=== PATIENT | female | born 1940 | race Caucasian/White ===

== ENCOUNTER 2018-12-16 17:13 | Emergency (ER) | payer MEDICARE, OTHER ==
[~2018-12-16] VITALS: Ht 167.6 cm; Wt 124.7 kg
--- NOTE | 2018-12-16 17:59 | ED Upper Extremity ---
General Chief Complaint: Upper Extremity Stated Complaint: LT ARM PAIN Source: patient Exam Limitations: no limitations (BAMBI PADRON DO) History of Present Illness Date Seen by Provider: Dec 16, 2018 Time Seen by Provider: 17:54 Initial Comments Patient is 78-year-old right-handed female with history of bilateral rotator cuff surgery, severe peripheral neuropathy presents with his left forearm pain and tenderness. Patient denies injury to this region. Reports pain, tenderness with palpation range of motion and movement. Forearm is diffusely tender, pain has some localization radial aspect of the midforearm. Patient is taking ibuprofen 800 mg 3 times daily without relief of symptoms. Symptom onset was 2 days ago. Onset: last week Pain/Injury Location: left shoulder, left forearm Method of Injury: unknown Modifying Factors: Improves With Movement, Improves With Pain Medication (BAMBI PDARON DO) Allergies and Home Medications Allergies Coded Allergies: metronidazole (Unverified Adverse Reaction, Mild, N/V, 12/16/18) latex (Unverified Adverse Reaction, Unknown, hives, 12/16/18) Uncoded Allergies: LEVOFLOXACIN (Adverse Reaction, Mild, hives, itching, 12/16/18) Home Medications Gabapentin 300 Mg Capsule, 300 MG PO UD Take 1 pill by mouth in the morning and 1 pill at mid day, then 2 pills at bedtime. Prescribed by: ALESSANDRO JEAN on 12/16/182031 Ibuprofen 800 Mg Tablet, 800 MG PO TID PRN for PAIN-MILD TO MODERATE Prescribed by: ALESSANDRO JEAN on 12/16/182031 Patient Home Medication List Home Medication List Reviewed: Yes (BAMBI PADRON DO) Review of Systems Constitutional: see HPI EENTM: see HPI Respiratory: see HPI Cardiovascular: see HPI Genitourinary: see HPI Musculoskeletal: see HPI Skin: see HPI Psychiatric/Neurological: Anxiety (BAMBI PADRON DO) Past Nkdabne-Ovttfi-Oputxb Hx Past Med/Social Hx: Reviewed Nursing Past Med/Soc Hx (BAMBI PADRON DO) Patient Social History Alcohol Use: Rarely Uses Recreational Drug Use: No Smoking Status: Never a Smoker 2nd Hand Smoke Exposure: No Recent Foreign Travel: No Contact w/Someone Who Travel: No Recent Hopitalizations: No Physical Abuse: No Sexual Abuse: No Mistreated: No Fear: No (BAMBI PADRON DO) Seasonal Allergies Seasonal Allergies: No (BAMBI PADRON DO) Past Medical History Surgeries: Yes (CERVICAL DISC SURGERY, BILAT ROTATOR CUFF, FOOT SURGERY) Appendectomy, Gallbladder, Hysterectomy, Orthopedic Cardiac: No Neurological: Yes (SEVERE DIABETIC NEUROPATHY HANDS/FEET) Neuropathy Genitourinary: No Gastrointestinal: No Musculoskeletal: No Endocrine: No HEENT: No Cancer: No Psychosocial: No Integumentary: Yes (SORES AND SCABS GENERALIZED) Recent Skin Changes Blood Disorders: No (BAMBI PADRON DO) Physical Exam Vital Signs Vital Signs - First Documented 12/16/18 17:30 Temp 98.4 Pulse 82 Resp 20 B/P (MAP) 140/68 (92) Pulse Ox 95 O2 Delivery Room Air (ALESSANDRO JEAN MD) Vital Signs Capillary Refill : (BAMBI PADRON DO) Height, Weight, BMI Height: '" Weight: lbs. oz. kg; BMI Method: General Appearance: mild distress (secondary pain) HEENT: PERRL/EOMI, normal ENT inspection Neck: full range of motion Respiratory: lungs clear Gastrointestinal: soft Shoulder: limited ROM, pain Elbow/Forearm: Left (left forearm, no bruising abrasions or dork deformities. 4 Superficial abrasions over the extensor surface of that forearm. Extensive soft tissue pain, tenderness of the entire forearm with incrased pain over readial aspect of mid forearm,), abrasions, pain, soft tissue tenderness, swelling Wrist: Yes normal inspection ( dorsal surface. Neurovascularly intact) Hand: non-tender Neurologic/Psychiatric: alert (BAMBI PADRON DO) Progress/Results/Core Measures Results/Orders Lab Results Laboratory Tests Test 12/16/18 18:12 Range/Units White Blood Count 8.6 4.3-11.0 10^3/uL Red Blood Count 4.22 L 4.35-5.85 10^6/uL Hemoglobin 12.9 11.5-16.0 G/DL Hematocrit 39 35-52 % Mean Corpuscular Volume 93 80-99 FL Mean Corpuscular Hemoglobin 31 25-34 PG Mean Corpuscular Hemoglobin Concent 33 32-36 G/DL Red Cell Distribution Width 12.9 10.0-14.5 % Platelet Count 238 130-400 10^3/uL Mean Platelet Volume 9.8 7.4-10.4 FL Neutrophils (%) (Auto) 53 42-75 % Lymphocytes (%) (Auto) 34 12-44 % Monocytes (%) (Auto) 7 0-12 % Eosinophils (%) (Auto) 6 0-10 % Basophils (%) (Auto) 0 0-10 % Neutrophils # (Auto) 4.6 1.8-7.8 X 10^3 Lymphocytes # (Auto) 2.9 1.0-4.0 X 10^3 Monocytes # (Auto) 0.6 0.0-1.0 X 10^3 Eosinophils # (Auto) 0.5 H 0.0-0.3 10^3/uL Basophils # (Auto) 0.0 0.0-0.1 10^3/uL Sodium Level 144 135-145 MMOL/L Potassium Level 4.7 3.6-5.0 MMOL/L Chloride Level 103 98-107 MMOL/L Carbon Dioxide Level 29 21-32 MMOL/L Anion Gap 12 5-14 MMOL/L Blood Urea Nitrogen 23 H 7-18 MG/DL Creatinine 0.94 0.60-1.30 MG/DL Estimat Glomerular Filtration Rate 58 BUN/Creatinine Ratio 24 Glucose Level 295 H 70-105 MG/DL Calcium Level 9.4 8.5-10.1 MG/DL (ALESSANDRO JEAN MD) My Orders Orders - ALESSANDRO JEAN MD Ketorolac Injection (Toradol Injection) (12/16/18 20:30) Orthopedic Equiment (12/16/18 20:32) (ALESSANDRO JEAN MD) Medications Given in ED Current Medications Medications Dose Ordered Sig/Annie Route Start Time Stop Time Status Last Admin Dose Admin Ketorolac Tromethamine 60 mg ONCE ONCE IM 12/16/18 20:30 12/16/18 20:31 DC 12/16/18 20:38 60 MG Oxycodone HCl 10 mg ONCE ONCE PO 12/16/18 18:15 12/16/18 18:16 DC 12/16/18 18:00 10 MG (ALESSANDRO JEAN MD) Vital Signs/I&O 12/16/18 12/16/18 12/16/18 17:30 18:00 20:45 Temp 98.4 98.4 97.2 Pulse 82 72 Resp 20 18 B/P (MAP) 140/68 (92) 170/54 (92) Pulse Ox 95 93 O2 Delivery Room Air Room Air (ALESSANDRO JEAN MD) Progress Progress Note #1: Time: 18:00 Progress Note I assumed care from Dr. Padron at shift change. Patient has labs and xray pending. Progress Note #2: Time: 19:48 Progress Note When I went in to review results with the patient she states that the oxycodone was not helping with her pain at all. She was advised that the x-rays were not showing any acute bony injury. She also had no elevation of her white count show infection. Her electrolytes were all stable. She did have an elevated glucose over 300 but patient states that that's normal for her. I advised her that this is consistent with nerve pain. Whether she has flared up her pinched nerve in her neck or the rotator cuff injury but her neuropathy is seeming to cause the pain. I don't have any great medicines to control nerve pain. She is already on neurontin and I could try increasing that. I had a lengthy discussion of almost 30 minutes of reviewing possible treatments with her. She was tearful at times and said that she had little to no help at home. I advised her she may need to go to an assisted living facility. She seemed resistant to that. She also said that she could not get into the clinic easily. I advised her that what I can do to help from the ED was very limited and what I can do to try and help for this chronic issue in the ER was limited. I did give her some medicine to try and help short-term for tonight as well as a sling that might help as well as increasing her gabapentin or Neurontin. Beyond that when discussing possibly changing her medications she mentioned that she had allergies or reacted to other medicines that I brought up to her. At that point I told her that I really couldn't change her medicines and she would have to to work with the clinic if she has had allergies and reactions in the past. I also mentioned she might be able to see Pain management for nerve blocks or injections too. But again this would have to happen from the clinic. (ALESSANDRO JEAN MD) Diagnostic Imaging Diagonstic Imaging: Xray Plain Films/CT/US/NM/MRI: forearm Comments NAME: TOMAS TELLO [facility] REC#: [id number] PT STATUS: REG ER : 1940 PHYSICIAN: BAMBI PADRON DO ADMIT DATE: 12/16/18/ER FS Signed Date of Exam:12/16/18 FOREARM 2 VIEW LEFT INDICATION: Severe left arm pain. Time of exam: 5:54 PM Two views of the left forearm were obtained. The alignment at the elbow and wrist appears normal. No fracture or dislocation is seen. Soft tissues are unremarkable. IMPRESSION: No acute bony abnormality is detected. Dictated by: Dictated on workstation # [id number] Dict: 12/16/181807 Trans: 12/16/181814 [facility] [id number] Interpreted by: DELIO COATES MD Electronically signed by: DELIO COATES MD 12/16/181814 Reviewed: Reviewed by Me (ALESSANDRO JEAN MD) Departure Communication (Admissions) Patient's pain addressed. X-ray will be obtained to rule occult injury. Basic labs pending. Care endorsed oncoming ER. Routine 100. (BAMBI PADRON DO) Impression Primary Impression: Pain in left forearm Additional Impressions: Neuropathic pain of left forearm Diabetic neuropathy Qualified Codes: E10.42 - Type 1 diabetes mellitus with diabetic polyneuropathy Disposition: HOME, SELF-CARE Condition: Stable Departure-Patient Inst. Decision time for Depature: 20:25 (ALESSANDRO JEAN MD) Referrals: NO,LOCAL PHYSICIAN (PCP) Primary Care Physician Patient Instructions: Diabetic Neuropathy (DC), Nerve Damage Caused by Diabetes Add. Discharge Instructions: Increase your Gabapentin (Neurontin) from 300 mg three times a day to taking 600 mg or 2 pills at bedtime and the usual 300 mg in the morning and mid day. Continue with the Ibuprofen to help with pain and inflammation. See the clinic about follow up as they may need you to see Pain Management to get injections in your neck or shoulder to help with your pain as well. You could try the sling for your arm as well to see if resting your shoulder helps with your pain All discharge instructions reviewed with patient and/or family. Voiced understanding. Scripts Gabapentin (Gabapentin) 300 Mg Capsule 300 MG PO UD for Neuropathy Pain for 30 Days, #120 CAP 0 Refills Take 1 pill by mouth in the morning and 1 pill at mid day, then 2 pills at bedtime. Prov: ALESSANDRO JEAN MD 12/16/18 Ibuprofen (Ibuprofen) 800 Mg Tablet 800 MG PO TID PRN for PAIN-MILD TO MODERATE for 30 Days, #90 TAB 0 Refills Prov: ALESSANDRO JEAN MD 12/16/18 BAMBI PADRON DO Dec 16, 2018 17:59 ALESSANDRO JEAN MD Dec 16, 2018 18:21
[2018-12-16] MEDS ORDERED: oxyCODONE/APAP 10/325MG (PERCOCET 10) TABLET PO ONE (18:00)
--- NOTE | 2018-12-16 18:11 | Diagnostic Imaging Report ---
INDICATION: Severe left arm pain. Time of exam: 5:54 PM Two views of the left forearm were obtained. The alignment at the elbow and wrist appears normal. No fracture or dislocation is seen. Soft tissues are unremarkable. IMPRESSION: No acute bony abnormality is detected. Dictated by: Dictated on workstation # [id number]
[2018-12-16 18:19] LABS: BASOPHILS % (AUTO) 0 % (0-10); EOSINOPHILS % (AUTO) 6 % (0-10); HEMATOCRIT 39 % (35-52); HEMOGLOBIN 12.9 G/DL (11.5-16.0); LYMPHOCYTES # (AUTO) 2.9 X 10^3 (1.0-4.0); LYMPHOCYTES % (AUTO) 34 % (12-44); MEAN CORPUSCULAR HEMOGLOBIN 31 PG (25-34); MEAN CORPUSCULAR HGB CONC 33 G/DL (32-36); MEAN CORPUSCULAR VOLUME 93 FL (80-99); MEAN PLATELET VOLUME 9.8 FL (7.4-10.4); MONOCYTES # (AUTO) 0.6 X 10^3 (0.0-1.0); MONOCYTES % (AUTO) 7 % (0-12); NEUTROPHILS # (AUTO) 4.6 X 10^3 (1.8-7.8); NEUTROPHILS % (AUTO) 53 % (42-75); PLATELET COUNT 238 10^3/uL (130-400); RED CELL DISTRIBUTION WIDTH 12.9 % (10.0-14.5); WHITE BLOOD COUNT 8.6 10^3/uL (4.3-11.0)
[2018-12-16] MEDS ORDERED: POTA10TA36 (18:19)
[2018-12-16] MEDS ORDERED: IBUP-1780 (18:19)
[2018-12-16] MEDS ORDERED: INSU100I21 (18:19)
[2018-12-16] MEDS ORDERED: FLUT16SP22 (18:19)
[2018-12-16] MEDS ORDERED: LISI10TA2 (18:19)
[2018-12-16] MEDS ORDERED: LISI2.5T (18:19)
[2018-12-16] MEDS ORDERED: GABA-488 (18:19)
[2018-12-16 18:20] LABS: EOSINOPHILS # (AUTO) 0.5 10^3/uL (0.0-0.3)
[2018-12-16 18:50] LABS: CALCIUM 9.4 MG/DL (8.5-10.1); CREATININE SERUM 0.94 MG/DL (0.60-1.30); POTASSIUM 4.7 MMOL/L (3.6-5.0)
--- NOTE | 2018-12-16 19:00 | NUR ---
REPORT TO SERGIO DEJESUS.
[2018-12-16] MEDS ORDERED: KETOROLAC 60 MG/2 ML VIAL IM ONE (20:30)
[2018-12-16] MEDS ORDERED: GABA-488 PO (20:32)
[2018-12-16] MEDS ORDERED: IBUP-1780 PO (20:32)
[2018-12-16 20:45] VITALS: BP 170/54
== END 2018-12-16 21:08 | disposition home or self-care (01) ==
LOC: EDUNIT# 17:13 → ER FS 17:15
DX: M79.632 Pain in left forearm (principal); E11.40 Type 2 diabetes mellitus with diabetic neuropathy, unspecified; Z88.8 Allergy status to other drugs, medicaments and biological substances; Z91.040 Latex allergy status; Z88.1 Allergy status to other antibiotic agents; Z98.890 Other specified postprocedural states; Z90.710 Acquired absence of both cervix and uterus; Z90.49 Acquired absence of other specified parts of digestive tract
CPT/HCPCS: 36415; 73090; 80048; 85025

== ENCOUNTER → 2018-12-30 | Outpatient (CLI) | payer MEDICARE ==
[~2018-12-30] MED LIST: FLUT16SP22; GABA-488; GABA-488 PO; IBUP-1780; IBUP-1780 PO; INSU100I21; LISI10TA2; LISI2.5T; POTA10TA36
--- NOTE | 2018-12-30 15:31 | Diagnostic Imaging Report ---
INDICATION: Left elbow pain. AP, oblique, lateral views of left elbow are obtained. No fracture or acute bony abnormality seen. There is degenerative change to the elbow joint with joint space narrowing and osteophyte formation. There is no overt joint effusion. IMPRESSION: Degenerative findings left elbow with no acute bony abnormality. Dictated by: Dictated on workstation # [id number]
--- NOTE | 2018-12-30 15:36 | Diagnostic Imaging Report ---
INDICATION: Pain. FINDINGS: There are moderate osteoarthritic changes of the left glenohumeral joint. There is no fracture or dislocation. Left lung is clear. Soft tissues are unremarkable. IMPRESSION: Moderate osteoarthritic change of the glenohumeral joint. No acute fracture or dislocation. Dictated by: Dictated on workstation # [id number]
== END ==
LOC: RAD FS 14:46
PROVIDERS: ATTEND Nurse Practitioner Family
DX: M19.022 Primary osteoarthritis, left elbow (principal); M19.012 Primary osteoarthritis, left shoulder
CPT/HCPCS: 73060; 73080

== ENCOUNTER 2019-04-10 16:55 | Inpatient (IN) | payer MEDICARE ==
[~2019-04-10] VITALS: Ht 167.6 cm; Wt 124.1 kg
[~2019-04-10 16:55] MED LIST changes: -INSU100I21; +INSU100I21 SC; -LISI10TA2; +LISI10TA2 PO; -LISI2.5T; +LISI2.5T PO; -POTA10TA36; +POTA10TA36 PO
--- OUTSIDE RECORDS SUMMARY | 2019-04-10 17:00 | XMS REPORT | Continuity of Care Document ---
Author Organization Unknown Address Unknown Phone Unavailable Allergies Active Description Code Type Severity Reaction Onset Reported/Identified Relationship to Patient Clinical Status Yes LEVOFLOXACIN LEVOFLOXACIN Mild hives, itching 12/16/2018 Yes metronidazole [id number] Drug Allergy Mild N/V 12/16/2018 Yes latex [id number] Drug Allergy Unknown hives 12/16/2018 Yes latex [id number] Drug Allergy Unknown N/A 12/16/2018 Medications There is no data. Problems Date Dx Coded Attending Type Code Diagnosis Diagnosed By 12/16/2018 ALESSANDRO JEAN MD, Ot E11.40 TYPE 2 DIABETES MELLITUS WITH DIABETIC N 12/16/2018 ALESSANDRO JEAN MD, Ot M79.632 PAIN IN LEFT FOREARM 12/16/2018 ALESSANDRO JEAN MD, Ot Z88.1 ALLERGY STATUS TO OTHER ANTIBIOTIC AGENT 12/16/2018 ALESSANDRO JEAN MD, Ot Z88.8 ALLERGY STATUS TO OTH DRUG/MEDS/BIOL SUB 12/16/2018 ALESSANDRO JEAN MD Ot Z90.49 ACQUIRED ABSENCE OF OTHER SPECIFIED PART 12/16/2018 ALESSANDRO JEAN MD Ot Z90.710 ACQUIRED ABSENCE OF BOTH CERVIX AND UTER 12/16/2018 ALESSANDRO JEAN MD Ot Z91.040 LATEX ALLERGY STATUS 12/16/2018 ALESSANDRO JEAN MD Ot Z98.890 OTHER SPECIFIED POSTPROCEDURAL STATES 12/18/2018 ALESSANDRO JEAN MD, Ot E11.40 TYPE 2 DIABETES MELLITUS WITH DIABETIC N 12/18/2018 ALESSANDRO JEAN MD, Ot M79.632 PAIN IN LEFT FOREARM 12/18/2018 ALESSANDRO JEAN MD, Ot Z88.1 ALLERGY STATUS TO OTHER ANTIBIOTIC AGENT 12/18/2018 ALESSANDRO JEAN MD, Ot Z88.8 ALLERGY STATUS TO OTH DRUG/MEDS/BIOL SUB 12/18/2018 ALESSANDRO JEAN MD, Ot Z90.49 ACQUIRED ABSENCE OF OTHER SPECIFIED PART 12/18/2018 ALESSANDRO JEAN MD Ot Z90.710 ACQUIRED ABSENCE OF BOTH CERVIX AND UTER 12/18/2018 ALESSANDRO JEAN MD, Ot Z91.040 LATEX ALLERGY STATUS 12/18/2018 ALESSANDRO JEAN MD, Ot Z98.890 OTHER SPECIFIED POSTPROCEDURAL STATES 12/25/2018 ALESSANDRO JEAN MD, Ot E11.40 TYPE 2 DIABETES MELLITUS WITH DIABETIC N 12/25/2018 ALESSANDRO JEAN MD, Ot M79.632 PAIN IN LEFT FOREARM 12/25/2018 ALESSANDRO JEAN MD, Ot Z88.1 ALLERGY STATUS TO OTHER ANTIBIOTIC AGENT 12/25/2018 ALESSANDRO JEAN MD, Ot Z88.8 ALLERGY STATUS TO OTH DRUG/MEDS/BIOL SUB 12/25/2018 ALESSANDRO JEAN MD, Ot Z90.49 ACQUIRED ABSENCE OF OTHER SPECIFIED PART 12/25/2018 ALESSANDRO JEAN MD, Ot Z90.710 ACQUIRED ABSENCE OF BOTH CERVIX AND UTER 12/25/2018 ALESSANDRO JEAN MD, Ot Z91.040 LATEX ALLERGY STATUS 12/25/2018 ALESSANDRO JEAN MD, Ot Z98.890 OTHER SPECIFIED POSTPROCEDURAL STATES 12/31/2018 ALVINO KOHLER CYTOTECHNOLOGIST Ot M19.012 PRIMARY OSTEOARTHRITIS, LEFT SHOULDER 12/31/2018 ALVINO KOHLER S CYTOTECHNOLOGIST Ot M19.022 PRIMARY OSTEOARTHRITIS, LEFT ELBOW 01/20/2019 ALVINO KOHLER S CYTOTECHNOLOGIST Ot M19.012 PRIMARY OSTEOARTHRITIS, LEFT SHOULDER 01/20/2019 ALVINO KOHLER S CYTOTECHNOLOGIST Ot M19.022 PRIMARY OSTEOARTHRITIS, LEFT ELBOW Procedures There is no data. Results Test Result Range Complete blood count (CBC) with automated white blood cell (WBC) differential - 12/16/18 18:12 Blood leukocytes automated count (number/volume) 8.6 10*3/uL 4.3-11.0 Blood erythrocytes automated count (number/volume) 4.22 10*6/uL 4.35-5.85 Venous blood hemoglobin measurement (mass/volume) 12.9 g/dL 11.5-16.0 Blood hematocrit (volume fraction) 39 % 35-52 Automated erythrocyte mean corpuscular volume 93 [foz_us] 80-99 Automated erythrocyte mean corpuscular hemoglobin (mass per erythrocyte) 31 pg 25-34 Automated erythrocyte mean corpuscular hemoglobin concentration measurement (mass/volume) 33 g/dL 32-36 Automated erythrocyte distribution width ratio 12.9 % 10.0- 14.5 Automated blood platelet count (count/volume) 238 10*3/uL 130-400 Automated blood platelet mean volume measurement 9.8 [foz_us] 7.4-10.4 Automated blood neutrophils/100 leukocytes 53 % 42-75 Automated blood lymphocytes/100 leukocytes 34 % 12-44 Blood monocytes/100 leukocytes 7 % 0-12 Automated blood eosinophils/100 leukocytes 6 % 0-10 Automated blood basophils/100 leukocytes 0 % 0-10 Blood neutrophils automated count (number/volume) 4.6 10*3 1.8-7.8 Blood lymphocytes automated count (number/volume) 2.9 10*3 1.0-4.0 Blood monocytes automated count (number/volume) 0.6 10*3 0.0- 1.0 Automated eosinophil count 0.5 10*3/uL 0.0-0.3 Automated blood basophil count (count/volume) 0.0 10*3/uL 0.0-0.1 Whole blood basic metabolic panel - 12/16/18 18:12 Serum or plasma sodium measurement (moles/volume) 144 mmol/L 135-145 Serum or plasma potassium measurement (moles/volume) 4.7 mmol/L 3.6-5.0 Serum or plasma chloride measurement (moles/volume) 103 mmol/L 98-107 Carbon dioxide 29 mmol/L 21-32 Serum or plasma anion gap determination (moles/volume) 12 mmol/L 5-14 Serum or plasma urea nitrogen measurement (mass/volume) 23 mg/dL 7-18 Serum or plasma creatinine measurement (mass/volume) 0.94 mg/dL 0.60-1.30 Serum or plasma urea nitrogen/creatinine mass ratio 24 NRG Serum or plasma creatinine measurement with calculation of estimated glomerular filtration rate 58 NRG Serum or plasma glucose measurement (mass/volume) 295 mg/dL 70-105 Serum or plasma calcium measurement (mass/volume) 9.4 mg/dL 8.5-10.1 Encounters ACCT No. Visit Date/Time Discharge Status Pt. Type Provider Facility Loc./Unit Complaint [id number] 12/30/2018 14:46:00 12/30/2018 23:59:59 CLS Outpatient ALVINO KOHLER APRN [facility] RAD FS M79.622 M25.522 [id number] 12/16/2018 17:15:00 12/16/2018 21:08:00 DIS Emergency MIRANDA ENGLAND, ALESSANDRO Steel [facility] ER FS LT ARM PAIN [id number] 04/10/2019 16:56:00 ACT Emergency SINAI ALSTON DO [facility] ER FS SOB,COUGH,FEVER
--- NOTE | 2019-04-10 17:10 | ED Dyspnea ---
General Chief Complaint: Respiratory Problems Stated Complaint: SOB,COUGH,FEVER Source of Information: Patient, EMS Exam Limitations: No Limitations (ALECIA RAWLS DO) History of Present Illness Date Seen by Provider: Apr 10, 2019 Time Seen by Provider: 16:58 Initial Comments The patient is a pleasant 79-year-old female who arrives via EMS for evaluation of shortness of breath, cough, and wheezing for a few weeks. She arrives from urgent care where she presented for shortness of breath. She was noted to be wheezing and had an x-ray performed and was given a breathing treatment and steroids. The provider was concerned that the patient needed additional treatment and/or workup and called for EMS transport. EMS reports the patient was on 2 L nasal cannula oxygen when I arrived and never dropped below 97% oxygen. The patient was receiving a breathing treatment upon arrival in the emergency department. She denies chest pain, abdominal or back pain, diapho resis, nausea or vomiting, palpitations, dizziness, or syncope. She does report cough and fever over the last few days. She is a history of COPD, diabetes, and hypertension. Per EMS and the urgent care documentation the patient had been complaining of shortness of breath cough and wheezing over the last 2 weeks. She had been given a course of azithromycin, 2 doses of prednisone, and an inhaler but her symptoms have not been improving. She was given a breathing treatment as well as Solu- Medrol at the urgent care and the plan was to discharge her home. Apparently while she was in the waiting room she seemed to have more difficulty breathing and was tachypneic. EMS was called at that point. Timing/Duration: 24 Hours Severity: Moderate Activities at Onset: None Prior Episodes/Possible Cause: Occasional Episodes Modifying Factors: Improves With Albuterol Nebulizer Associated Symptoms: Cough, Fever, Wheezing (ALECIA RAWLS DO) Allergies and Home Medications Allergies Coded Allergies: metronidazole (Unverified Adverse Reaction, Mild, N/V, 12/16/18) latex (Unverified Adverse Reaction, Unknown, hives, 12/16/18) Uncoded Allergies: LEVOFLOXACIN (Adverse Reaction, Mild, hives, itching, 12/16/18) Home Medications Gabapentin 300 Mg Capsule, 300 MG PO UD Take 1 pill by mouth in the morning and 1 pill at mid day, then 2 pills at bedtime. Prescribed by: ALESSANDRO JEAN on 12/16/182031 Ibuprofen 800 Mg Tablet, 800 MG PO TID PRN for PAIN-MILD TO MODERATE Prescribed by: ALESSANDRO JEAN on 12/16/182031 Patient Home Medication List Home Medication List Reviewed: Yes (ALECIA RAWLS DO) Review of Systems Review of Systems Constitutional: fever EENTM: no symptoms reported Respiratory: cough, dyspnea on exertion, short of breath, wheezing Cardiovascular: no symptoms reported Gastrointestinal: no symptoms reported Genitourinary: no symptoms reported Musculoskeletal: no symptoms reported Skin: no symptoms reported Psychiatric/Neurological: No Symptoms Reported Hematologic/Lymphatic: No Symptoms Reported (ALECIA RAWLS DO) All Other Systems Reviewed Negative Unless Noted: Yes (ALECIA RAWLS DO) Past Sgsdhfq-Zzdqmp-Mavyrw Hx Patient Social History 2nd Hand Smoke Exposure: No Recent Foreign Travel: No Contact w/Someone Who Travel: No Recent Hopitalizations: No (ALECIA RAWLS DO) Seasonal Allergies Seasonal Allergies: Yes (ALLERGIC RHINITIS) (ALECIA RAWLS DO) Past Medical History Surgeries: Yes (CERVICAL DISC SURGERY, BILAT ROTATOR CUFF, FOOT SURGERY) Appendectomy, Gallbladder, Hysterectomy, Orthopedic Respiratory: Yes COPD Cardiac: Yes Hypertension Neurological: Yes (SEVERE DIABETIC NEUROPATHY HANDS/FEET, POST HERPETIC NEURALGIA) Neuropathy Genitourinary: No Gastrointestinal: No Musculoskeletal: No (OSTEOARTHRITIS) Endocrine: Yes (DM TYPE II, MORBID OBESITY) Diabetes, Insulin dep HEENT: No Cancer: No Psychosocial: Yes Depression Integumentary: Yes (SORES AND SCABS GENERALIZED) Recent Skin Changes, Psoriasis Blood Disorders: No (ALECIA RAWLS DO) Physical Exam Vital Signs Vital Signs - First Documented 04/10/19 04/10/19 16:59 17:15 Temp 98.4 Pulse 91 Resp 30 B/P (MAP) 124/56 (78) Pulse Ox 94 O2 Delivery Room Air FiO2 93 (ALESSANDRO JEAN MD) Vital Signs Capillary Refill : (ALECIA RAWLS DO) Height, Weight, BMI Height: 5'6.00" Weight: 275lbs. oz. 124.821718mh; BMI Method:Stated General Appearance: No Apparent Distress, WD/WN HEENT: PERRL/EOMI, Normal ENT Inspection Neck: Full Range of Motion, Normal Inspection, Non Tender, Supple Respiratory: Chest Non Tender, No Accessory Muscle Use, Respiratory Distress (mild), Wheezing Cardiovascular: Regular Rate, Rhythm, No JVD, Normal Peripheral Pulses Gastrointestinal: No Pulsatile Mass, Non Tender Extremity: Normal Capillary Refill, Non Tender, Pedal Edema (2+ b/l) Neurologic/Psychiatric: Alert, Oriented x3, No Motor/Sensory Deficits, Normal Mood/Affect, bond clerk II-XII Norm as Tested Skin: Normal Color, Warm/Dry Lymphatic: No Adenopathy (ALECIA RAWLS DO) Focused Exam Lactate Level 04/10/19 17:05: Lactic Acid Level 2.64*H (ALESSANDRO JEAN MD) Lactic Acid Level Laboratory Tests Test 04/10/19 17:05 Lactic Acid Level 2.64 MMOL/L (0.50-2.00) *H (ALESSANDRO JEAN MD) Progress/Results/Core Measures Results/Orders Lab Results Laboratory Tests Test 04/10/19 17:05 04/10/19 18:14 04/10/19 18:29 Range/Units White Blood Count 11.8 H 4.3-11.0 10^3/uL Red Blood Count 4.04 L 4.35-5.85 10^6/uL Hemoglobin 12.2 11.5-16.0 G/DL Hematocrit 38 35-52 % Mean Corpuscular Volume 93 80-99 FL Mean Corpuscular Hemoglobin 30 25-34 PG Mean Corpuscular Hemoglobin Concent 32 32-36 G/DL Red Cell Distribution Width 12.9 10.0-14.5 % Platelet Count 235 130-400 10^3/uL Mean Platelet Volume 10.0 7.4-10.4 FL Neutrophils (%) (Auto) 47 42-75 % Lymphocytes (%) (Auto) 40 12-44 % Monocytes (%) (Auto) 6 0-12 % Eosinophils (%) (Auto) 7 0-10 % Basophils (%) (Auto) 0 0-10 % Neutrophils # (Auto) 5.6 1.8-7.8 X 10^3 Lymphocytes # (Auto) 4.7 H 1.0-4.0 X 10^3 Monocytes # (Auto) 0.7 0.0-1.0 X 10^3 Eosinophils # (Auto) 0.8 H 0.0-0.3 10^3/uL Basophils # (Auto) 0.0 0.0-0.1 10^3/uL Sodium Level 142 135-145 MMOL/L Potassium Level 4.1 3.6-5.0 MMOL/L Chloride Level 101 98-107 MMOL/L Carbon Dioxide Level 27 21-32 MMOL/L Anion Gap 14 5-14 MMOL/L Blood Urea Nitrogen 28 H 7-18 MG/DL Creatinine 0.93 0.60-1.30 MG/DL Estimat Glomerular Filtration Rate 58 BUN/Creatinine Ratio 30 Glucose Level 258 H 70-105 MG/DL Lactic Acid Level 2.64 *H 0.50-2.00 MMOL/L Calcium Level 9.0 8.5-10.1 MG/DL Corrected Calcium 9.4 8.5-10.1 MG/DL Magnesium Level 1.8 1.8-2.4 MG/DL Total Bilirubin 0.2 0.1-1.0 MG/DL Aspartate Amino Transf (AST/SGOT) 25 5-34 U/L Alanine Aminotransferase (ALT/SGPT) 22 0-55 U/L Alkaline Phosphatase 106 40-136 U/L Troponin I < 0.30 <0.30 NG/ML Pro-B-Type Natriuretic Peptide 214.6 H <75.0 PG/ML Total Protein 6.3 L 6.4-8.2 GM/DL Albumin 3.5 3.2-4.5 GM/DL Blood Gas Puncture Site RT RAD Blood Gas Patient Temperature 38.9 Arterial Blood pH 7.44 H 7.37-7.43 Arterial Blood Partial Pressure CO2 44 35-45 MMHG Arterial Blood Partial Pressure O2 64 L 79-93 MMHG Arterial Blood HCO3 30 H 23-27 MMOL/L Arterial Blood Total CO2 31.3 H 21.0-31.0 MMOL/L Arterial Blood Oxygen Saturation 93 L 94-100 % Arterial Blood Base Excess 5.1 H -2.5-2.5 MMOL/L Chance Test YES-POS Blood Gas Ventilator Setting NO Blood Gas Inspired Oxygen ROOM AIR Urine Color YELLOW Urine Clarity CLEAR Urine pH 5.5 5-9 Urine Specific Morton 1.015 L 1.016-1.022 Urine Protein NEGATIVE NEGATIVE Urine Glucose (UA) 2+ H NEGATIVE Urine Ketones NEGATIVE NEGATIVE Urine Nitrite POSITIVE H NEGATIVE Urine Bilirubin NEGATIVE NEGATIVE Urine Urobilinogen 0.2 NORMAL MG/DL Urine Leukocyte Esterase NEGATIVE NEGATIVE Urine RBC (Auto) NEGATIVE NEGATIVE Urine RBC NONE /HPF Urine WBC 5-10 H /HPF Urine Squamous Epithelial Cells 5-10 /HPF Urine Crystals NONE /LPF Urine Bacteria LARGE H /HPF Urine Casts NONE /LPF Urine Mucus NEGATIVE /LPF Urine Culture Indicated YES (ALESSANDRO JEAN MD) My Orders Orders - ALESSANDRO JEAN MD Ua Culture If Indicated (04/10/19 18:22) Albuterol Pre-Mix Nebs (Rt) (Proventil (04/10/19 18:47) Svn Small Volume Nebulizer (04/10/19 18:47) Urine Culture (04/10/19 18:29) (ALESSANDRO JEAN MD) Medications Given in ED Current Medications Medications Dose Ordered Sig/Annie Route Start Time Stop Time Status Last Admin Dose Admin Albuterol/ Ipratropium 3 ml ONCE ONCE INH 04/10/19 17:45 04/10/19 17:47 DC 04/10/19 17:53 3 ML Azithromycin 500 mg/Sodium Chloride 250 ml @ 250 mls/hr ONCE ONCE IV 04/10/19 17:45 04/10/19 18:44 DC 04/10/19 18:02 250 MLS/HR Ceftriaxone Sodium 1000 mg/ Sterile Water 10 ml @ 200 mls/hr ONCE ONCE IV 04/10/19 17:45 04/10/19 17:47 DC 04/10/19 18:02 200 MLS/HR (ALESSANDRO JEAN MD) Vital Signs/I&O 04/10/19 04/10/19 16:59 17:15 Temp 98.4 Pulse 91 Resp 30 B/P (MAP) 124/56 (78) Pulse Ox 94 93 O2 Delivery Room Air Room Air FiO2 93 (ALESSANDRO JEAN MD) Progress Progress Note : Progress Note @1800 - Pt care transferred to Dr. Jean at this time. Awaiting pt's response to nebulized breathing treatment, antibiotic administration, and CXR. Pt stable at this time. (ALECIA RAWLS DO) Progress Note #1: Time: 18:00 Progress Note I assumed care of the patient from Dr. Rawls at shift change. Still waiting on ABG results. Labs show mild elevation of WBC but she has been on steroids recently. She had No acute findings on 2 view CXR. Her O2 sat is 91-93% on RA with some respiratory distress and breathing 22-24 breaths per minute. Progress Note #2: Time: 18:47 Progress Note When reviewed with the patient she was very winded with just minimal exertion and movement in the bed. She was stating that she uses oxygen when she sleeps at home. She does not feel that the steroids and antibiotics that she has used in the last 2 weeks had helped her and that is why she had gone to the urgent care today. She was still feeling very winded even with minimal exertion here in the ED and complains of chest tightness. Her blood gas was showing a normal pH and her PO2 was low at 63. Her PCO2 was in the normal range and not elevated. Since she has failed outpatient attempts to manage her COPD exacerbation will check with Hospitalist about admit for management of the COPD exacerbation. Progress Note #3: Time: 19:08 Progress Note D/w Dr. Knox as the Hospitalist for [facility] about admit. He requested to have her get a PE protocol CT chest to ensure that we are not missing anything on her chest that might be causing her shortness of breath since she had not responded to the outpatient treatments for the COPD. Provided that looks ok then she can be admitted for COPD exacerbation and UTI. I asked if he would want to have her on the Sepsis protocol with her mildly elevated Lactic acid and mild findings of Cystitis but he declined that for now. Progress Note #4: Time: 20:[address] Angio Chest came back as no PE seen. She does have some pulmonary nodules and some thyroid nodules that Radiology recommends having further evaluated at some point but these would not be causing her shortness of breath tonight. Will proceed with her admit for COPD exacerbation and Cystitis as discussed with Dr. Knox at 1908. She had complained of some indigestion and had some burping so a repeat ECG was obtained. It appeared similar to her initial ECG. She also complained of headache from her repeated coughing. so an order of morphine, zofran and Protonix was given in addition to 1 L NS bolus for her elevated lactic acid. This treatment had helped her symptoms. (ALESSANDRO JEAN MD) Comment EKG@1700 - Normal sinus rhythm, rate of 90, normal axis, no acute ischemic findings noted, no STEMI, reviewed and interpreted by myself (ALECIA RAWLS DO) EKG : EKG Time: 19:27 Rate: 100 Rhythm: S.Tach ECG Comparisson: Unchanged Comment Sinus tachycardia with a heart rate of 100 bpm. Atrial premature complexes. MI interval of 202 ms. QT interval 361 ms and a QT corrected interval 466 ms. Repolarization changes in the lateral leads. This appears similar to her first tracing from earlier today. (ALESSANDRO JEAN MD) Diagnostic Imaging Diagonstic Imaging: Xray Plain Films/CT/US/NM/MRI: chest Comments NAME: TOAMS TELLO [facility] REC#: [id number] PT STATUS: REG ER : 1940 PHYSICIAN: ALECIA RAWLS DO ADMIT DATE: 04/10/19/ER FS Draft Date of Exam:04/10/19 CHEST PA/LAT (2 VIEW) EXAMINATION: PA and lateral chest at 05:23 p.m. INDICATION: Shortness of breath. FINDINGS: There are no prior studies available for comparison. The heart size is within normal limits. There are a few crowded bronchovascular markings in both infrahilar regions, but there is no clear evidence for pneumonia or for a pleural effusion. There is no sign of failure either. The mediastinum not widened. The osseous structures are intact. IMPRESSION: There is no evidence for an acute cardiopulmonary abnormality. Dictated on workstation # [id number] Dict: 04/10/191750 Trans: 04/10/191753 [id number] Interpreted by: JACQUE MOE MD Electronically signed by: Diagonstic Imaging: CT Plain Films/CT/US/NM/MRI: chest Comments NAME: TOMAS TELLO [facility] REC#: [id number] PT STATUS: REG ER : 1940 PHYSICIAN: ALESSANDRO JEAN MD ADMIT DATE: 04/10/19/ER FS Draft Date of Exam:04/10/19 CT ANGIO CHEST W PROCEDURE: CT angiography of the chest with contrast. TECHNIQUE: Multiple contiguous axial images were obtained through the chest after uneventful bolus administration of intravenous contrast. 3D reconstructed CTA MIP acquisitions were also performed. Auto Exposure Controls were utilized during the CT exam to meet ALARA standards for radiation dose reduction. INDICATION: Shortness of air. COMPARISON: None FINDINGS: There is no CT evidence of acute pulmonary embolus to the first subsegmental division of the pulmonary arteries. Note is made of moderate calcified aortic and coronary atherosclerosis. There is also mild cardiomegaly. There is no large pericardial effusion. No pathologically enlarged or morphologically abnormal adenopathy is seen within the mediastinum, mellissa, nor axilla. Note is made of hypodense left thyroid lesion that measures 2.4 x 1.8 cm. Evaluation of the lung harper demonstrates no focal consolidation, large effusion, nor pneumothorax. There is mild dependent atelectasis posteriorly, right greater than left. 12 x 6 mm nodular densities identified within the lateral margins of the right lower lobe (image 63, series 2). Additional 4 and 5 mm subpleural micronodules are also noted within the lateral margins of the superior segment of the right lower lobe slightly more superiorly. A 4 mm juxtapleural micronodule is also noted within the lateral margins of the right upper lobe (image 36, series 2). Osseous structures show no acute abnormalities. Advanced degenerative changes of thoracic spine are noted. Included portions of the upper abdomen are unremarkable. IMPRESSION: 1. No CTA evidence of acute pulmonary embolus to the first subsegmental division of the pulmonary arteries. 2. Mild cardiomegaly. 3. Multiple right-sided pulmonary nodules and micronodules, largest of which is seen within the right lower lobe. Further characterization with CT/PET could be attempted given its size. If CT/PET is deferred, short interval three-month followup is recommended. 4. Left-sided thyroid nodule. Further characterization with dedicated thyroid sonogram is recommended and could be performed on a nonemergent basis. Dictated on workstation # [id number] Dict: 04/10/192011 Trans: 04/10/192022 [facility] [id number] Interpreted by: ZEINA GARCIA MD Electronically signed by: (ALESSANDRO JEAN MD) Departure Communication (Admissions) Time/Spoke to Admitting Phy: 19:08 D/w Dr. Knox and provided that the CT angio chest PE protocol does not show a PE she could be admitted for COPD exacerbation and UTI. (ALESSANDRO JEAN MD) Impression Primary Impression: COPD with acute exacerbation Additional Impressions: Elevated lactic acid level Cystitis without hematuria Disposition: ADMITTED INPATIENT Condition: Stable Admissions Decision to Admit Reason: Admit from ER (General) Decision to Admit/Date: Apr 10, 2019 Time/Decision to Admit Time: 19:08 (ALESSANDRO JEAN MD) Departure-Patient Inst. Ref[place]: [facility] [place]) Primary Care Physician ALVINO KOHLER APRN (Family) Primary Care Physician ALCEIA RAWLS DO Apr 10, 2019 17:10 ALESSANDRO JEAN MD Apr 10, 2019 18:17
[2019-04-10 17:22] LABS: HEMATOCRIT 38 % (35-52); HEMOGLOBIN 12.2 G/DL (11.5-16.0); MEAN CORPUSCULAR HEMOGLOBIN 30 PG (25-34); MEAN CORPUSCULAR HGB CONC 32 G/DL (32-36); MEAN CORPUSCULAR VOLUME 93 FL (80-99); PLATELET COUNT 235 10^3/uL (130-400); RED CELL DISTRIBUTION WIDTH 12.9 % (10.0-14.5); WHITE BLOOD COUNT 11.8 10^3/uL (4.3-11.0)
[2019-04-10 17:23] LABS: BASOPHILS % (AUTO) 0 % (0-10); EOSINOPHILS # (AUTO) 0.8 10^3/uL (0.0-0.3); EOSINOPHILS % (AUTO) 7 % (0-10); LYMPHOCYTES # (AUTO) 4.7 X 10^3 (1.0-4.0); LYMPHOCYTES % (AUTO) 40 % (12-44); MONOCYTES # (AUTO) 0.7 X 10^3 (0.0-1.0); MONOCYTES % (AUTO) 6 % (0-12); NEUTROPHILS # (AUTO) 5.6 X 10^3 (1.8-7.8); NEUTROPHILS % (AUTO) 47 % (42-75)
[2019-04-10] MEDS ORDERED: AZITHROMYCIN INJECTION 500 MG in NS (IVPB) 250 ML IV ONE (17:45)
[2019-04-10] MEDS ORDERED: RT-ALBUTEROL/IPRATROPIUM 3 ML (DUONEB) VIAL INH ONE (17:45)
[2019-04-10] MEDS ORDERED: cefTRIAXone FOR IV USE 1,000 MG in WATER (STERILE) FOR INJECTION 10 ML IV ONE (17:45)
[2019-04-10] MEDS ORDERED: NS IV 1000 ML 1,000 ML IV SCH ×2 (17:45→20:00)
--- NOTE | 2019-04-10 17:45 | NUR ---
PT REQUESTED STAFF CALL HER SON TO INFORM HIM THAT SHE IN IN THE ED. ATTEMPTS X4 TO CALL THE NUMBER GIVEN BY PT AND THE SON HAS NOT ANSWERED THE PHONE. PT INFORMED THAT WE WILL CONTINUE TO TRY AND CONTACT HIM.
[2019-04-10 17:51] LABS: CHLORIDE 101 MMOL/L (98-107); POTASSIUM 4.1 MMOL/L (3.6-5.0); SODIUM 142 MMOL/L (135-145)
[2019-04-10 17:52] LABS: ALANINE AMINOTRANSFERASE 22 U/L (0-55); ALKALINE PHOSPHATASE 106 U/L (40-136); BILIRUBIN,TOTAL 0.2 MG/DL (0.1-1.0); BUN/CREATININE RATIO 30; CARBON DIOXIDE 27 MMOL/L (21-32); CREATININE SERUM 0.93 MG/DL (0.60-1.30); GFR ESTIMATED 58; GLUCOSE 258 MG/DL (70-105); MAGNESIUM 1.8 MG/DL (1.8-2.4)
[2019-04-10 17:53] LABS: ALBUMIN 3.5 GM/DL (3.2-4.5); TOTAL PROTEIN 6.3 GM/DL (6.4-8.2)
--- NOTE | 2019-04-10 17:55 | Diagnostic Imaging Report ---
EXAMINATION: PA and lateral chest at 05:23 p.m. INDICATION: Shortness of breath. FINDINGS: There are no prior studies available for comparison. The heart size is within normal limits. There are a few crowded bronchovascular markings in both infrahilar regions, but there is no clear evidence for pneumonia or for a pleural effusion. There is no sign of failure either. The mediastinum not widened. The osseous structures are intact. IMPRESSION: There is no evidence for an acute cardiopulmonary abnormality. Dictated by: Dictated on workstation # [id number]
[2019-04-10 18:31] LABS: ABG BASE EXCESS 5.1 MMOL/L (-2.5-2.5); ABG OXYGEN SATURATION 93 % (94-100); ABG PCO2 44 MMHG (35-45); ABG PH 7.44 (7.37-7.43); ABG PO2 64 MMHG (79-93); ABG TCO2 31.3 MMOL/L (21.0-31.0); ALLENS TEST YES-POS; INSPIRED O2 ROOM AIR; PATIENT TEMP 38.9; VENTILATOR NO
--- NOTE | 2019-04-10 18:35 | NUR ---
IN ROOM TO DISCUSS TRANSFER TO [facility]. PT CONTINUES TO STATE CONCERN THAT HER SON DOES NOT KNOW WHERE SHE IS AT. ANOTHER ATTEMPT TO CONTACT AT THIS TIME WITH NO SUCCESS.
[2019-04-10] MEDS ORDERED: RT-ALBUTEROL SULF 2.5 MG/3 ML PRE-MIX VIAL INH STA (18:47)
--- NOTE | 2019-04-10 18:47 | NUR ---
[employer] CONTACTED TO HELP LOCATE PT'S SON TO NOTIFIY HIM THAT SHE WILL BE ADMITTED TO [facility].
[2019-04-10 18:48] LABS: BACTERIA,URINE LARGE /HPF; BILIRUBIN,URINE NEGATIVE (NEGATIVE); CLARITY,URINE CLEAR; COLOR,URINE YELLOW; GLUCOSE, URINE (UA) 2+ (NEGATIVE); KETONES,URINE NEGATIVE (NEGATIVE); LEUKOCYTE ESTERASE ,URINE NEGATIVE (NEGATIVE); NITRITE,URINE POSITIVE (NEGATIVE); PH,URINE 5.5 (5-9); PROTEIN,URINE NEGATIVE (NEGATIVE); UROBILINOGEN,URINE 0.2 MG/DL (NORMAL)
[2019-04-10] MEDS ORDERED: IOHEXOL 350 MG/ML 150 ML (OMNIPAQUE 350) VIAL IV ONE (19:30)
[2019-04-10] MEDS ORDERED: NS 100 ML (IVPB) BAG IV ONE (19:30)
[2019-04-10] MEDS ORDERED: HOLD METFORMIN - RECEIVED CONTRAST 20 ML VIAL IV SCH (19:30)
[2019-04-10 19:35] VITALS: BP 109/45
[2019-04-10] MEDS ORDERED: PANTOPRAZOLE 40 MG (PROTONIX) VIAL IV STA (20:20)
[2019-04-10] MEDS ORDERED: morphine INJ 10 MG/ML 1ML (SYR OR VIAL) IVP STA (20:20)
[2019-04-10] MEDS ORDERED: ONDANSETRON 4 MG/2 ML (SDV) Z0FRAN IVP STA (20:20)
--- NOTE | 2019-04-10 20:23 | Diagnostic Imaging Report ---
PROCEDURE: CT angiography of the chest with contrast. TECHNIQUE: Multiple contiguous axial images were obtained through the chest after uneventful bolus administration of intravenous contrast. 3D reconstructed CTA MIP acquisitions were also performed. Auto Exposure Controls were utilized during the CT exam to meet ALARA standards for radiation dose reduction. INDICATION: Shortness of air. COMPARISON: None FINDINGS: There is no CT evidence of acute pulmonary embolus to the first subsegmental division of the pulmonary arteries. Note is made of moderate calcified aortic and coronary atherosclerosis. There is also mild cardiomegaly. There is no large pericardial effusion. No pathologically enlarged or morphologically abnormal adenopathy is seen within the mediastinum, mellissa, nor axilla. Note is made of hypodense left thyroid lesion that measures 2.4 x 1.8 cm. Evaluation of the lung harper demonstrates no focal consolidation, large effusion, nor pneumothorax. There is mild dependent atelectasis posteriorly, right greater than left. 12 x 6 mm nodular densities identified within the lateral margins of the right lower lobe (image 63, series 2). Additional 4 and 5 mm subpleural micronodules are also noted within the lateral margins of the superior segment of the right lower lobe slightly more superiorly. A 4 mm juxtapleural micronodule is also noted within the lateral margins of the right upper lobe (image 36, series 2). Osseous structures show no acute abnormalities. Advanced degenerative changes of thoracic spine are noted. Included portions of the upper abdomen are unremarkable. IMPRESSION: 1. No CTA evidence of acute pulmonary embolus to the first subsegmental division of the pulmonary arteries. 2. Mild cardiomegaly. 3. Multiple right-sided pulmonary nodules and micronodules, largest of which is seen within the right lower lobe. Further characterization with CT/PET could be attempted given its size. If CT/PET is deferred, short interval three-month followup is recommended. 4. Left-sided thyroid nodule. Further characterization with dedicated thyroid sonogram is recommended and could be performed on a nonemergent basis. Dictated by: Dictated on workstation # [id number]
[2019-04-10 22:00] VITALS: BP 132/60
--- OUTSIDE RECORDS SUMMARY | 2019-04-10 22:14 | XMS REPORT | Continuity of Care Document ---
Author Organization Unknown Address Unknown Phone Unavailable Allergies Active Description Code Type Severity Reaction Onset Reported/Identified Relationship to Patient Clinical Status Yes LEVOFLOXACIN LEVOFLOXACIN Mild hives, itching 12/16/2018 Yes metronidazole [id number] Drug Allergy Mild N/V 12/16/2018 Yes latex [id number] Drug Allergy Unknown hives 12/16/2018 Yes latex [id number] Drug Allergy Unknown N/A 12/16/2018 Medications There [...] OTHER SPECIFIED POSTPROCEDURAL STATES 12/31/2018 ALVINO KOHLER RESEARCH SOFTWARE ENGINEER Ot M19.012 PRIMARY OSTEOARTHRITIS, LEFT SHOULDER 12/31/2018 ALVINO KOHLER S RESEARCH SOFTWARE ENGINEER Ot M19.022 PRIMARY OSTEOARTHRITIS, LEFT ELBOW 01/20/2019 ALVINO KOHLER S RESEARCH SOFTWARE ENGINEER Ot M19.012 PRIMARY OSTEOARTHRITIS, LEFT SHOULDER 01/20/2019 ALVINO KOHLER S RESEARCH SOFTWARE ENGINEER Ot M19.022 PRIMARY OSTEOARTHRITIS, LEFT ELBOW Procedures [...] plasma calcium measurement (mass/volume) 9.4 mg/dL 8.5-10.1 Complete blood count (CBC) with automated white blood cell (WBC) differential - 04/10/19 17:05 Blood leukocytes automated count (number/volume) 11.8 10*3/uL 4.3-11.0 Blood erythrocytes automated count (number/volume) 4.04 10*6/uL 4.35-5.85 Venous blood hemoglobin measurement (mass/volume) 12.2 g/dL 11.5-16.0 Blood hematocrit (volume fraction) 38 % 35-52 Automated erythrocyte mean corpuscular volume 93 [foz_us] 80-99 Automated erythrocyte mean corpuscular hemoglobin (mass per erythrocyte) 30 pg 25-34 Automated erythrocyte mean corpuscular hemoglobin concentration measurement (mass/volume) 32 g/dL 32-36 Automated erythrocyte distribution width ratio 12.9 % 10.0- 14.5 Automated blood platelet count (count/volume) 235 10*3/uL 130-400 Automated blood platelet mean volume measurement 10.0 [foz_us] 7.4-10.4 Automated blood neutrophils/100 leukocytes 47 % 42-75 Automated blood lymphocytes/100 leukocytes 40 % 12-44 Blood monocytes/100 leukocytes 6 % 0-12 Automated blood eosinophils/100 leukocytes 7 % 0-10 Automated blood basophils/100 leukocytes 0 % 0-10 Blood neutrophils automated count (number/volume) 5.6 10*3 1.8-7.8 Blood lymphocytes automated count (number/volume) 4.7 10*3 1.0-4.0 Blood monocytes automated count (number/volume) 0.7 10*3 0.0- 1.0 Automated eosinophil count 0.8 10*3/uL 0.0-0.3 Automated blood basophil count (count/volume) 0.0 10*3/uL 0.0-0.1 Blood lactic acid measurement (moles/volume) - 04/10/19 17:05 Blood lactic acid measurement (moles/volume) 2.64 mmol/L 0.50- 2.00 Comprehensive metabolic panel - 04/10/19 17:05 Serum or plasma sodium measurement (moles/volume) 142 mmol/L 135-145 Serum or plasma potassium measurement (moles/volume) 4.1 mmol/L 3.6-5.0 Serum or plasma chloride measurement (moles/volume) 101 mmol/L 98-107 Carbon dioxide 27 mmol/L 21-32 Serum or plasma anion gap determination (moles/volume) 14 mmol/L 5-14 Serum or plasma urea nitrogen measurement (mass/volume) 28 mg/dL 7-18 Serum or plasma creatinine measurement (mass/volume) 0.93 mg/dL 0.60-1.30 Serum or plasma urea nitrogen/creatinine mass ratio 30 NRG Serum or plasma creatinine measurement with calculation of estimated glomerular filtration rate 58 NRG Serum or plasma glucose measurement (mass/volume) 258 mg/dL 70-105 Serum or plasma calcium measurement (mass/volume) 9.0 mg/dL 8.5-10.1 Serum or plasma total bilirubin measurement (mass/volume) 0.2 mg/dL 0.1-1.0 Serum or plasma alkaline phosphatase measurement (enzymatic activity/volume) 106 U/L 40-136 Serum or plasma aspartate aminotransferase measurement (enzymatic activity/volume) 25 U/L 5-34 Serum or plasma alanine aminotransferase measurement (enzymatic activity/volume) 22 U/L 0-55 Serum or plasma protein measurement (mass/volume) 6.3 g/dL 6.4-8.2 Serum or plasma albumin measurement (mass/volume) 3.5 g/dL 3.2-4.5 CALCIUM CORRECTED 9.4 mg/dL 8.5-10.1 Magnesium - 04/10/19 17:05 Magnesium 1.8 mg/dL 1.8-2.4 Serum or plasma troponin i.cardiac measurement (mass/volume) - 04/10/19 17:05 Serum or plasma troponin i.cardiac measurement (mass/volume) < ng/mL <0.30 PROBNP FS - 04/10/19 17:05 PROBNP FS 214.6 pg/mL <75.0 Arterial blood gas measurement - 04/10/19 18:14 Blood pCO2 44 mm[Hg] 35-45 Blood pO2 64 mm[Hg] 79-93 Arterial blood bicarbonate measurement (moles/volume) 30 mmol/L 23-27 Arterial blood base excess by calculation 5.1 mmol/L -2.5-2.5 Arterial blood oxygen saturation measurement 93 % 94-100 * Inhaled oxygen flow rate ROOM AIR NRG Arterial blood pH measurement with patient temperature correction 7.44 7.37-7.43 Arterial blood carbon dioxide, total measurement (moles/volume) 31.3 mmol/L 21.0-31.0 Body site RT RAD NRG Assessment of wrist artery patency prior to arterial puncture YES-POS NRG Setting of ventilation mode NO NRG Measurement of body temperature 38.9 NRG Complete urinalysis with reflex to culture - 04/10/19 18:29 Urine color determination YELLOW NRG Urine clarity determination CLEAR NRG Urine pH measurement by test strip 5.5 5-9 Specific gravity of urine by test strip 1.015 1.016-1.022 Urine protein assay by test strip, semi-quantitative NEGATIVE NEGATIVE Urine glucose detection by automated test strip 2+ NEGATIVE Erythrocytes detection in urine sediment by light microscopy NEGATIVE NEGATIVE Urine ketones detection by automated test strip NEGATIVE NEGATIVE Urine nitrite detection by test strip POSITIVE NEGATIVE Urine total bilirubin detection by test strip NEGATIVE NEGATIVE Urine urobilinogen measurement by automated test strip (mass/volume) 0.2 mg/dL NORMAL Urine leukocyte esterase detection by dipstick NEGATIVE NEGATIVE Automated urine sediment erythrocyte count by microscopy (number/high power field) NONE NRG Automated urine sediment leukocyte count by microscopy (number/high power field) [HPF] NRG Bacteria detection in urine sediment by light microscopy LARGE NRG Squamous epithelial cells detection in urine sediment by light microscopy 5-10 NRG Crystals detection in urine sediment by light microscopy NONE NRG Casts detection in urine sediment by light microscopy NONE NRG Mucus detection in urine sediment by light microscopy NEGATIVE NRG Complete urinalysis with reflex to culture YES NRG Encounters ACCT No. Visit Date/Time Discharge Status Pt. Type Provider Facility Loc./Unit Complaint [id number] 12/30/2018 14:46:00 12/30/2018 23:59:59 CLS Outpatient ALVINO KOHLER APRN [facility] RAD FS M79.622 M25.522 [id number] 12/16/2018 17:15:00 12/16/2018 21:08:00 DIS Emergency ALESSANDRO JEAN MD [facility] ER FS LT ARM PAIN [id number] 04/10/2019 16:56:00 ACT Emergency ALESSANDRO JEAN MD [facility] ER FS SOB,COUGH,FEVER
[2019-04-10] MEDS ORDERED: ONDANSETRON 4 MG/2 ML (SDV) Z0FRAN IV PRN (22:45)
[2019-04-11] VITALS (25 sets, daily range): BP systolic 17–151; BP diastolic 45–96
--- NOTE | 2019-04-11 01:30 | NUR ---
Pt states that she feeling funny. states shaky like sugar is out of control. fsbs 507.
--- NOTE | 2019-04-11 02:00 | NUR ---
Dr Knox notified of High blood sugar. orders to transfer to ICU and start insulin gtt.
--- NOTE | 2019-04-11 02:32 | NUR ---
attempted to call son to notify him of transfer to ICU. message left to call hospital and ask for this nurse
--- NOTE | 2019-04-11 02:45 | NUR ---
pt transferred to ICU per wc. belonging sent with pt and airplane flight attendant supervisor.
[2019-04-11] MEDS ORDERED: NORMAL SALINE 250 ML ONE (02:59)
[2019-04-11] MEDS ORDERED: inSUlin REGULAR TPN/DRIP ONLY 250 UNITS in NORMAL SALINE 250 ML IV SCH (03:00)
[2019-04-11] MEDS ORDERED: inSUlin (REGULAR) HUMAN 1 UNIT/0.01 ML (CHARGE PER UNIT) IV ONE (03:00)
[2019-04-11] MEDS ORDERED: RT-ALBUTEROL/IPRATROPIUM 3 ML (DUONEB) VIAL INH PRN (03:00)
[2019-04-11] MEDS: NS IV 1000 ML 1,000 ML IV SCH ×4 (03:15→23:32)
[2019-04-11 03:56] LABS: BASOPHILS % (AUTO) 0 % (0-10); EOSINOPHILS % (AUTO) 0 % (0-10); HEMATOCRIT 35 % (35-52); HEMOGLOBIN 11.3 G/DL (11.5-16.0); LYMPHOCYTES # (AUTO) 0.9 X 10^3 (1.0-4.0); LYMPHOCYTES % (AUTO) 10 % (12-44); MEAN CORPUSCULAR HEMOGLOBIN 30 PG (25-34); MEAN CORPUSCULAR HGB CONC 32 G/DL (32-36); MEAN CORPUSCULAR VOLUME 93 FL (80-99); MEAN PLATELET VOLUME 10.1 FL (7.4-10.4); MONOCYTES % (AUTO) 0 % (0-12); NEUTROPHILS # (AUTO) 7.5 X 10^3 (1.8-7.8); NEUTROPHILS % (AUTO) 89 % (42-75); PLATELET COUNT 195 10^3/uL (130-400); RED CELL DISTRIBUTION WIDTH 13.2 % (10.0-14.5); WHITE BLOOD COUNT 8.4 10^3/uL (4.3-11.0)
[2019-04-11 04:16] LABS: CALCIUM 8.5 MG/DL (8.5-10.1); CREATININE SERUM 1.32 MG/DL (0.60-1.30); MAGNESIUM 1.7 MG/DL (1.8-2.4); PHOSPHORUS 3.1 MG/DL (2.3-4.7); POTASSIUM 4.5 MMOL/L (3.6-5.0)
[2019-04-11] MEDS: KCL 20 MEQ TAB (K-DUR) PO SCH (05:45)
[2019-04-11] MEDS: MAGNESIUM 1 GM/100 ML IVPB 100 ML IV SCH ×3 (05:45→07:17)
[2019-04-11] MEDS: POTASSIUM CL 10MEQ/50ML IVPB 50 ML IV SCH (05:45)
--- NOTE | 2019-04-11 06:28 | Pulmonary Consultation ---
History of Present Illness History of Present Illness Date of Consultation 04/11/19 06:22 Time Seen by Provider: 06:40 Date of Admission History of Present Illness 79yo presented via EMS to ED secondary to worsening SOB, wheezing. Allergies and Home Medications Allergies Coded Allergies: metronidazole (Unverified Adverse Reaction, Mild, N/V, 12/16/18) latex (Unverified Adverse Reaction, Unknown, hives, 12/16/18) Uncoded Allergies: LEVOFLOXACIN (Adverse Reaction, Mild, hives, itching, 12/16/18) Home Medications Gabapentin 300 Mg Capsule, 300 MG PO UD Take 1 pill by mouth in the morning and 1 pill at mid day, then 2 pills at bedtime. Prescribed by: ALESSANDRO JEAN on 12/16/182031 Ibuprofen 800 Mg Tablet, 800 MG PO TID PRN for PAIN-MILD TO MODERATE Prescribed by: ALESSANDRO HAIRSTONRT on 12/16/182031 Past Vwswbtj-Qribnb-Vxsivt Hx Patient Social History Alcohol Use: Denies Use Recreational Drug Use: No 2nd Hand Smoke Exposure: No Recent Foreign Travel: No Contact w/Someone Who Travel: No Recent Infectious Disease Expo: No Recent Hopitalizations: No Physical Abuse: No Sexual Abuse: No Mistreated: No Fear: No Seasonal Allergies Seasonal Allergies: Yes (ALLERGIC RHINITIS) Past Medical History Surgeries: Yes (CERVICAL DISC SURGERY, BILAT ROTATOR CUFF, FOOT SURGERY) Appendectomy, Gallbladder, Hysterectomy, Orthopedic Respiratory: Yes COPD Cardiac: Yes Hypertension Neurological: Yes (SEVERE DIABETIC NEUROPATHY HANDS/FEET, POST HERPETIC NEURALGIA) Neuropathy Genitourinary: No Gastrointestinal: No Musculoskeletal: Yes (OSTEOARTHRITIS) Endocrine: Yes (DM TYPE II, MORBID OBESITY) Diabetes, Insulin dep HEENT: No Loss of Vision: Denies Hearing Impairment: Denies Cancer: No Psychosocial: Yes Depression Integumentary: Yes (SORES AND SCABS GENERALIZED) Recent Skin Changes, Psoriasis Blood Disorders: No Sepsis Event Evaluation Height, Weight, BMI Height: 5'6.00" Weight: 264lbs. 0.0oz. 119.053483rd; 42.6 BMI Method:Stated Exam Exam Vital Signs Date Time Temp Pulse Resp B/P (MAP) Pulse Ox O2 Delivery O2 Flow Rate FiO2 04/11/19 06:00 74 18 102/45 (64) 95 Nasal Cannula 1.00 04/11/19 05:00 87 17 112/60 (77) 95 Nasal Cannula 1.00 04/11/19 04:45 88 19 126/55 (78) 95 Nasal Cannula 1.00 04/11/19 04:30 88 18 124/65 (84) 94 Nasal Cannula 1.00 04/11/19 04:15 91 22 134/64 (87) 97 Nasal Cannula 1.00 04/11/19 03:51 97.0 94 18 137/73 (94) 97 Nasal Cannula 1.00 04/11/19 02:26 104 100 28 04/11/19 01:00 93 04/11/19 00:25 97.4 93 19 107/54 (71) 97 Nasal Cannula 2.00 04/10/19 23:59 Nasal Cannula 2.00 04/10/19 23:34 98 04/10/19 22:15 Nasal Cannula 2.00 04/10/19 22:00 97.4 104 20 132/60 (84) 100 Nasal Cannula 2.00 04/10/19 22:00 97.4 104 20 132/60 100 Nasal Cannula 2.00 04/10/19 21:03 98 20 119/53 (75) 98 Nasal Cannula 2.00 04/10/19 19:35 104 22 109/45 (66) 94 Room Air 04/10/19 17:15 93 Room Air 93 04/10/19 16:59 98.4 91 30 124/56 (78) 94 Room Air I & O 04/11/19 07:00 Intake Total 2260 ml Balance 2260 ml Height & Weight Height: 5'6.00" Weight: 264lbs. 0.0oz. 119.350911oj; 42.6 BMI Method:Stated General Appearance: No Apparent Distress, WD/WN HEENT: PERRL/EOMI, Normal ENT Inspection Neck: Full Range of Motion, Normal Inspection, Non Tender, Supple Respiratory: Chest Non Tender, No Accessory Muscle Use, Respiratory Distress (mild), Wheezing Cardiovascular: Regular Rate, Rhythm, No JVD, Normal Peripheral Pulses Capillary Refill: Less Than 3 Seconds Extremity: Normal Capillary Refill, Non Tender, Pedal Edema (2+ b/l) Neurologic/Psychiatric: Alert, Oriented x3, No Motor/Sensory Deficits, Normal Mood/Affect, dock loader II-XII Norm as Tested Skin: Normal Color, Warm/Dry Lymphatic: No Adenopathy Results Lab Laboratory Tests 04/10/19 17:05 04/11/19 03:44 Assessment/Plan Assessment/Plan COPDAE -Solumedrol 40 IV Q 6 -oxygen -SVNs Q4 UTI with sepsis -Continue Rocephin, and azithromycin -Jones cultures -MRSA nasal swab pending -IVF Hyperglycemia -Insulin gtt -Start Levemir -- give 10 units now x 1 then 10 units QHS Hypomag -replace Acute renal failure -IVF -Monitor Lung nodule - per CT report -Will need out pt F/u -I will have her see me 1-2wks after discharge to arrange out workup. Metabolic lactic acidosis -Give a liter bolus -Increase IVF to 150 Primary Impression: COPD with acute exacerbation Additional Impressions: Elevated lactic acid level Cystitis without hematuria Disposition: ADMITTED INPATIENT Condition: Stable DANUTA MOYER DO Apr 11, 2019 06:27
[2019-04-11] MEDS ORDERED: LACTATED RINGERS 1,000 ML IV SCH (06:30)
[2019-04-11] MEDS: RT-ALBUTEROL/IPRATROPIUM 3 ML (DUONEB) VIAL INH SCH ×5 (06:50→23:10)
[2019-04-11] MEDS ORDERED: NS IV 1000 ML 1,000 ML IV ONE (07:30)
[2019-04-11] MEDS: methylPREDNISolone 40 MG/ML (Solu-MEDROL) VIAL IV SCH ×3 (07:32→18:41)
--- NOTE | 2019-04-11 08:13 | Diagnostic Imaging Report ---
INDICATION: Shortness of air. TECHNIQUE: Single view chest 3:44 AM. CORRELATION STUDY: 04/10/2019 FINDINGS: Limited depth of inspiration. Given this, heart size is borderline enlarged. Vasculature likely stable and within normal limits. There does appear to be increased density at the lung bases, may reflect atelectasis from hypoventilation versus infiltrate, left greater than right. Surgical clips over the left axilla. IMPRESSION: 1. Suboptimal depth of inspiration with crowding of the lung bases. Superimposed infiltrate particularly at the left lung base, however, is not excluded. Dictated by: Dictated on workstation # [id number]
[2019-04-11] MEDS: AZITHROMYCIN 250 MG TAB (ZITHROMAX) PO SCH (10:38)
[2019-04-11] MEDS ORDERED: GABA-488 PO (10:46)
[2019-04-11] MEDS ORDERED: GBPN600T PO (10:46)
[2019-04-11] MEDS ORDERED: GABAPENTIN 300 MG (NEURONTIN) CAP PO ONE (12:30)
--- NOTE | 2019-04-11 12:31 | History & Physical-Hospitalist ---
History of Present Illness HPI/Chief Complaint Mariela Loiue is a 79yoF with PMH COPD, T2DM, HTN, who presented with dyspnea and weakness. She reports that she has been having trouble breathing for about a month. She also reports cough and sputum production. She has been treated with two rounds of steroids and antibiotics but has failed to improve. She denies any fevers and chills. She denies chest pain. She denies orthopnea and PND. She has been taking her insulin at home and reports using a sliding scale based on the readings. She says it has been running high on the steroids and very infrequently she sees numbers in the 500s. She denies dysuria, urgency, and frequency. Source: patient Exam Limitations: no limitations Date Seen 04/11/19 Time Seen by a Provider: 08:30 Attending Physician Nicole Barriga MD [place] [place] [facility] Referring Physician Date of Admission Apr 10, 2019 at 19:08 Home Medications & Allergies Home Medications Reviewed patient Home Medication Reconciliation performed by pharmacy medication reconciliations compressor technician and/or nursing. Patients Allergies have been reviewed. Allergies Allergies Coded Allergies metronidazole (Unverified Adverse Reaction, Mild, N/V, 12/16/18) latex (Unverified Adverse Reaction, Unknown, hives, 12/16/18) Uncoded Allergies LEVOFLOXACIN ( Adverse Reaction, Mild, hives, itching, 12/16/18) Past Atxrgjh-Axaver-Rfwqyo Hx Past Med/Social Hx: Reviewed Nursing Past Med/Soc Hx Patient Social History Alcohol Use: Denies Use Recreational Drug Use: No 2nd Hand Smoke Exposure: No Recent Foreign Travel: No Contact w/other who traveled: No Recent Hopitalizations: No Recent Infectious Disease Expo: No Seasonal Allergies Seasonal Allergies: Yes (ALLERGIC RHINITIS) Past Medical History Surgeries: Appendectomy, Gallbladder, Hysterectomy, Orthopedic Cardiac: Hypertension Neurological: Neuropathy Endocrine: Diabetes, Insulin dep Loss of Vision: Denies Hearing Impairment: Denies Psychosocial: Depression Skin/Integumentary: Recent Skin Changes, Psoriasis History of Blood Disorders: No Review of Systems Constitutional: No chills, No fever; weakness EENTM: vision loss (macular degeneration) Respiratory: cough, dyspnea on exertion; No orthopnea; short of breath Cardiovascular: No chest pain, No palpitations Gastrointestinal: No abdominal pain, No constipation, No diarrhea, No nausea, No vomiting Genitourinary: No dysuria, No frequency Musculoskeletal: no symptoms reported Skin: no symptoms reported Psychiatric/Neurological: No Symptoms Reported Physical Exam Physical Exam Vital Signs Vital Signs - First Documented 04/10/19 04/10/19 04/10/19 16:59 17:15 21:03 Temp 98.4 Pulse 91 Resp 30 B/P (MAP) 124/56 (78) Pulse Ox 94 O2 Delivery Room Air O2 Flow Rate 2.00 FiO2 93 Capillary Refill : Less Than 3 Seconds Height, Weight, BMI Height: 5'6.00" Weight: 264lbs. 0.0oz. 119.488355yx; 42.6 BMI Method:Stated General Appearance: No Apparent Distress, WD/WN, Obese HEENT: PERRL/EOMI; No Moist Mucous Membranes Neck: Normal Inspection, Non Tender, Supple Respiratory: No Chest Non Tender; Lungs Clear, Normal Breath Sounds, No Respiratory Distress; No Crackles, No Decreased Breath Sounds, No Respiratory Distress, No Rhonci, No Wheezing Cardiovascular: Regular Rate, Rhythm; No No Edema; No Murmur Gastrointestinal: Normal Bowel Sounds, Non Tender, Soft Extremity: Normal Inspection, No Calf Tenderness, Pedal Edema (1+) Neurologic/Psychiatric: Alert, Oriented x3, No Motor/Sensory Deficits Skin: Normal Color, Warm/Dry Lymphatic: No Adenopathy Results Results/Procedures Labs Laboratory Tests 04/10/19 17:05 04/11/19 03:44 Patient resulted labs reviewed. Imaging: Reviewed Imaging Report Assessment/Plan Admission Diagnosis Acute COPD exacerbation Admission Status: Inpatient Order (span 2 midnights) Reason for Inpatient Admission: Acute kidney injury T2DM with hyperglycemia Lactic acidosis Sepsis due to UTI Assessment and Plan Acute COPD exacerbation -Continue steroids -MAT protocol -Duonebs four times daily -Needs a new nebulizer on discharge -Continue CTX and Azithromycin Sepsis due to UTI -SIRS+ with tachycardia and tachypnea on arrival -Septic source identified as UTI -Continue CTX for UTI, await culture Lactic acidosis -IV fluids ordered Acute kidney injury -Mild, likely due to dehydration -IV fluids ordered T2DM with hyperglycemia Steroid-induced hyperglycemia -Blood sugar >500 upon arrival -Started on insulin gtt -Begin Levemir -Resume gabapentin at reduced dosing with CAITLIN Lung nodules -Follow up with Dr. Barrios as an outpatient Thyroid nodule -Outpatient ultrasound recommended -Obtain TSH and free T4 Diagnosis/Problems Diagnosis/Problems (1) COPD with acute exacerbation Status: Acute (2) Type 2 diabetes mellitus Status: Chronic Qualifiers: Diabetes mellitus fpc insulin use: with fpc use Diabetes mellitus complication status: with hyperglycemia Qualified Codes: E11.65 - Type 2 diabetes mellitus with hyperglycemia; Z79.4 - long term care social worker (current) use of insulin (3) Sepsis due to urinary tract infection Status: Acute (4) Acute kidney injury Status: Acute (5) Elevated lactic acid level Status: Acute (6) Lung nodules Status: Chronic (7) Thyroid nodule Status: Chronic Clinical Quality Measures DVT/VTE Risk/Contraindication: Risk Factor Score Per Nursin RFS Level Per Nursing on Admit: 4+=Very High NICOLE BARRIGA MD Apr 11, 2019 12:31
[2019-04-11] MEDS: guaiFENesin/DM (ROBITUSSIN DM) 10 ML UDC PO PRN ×2 (12:34→19:36)
[2019-04-11] MEDS ORDERED: ACETAMINOPHEN 325 MG TABLET ONE (15:46)
[2019-04-11] MEDS: ACETAMINOPHEN 325 MG TABLET PO PRN ×2 (15:58→22:56)
[2019-04-11] MEDS ORDERED: cefTRIAXone 1,000 MG/SWFI 10 ML IV PUSH IV SCH ×2 (18:00)
[2019-04-11] MEDS ORDERED: cefTRIAXone 1,000 MG IV (ROCEPHIN) VIAL ONE (18:26)
[2019-04-11] MEDS ORDERED: WATER (STERILE) FOR INJECTION 10 ML ONE (18:26)
[2019-04-11] MEDS ORDERED: inSUlin ASPART (NovoLOG) 1 UNIT/0.01 ML (CHARGE PER UNIT) SC ONE (20:15)
[2019-04-11] MEDS: GABAPENTIN 300 MG (NEURONTIN) CAP PO SCH (20:48)
[2019-04-11 20:52] LABS: CALCIUM 8.5 MG/DL (8.5-10.1); CREATININE SERUM 0.98 MG/DL (0.60-1.30); MAGNESIUM 2.1 MG/DL (1.8-2.4); POTASSIUM 4.6 MMOL/L (3.6-5.0)
[2019-04-11] MEDS: inSUlin ASPART (NovoLOG) 1 UNIT/0.01 ML (CHARGE PER UNIT) SC SCH (22:14)
[2019-04-12] VITALS (14 sets, daily range): BP systolic 111–175; BP diastolic 50–99
[2019-04-12] MEDS: RT-ALBUTEROL/IPRATROPIUM 3 ML (DUONEB) VIAL INH SCH ×5 (02:20→22:32)
[2019-04-12] MEDS ORDERED: inSUlin ASPART (NovoLOG) 1 UNIT/0.01 ML (CHARGE PER UNIT) ONE (02:40)
[2019-04-12] MEDS: inSUlin ASPART (NovoLOG) 1 UNIT/0.01 ML (CHARGE PER UNIT) SC SCH ×7 (02:48→21:06)
[2019-04-12] MEDS: NS IV 1000 ML 1,000 ML IV SCH ×3 (02:49→17:50)
[2019-04-12 04:10] LABS: BASOPHILS % (AUTO) 0 % (0-10); EOSINOPHILS % (AUTO) 0 % (0-10); HEMATOCRIT 33 % (35-52); HEMOGLOBIN 10.5 G/DL (11.5-16.0); LYMPHOCYTES # (AUTO) 1.2 X 10^3 (1.0-4.0); LYMPHOCYTES % (AUTO) 9 % (12-44); MEAN CORPUSCULAR HEMOGLOBIN 29 PG (25-34); MEAN CORPUSCULAR HGB CONC 31 G/DL (32-36); MEAN CORPUSCULAR VOLUME 93 FL (80-99); MEAN PLATELET VOLUME 10.4 FL (7.4-10.4); MONOCYTES # (AUTO) 0.5 X 10^3 (0.0-1.0); MONOCYTES % (AUTO) 4 % (0-12); NEUTROPHILS # (AUTO) 12.6 X 10^3 (1.8-7.8); NEUTROPHILS % (AUTO) 88 % (42-75); PLATELET COUNT 214 10^3/uL (130-400); RED CELL DISTRIBUTION WIDTH 13.8 % (10.0-14.5); WHITE BLOOD COUNT 14.4 10^3/uL (4.3-11.0)
[2019-04-12 04:29] LABS: ALBUMIN 3.1 GM/DL (3.2-4.5); CALCIUM 8.3 MG/DL (8.5-10.1); CREATININE SERUM 1.07 MG/DL (0.60-1.30); MAGNESIUM 2.1 MG/DL (1.8-2.4); PHOSPHORUS 3.5 MG/DL (2.3-4.7); POTASSIUM 4.6 MMOL/L (3.6-5.0)
[2019-04-12] MEDS: KCL 20 MEQ TAB (K-DUR) PO SCH (04:34)
[2019-04-12] MEDS: MAGNESIUM 1 GM/100 ML IVPB 100 ML IV SCH (04:34)
[2019-04-12] MEDS: POTASSIUM CL 10MEQ/50ML IVPB 50 ML IV SCH (04:34)
[2019-04-12] MEDS: methylPREDNISolone 40 MG/ML (Solu-MEDROL) VIAL IV SCH ×2 (06:09)
--- NOTE | 2019-04-12 06:58 | Pulmonary Progress Note ---
Subjective Time Seen by a Provider: 08:53 Subjective/Events-last exam No complications noted. Sepsis Event Evaluation Height, Weight, BMI Height: 5'6.00" Weight: 265lbs. 0.0oz. 120.679716fp; 42.6 BMI Method:Stated Focused Exam Lactate Level 04/11/19 05:47: Lactic Acid Level 3.30*H 04/11/19 20:24: Lactic Acid Level 4.42*H 04/11/19 22:27: Lactic Acid Level 2.65*H Exam Exam Vital Signs Date Time Temp Pulse Resp B/P (MAP) Pulse Ox O2 Delivery O2 Flow Rate FiO2 04/12/19 06:00 86 20 127/63 (84) 92 Nasal Cannula 1.00 04/12/19 05:00 81 24 120/63 (82) 94 Nasal Cannula 1.00 04/12/19 04:00 92 21 111/71 (84) 92 Nasal Cannula 1.00 04/12/19 04:00 Nasal Cannula 1.00 04/12/19 03:00 91 21 121/50 (73) 94 Nasal Cannula 1.00 04/12/19 02:20 94 Nasal Cannula 1.00 04/12/19 02:00 83 24 120/60 (80) 93 Nasal Cannula 1.00 04/12/19 01:00 86 19 117/55 (75) 93 Nasal Cannula 1.00 04/12/19 01:00 86 04/12/19 00:00 Nasal Cannula 1.00 04/12/19 00:00 80 19 122/59 (80) 94 Nasal Cannula 1.00 04/11/19 23:10 95 Nasal Cannula 1.00 04/11/19 23:00 93 22 128/58 (81) 92 Nasal Cannula 1.00 04/11/19 22:00 82 18 131/58 (82) 92 Nasal Cannula 1.00 04/11/19 21:00 92 14 126/81 (96) 95 Nasal Cannula 1.00 04/11/19 20:00 97.4 04/11/19 20:00 91 19 111/57 (75) 95 Nasal Cannula 1.00 04/11/19 20:00 Nasal Cannula 1.00 04/11/19 19:08 95 Nasal Cannula 1.00 04/11/19 19:00 90 04/11/19 19:00 83 22 127/47 (73) 96 Nasal Cannula 1.00 04/11/19 18:00 85 13 121/96 (104) 97 Nasal Cannula 1.00 04/11/19 17:00 105 29 129/64 (85) 95 Nasal Cannula 1.00 04/11/19 16:00 96 22 109/51 (70) 93 Nasal Cannula 1.00 04/11/19 16:00 97.1 04/11/19 15:00 92 25 115/57 (76) 95 Nasal Cannula 1.00 04/11/19 14:09 96 Nasal Cannula 1.00 04/11/19 14:00 92 30 132/87 (102) 98 Nasal Cannula 1.00 04/11/19 13:00 101 33 145/70 (95) 98 Nasal Cannula 1.00 04/11/19 12:40 94 04/11/19 12:36 96.8 04/11/19 12:00 94 19 115/82 (93) 96 Nasal Cannula 1.00 04/11/19 11:00 95 10 105/77 (86) 97 Nasal Cannula 1.00 04/11/19 10:22 98 Nasal Cannula 1.00 04/11/19 10:00 95 17 119/84 (96) 96 Nasal Cannula 1.00 04/11/19 09:00 91 18 151/70 (97) 94 Nasal Cannula 1.00 04/11/19 08:30 97.1 04/11/19 08:00 88 14 117/52 (73) 93 Nasal Cannula 1.00 04/11/19 08:00 Nasal Cannula 1.00 04/11/19 07:00 91 15 102/79 (87) 93 Nasal Cannula 1.00 04/11/19 07:00 92 I & O 04/12/19 07:00 Intake Total 4395 ml Output Total 2500 ml Balance 1895 ml Height & Weight Height: 5'6.00" Weight: 265lbs. 0.0oz. 120.771201ut; 42.6 BMI Method:Stated General Appearance: No Apparent Distress, WD/WN, Obese HEENT: PERRL/EOMI; No Moist Mucous Membranes Neck: Normal Inspection, Non Tender, Supple Respiratory: No Chest Non Tender; Lungs Clear, Normal Breath Sounds, No Respiratory Distress; No Crackles, No Decreased Breath Sounds, No Respiratory Distress, No Rhonci, No Wheezing Cardiovascular: Regular Rate, Rhythm; No No Edema; No Murmur Capillary Refill: Less Than 3 Seconds Extremity: Normal Inspection, No Calf Tenderness, Pedal Edema (1+) Neurologic/Psychiatric: Alert, Oriented x3, No Motor/Sensory Deficits Skin: Normal Color, Warm/Dry Lymphatic: No Adenopathy Results Lab Laboratory Tests 04/10/19 17:05 04/11/19 03:44 04/11/19 20:24 04/12/19 03:45 Assessment/Plan Assessment/Plan COPDAE -Solumedrol 40 IV Q 6 -- decrease to daily -oxygen -SVNs Q4 UTI with sepsis -Continue Rocephin, and azithromycin -Jones cultures -MRSA nasal swab pending -IVF Hyperglycemia -Insulin gtt - is now off -Levemir Hypomag -replace Acute renal failure -IVF -Monitor Lung nodule - per CT report -Will need out pt F/u -I will have her see me 1-2wks after discharge to arrange out workup. Metabolic lactic acidosis -Give a liter bolus -Increase IVF to 150 DANUTA MOYER DO Apr 12, 2019 06:58
--- NOTE | 2019-04-12 09:36 | Diagnostic Imaging Report ---
EXAMINATION: Portable erect AP chest obtained at 350h. INDICATION: Dyspnea This exam is less than optimal as the patient is rotated and there is shallow inspiration. Allowing for these technical factors the borderline cardiomegaly noted on the prior exam of 04/11/19 is again evident and does not appear to have changed significantly. The lungs remain generally clear. There is no evidence for failure, pneumonia or for a significant pleural effusion. There is a vague area of increased density overlying the right lung base but this is probably secondary to superimposition of the breast/chest tissue. The mediastinum is not widened. The osseous structures are intact. IMPRESSION: When compared to the previous study there has been no significant change. No new abnormality has developed. Dictated by: Dictated on workstation # [id number]
[2019-04-12] MEDS: GABAPENTIN 300 MG (NEURONTIN) CAP PO SCH ×2 (10:06→22:27)
[2019-04-12] MEDS: AZITHROMYCIN 250 MG TAB (ZITHROMAX) PO SCH (10:06)
--- NOTE | 2019-04-12 10:35 | NUR ---
Report called to ANJELICA Kuhn who will assume pt care at this time. Pt transported to room 408 at this time via wheelchair. Personal belongings, bag and cane transferred with pt at this time. VSS.
--- NOTE | 2019-04-12 11:00 | NUR ---
SCANNER FOR MEDICATIONS IS NOT WORKING.-UNABLE TO SCAN MEDICATIONS IN THE ROOM
[2019-04-12] MEDS ORDERED: WATER (STERILE) FOR INJECTION 10 ML ONE (14:12)
[2019-04-12] MEDS ORDERED: cefTRIAXone 1,000 MG IV (ROCEPHIN) VIAL ONE (14:12)
[2019-04-12] MEDS ORDERED: inSUlin ASPART (NovoLOG) 1 UNIT/0.01 ML (CHARGE PER UNIT) SC SCH (14:30)
[2019-04-12] MEDS ORDERED: FLUTICASONE NASAL SPRAY (FLONASE) 16 GM BTL NS PRN (15:45)
--- NOTE | 2019-04-12 15:54 | Progress Note - Hospitalist ---
Subjective HPI/CC On Admission Date Seen by Provider: Apr 12, 2019 Time Seen by Provider: 09:30 weakness Subjective/Events-last exam She denies any dyspnea or cough. She denies fevers and chills. She reports chest pain which is worsened by coughing. She denies abdominal pain, nausea, vomiting. She has no other complaints or concerns. Focused Exam Lactate Level 04/11/19 05:47: Lactic Acid Level 3.30*H 04/11/19 20:24: Lactic Acid Level 4.42*H 04/11/19 22:27: Lactic Acid Level 2.65*H Objective Exam Vital Signs Vital Signs Date Time Temp Pulse Resp B/P (MAP) Pulse Ox O2 Delivery O2 Flow Rate FiO2 04/12/19 12:00 98.4 90 20 172/79 (110) 95 Nasal Cannula 1.00 04/11/19 02:26 28 Capillary Refill : Less Than 3 Seconds General Appearance: No Apparent Distress, WD/WN, Obese HEENT: PERRL/EOMI, Pharynx Normal Neck: Normal Inspection, Supple Respiratory: Lungs Clear, Normal Breath Sounds, No Respiratory Distress Cardiovascular: Regular Rate, Rhythm, No Murmur Gastrointestinal: Normal Bowel Sounds, Non Tender, Soft Back: Normal Inspection, No CVA Tenderness Extremity: Normal Inspection, No Calf Tenderness, No Pedal Edema Neurologic/Psychiatric: Alert, No Motor/Sensory Deficits; No Disoriented Skin: Normal Color, Warm/Dry Results/Procedures Lab Laboratory Tests 04/11/19 20:24 04/12/19 03:45 Patient resulted labs reviewed. Assessment/Plan Assessment and Plan Assess & Plan/Chief Complaint Acute COPD exacerbation -Continue steroids, decreasing dose -Duonebs four times daily -Needs a new nebulizer on discharge -Transition to Cefdinir and Azithromycin with five day total course Sepsis due to UTI -SIRS+ with tachycardia and tachypnea on arrival -Septic source identified as UTI -Culture contaminated -Transition to Cefdinir today for five day total course Lactic acidosis -Continue IV fluids Acute kidney injury -Mild, likely due to dehydration -Continue IV fluids T2DM with hyperglycemia Steroid-induced hyperglycemia -Blood sugar >500 upon arrival -Transitioned off insulin gtt overnight -Begin Levemir 50 mg twice daily -Novolog 15 units with meals Lung nodules -Follow up with Dr. Barrios as an outpatient Thyroid nodule -Outpatient ultrasound recommended -Obtain TSH and free T4 Diagnosis/Problems Diagnosis/Problems (1) COPD with acute exacerbation Status: Acute (2) Type 2 diabetes mellitus Status: Chronic Qualifiers: Diabetes mellitus [facility] insulin use: with termite control technician use Diabetes mellitus complication status: with hyperglycemia Qualified Codes: E11.65 - Type 2 diabetes mellitus with hyperglycemia; Z79.4 - skilled nursing (current) use of insulin (3) Sepsis due to urinary tract infection Status: Acute (4) Acute kidney injury Status: Acute (5) Elevated lactic acid level Status: Acute (6) Lung nodules Status: Chronic (7) Thyroid nodule Status: Chronic Clinical Quality Measures DVT/VTE Risk/Contraindication: Risk Factor Score Per Nursin RFS Level Per Nursing on Admit: 4+=Very High ABHISHEK BARRIGA MD Apr 12, 2019 15:53
--- NOTE | 2019-04-12 16:44 | NUR ---
DR LAWSON IS ON THE FLOOR. NOTIFIED OF LACTIC ACID 2.51 NO NEW ORDERS AT THIS TIME
[2019-04-12 16:55] LABS: FREE T4 (FREE THYROXINE) 0.76 NG/DL (0.70-1.48)
[2019-04-12] MEDS: guaiFENesin/DM (ROBITUSSIN DM) 10 ML UDC PO PRN ×2 (18:05→22:28)
--- NOTE | 2019-04-12 18:45 | NUR ---
LACTIC ACID 2.26. DR BARRIGA NOTIFIED
[2019-04-12] MEDS: lisINopril 10 MG (PRINIVIL) TABLET PO SCH (22:27)
[2019-04-12] MEDS: CEFDINIR 300 MG (OMNICEF) CAP PO SCH (22:27)
[2019-04-12] MEDS: ACETAMINOPHEN 325 MG TABLET PO PRN (23:38)
[2019-04-13] VITALS (8 sets, daily range): BP systolic 93–155; BP diastolic 54–79
[2019-04-13] MEDS: RT-ALBUTEROL/IPRATROPIUM 3 ML (DUONEB) VIAL INH SCH ×6 (02:57→22:48)
[2019-04-13] MEDS: NS IV 1000 ML 1,000 ML IV SCH ×2 (03:30→09:30)
[2019-04-13] MEDS: ACETAMINOPHEN 325 MG TABLET PO PRN ×3 (03:47→23:35)
[2019-04-13 05:49] LABS: BASOPHILS % (AUTO) 0 % (0-10); EOSINOPHILS % (AUTO) 0 % (0-10); HEMATOCRIT 30 % (35-52); HEMOGLOBIN 9.6 G/DL (11.5-16.0); LYMPHOCYTES # (AUTO) 2.7 X 10^3 (1.0-4.0); LYMPHOCYTES % (AUTO) 23 % (12-44); MEAN CORPUSCULAR HEMOGLOBIN 30 PG (25-34); MEAN CORPUSCULAR HGB CONC 32 G/DL (32-36); MEAN CORPUSCULAR VOLUME 95 FL (80-99); MEAN PLATELET VOLUME 10.1 FL (7.4-10.4); MONOCYTES # (AUTO) 1.3 X 10^3 (0.0-1.0); MONOCYTES % (AUTO) 11 % (0-12); NEUTROPHILS # (AUTO) 7.8 X 10^3 (1.8-7.8); NEUTROPHILS % (AUTO) 66 % (42-75); PLATELET COUNT 177 10^3/uL (130-400); RED CELL DISTRIBUTION WIDTH 13.9 % (10.0-14.5); WHITE BLOOD COUNT 11.8 10^3/uL (4.3-11.0)
[2019-04-13 06:05] LABS: BUN/CREATININE RATIO 29; CALCIUM 7.8 MG/DL (8.5-10.1); CARBON DIOXIDE 24 MMOL/L (21-32); CHLORIDE 112 MMOL/L (98-107); CREATININE SERUM 0.83 MG/DL (0.60-1.30); GFR ESTIMATED > 60; GLUCOSE 118 MG/DL (70-105); MAGNESIUM 1.9 MG/DL (1.8-2.4); POTASSIUM 4.2 MMOL/L (3.6-5.0); SODIUM 143 MMOL/L (135-145)
[2019-04-13] MEDS: inSUlin ASPART (NovoLOG) 1 UNIT/0.01 ML (CHARGE PER UNIT) SC SCH ×7 (06:18→21:47)
[2019-04-13] MEDS: lisINopril 5 MG (PRINIVIL) TABLET PO SCH (08:49)
[2019-04-13] MEDS: CEFDINIR 300 MG (OMNICEF) CAP PO SCH ×2 (08:49→21:46)
[2019-04-13] MEDS: GABAPENTIN 300 MG (NEURONTIN) CAP PO SCH ×2 (08:49→21:46)
[2019-04-13] MEDS: AZITHROMYCIN 250 MG TAB (ZITHROMAX) PO SCH (08:53)
[2019-04-13] MEDS ORDERED: GABA-488 PO (08:57)
[2019-04-13] MEDS ORDERED: MULT-974 PO (08:57)
[2019-04-13] MEDS ORDERED: IBUP-1780 PO (08:57)
[2019-04-13] MEDS ORDERED: METH35.42 TP (08:57)
[2019-04-13] MEDS ORDERED: CBD OIL SL (08:57)
--- NOTE | 2019-04-13 08:58 | NUR ---
SPOKE WITH PT WELL GOING OVER THE EXT MED HISTORY TO COMPLETE THE MED REC. GLIPIZIDE AND CRESTOR- PT SAYS SHE IS NO LONGER TAKING IBUPROFEN 800MG: PT SAYS SHE ONLY TAKES THIS AT BEDTIME. POTASSIUM: PT INDICATES SHE ONLY USES THIS EVERY OTHER DAY AND IS NOT SURE IF THIS HOW IT WAS PRESCRIBED OR NOT. OTC MEDS: ICY HOT: APPLY TO NECK HS MULTIVITAMIN: 1 DAILY CBD OIL: DIRECTED
[2019-04-13] MEDS ORDERED: methylPREDNISolone 40 MG/ML (Solu-MEDROL) VIAL IV SCH (09:00)
--- NOTE | 2019-04-13 09:01 | Diagnostic Imaging Report ---
INDICATION: Dyspnea. Comparison made with prior examination from 04/12/2019. FINDINGS: There's cardiomegaly. There is venous congestion. Some right parahilar discoid atelectasis and/or pneumonitis. There is no pleural effusion or pneumothorax. IMPRESSION: Right perihilar discoid atelectasis and/or pneumonitis. Cardiomegaly and some central pulmonary venous congestion. Dictated by: Dictated on workstation # [id number]
--- NOTE | 2019-04-13 09:54 | Physical Therapy Evaluation ---
PT Evaluation-General Medical Diagnosis Admission Date Apr 10, 2019 at 19:08 Medical Diagnosis: COPD exacerbation Onset Date: Apr 10, 2019 Therapy Diagnosis Therapy Diagnosis: debility Height/Weight Height (Feet): 5 Height (Inches): 6.00 Weight (Pounds): 281 Weight (Ounces): 9.6 Precautions Precautions/Isolations: Standard Precautions Weight Bear Status Right Lower Extremity: Right Weight Bearing/Tolerated Left Lower Extremity: Left Weight Bearing/Tolerated Referral Physician: Abilio Reason for Referral: Evaluation/Treatment Medical History Pertinent Medical History: COPD, DM, HTN, Neuropathy Current History EMS from Urgent Care secondary to SOA x 2 weeks Reviewed History: Yes Social History Home: Single Level Current Living Status: Children Entry Into Home: Level Entry Prior/Core FIM Prior Level of Function Therapy Code Descriptions/Definitions Functional [place] Measure: 0=Not Assessed/NA 4=Minimal Assistance 1=Total Assistance 5=Supervision or Setup 2=Maximal Assistance 6=Modified [place] 3=Moderate Assistance 7=Complete [place] Therapy Quality Codes: 6 Independent with activity with or without an assistive device 5 Patient requires set up or clean up by helper. Patient completes activity by themselves 4 Supervision or touching assist (CGA). [place] provide cues , steadying assist 3 The helper provides less than half the effort to complete the activity 2 The helper provides more than half the effort to complete the activity 1 Dependent. The helper does all the effort to complete an activity 7 Patient refused to complete or attempt activity 9 The patient did not perform the activity before the current illness or injury 88 Not attempted due to Medical conditions or safety concerns Functional Abilities and Goals: Independent: Patient completed the activities by him/herself, with or without an assistive device, with no assistance from a helper. Needed Some Help: Patient needed partial assistance from another person to complete activities. Dependent: A helper completed the activities for the patient. Unknown: Not Applicable: Bed Mobility: 6 Transfers (B,C,W/C) (FIM): 6 Gait: 6 Indoor Mobility (Ambulation): Independent Stairs: Not [place] Prior Devices Use: None, Walker patient reports her son assists with all mobility and ADL's as needed. PT Evaluation-Current Subjective Patient agrees to PT. Pain Numeric Pain Scale: 0-No Pain Location: No Pain Reported Objective Patient Orientation: Normal For Age Problem Solving: Fair Attachments: Oxygen, IV ROM/Strength ROM Lower Extremities bilateral LE WFL Strength Lower Extremities 4/5 grossly bilaterally Integumentary/Posture Integumentary refer to nursing notes Bowel Incontinence: No Bladder Incontinence: No Posture trunk flexed posture due to inactivity PLOF Neuromuscular (Tone, Coordination, Reflexes) grossly intact Sensory Vision: Sensation Right Lower Extremit: Impaired Sensation Left Lower Extremity: Impaired Transfers Therapy Code Descriptions/Definitions Functional [place] Measure: 0=Not Assessed/NA 4=Minimal Assistance 1=Total Assistance 5=Supervision or Setup 2=Maximal Assistance 6=Modified [place] 3=Moderate Assistance 7=Complete [place] Transfers (B, C, W/C) (FIM): 6 Scootin Rollin Supine to/from Sit: 6 Sit to/from Stand: 6 Gait Mode of Locomotion: Walk Anticipated Mode of Locomotion: Walk Gait (FIM): 6 Distance (FIM): 3=150 ft Distance: 175' Gait Level of Assist: 6 Gait Assistive Device: FWW Comments/Gait Description safe and functional/increase SOA with O2 2L NC Balance Sitting Static: Normal Sitting Dynamic: Normal Standing Static: Normal Standing Dynamic: Normal Assessment/Needs 79 y.o. female, will be seen short term by skilled PT to address functional mobility and pulmonary function with activity. Patient is inactive, per her report, PLOF and reports she does not leave the house. Rehab Potential: Fair PT Board Of Directors Goals Board Of Directors Goals PT Board Of Directors Goals Time Frame: Apr 18, 2019 Transfers (B,C,W/C) (FIM): 6 Gait (FIM): 6 Gait distance (FIM): 3=150 ft Gait Level of Assist: 6 Gait Assistive Device: FWW PT Plan Problem List Problem List: Activity Tolerance Treatment/Plan Treatment Plan: Continue Plan of Care Treatment Plan: Education, Functional Activity Robert, Functional Strength, Gait, Safety, Therapeutic Exercise, Transfers Treatment Duration: Apr 18, 2019 Frequency: 6 times per week Estimated Hrs Per Day: .25 hour per day Patient and/or Family Agrees t: Yes Discharge Recommendations Therapy D/C Recommendations: Home w/ Family Support, Usp Placement, [facility] (TCU/[facility]) Time/GCodes Time In: 850 Time Out: 906 Total Billed Treatment Time: 16 Total Billed Treatment 1 visit EVModC 16 min NOHEMI HERNANDEZ PT Apr 13, 2019 09:54
--- NOTE | 2019-04-13 10:32 | Progress Note - Hospitalist ---
[facility] 04/13/19 1032: Subjective HPI/CC On Admission Date Seen by Provider: Apr 13, 2019 Time Seen by Provider: 07:15 weakness Subjective/Events-last exam Ms. Louie was alert and in good spirits when I seen her. She was short of breath between her sentences and appeared labored in her breathing. She arrived in the ER for Dyspnea and shortness of breath. She has a PMH of COPD, T2DM, HTN and Frequently high blood sugars Patient stated history of glaucoma and is starting to lose her vision Patient is still coughing ROS: she states she feels SOB and denies chest pain, N/V and fever and chills. Patient states it is hard ambulating due to losing her breath. Requires alot of assistance Patient has a headache and denies anyother pain Urinating and having bowel movements (last one yesterday 04/12/19) Eating and Drinking Fine, patient denies issues swallowing Labs: WBC slightly elevated at 11.8, HgB:9.6, calcium 7.8, BUN is slightly elevated and GFR > 60 Vitals stable Previous test for MRSA were negative and urine sample tested negative with multiple isolates present. Focused Exam Lactate Level 04/11/19 22:27: Lactic Acid Level 2.65*H 04/12/19 16:10: Lactic Acid Level 2.51*H 04/12/19 18:15: Lactic Acid Level 2.26*H Objective Exam Vital Signs Vital Signs Date Time Temp Pulse Resp B/P (MAP) Pulse Ox O2 Delivery O2 Flow Rate FiO2 04/13/19 12:00 97.8 52 20 155/75 (101) 99 Nasal Cannula 1.00 04/13/19 08:21 32 Capillary Refill : Less Than 3 Seconds General Appearance: No Apparent Distress Respiratory: Chest Non Tender, Wheezing Cardiovascular: Regular Rate, Rhythm, Other (Lower extremity edema ) Neurologic/Psychiatric: Alert Results/Procedures Lab Laboratory Tests 04/13/19 05:15 Patient resulted labs reviewed. Assessment/Plan Assessment and Plan Assess & Plan/Chief Complaint Assess & Plan/Chief Complaint Acute COPD exacerbation -Continue steroids, decreasing dose -Duonebs four times daily -Needs a new nebulizer on discharge -Transition to Cefdinir and Azithromycin with five day total course Sepsis due to UTI -SIRS+ with tachycardia and tachypnea on arrival -Septic source identified as UTI -Culture contaminated -Transition to Cefdinir today for five day total course Lactic acidosis -Continue IV fluids Acute kidney injury -Mild, likely due to dehydration -Continue IV fluids T2DM with hyperglycemia Steroid-induced hyperglycemia -Blood sugar >500 upon arrival -Transitioned off insulin gtt overnight -Begin Levemir 50 mg twice daily -Novolog 15 units with meals - continue to monitor Lung nodules -Follow up with Dr. Barrios as an outpatient Thyroid nodule -Outpatient ultrasound recommended -Obtain TSH and free T4 PT/OT - consult and have patient work with them Clinical Quality Measures DVT/VTE Risk/Contraindication: Risk Factor Score Per Nursin RFS Level Per Nursing on Admit: 4+=Very High LYNDSAY SELBY DO 04/13/19 2019: Subjective Subjective/Events-last exam MRSA was negative, urine culture has three or more isolates Continues to wheeze Does not normally use oxygen at home BP borderline 95/54 Had a BM yesterday White count is 11.8, glucose is now 113 Cefdinir tolerated twice daily Has glaucoma and has very low vision Lives with her son PT and OT are already ordered Swing bed or inpatient rehab ordered Review of Systems General: Fatigue HEENT: Visual Changes Pulmonary: Dyspnea Objective Exam General Appearance: No Apparent Distress, WD/WN, Anxious, Chronically ill, Obese Respiratory: Chest Non Tender, No Accessory Muscle Use, No Respiratory Distress, Crackles, Wheezing Cardiovascular: Regular Rate, Rhythm, No Edema, No Gallop, No JVD, No Murmur, Normal Peripheral Pulses Neurologic/Psychiatric: Alert, Oriented x3, No Motor/Sensory Deficits, Normal Mood/Affect Skin: Normal Color, Warm/Dry Assessment/Plan Assessment and Plan Assess & Plan/Chief Complaint Reviewed above assessment and plan PT/OT IRF? SB? Diagnosis/Problems Diagnosis/Problems (1) COPD exacerbation Status: Acute (2) Elevated lactic acid level Status: Acute (3) Cystitis without hematuria Status: Acute (4) Thyroid nodule Status: Chronic (5) Type 2 diabetes mellitus Status: Chronic Qualifiers: Qualified Codes: E11.65 - Type 2 diabetes mellitus with hyperglycemia; Z79.4 - long term care pharmacist (current) use of insulin (6) Lung nodules Status: Chronic (7) Acute kidney injury Status: Acute (8) Sepsis due to urinary tract infection Status: Acute Supervisory-Addendum Brief Verification & Attestation Time: Verification & Attestat.: 09:00 Participated in pt care: history, MDM, physical Personally performed: exam, history, MDM, supervision of care Care discussed with: Medical Student Procedures: n/a Results interpretation: Verified all documentation Verification and Attestation of Medical Student E/M Service A medical student performed and documented this service in my presence. I reviewed and verified all information documented by the medical student and made modifications to such information, when appropriate. I personally performed the physical exam and medical decision making. Lyndsay Selby, Apr 13, 2019,20:19 [facility] Apr 13, 2019 10:32 LYNDSAY SELBY DO Apr 13, 2019 20:19
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
--- NOTE | 2019-04-13 11:49 | Occupational Therapy Eval ---
OT Evaluation-General/PLF Medical Diagnosis Admission Date Apr 10, 2019 at 19:08 Medical Diagnosis: COPD exacerbation Onset Date: Apr 10, 2019 Therapy Diagnosis Therapy Diagnosis: imapired ADLs and mobility Height/Weight Height (Feet): 5 Height (Inches): 6.00 Weight (Pounds): 281 Weight (Ounces): 9.6 Precautions Precautions/Isolations: Fall Prevention, Standard Precautions Safety Interventions: None Weight Bear Status Weight Bearing Restriction: Weight Bearing/Tolerated Referral Physician: Abilio Referral Reason: Activity Tolerance, Self Care, Evaluation/Treatment, Strengthening/ROM Medical History Pertinent Medical History: COPD, DM, HTN, Neuropathy Current History per h&P: "Mariela Louie is a 79yoF with PMH COPD, T2DM, HTN, who presented with dyspnea and weakness. She reports that she has been having trouble breathing for about a month. She also reports cough and sputum production. She has been treated with two rounds of steroids and antibiotics but has failed to improve. She denies any fevers and chills. She denies chest pain. She denies orthopnea and PND. She has been taking her insulin at home and reports using a sliding scale based on the readings. She says it has been running high on the steroids and very infrequently she sees numbers in the 500s. She denies dysuria, urgency, and frequency." Social History Home: Single Level Current Living Status: Children Entry Into Home: Level Entry ADL-Prior Level of Function Therapy Code Descriptions/Definitions Functional [place] Measure: 0=Not Assessed/NA 4=Minimal Assistance 1=Total Assistance 5=Supervision or Setup 2=Maximal Assistance 6=Modified [place] 3=Moderate Assistance 7=Complete [place] Therapy Quality Codes: 6 Independent with activity with or without an assistive device 5 Patient requires set up or clean up by helper. Patient completes activity by themselves 4 Supervision or touching assist (CGA). [place] provide cues , steadying assist 3 The helper provides less than half the effort to complete the activity 2 The helper provides more than half the effort to complete the activity 1 Dependent. The helper does all the effort to complete an activity 7 Patient refused to complete or attempt activity 9 The patient did not perform the activity before the current illness or inju ry 88 Not attempted due to Medical conditions or safety concerns Functional Abilities and Goals: Independent: Patient completed the activities by him/herself, with or without an assistive device, with no assistance from a helper. Needed Some Help: Patient needed partial assistance from another person to complete activities. Dependent: A helper completed the activities for the patient. Unknown: Not Applicable: ADL PLOF Comments pt stated she is indep with all ADLS and mobility using RW. pt stated her son assist her PRN. pt uses AE (perfect binder operator, sock aid) at home with ADLS Self Care: Independent Functional Cognition: Independent DME/Equipment: Bath Bench, Shower Drive Self: No OT Current Status Subjective pt sitting EOB upon OT arrival. pt reports no pain. pt agreed to OT eval/ TX session. Mental Status/Objective Attachments: IV, Oxygen (2L NC) Current Glasses/Contacts: Yes Hearing Aids: No Dentures/Partials: No Hand Dominance: Right Upper Extremity ROM limited L Shoulder secondary to pervious rotator cuff tear per pt. pt only able to flex left shoulder approx 10 degrees. left elbow and wrist WNL right UE WNL Upper Extremity Coordination decrease anna marie coordination opposition and finger to nose. pt sated this is related her her neuropathy. Upper Extremity Sensation decrease - neuropathy Upper Extremity Strength decrease ADL-Treatment Therapy Code Descriptions/Definitions Functional [place] Measure: 0=Not Assessed/NA 4=Minimal Assistance 1=Total Assistance 5=Supervision or Setup 2=Maximal Assistance 6=Modified [place] 3=Moderate Assistance 7=Complete [place] Therapy Quality Codes: 6 Independent with activity with or without an assistive device 5 Patient requires set up or clean up by helper. Patient completes activity by themselves 4 Supervision or touching assist (CGA). [place] provide cues , steadying assist 3 The helper provides less than half the effort to complete the activity 2 The helper provides more than half the effort to complete the activity 1 Dependent. The helper does all the effort to complete an activity 7 Patient refused to complete or attempt activity 9 The patient did not perform the activity before the current illness or injury 88 Not attempted due to Medical conditions or safety concerns pt perform LB dressing dep, toileting with CGA secondary to safety/ balance, UB dressing with min A secondary to limited ROM, and functional transfer with CGA Other Treatments pt education on energy conservation techniques while perform sit to resident services coordinator prep for toilet transfers. pt perform 5X2 sit to stands. noted SOB with activity requiring frequent rest breaks. pt education on pursed lip breathing. pt demo understanding correctly. post OT Session pt sitting EOB, call light, tray and phone within reach, all needs met. OT Short Term Goals Short Term Goals Grooming(FIM): 6 Bathing(FIM): 5 Lower Body Dressing(FIM): 5 Toileting(FIM): 5 Transfers (B,C,W/C) (FIM): 5 Toilet/Commode Transfer(FIM): 5 1=Demonstrate adherence to instructed precautions during ADL tasks. 2=Patient will verbalize/demonstrate understanding of assistive devices/modifications for ADL. 3=Patient will improve strength/tolerance for activity to enable patient to perform ADL's. OT Shelter Goals Hemodialysis Rn Goals Grooming(FIM): 6 Bathing(FIM): 6 Upper Body Dressing(FIM): 6 Lower Body Dressing(FIM): 6 Transfers (B,C,W/C) (FIM): 6 Toilet/Commode Transfer(FIM): 6 Additional Goals: 1-Demonstrate ADL Tasks, 2-Verbalize Understanding, 3- ImproveStrength/Robert 1=Demonstrate adherence to instructed precautions during ADL tasks. 2=Patient will verbalize/demonstrate understanding of assistive devices/modifications for ADL. 3=Patient will improve strength/tolerance for activity to enable patient to perform ADL's. OT Education/Plan Problem List/Assessment Assessment: Decreased Activ Tolerance, Decreased Safety Aware, Decreased UE Strength, Impaired Coordination, Impaired I ADL's, Impaired Self-Care Skills, Restricted Funct UE ROM Discharge Recommendations Plan/Recommendations: Continue POC Therapy D/C Recommendations: Home w/ Family Support Treatment Plan/Plan of Care Treatment,Training & Education: Yes Patient would benefit from OT for education, treatment and training to promote independence in ADL's, mobility, safety and/or upper extremity function for ADL's. Plan of Care: ADL Retraining, Caregiver Training, Functional Mobility, Group Exercise/Act as Ind, UE Funct Exercise/Act Treatment Duration: Apr 27, 2019 Frequency: 5 times per week Estimated Hrs Per Day: .5 hour per day Agreement: Yes Rehab Potential: Fair Time/GCodes Start Time: 11:30 Stop Time: 11:55 Billed Treatment Time EVM 15 minutes, FA 10 minutes RITU MAYFIELD OT Apr 13, 2019 11:49
--- NOTE | 2019-04-13 13:19 | Pulmonary Progress Note ---
Subjective Time Seen by a Provider: 16:17 Subjective/Events-last exam Pt is more wheezy today. Sepsis Event Evaluation Height, Weight, BMI Height: 5'6.00" Weight: 281lbs. 9.6oz. 127.796606oo; 42.6 BMI Method:Stated Focused Exam Lactate Level 04/11/19 22:27: Lactic Acid Level 2.65*H 04/12/19 16:10: Lactic Acid Level 2.51*H 04/12/19 18:15: Lactic Acid Level 2.26*H Exam Exam Vital Signs Date Time Temp Pulse Resp B/P (MAP) Pulse Ox O2 Delivery O2 Flow Rate FiO2 04/13/19 12:00 97.8 52 20 155/75 (101) 99 Nasal Cannula 1.00 04/13/19 11:02 94 Nasal Cannula 2.00 04/13/19 08:21 81 96 32 04/13/19 08:00 Nasal Cannula 1.00 04/13/19 08:00 99.3 86 20 93/55 (68) 96 Nasal Cannula 1.00 04/13/19 06:32 96 Nasal Cannula 3.00 04/13/19 04:00 100.6 93 26 95/54 (68) 96 Nasal Cannula 2.00 04/13/19 03:47 100.6 04/13/19 02:57 94 Nasal Cannula 3.00 04/13/19 00:10 99.2 04/13/19 00:00 100.7 100 32 127/62 (83) 97 Nasal Cannula 2.00 04/12/19 23:38 100.2 04/12/19 22:32 92 Nasal Cannula 3.00 04/12/19 20:00 Nasal Cannula 1.00 04/12/19 19:45 98.0 92 23 175/99 (124) 98 Nasal Cannula 2.00 04/12/19 15:35 97.4 89 20 132/63 (86) 98 Nasal Cannula 1.00 I & O 04/13/19 07:00 Intake Total 5270 ml Output Total 2 ml Balance 5268 ml Height & Weight Height: 5'6.00" Weight: 281lbs. 9.6oz. 127.637105hj; 42.6 BMI Method:Stated General Appearance: No Apparent Distress HEENT: PERRL/EOMI, Pharynx Normal Neck: Normal Inspection, Supple Respiratory: Chest Non Tender, Decreased Breath Sounds, Wheezing Cardiovascular: Regular Rate, Rhythm, Other (Lower extremity edema ) Capillary Refill: Less Than 3 Seconds Extremity: Normal Inspection, No Calf Tenderness, No Pedal Edema Neurologic/Psychiatric: Alert Skin: Normal Color, Warm/Dry Lymphatic: No Adenopathy Results Lab Laboratory Tests 04/11/19 20:24 04/12/19 03:45 04/13/19 05:15 Assessment/Plan Assessment/Plan COPDAE -Solumedrol - change to prednisone taper -Lasix IV 40mg IV x 1 -oxygen -SVNs Q4 UTI with sepsis -Omnicef and azithromycin -Jones cultures -MRSA nasal swab negative -IVF Hyperglycemia -Levemir Acute renal failure -IVF -Monitor Lung nodule - per CT report -Will need out pt F/u -I will have her see me 1-2wks after discharge to arrange out workup. DANUTA MOYER DO Apr 13, 2019 13:19
--- NOTE | 2019-04-13 13:43 | NUR ---
A/C Tech visited pt after referral from . Pt is Quaker but has not been active in a local christian. She spoke of her family and presented a rather optimistic view of life. She indicated that she enjoys talking. A/C Tech listened and offered prayer and blessing.
[2019-04-13] MEDS: guaiFENesin/DM (ROBITUSSIN DM) 10 ML UDC PO PRN (14:11)
[2019-04-13] MEDS ORDERED: FUROSEMIDE 40 MG/4 ML INJ (LASIX) IVP NR (16:15)
[2019-04-13] MEDS ORDERED: KCL 20 MEQ TAB (K-DUR) PO NR (16:15)
[2019-04-13] MEDS ORDERED: MELATONIN 3 MG TABLET PO PRN (20:30)
[2019-04-13] MEDS ORDERED: ONDANSETRON 4 MG (ZOFRAN) ORAL DISSOLVE TAB PO PRN (20:30)
[2019-04-13] MEDS ORDERED: DOCUSATE SODIUM 100 MG (COLACE) CAP PO PRN (20:30)
[2019-04-13] MEDS ORDERED: diphenhydrAMINE 25 MG TAB (BENADRYL) PO PRN (20:30)
[2019-04-13] MEDS ORDERED: CALCIUM CARBONATE 500 MG (TUMS) TAB.CHEW PO PRN (20:30)
[2019-04-13] MEDS: KCL 20 MEQ TAB (K-DUR) PO SCH (21:00)
[2019-04-13] MEDS: MAGNESIUM 1 GM/100 ML IVPB 100 ML IV SCH (21:00)
[2019-04-13] MEDS: POTASSIUM CL 10MEQ/50ML IVPB 50 ML IV SCH (21:00)
[2019-04-13] MEDS: lisINopril 10 MG (PRINIVIL) TABLET PO SCH (21:46)
[2019-04-13] MEDS: SENNA W/DOCUSATE (SENOKOT S) TABLET PO SCH (21:49)
[2019-04-14] MEDS: RT-ALBUTEROL/IPRATROPIUM 3 ML (DUONEB) VIAL INH SCH ×3 (02:37→10:27)
[2019-04-14 03:20] VITALS: BP 122/63
[2019-04-14] MEDS: inSUlin ASPART (NovoLOG) 1 UNIT/0.01 ML (CHARGE PER UNIT) SC SCH ×2 (06:15)
[2019-04-14 07:10] LABS: BASOPHILS % (AUTO) 0 % (0-10); EOSINOPHILS # (AUTO) 0.1 10^3/uL (0.0-0.3); EOSINOPHILS % (AUTO) 1 % (0-10); HEMATOCRIT 32 % (35-52); LYMPHOCYTES # (AUTO) 2.9 X 10^3 (1.0-4.0); LYMPHOCYTES % (AUTO) 29 % (12-44); MEAN CORPUSCULAR HEMOGLOBIN 30 PG (25-34); MEAN CORPUSCULAR HGB CONC 32 G/DL (32-36); MEAN CORPUSCULAR VOLUME 94 FL (80-99); MEAN PLATELET VOLUME 10.5 FL (7.4-10.4); MONOCYTES # (AUTO) 0.9 X 10^3 (0.0-1.0); MONOCYTES % (AUTO) 9 % (0-12); NEUTROPHILS # (AUTO) 6.2 X 10^3 (1.8-7.8); NEUTROPHILS % (AUTO) 62 % (42-75); PLATELET COUNT 192 10^3/uL (130-400); RED CELL DISTRIBUTION WIDTH 13.9 % (10.0-14.5)
[2019-04-14 07:36] LABS: BUN/CREATININE RATIO 25; CALCIUM 8.6 MG/DL (8.5-10.1); CARBON DIOXIDE 28 MMOL/L (21-32); CHLORIDE 109 MMOL/L (98-107); CREATININE SERUM 0.83 MG/DL (0.60-1.30); GFR ESTIMATED > 60; MAGNESIUM 2.2 MG/DL (1.8-2.4); POTASSIUM 4.1 MMOL/L (3.6-5.0); SODIUM 148 MMOL/L (135-145)
[2019-04-14 07:43] LABS: GLUCOSE 39 MG/DL (70-105)
[2019-04-14 08:00] VITALS: BP 161/96
[2019-04-14] MEDS: KCL 20 MEQ TAB (K-DUR) PO SCH (08:29)
[2019-04-14] MEDS: POTASSIUM CL 10MEQ/50ML IVPB 50 ML IV SCH (08:29)
[2019-04-14] MEDS: MAGNESIUM 1 GM/100 ML IVPB 100 ML IV SCH (08:29)
[2019-04-14] MEDS ORDERED: predniSONE 10 MG TAB PO SCH (09:00)
--- NOTE | 2019-04-14 09:05 | NUR ---
Swing Bed Note: Does not qualify for swing bed at this time. Spoke with the patient yesterday about any concerns/needs that she is having. She voiced that she has been having coughing spells that cause her concern. She reports that she wears oxygen at night only et that sometimes she is feeling short of breath. We talked about how she is doing with therapy. She reported that she feels like she did well et that is what therapy documentation reflects as well. F/U with the patient while she worked with Physical therapy this a.m. She was able to transfer independently according to therapy. I walked with her et therapy while in the hallway. She was modified independent do to using a front wheeled walker with ambulation. Her gait was noted to be steady with the FWW. She talked while she ambulated et had mild shortness of breath with speaking however no shortness of breath noted while ambulating only. The patient reports that she feels tired with ambulation.
[2019-04-14] MEDS: lisINopril 5 MG (PRINIVIL) TABLET PO SCH (09:06)
[2019-04-14] MEDS: GABAPENTIN 300 MG (NEURONTIN) CAP PO SCH (09:07)
[2019-04-14] MEDS: SENNA W/DOCUSATE (SENOKOT S) TABLET PO SCH (09:07)
[2019-04-14] MEDS: CEFDINIR 300 MG (OMNICEF) CAP PO SCH (09:08)
--- NOTE | 2019-04-14 09:19 | Physical Therapy Daily Note ---
PT Daily Note-Current Subjective Patient agrees to PT. Patient reports she has a w/c, FWW and cane at home and does not leave the home often. Patient eye sight is poor which she states, limits her. She also reports she is in her bed or at her computer, which is by her bed, in the home. Patient also reports her son is a smoker, but on the other end of the house. Patient states she is currently up in the room independently. Pain Numeric Pain Scale: 0-No Pain Location: No Pain Reported Mental Status Patient Orientation: Normal For Age Attachments: Oxygen Transfers Therapy Code Descriptions/Definitions Functional [place] Measure: 0=Not Assessed/NA 4=Minimal Assistance 1=Total Assistance 5=Supervision or Setup 2=Maximal Assistance 6=Modified [place] 3=Moderate Assistance 7=Complete [place] Therapy Quality Codes: 6 Independent with activity with or without an assistive device 5 Patient requires set up or clean up by helper. Patient completes activity by themselves 4 Supervision or touching assist (CGA). [place] provide cues , steadying assist 3 The helper provides less than half the effort to complete the activity 2 The helper provides more than half the effort to complete the activity 1 Dependent. The helper does all the effort to complete an activity 7 Patient refused to complete or attempt activity 9 The patient did not perform the activity before the current illness or injury 88 Not attempted due to Medical conditions or safety concerns Transfers (B, C, W/C) (FIM): 7 Scootin Rollin Supine to/from Sit: 7 Sit to/from Stand: 7 patient toilets self independently without difficulty Weight Bearing Right Lower Extremity: Right Weight Bearing/Tolerated Left Lower Extremity: Left Weight Bearing/Tolerated Gait Training Gait (FIM): 6 Distance (FIM): 3=150 ft Distance: 200' Gait Level of Assist: 6 Gait Assistive Device: FWW safe and functional with no deviation Exercises Supine Ex: Ankle pumps, Quad Set Supine Reps: 15 Assessment Patient appears to tolerate increase in activity on this date. She is currently at OF with all gross motor skills. PT to continue x 1 more session before dismissing patient from services. PT Short Term Goals Short Term Goals Transfers (B,C,W/C) (FIM): 5 PT Border Machine Operator Goals Border Machine Operator Goals PT Border Machine Operator Goals Time Frame: Apr 18, 2019 Transfers (B,C,W/C) (FIM): 6 Gait (FIM): 6 Gait distance (FIM): 3=150 ft Gait Level of Assist: 6 Gait Assistive Device: FWW PT Plan Treatment/Plan Treatment Plan: Continue Plan of Care Treatment Plan: Education, Functional Activity Robert, Functional Strength, Gait, Safety, Therapeutic Exercise, Transfers Treatment Duration: Apr 18, 2019 Frequency: 6 times per week Estimated Hrs Per Day: .25 hour per day Patient and/or Family Agrees t: Yes Discharge Recommendations Therapy D/C Recommendations: Home w/ Family Support Time/GCodes Time In: 825 Time Out: 840 Total Billed Treatment Time: 15 Total Billed Treatment 1 visit FA 15 min NOHEMI HERNANDEZ PT Apr 14, 2019 09:19
--- NOTE | 2019-04-14 09:58 | Discharge Summary ---
Diagnosis/Chief Complaint Date of Admission Apr 10, 2019 at 19:08 Date of Discharge Discharge Date: Apr 14, 2019 Admission Diagnosis Acute COPD exacerbation Discharge Diagnosis (1) COPD exacerbation Status: Acute (2) Elevated lactic acid level Status: Acute (3) Cystitis without hematuria Status: Acute (4) Thyroid nodule Status: Chronic (5) Type 2 diabetes mellitus Status: Chronic (6) Lung nodules Status: Chronic (7) Acute kidney injury Status: Acute (8) Sepsis due to urinary tract infection Status: Acute Discharge Summary Discharge Physical Exam Allergies: Coded Allergies: levofloxacin (Unverified Allergy, Intermediate, HIVES, ITCHING, 04/14/19) metronidazole (Unverified Adverse Reaction, Mild, N/V, 12/16/18) latex (Unverified Adverse Reaction, Unknown, hives, 12/16/18) Vitals & I&Os Vital Signs Date Time Temp Pulse Resp B/P (MAP) Pulse Ox O2 Delivery O2 Flow Rate FiO2 04/14/19 11:00 04/14/19 10:28 98 Nasal Cannula 2.00 04/14/19 08:00 97.8 94 20 04/13/19 08:21 32 General Appearance: No Apparent Distress, WD/WN Respiratory: Wheezing Neurologic/Psychiatric: Alert, Oriented x3, No Motor/Sensory Deficits, Normal Mood/Affect Hospital Course Was the Problem List Reviewed?: Yes Hospital course: Pt had an uneventful hospital course for a total 5 days after she was admitted to the ICU, placed on an insulin drip and placed on IV steroids for exacerbation of COPD and respiratory insufficiency. UTI was treated with Rocephin but that eventually are out three or more isolates so that treatment was discontinued. Blood sugars were very labile after steroids discontinued and hypoglycemia episode occurred at 51 level on day of discharge from acute care and considering she was in need of insulin adjustment and close monitoring of hemoglobin that was decreasing along with leukocytosis and weaning oxygen she wa s deemed meeting criteria for inpatient rehab for presumed 5 day stay and then return home to live with her son. Labs (last 24 hrs) Laboratory Tests 04/14/19 05:24: Glucometer 54*L 04/14/19 05:26: White Blood Count 10.0, Red Blood Count 3.36L, Hemoglobin 10.0L, Hematocrit 32L, Mean Corpuscular Volume 94, Mean Corpuscular Hemoglobin 30, Mean Corpuscular Hemoglobin Concent 32, Red Cell Distribution Width 13.9, Platelet Count 192, Mean Platelet Volume 10.5H, Neutrophils (%) (Auto) 62, Lymphocytes (%) (Auto) 29, Monocytes (%) (Auto) 9, Eosinophils (%) (Auto) 1, Basophils (%) (Auto) 0, Neutrophils # (Auto) 6.2, Lymphocytes # (Auto) 2.9, Monocytes # (Auto) 0.9, Eosinophils # (Auto) 0.1, Basophils # (Auto) 0.0, Sodium Level 148H, Potassium Level 4.1, Chloride Level 109H, Carbon Dioxide Level 28, Anion Gap 11, Blood Urea Nitrogen 21H, Creatinine 0.83, Estimat Glomerular Filtration Rate > 60, BUN/Creatinine Ratio 25, Glucose Level 39*L, Calcium Level 8.6, Magnesium Level 2.2 04/14/19 05:44: Glucometer 81 04/14/19 09:18: Glucometer 126H 04/14/19 11:21: Glucometer 146H Microbiology 04/10/19 Blood Culture - Preliminary, Resulted No growth 04/11/19 MRSA Screen - Final, Complete MRSA not isolated 04/10/19 Urine Culture - Final, Complete 3 or more isolates Patient resulted labs reviewed. Pending Labs Discussion & Recommendations Discharge Planning: <30 minutes discharge planning Discharge Home Medications: Active Scripts Active Reported Icy Hot Cream (Methyl Salicylate/Menthol) 35.4 Gm Cream..g. 1 Unit TP HS APPLY TO NECK [Cbd Oil] 1 Drop SL UD PRN Multi-Vitamin Daily (Multivitamin) 1 Each Tablet 1 Each PO DAILY Ibuprofen 800 Mg Tablet 800 Mg PO HS PRN Gabapentin 300 Mg Capsule 300 Mg PO HS Gabapentin 300 Mg Capsule 300 Mg PO 0800,1200 Humalog Mix 75-25 Kwikpen (Insulin NPL/Insulin Lispro) 100 Unit/1 Ml Insuln.pen Units SC UD pt on sliding scale, if blood sugar 200 or greater pt takes 60units bid. Fluticasone Propionate 16 Gm [place].susp 1 [place] NA DAILY PRN PRN Lisinopril 2.5 Mg Tablet 2.5 Mg PO DAILY Lisinopril 10 Mg Tablet 10 Mg PO HS Potassium Chloride 10 Meq Tab.er.prt 10 Meq PO Q48H Instructions to patient/family Please see electronic discharge instructions given to patient. Clinical Quality Measures DVT/VTE Risk/Contraindication: Risk Factor Score Per Nursin RFS Level Per Nursing on Admit: 4+=Very High Problem Qualifiers (1) Type 2 diabetes mellitus: Diabetes mellitus intermediate insulin use: with intermediate use Diabetes mellitus complication status: with hyperglycemia Qualified Codes: E11.65 - Type 2 diabetes mellitus with hyperglycemia; Z79.4 - senior living (current) use of insulin KEVIN SELBY DO Apr 14, 2019 09:58
--- NOTE | 2019-04-14 10:44 | Diagnostic Imaging Report ---
EXAMINATION: Portable erect AP chest at 0401 hours. INDICATION: Dyspnea. FINDINGS: The cardiomegaly noted on the prior exam of 04/13/2019 is again evident and no different; however, the band of atelectasis/infiltrate in the right midlung seen previously has diminished. The mild pulmonary congestion seen on the prior study has also essentially resolved. The mediastinum is not widened. The osseous structures are intact. IMPRESSION: The appearance of the chest has improved as the right midlung is better aerated and there does seem to be less pulmonary congestion. A followup study would be recommended for continued evaluation. Dictated on workstation # [id number]
--- NOTE | 2019-04-14 12:19 | Progress Note - Hospitalist ---
[facility] 04/14/19 1219: Progress Note Patient seen 04/14/19 @ 7:15am Hospital Course: Mariela Louie is a 79 year old white female who presented to the ER with Dyspnea on April 10 2019. She has PMH of T2DM, Sepsis due to UTI, COPD, lung nodule and a thyroid nodule. Mariela has been receiving but not limited to fluids, antibiotics, T2DM treatment, COPD treatment and PT while at [facility]. She continue to make progress but still becomes short of breath when walking certain distances. She is still heavily dependent on oxygen use and needs assistance. She continue to need assessment and management on proper insulin treatment for her diabetes. She came in to the ER on the April 10 2019 with a glucose of 25 8. Her glucose has been under control since her arrival but did dip down to 51 during the production administrative assistant of 04/14/19. She still needs more time to properly manage her level of insulin that is adequate and necessary for her to be successful at home. Mariela also states she is having vision problems that limits her ability to get around and is something she needs to have accessed. She has also been under the care of Dr. Barrios for her COPD, which continues to get better each day. The wheezing in her lungs continues to get better and she states she feels that she is starting to breath better since receiving treatment. Currently, at home she relies on her son in order to move around and for daily ADLs. She personally feels that she is making good progress and just needs more time to strengthen up before she goes home. Continuing the patients PT, managing her diabetes and COPD and developing skills for the patient to bring home will greatly benefit her in the future. Subjective: Patient was alert and oriented and in a good mood No pain per patient Has been eating and drinking Ambulating but does have SOB when doing so Vitals: Stable Had a blood sugar of 51 this morning ROS: Pat[place] denied chest pain, N/V, Chills and fever. Labs: HgB 9.6, which is down from 10.5, WBC are 11.8, which is down from 14.4 Objective: Lungs: still a little wheezing but a lot better Heart: HRRR Acute COPD exacerbation -Continue steroids, decreasing dose -Duonebs four times daily -Needs a new nebulizer on discharge -Transition to Cefdinir and Azithromycin with five day total course Sepsis due to UTI -SIRS+ with tachycardia and tachypnea on arrival -Septic source identified as UTI -Culture contaminated -Transition to Cefdinir today for five day total course Lactic acidosis -Continue IV fluids Acute kidney injury -Mild, likely due to dehydration -Continue IV fluids T2DM with hyperglycemia Steroid-induced hyperglycemia -Blood sugar >500 upon arrival -Transitioned off insulin gtt overnight -Begin Levemir 50 mg twice daily -Novolog 15 units with meals - continue to monitor Lung nodules -Follow up with Dr. Barrios as an outpatient Thyroid nodule -Outpatient ultrasound recommended -Obtain TSH and free T4 PT/OT - consult and have patient work with them Move patient to the Rehab center for more rehabilitation LYNDSAY SELBY DO 04/14/198: Supervisory-Addendum Brief Verification & Attestation Time: Verification & Attestat.: 09:00 Participated in pt care: history, MDM, physical Personally performed: exam, history, MDM, supervision of care Care discussed with: Medical Student Procedures: n/a Results interpretation: Verified all documentation Verification and Attestation of Medical Student E/M Service A medical student performed and documented this service in my presence. I reviewed and verified all information documented by the medical student and made modifications to such information, when appropriate. I personally performed the physical exam and medical decision making. Lyndsay Selby, Apr 14, 2019,21:28 [facility] Apr 14, 2019 12:19 LYNDSAY SELBY DO Apr 14, 2019 21:28
== END 2019-04-14 11:30 | DRG 872 ==
LOC: EDUNIT# 16:55 → ER FS 16:56 → 4TH 19:08 → ICU 04-11 03:13 → 4TH 04-12 10:35
PROVIDERS: ADMIT Internal Medicine; ATTEND Internal Medicine
DX: A41.9 Sepsis, unspecified organism (principal); N30.00 Acute cystitis without hematuria; J44.1 Chronic obstructive pulmonary disease with (acute) exacerbation; E87.2 Acidosis; N17.9 Acute kidney failure, unspecified; Z68.42 Body mass index [BMI] 45.0-49.9, adult; B02.29 Other postherpetic nervous system involvement; E66.01 Morbid (severe) obesity due to excess calories; E11.65 Type 2 diabetes mellitus with hyperglycemia; E11.42 Type 2 diabetes mellitus with diabetic polyneuropathy; E86.0 Dehydration; I10 Essential (primary) hypertension; J30.9 Allergic rhinitis, unspecified; E83.42 Hypomagnesemia; F32.9 Major depressive disorder, single episode, unspecified; R91.8 Other nonspecific abnormal finding of lung field; E04.1 Nontoxic single thyroid nodule; M19.91 Primary osteoarthritis, unspecified site; T38.0X5A Adverse effect of glucocorticoids and synthetic analogues, initial encounter; Z79.4 Long term (current) use of insulin
CPT/HCPCS: 36415; 71045; 71046; 71275; 80048; 80053; 81000; 82010; 82040; 82805; 82962; 83605; 83735; 83880; 84100; 84439; 84443; 84484; 85025; 87040; 87081; 87088; 93005; 93041; 94640; 94760

== ENCOUNTER 2019-04-14 10:24 | Inpatient (IN) | payer MEDICARE ==
[~2019-04-14] VITALS: Ht 167.6 cm; Wt 123.5 kg
[~2019-04-14 10:24] MED LIST changes: +CBD OIL SL; +GBPN600T PO; +METH35.42 TP; +MULT-974 PO
--- NOTE | 2019-04-14 11:39 | NUR ---
ELISHATOMAS Mahan admitted to room 233, with an admitting diagnosis of ACUTE EXACERBATION OF COPD, on 04/14/19 from [facility] via WHEELCHAIR, accompanied by THERAPY. TOMAS TELLO introduced to surroundings, call light, bed controls, phone, TV, temperature control, lights, meal times, smoking policy, visitor policy, side rail policy, bathrooms and showers. Patient Rights given to patient in the handbook. TOMAS TELLO verbalizes understanding that [facility] is not responsible for the loss or damage to any personal effects or valuables that are kept in the patient's possession during their hospitalization. The following Patient Care Plans were discussed with the PATIENT: Discharge Planning, IMPAIRED GAS EXCHANGE, INEFFECTIVE BREATHING PATTERN, RISK FOR INFECTION (COPD), ACTIVITY INTOLERANCE, and KNOWLEDGE DEFICIT: COPD. TOMAS TELLO verbalizes understanding of Interdisciplinary Patient Education. Patient received Patient Rights Booklet, which includes Privacy Act Statement and Data Collection Information Summary.
--- NOTE | 2019-04-14 12:03 | Physical Therapy Evaluation ---
PT Evaluation-General Medical Diagnosis Admission Date Apr 14, 2019 at 11:42 Medical Diagnosis: COPD exac Onset Date: Apr 14, 2019 Therapy Diagnosis Therapy Diagnosis: abnormal gait Height/Weight Height (Feet): 5 Height (Inches): 6.00 Weight (Pounds): 270 Weight (Ounces): 4.0 Precautions Precautions/Isolations: Standard Precautions Referral Physician: Deidre Reason for Referral: Evaluation/Treatment Medical History Pertinent Medical History: COPD, DM, HTN, Neuropathy Current History Recent admisssion to Acute care due to COPD exac. She has transferred to ARU for continued care. Reviewed History: Yes Social History Home: Single Level Current Living Status: Other Family (son) Entry Into Home: Level Entry Prior/Core FIM Prior Level of Function Therapy Code Descriptions/Definitions Functional [place] Measure: 0=Not Assessed/NA 4=Minimal Assistance 1=Total Assistance 5=Supervision or Setup 2=Maximal Assistance 6=Modified [place] 3=Moderate Assistance 7=Complete [place] Therapy Quality Codes: 6 Independent with activity with or without an assistive device 5 Patient requires set up or clean up by helper. Patient completes activity by themselves 4 Supervision or touching assist (CGA). [place] provide cues , steadying assist 3 The helper provides less than half the effort to complete the activity 2 The helper provides more than half the effort to complete the activity 1 Dependent. The helper does all the effort to complete an activity 7 Patient refused to complete or attempt activity 9 The patient did not perform the activity before the current illness or injury 88 Not attempted due to Medical conditions or safety concerns Functional Abilities and Goals: Independent: Patient completed the activities by him/herself, with or without an assistive device, with no assistance from a helper. Needed Some Help: Patient needed partial assistance from another person to complete activities. Dependent: A helper completed the activities for the patient. Unknown: Not Applicable: Bed Mobility: 7 Transfers (B,C,W/C) (FIM): 7 Gait: 6 (FWW or cane) Stairs: 0 (pt does not use stairs) Indoor Mobility (Ambulation): Independent Stairs: Not [place] Prior Devices Use: Walker Pt reports she is mod indep in her home. Reports she does not perform stairs. PT Evaluation-Current Subjective Agrees to PT. Reports her primary barrier is being SOB. Reports she uses oxygen at night at home and intermittently if she sleeps during the day. Pain Numeric Pain Scale: 0-No Pain Location: No Pain Reported Objective Patient Orientation: Person, Place, Time, Situation Problem Solving: Good Attachments: Oxygen (2l/min; in situ during and post treatment) ROM/Strength ROM Lower Extremities WFL Strenght Lower Extremities WFL Integumentary/Posture Integumentary Refer to nursing notes. Bowel Incontinence: No Bladder Incontinence: Yes Posture rounded shoulders and forward head but symmetrical; slightly forward flexed at hips Neuromuscular (Tone, Coordination, Reflexes) intact and functional Sensory Vision: impaired but functional Hearing: Functional Hand Dominance: Right Sensation Right Lower Extremit: Intact Sensation Left Lower Extremity: Intact Transfers Therapy Code Descriptions/Definitions Functional [place] Measure: 0=Not Assessed/NA 4=Minimal Assistance 1=Total Assistance 5=Supervision or Setup 2=Maximal Assistance 6=Modified [place] 3=Moderate Assistance 7=Complete [place] Therapy Quality Codes: 6 Independent with activity with or without an assistive device 5 Patient requires set up or clean up by helper. Patient completes activity by themselves 4 Supervision or touching assist (CGA). [place] provide cues , steadying assist 3 The helper provides less than half the effort to complete the activity 2 The helper provides more than half the effort to complete the activity 1 Dependent. The helper does all the effort to complete an activity 7 Patient refused to complete or attempt activity 9 The patient did not perform the activity before the current illness or injury 88 Not attempted due to Medical conditions or safety concerns Transfers (B, C, W/C) (FIM): 5 Roll Left to Right (QC): 6 Supine to/from Sit: 5 Sit to/from Stand: 5 Sit to Lying (QC): 5 Lying to Sitting/Side of Bed(Q: 5 Sit to Stand (QC): 5 Chair/Fbm-yd-Rjjvt Xfer(QC): 5 Car Transfer (QC): 4 Pt is SBA with functional transfers for safety purposes and management of oxygen tubing. Gait Does the Patient Walk?: Yes Mode of Locomotion: Walk Anticipated Mode of Locomotion: Walk Gait (FIM): 5 Distance (FIM): 3=150 ft Walk 10 feet (QC): 5 Walk 50 ft with 2 Turns(QC): 5 Walk 150 ft (QC): 5 Walking 10ft/uneven surface-QC: 4 Gait Assistive Device: FWW Comments/Gait Description SBA for safety and assist with oxygen tank Wheelchair Training Does the Pt Use a Wheelchair?: No Stairs Stairs (FIM): 1 #of Steps: 1 Level of Assist: 4 (CGA for safety) 1 Step (curb) (QC): 4 4 Steps (QC): 88 Assistive Device: Walker 12 Steps (QC): 88 Balance Sitting Static: Good Sitting Dynamic: Good Standing Static: Good Standing Dynamic: Good Picking up an Object (QC): 9 Treatment Function al gait and transfer training; toileted with SBA. Stood at sink to wash hands with SBA. Gait in sotomayor and in room as well as into the bathroom with FWW with SBA. Discussed functional safety with mobiltiy., Assessment/Needs Pt presents post acute stay due to COPD exac. She presents with decreased fucntional activity to[place] and increased need for oxygen. Her sats were in normal ranges with monitor during treatement being greater than 95%. Her BP when taken was found to be 182/96, then 178/94 and last reading after a few mi nutes of rest was 194/108. Nursing has been notified and is monitoring. Pt did not express symptoms or present in distress. Pt will benefit from skilled therapy services to address functional mobility and balance to ensure gait and transfers at an indep to mod indep level with not safety concerns. Rehab Potential: Good PT Short Term Goals Short Term Goals Time Frame: Apr 21, 2019 Transfers (B,C,W/C) (FIM): 6 PT Half-Way Goals Half-Way Goals PT Practice Assistant Goals Time Frame: Apr 28, 2019 Transfers (B,C,W/C) (FIM): 7 Sit to Lying (QC): 6 Lying-Sitting on Side/Bed(QC): 6 Sit to Stand (QC): 6 Roll Left to Right (QC): 6 Chair/Zhk-ri-Akhvg Xfer(QC): 6 Car Transfer (QC): 6 Does the Patient Walk: Yes Gait (FIM): 6 Gait distance (FIM): 3=150 ft Walk 10 feet (QC): 6 Walk 10ft-Uneven Surface(QC): 6 Walk 50ft with 2 Turns (QC): 6 Walk 150 ft (QC): 6 Gait Assistive Device: FWW Does the Pt use WC or Scooter?: No Stairs (FIM): 2 1 Step (curb) (QC): 6 4 Steps (QC): 9 12 Steps (QC): 9 Picking up an Object (QC): 9 PT Plan Problem List Problem List: Activity Tolerance, Functional Strength, Safety, Balance, Gait, Transfer, Bed Mobility Treatment/Plan Treatment Plan: Continue Plan of Care Treatment Plan: Bed Mobility, Education, Functional Activity Robert, Functional Strength, Group Therapy, Gait, Safety, Therapeutic Exercise, Transfers Treatment Duration: Apr 28, 2019 Frequency: At least 5 of 7 days/Wk (IRF) Estimated Hrs Per Day: 1.5 hours per day Patient and/or Family Agrees t: Yes Safety Risks/Education Patient Education: Gait Training, Safety Issues Teaching Recipient: Patient Teaching Methods: Demonstration, Discussion Response to Teaching: Reinforcement Needed Time/GCodes Time In: 1120 Time Out: 1210 Total Billed Treatment Time: 50 Total Billed Treatment visit EVM 20 FA 30 JOSE L BYNUM PT Apr 14, 2019 12:03
[2019-04-14 12:06] VITALS: BP 180/73
[2019-04-14] MEDS ORDERED: RT-ALBUTEROL/IPRATROPIUM 3 ML (DUONEB) VIAL INH PRN (12:15)
[2019-04-14] MEDS ORDERED: cloNIDine 0.1 MG (CATAPRES) TAB PO PRN (12:15)
[2019-04-14] MEDS ORDERED: DOCUSATE SODIUM 100 MG (COLACE) CAP PO PRN ×2 (12:15)
[2019-04-14] MEDS ORDERED: ONDANSETRON 4 MG/2 ML (SDV) Z0FRAN IVP PRN (12:15)
[2019-04-14] MEDS ORDERED: ONDANSETRON 4 MG (ZOFRAN) ORAL DISSOLVE TAB PO PRN ×2 (12:15)
[2019-04-14] MEDS ORDERED: LOPERAMIDE 2 MG (IMODIUM) TABLET PO PRN (12:15)
[2019-04-14] MEDS ORDERED: diphenhydrAMINE 25 MG TAB (BENADRYL) PO PRN ×2 (12:15)
[2019-04-14] MEDS ORDERED: ACETAMINOPHEN 500 MG TAB (TYLENOL) PO PRN (12:15)
[2019-04-14] MEDS ORDERED: MELATONIN 3 MG TABLET PO PRN ×2 (12:15)
[2019-04-14] MEDS ORDERED: ONDANSETRON 4 MG/2 ML (SDV) Z0FRAN IV PRN (12:15)
[2019-04-14] MEDS ORDERED: FLUTICASONE NASAL SPRAY (FLONASE) 16 GM BTL NS PRN (12:15)
[2019-04-14] MEDS ORDERED: CALCIUM CARBONATE 500 MG (TUMS) TAB.CHEW PO PRN ×2 (12:15)
[2019-04-14] MEDS ORDERED: amLODIPine 5 MG (NORVASC) TAB PO NR (12:45)
--- NOTE | 2019-04-14 13:47 | NUR ---
REVIEWED MED REC IT WAS REPORTED UPON ADMISSION TO 4TH FLOOR. NO CHANGES WERE MADE WHEN THE PATIENT DISCHARGED TO REHAB.
--- NOTE | 2019-04-14 14:31 | Physical Therapy Daily Note ---
PT Daily Note-Current Subjective Patient in recliner pre tx, agrees to PT, has no complaints of pain. Patient has very high blood pressure, nurse notified and she got some blood pressure meds. Patient states she has to use the restroom and she does so with mod I, changes gown with min assist. Appearance Patient sitting on side of bed post tx with nurse call, phone, tray, all needs met. Mental Status Patient Orientation: Person, Place, Situation Attachments: Oxygen Transfers Therapy Code Descriptions/Definitions Functional [place] Measure: 0=Not Assessed/NA 4=Minimal Assistance 1=Total Assistance 5=Supervision or Setup 2=Maximal Assistance 6=Modified [place] 3=Moderate Assistance 7=Complete [place] Therapy Quality Codes: 6 Independent with activity with or without an assistive device 5 Patient requires set up or clean up by helper. Patient completes activity by themselves 4 Supervision or touching assist (CGA). [place] provide cues , steadying assist 3 The helper provides less than half the effort to complete the activity 2 The helper provides more than half the effort to complete the activity 1 Dependent. The helper does all the effort to complete an activity 7 Patient refused to complete or attempt activity 9 The patient did not perform the activity before the current illness or injury 88 Not attempted due to Medical conditions or safety concerns Transfers (B, C, W/C) (FIM): 6 Sit to/from Stand: 6 Bed to/from Chair: 6 Gait Training Gait (FIM): 6 Distance: 150'x2 Gait Level of Assist: 6 Gait Assistive Device: FWW slow but steady ambulation, SOB, needs occasional rest break, cues for purse lip breathing, O2 stayed at 96% Exercises Seated Therapy Exercises: Ankle pumps, Long arc quads, Hip flexion, Hip abd/add (with RTB and pillow) Seated Reps: 20 Treatments toileting, ambulation, transfers, LE exercise Assessment Current Status: Fair Progress steady during ambulation PT Short Term Goals Short Term Goals Time Frame: Apr 21, 2019 Transfers (B,C,W/C) (FIM): 6 PT [facility] Goals [facility] Goals PT Apartment Maintenance Manager Goals Time Frame: Apr 28, 2019 Transfers (B,C,W/C) (FIM): 7 Sit to Lying (QC): 6 Lying-Sitting on Side/Bed(QC): 6 Sit to Stand (QC): 6 Roll Left to Right (QC): 6 Chair/Rob-ro-Lwics Xfer(QC): 6 Car Transfer (QC): 6 Does the Patient Walk: Yes Gait (FIM): 6 Gait distance (FIM): 3=150 ft Walk 10 feet (QC): 6 Walk 10ft-Uneven Surface(QC): 6 Walk 50ft with 2 Turns (QC): 6 Walk 150 ft (QC): 6 Gait Assistive Device: FWW Does the Pt use WC or Scooter?: No Stairs (FIM): 2 1 Step (curb) (QC): 6 4 Steps (QC): 9 12 Steps (QC): 9 Picking up an Object (QC): 9 PT Plan Problem List Problem List: Activity Tolerance, Functional Strength, Safety, Balance, Gait, Transfer, Bed Mobility, ROM Treatment/Plan Treatment Plan: Continue Plan of Care Treatment Plan: Bed Mobility, Education, Functional Activity Robert, Functional Strength, Group Therapy, Gait, Safety, Therapeutic Exercise, Transfers Treatment Duration: Apr 28, 2019 Frequency: At least 5 of 7 days/Wk (IRF) Estimated Hrs Per Day: 1.5 hours per day Patient and/or Family Agrees t: Yes Safety Risks/Education Patient Education: Gait Training, Transfer Techniques, Correct Positioning, Safety Issues Teaching Recipient: Patient Teaching Methods: Demonstration, Discussion Response to Teaching: Reinforcement Needed Time/GCodes Time In: 1345 Time Out: 1425 Total Billed Treatment Time: 40 Total Billed Treatment 1 visit EX 15' GT 15' FA 10' ODILON MERCADO PT Apr 14, 2019 14:31
[2019-04-14] MEDS: ACETAMINOPHEN 325 MG TABLET PO PRN (15:07)
--- NOTE | 2019-04-14 15:29 | ST Cognitive Linguistic Eval ---
Speech Evaluation-General Medical Diagnosis COPD exacacerbation Onset Date: Apr 14, 2019 Therapy Diagnosis Therapy Diagnosis: Cognitive-communication Precautions Precautions: Fall Precautions/Isolations: Fall Prevention, Standard Precautions, Pressure Ulcer Referral Referring Physician: Dr. Jiang Reason for Referral: Evaluation/Treatment Medical History Pertinent Medical History: COPD, DM, HTN, Neuropathy COPD, HTN, Neuropathy, DM Current History COPD exacerbation Reviewed History: Yes Social History Home: Single Level Current Living Status: Other Family (son) Speech PLF-Current Status Prior Level of Function The patient lives in the home with other family. She was independent for much of her daily needs. She does require assistance due to decreased vision. Subjective The patient was pleasant and cooperative with cognitive evaluation. Language Eval: Auditory Comprehends Simple Yes/No Ques: Functional Indent/Objects [place]: Functional Ident/Pics in [place]: Functional Follows 1-Step Commands: Functional Follows Complex Directions: Functional Follows General Conversations: Functional Language Eval: Verbal Language Completes Spontaneous Greeting: Functional Produces Auto, Serial Info: Functional Imitates Simple Words/Phrases: Functional Word Finding: Functional Requests Basic Needs: Functional States Basic Personal Info: Functional Expresses Complex Ideas: Functional Cognitive Patient Orientation Patient is oriented to all concepts Objective Cognitive Domain Attention: WNL Memory: WNL Problem Solving: Functional Executive Functions: WNL Visuospatial Skills: Moderate Composite Severity Rating: WNL Clock Drawing Severity Rating: WNL Score: 23/24 Range: Normal range Objective Formal/Standardized Tests [facility] Status ([facility]) Results Patient scored 23/24. She was not evaluated with the visual tasks which are a total of 6 points due to moderate to severe decreased visual ability. Oral Motor/Speech Production Within Functional Limits Impression The patient is a pleasant 79 year old who was admitted to ARU due to COPD exacerbation. The patient was given the SLUMS at bedside with patient scoring 2 3/24. The visual section was not given due to the mod to severed visual deficit. The patient does not require skilled ST services at this time. Communication/Social Cognition Comprehension: 7 Expression: 7 Social Interaction: 7 Problem Solvin Memory: 7 Speech Patient Assess Expression of Ideas/Wants: Expression (4) Understanding Verbal Content: Understands (4) Brief Interview-Mental Status: Yes Repetition of Three Words: Two (2) Temporal Orientation: Year: Correct (3) Temporal Orientation: Month: Accurate within 5 days(2) Temporal Orientation: Day: Correct (1) Recall : Wear to say "Sock": Yes, no cue required (2) Recall : Color: Yes, no cue required (2) Recall : Bed: Yes,after cueing (1) Add-Enter 99 if pt cannot comp: 99 Memory/Recall Ability: Current season, That he or she is in a hsp/hsp unit Speech-Plan Patient/Family Goals Patient/Family Goals: The patient plans on returning to her prior living situation with family post rehab. Treatment Plan Speech Therapy Treatment Plan: Discontinue ST The patient is not recommended for skilled therapy at this time. Treatment Duration: Apr 14, 2019 Frequency: 1 time per week Estimated Hrs Per Day: .25 hour per day Rehab Potential: Good Barriers to Learning: None identified Pt/Family Agrees to Plan: Yes Safety Risks/Education Teaching Recipient: Patient Teaching Methods: Discussion Response to Teaching: Verbalize Understanding Education Topics Provided: Safety within her room and communication of wants/needs Time Speech Therapy Time In: 15:00 Speech Therapy Time Out: 15:15 Total Billed Time: 15 Billed Treatment Time 1, DEANNA Manning Apr 14, 2019 15:29
--- NOTE | 2019-04-14 15:42 | Occupational Therapy Eval ---
OT Evaluation-General/PLF Medical Diagnosis Admission Date Apr 14, 2019 at 11:42 Medical Diagnosis: COPD exacacerbation Onset Date: Apr 14, 2019 Therapy Diagnosis Therapy Diagnosis: Weakness Height/Weight Height (Feet): 5 Height (Inches): 6.00 Weight (Pounds): 270 Weight (Ounces): 4.0 Precautions Precautions/Isolations: Fall Prevention, Standard Precautions, Pressure Ulcer Weight Bear Status Weight Bearing Restriction: Weight Bearing/Tolerated Referral Physician: Deidre Referral Reason: Activity Tolerance, Self Care, Evaluation/Treatment, Stren gthening/ROM Medical History Pertinent Medical History: COPD, DM, HTN, Neuropathy Additional Medical History Pt. is currently "losing vision." Current History Pt. became SOA at home. Reviewed History: Yes Social History Home: Single Level Current Living Status: Other Family (son) Entry Into Home: Level Entry ADL-Prior Level of Function Therapy Code Descriptions/Definitions Functional [place] Measure: 0=Not Assessed/NA 4=Minimal Assistance 1=Total Assistance 5=Supervision or Setup 2=Maximal Assistance 6=Modified [place] 3=Moderate Assistance 7=Complete [place] Therapy Quality Codes: 6 Independent with activity with or without an assistive device 5 Patient requires set up or clean up by helper. Patient completes activity by themselves 4 Supervision or touching assist (CGA). [place] provide cues , steadying assist 3 The helper provides less than half the effort to complete the activity 2 The helper provides more than half the effort to complete the activity 1 Dependent. The helper does all the effort to complete an activity 7 Patient refused to complete or attempt activity 9 The patient did not perform the activity before the current illness or injury 88 Not attempted due to Medical conditions or safety concerns Functional Abilities and Goals: Independent: Patient completed the activities by him/herself, with or without an assistive device, with no assistance from a helper. Needed Some Help: Patient needed partial assistance from another person to complete activities. Dependent: A helper completed the activities for the patient. Unknown: Not Applicable: ADL PLOF Comments Pt. states that she was fully independent with daily tasks. Self Care: Independent Functional Cognition: Independent DME/Equipment: Bath Chair, Shower, Sock Aid DME/Equipment Comments Pt. has a walker, cane, and wheelchair. Uses the walker in the house. OT Current Status Subjective Pt. does not report pain but states that she has had high blood pressure. Nursing states that pt. is okay to participate in therapy, and that pt. has had BP med. Nursing is monitoring BP. Appearance Pt. up in chair. Agrees to work with OT. Mental Status/Objective Patient Orientation: Person, Place Current Hand Dominance: Right Upper Extremity ROM Right- WFL Left-Impaired due to RCR x 3 ADL-Treatment Eating (FIM): 7 Eating (QC): 6 Grooming (FIM): 4 (Assist to brush hair.) Oral Hygiene (QC): 4 Bathing (FIM): 4 (Assist to bathe rear marley area.) Shower/Bathe Self (QC): 4 Lower Body Dressing (FIM): 2 Lower Body Dressing (QC): 2 On/Off Footwear (QC): 2 Transfers (B, C, W/C) (FIM): 5 (SBA) Education OT Patient Education: Correct positioning, Modified ADL techniques, Progress toward Goal/Update tx plan, Purpose of tx/functional activities, Reviewed precautions, Rehab process, Transfer techniques Teaching Recipient: Patient Teaching Methods: Demonstration, Discussion Response to Teaching: Verbalize Understanding, Return Demonstration OT Short Term Goals Short Term Goals Time Frame: Apr 21, 2019 Eating(FIM): 7 Grooming(FIM): 5 Bathing(FIM): 5 Upper Body Dressing(FIM): 5 Lower Body Dressing(FIM): 4 Toileting(FIM): 5 Transfers (B,C,W/C) (FIM): 6 Toilet/Commode Transfer(FIM): 6 Shower Transfer(FIM): 5 Additional Short Term Goals: 1-Demonstrate ADL Tasks, 2-Verbalize Understanding, 3-ImproveStrength/Robert 1=Demonstrate adherence to instructed precautions during ADL tasks. 2=Patient will verbalize/demonstrate understanding of assistive devices/modifications for ADL. 3=Patient will improve strength/tolerance for activity to enable patient to perform ADL's. OT Mcfp Goals Mcfp Goals Time Frame: Apr 28, 2019 Eating (FIM): 7 Eating (QC): 6 Groomin Oral Hygiene (QC): 6 Bathing(FIM): 5 Shower/Bathe Self (QC): 5 Upper Body Dressing(FIM): 6 Upper Body Dressing (QC): 6 Lower Body Dressing(FIM): 6 Lower Body Dressing (QC): 6 On/Off Footwear (QC): 6 Toileting(FIM): 6 Toileting Hygiene (QC): 6 Transfers (B,C,W/C) (FIM): 6 Toilet/Commode Transfer(FIM): 6 Toilet/Commode Transfer (QC): 6 Shower Transfer(FIM): 5 Additional Goals: 1-Demonstrate ADL Tasks, 2-Verbalize Understanding, 3- ImproveStrength/Robert 1=Demonstrate adherence to instructed precautions during ADL tasks. 2=Patient will verbalize/demonstrate understanding of assistive devices/modifications for ADL. 3=Patient will improve strength/tolerance for activity to enable patient to perform ADL's. OT Education/Plan Problem List/Assessment Assessment: Decreased Activ Tolerance, Decreased UE Strength, Impaired Self- Care Skills, Restricted Funct UE ROM Discharge Recommendations Plan/Recommendations: Continue POC Therapy D/C Recommendations: Home w/ Family Support Treatment Plan/Plan of Care Treatment,Training & Education: Yes Patient would benefit from OT for education, treatment and training to promote independence in ADL's, mobility, safety and/or upper extremity function for ADL's. Plan of Care: ADL Retraining, Functional Mobility, UE Funct Exercise/Act Treatment Duration: Apr 28, 2019 Frequency: At least 5 of 7 days/Wk (IRF) Estimated Hrs Per Day: 1.5 hours per day Agreement: Yes Rehab Potential: Good Time/GCodes Start Time: 12:30 Stop Time: 13:45 Total Time Billed (hr/min): 75 Billed Treatment Time 1, EVL x 15minutes, ADL x 60minutes AMRIT LAW OT Apr 14, 2019 15:42
[2019-04-14] MEDS: inSUlin ASPART (NovoLOG) 1 UNIT/0.01 ML (CHARGE PER UNIT) SC SCH ×2 (15:58→21:26)
[2019-04-14 16:05] VITALS: BP 119/66
[2019-04-14 17:44] VITALS: BP 131/75
[2019-04-14] MEDS ORDERED: SENNA W/DOCUSATE (SENOKOT S) TABLET PO SCH (21:00)
[2019-04-14] MEDS: SENNA W/DOCUSATE (SENOKOT S) TABLET PO SCH (21:25)
[2019-04-14] MEDS: lisINopril 10 MG (PRINIVIL) TABLET PO SCH (21:25)
[2019-04-14] MEDS: CEFDINIR 300 MG (OMNICEF) CAP PO SCH (21:25)
[2019-04-14] MEDS: GABAPENTIN 300 MG (NEURONTIN) CAP PO SCH (21:26)
[2019-04-14] MEDS: guaiFENesin/DM (ROBITUSSIN DM) 10 ML UDC PO PRN (21:26)
[2019-04-15] MEDS: ACETAMINOPHEN 325 MG TABLET PO PRN (02:01)
[2019-04-15] MEDS: guaiFENesin/DM (ROBITUSSIN DM) 10 ML UDC PO PRN (05:20)
[2019-04-15 05:39] LABS: BASOPHILS % (AUTO) 0 % (0-10); EOSINOPHILS # (AUTO) 0.1 10^3/uL (0.0-0.3); EOSINOPHILS % (AUTO) 1 % (0-10); HEMATOCRIT 34 % (35-52); HEMOGLOBIN 10.9 G/DL (11.5-16.0); LYMPHOCYTES # (AUTO) 2.5 X 10^3 (1.0-4.0); LYMPHOCYTES % (AUTO) 27 % (12-44); MEAN CORPUSCULAR HEMOGLOBIN 30 PG (25-34); MEAN CORPUSCULAR HGB CONC 32 G/DL (32-36); MEAN CORPUSCULAR VOLUME 93 FL (80-99); MEAN PLATELET VOLUME 10.2 FL (7.4-10.4); MONOCYTES # (AUTO) 0.7 X 10^3 (0.0-1.0); MONOCYTES % (AUTO) 8 % (0-12); NEUTROPHILS # (AUTO) 6.2 X 10^3 (1.8-7.8); NEUTROPHILS % (AUTO) 65 % (42-75); PLATELET COUNT 217 10^3/uL (130-400); RED CELL DISTRIBUTION WIDTH 13.4 % (10.0-14.5); WHITE BLOOD COUNT 9.5 10^3/uL (4.3-11.0)
[2019-04-15 05:50] VITALS: BP 153/70
[2019-04-15] MEDS: inSUlin ASPART (NovoLOG) 1 UNIT/0.01 ML (CHARGE PER UNIT) SC SCH ×3 (06:04→20:47)
[2019-04-15 06:05] LABS: ALANINE AMINOTRANSFERASE 84 U/L (0-55); ALBUMIN 3.4 GM/DL (3.2-4.5); ALKALINE PHOSPHATASE 91 U/L (40-136); BILIRUBIN,TOTAL 0.4 MG/DL (0.1-1.0); BUN/CREATININE RATIO 28; CALCIUM 8.9 MG/DL (8.5-10.1); CARBON DIOXIDE 31 MMOL/L (21-32); CHLORIDE 104 MMOL/L (98-107); CREATININE SERUM 0.87 MG/DL (0.60-1.30); GFR ESTIMATED > 60; SODIUM 144 MMOL/L (135-145); TOTAL PROTEIN 6.1 GM/DL (6.4-8.2)
[2019-04-15 06:17] LABS: GLUCOSE 59 MG/DL (70-105)
[2019-04-15 07:24] VITALS: BP 153/70
--- NOTE | 2019-04-15 07:29 | NUR ---
PATIENT SITTING ON THE SIDE OF THE BED AND WAS IN NO DISTRESS AT THIS TIME; SHE IS CURRENTLY ON 2 L DUE TO O2 ORDER IS TKS GREATER THAN 91% 2-4 L
[2019-04-15] MEDS: SENNA W/DOCUSATE (SENOKOT S) TABLET PO SCH ×2 (08:26→20:47)
--- NOTE | 2019-04-15 08:57 | PM&R H&P / Post Admit Assess ---
History of Present Illness HPI/Chief Complaint Med Surg Hospital course: Pt had an uneventful hospital course for a total 5 days after she was admitted to the ICU, placed on an insulin drip and placed on IV steroids for exacerbation of COPD and respiratory insufficiency. UTI was treated with Rocephin but that eventually are out three or more isolates so that treatment was discontinued. Blood sugars were very labile after steroids discontinued and hypoglycemia episode occurred at 51 level on day of discharge from acute care and considering she was in need of insulin adjustment and close monitoring of hemoglobin that was decreasing along with leukocytosis and weaning oxygen she was deemed meeting criteria for inpatient rehab for presumed 5 day stay and then return home to live with her son. CC: COPD exacerbation with debility HPI: This is a 79yoWF clinic patient of [facility] w/h/o DM OOC and vision loss from DM and COPD maintained on O2 at night and prn who presents after an ICU admit for 5 days at [facility] due to resp insufficiency and sepsis and ARF. Patient was managed aggressively with IV steroids and Nebs and O2 along with Dr Barrios's expertise and then she required insulin drip non-DKA due to sugars 500+ which improved with the DC of IV steroids and increased insulin who presents to the IRF in need of insulin modifications along with BP labile monitoring in order to return to [facility] to live with her son. Hypoglycemia still persists even though s/p decreased in insulin dosing yesterday. She does not see Cardiology but she appears to be high risk for CAD and DM cardiac complications so will consult Dr Brenner in order to improve her cardiac status to remain successful at home. We will wean O2 during the day as tolerated and will decrease steroids once AECOPD has improved. Source: patient Exam Limitations: no limitations Date Seen 04/15/19 Time Seen by a Provider: 09:00 Attending Physician Lyndsay Jiang DO [facility] Center/[facility] Referring Physician Date of Admission Apr 14, 2019 at 11:42 Home Medications & Allergies Home Medications Reviewed patient Home Medication Reconciliation performed by pharmacy medication reconciliations csr technician and/or nursing. Patients Allergies have been reviewed. Allergies Allergies Coded Allergies levofloxacin (Unverified Allergy, Intermediate, HIVES, ITCHING, 04/14/19) metronidazole (Unverified Adverse Reaction, Mild, N/V, 12/16/18) latex (Unverified Adverse Reaction, Unknown, hives, 12/16/18) Past Rtwbikt-Jdbaar-Qxkebz Hx Past Med/Social Hx: Reviewed Nursing Past Med/Soc Hx, Reviewed and Corrections made Patient Social History Marrital Status: single Employed/Student: retired Smoking Status: Former Smoker 2nd Hand Smoke Exposure: No Recent Foreign Travel: No Contact w/other who traveled: No Recent Hopitalizations: No Recent Infectious Disease Expo: No Immunizations Up To Date Date of Pneumonia Vaccine: Sep 02, 2016 Seasonal Allergies Seasonal Allergies: Yes (ALLERGIC RHINITIS) Past Medical History Surgeries: Appendectomy, Gallbladder, Hysterectomy, Orthopedic Respiratory: COPD, Emphysema Cardiac: Hypertension Neurological: Neuropathy Endocrine: Diabetes, Insulin dep Loss of Vision: Bilateral Hearing Impairment: Denies Psychosocial: Depression Skin/Integumentary: Recent Skin Changes, Psoriasis History of Blood Disorders: No Review of Systems Constitutional: see HPI, weakness EENTM: vision loss Respiratory: cough, dyspnea on exertion, short of breath Cardiovascular: no symptoms reported Gastrointestinal: no symptoms reported Genitourinary: no symptoms reported Musculoskeletal: no symptoms reported Skin: no symptoms reported Psychiatric/Neurological: No Symptoms Reported All Other Systems Reviewed Negative Unless Noted: Yes Physical Exam Exam Vital Signs Vital Signs Date Time Temp Pulse Resp B/P (MAP) Pulse Ox O2 Delivery O2 Flow Rate FiO2 04/15/19 08:20 Nasal Cannula 2.00 04/15/19 07:24 68 96 28 04/15/19 05:50 98.2 20 153/70 (97) Capillary Refill : General Appearance: No Apparent Distress, WD/WN, Chronically ill, Obese HEENT: Normal ENT Inspection, Pharynx Normal, Moist Mucous Membranes, Other (vision loss) Neck: Full Range of Motion, Normal Inspection, Non Tender, Supple Respiratory: Chest Non Tender, Lungs Clear, Normal Breath Sounds, No Accessory Muscle Use, No Respiratory Distress, Decreased Breath Sounds Cardiovascular: Regular Rate, Rhythm, No Edema, No Gallop, No JVD, No Murmur Gastrointestinal: Normal Bowel Sounds, No Organomegaly, No Pulsatile Mass, Non Tender, Soft Back: Normal Inspection, No CVA Tenderness, No Vertebral Tenderness Extremity: Normal Capillary Refill, Normal Inspection, Normal Range of Motion, Non Tender, No Calf Tenderness, No Pedal Edema Neurologic/Psychiatric: Alert, Oriented x3, No Motor/Sensory Deficits, Normal Mood/Affect Skin: Normal Color, Warm/Dry Lymphatic: No Adenopathy Results Results/Procedures Labs Laboratory Tests 04/15/19 05:25 Patient resulted labs reviewed. Assessment/Plan Assessment and Plan (1) COPD exacerbation Status: Acute (2) Hypertension Status: Chronic Qualifiers: Hypertension type: essential hypertension Qualified Codes: I10 - Essential (primary) hypertension (3) Hypoglycemia Status: Acute (4) Obesity, morbid, BMI 40.0-49.9 Status: Chronic (5) Vision loss Status: Chronic (6) Diabetic retinopathy Status: Chronic Qualifiers: Diabetes mellitus type: type 2 Diabetic retinopathy severity: with unspecified retinopathy severity Diabetes mellitus macular edema: macular edema presence unspecified Laterality: bilateral Qualified Codes: E11.319 - Type 2 diabetes mellitus with unspecified diabetic retinopathy without macular edema (7) Acute kidney injury Status: Acute (8) Lung nodules Status: Chronic (9) Type 2 diabetes mellitus Status: Chronic Qualifiers: Diabetes mellitus long-term insulin use: with long-term use Diabetes moisés litus complication status: with circulatory complication Diabetes mellitus co mplication detail: with other circulatory complications Qualified Codes: E11.59 - Type 2 diabetes mellitus with other circulatory complications; Z79.4 - custodial (current) use of insulin (10) Thyroid nodule Status: Chronic (11) Diabetic neuropathy Status: Chronic Qualifiers: Diabetes mellitus type: type 2 Diabetes mellitus complication detail: with other neurological complication Qualified Codes: E11.49 - Type 2 diabetes mellitus with other diabetic neurological complication (12) Elevated liver enzymes Status: Acute Post Admission Physician Asses Date seen by provider: Apr 15, 2019 Time seen by provider: 09:00 Admisison Dx: (1) COPD exacerbation Status: Acute The preadmission screen agrees with the post admission assessment that the patient is a good candidate for inpatient rehabilitation. The patient will have a comprehensive program of inpatient rehabilitation with a goal of maximizing level of functional independence prior to discharge home with son. The patient will have PT/OT ninety minutes per day, each discipline, five days a week for gait, strengthening, conditioning, balance, ADLs, any patient/family/caregiver training as necessary. Speech therapy to do cognitive assessment and treat as indicated. Rehabilitation nursing to assist with bowel, bladder, skin, wound care, medication administration, pain management. Turntable Worker to assist with discharge planning, community reentry. SCD's for DVT prophylaxis. She appears to be well motivated to participate in three hours of therapy a day. She should be able to tolerate three hours of therapy a day from a medical standpoint. She should benefit from the three hours of therapy a day. She has a reasonable discharge plan, reasonable discharge rehabilitation goals and a supportive family. She has various comorbidities that need to be closely monitored with medications and treatments adjusted on a daily basis as needed. These include: see list Barriers to discharge for this patient who had been independent prior to this are for her to be modified independent to supervision for ADLs and mobility skills prior to discharge home with son, so as to lessen the burden of the car egivers. Risks for this patient include: 1. Fall 2. Fracture 3. DVT 4. Pulmonary embolism 5. Wound infection 6. Skin breakdown 7. Contractures 8. Poorly controlled pain 9. Urinary retention 10. UTI 11. Respiratory infection 12. Aspiration Estimated Length of Stay: 5-7 days Prognosis: Rehab prognosis appears good for goal of discharge home with son modified independent to supervision for ADLs and mobility skills. LYNDSAY JIANG DO Apr 15, 2019 08:57
[2019-04-15] MEDS: predniSONE 10 MG TAB PO SCH (08:58)
[2019-04-15] MEDS: GABAPENTIN 300 MG (NEURONTIN) CAP PO SCH ×2 (08:58→20:47)
[2019-04-15] MEDS: CEFDINIR 300 MG (OMNICEF) CAP PO SCH ×2 (08:58→20:47)
[2019-04-15] MEDS: amLODIPine 5 MG (NORVASC) TAB PO SCH (08:59)
--- NOTE | 2019-04-15 09:21 | Physical Therapy Daily Note ---
PT Daily Note-Current Subjective Pt sitting up in recliner upon arrival. Pt agrees to PT but is worried about Blood Sugar & BP, Nurse is advised. Pain Location: No Pain Reported Mental Status Patient Orientation: Person, Place, Time, Situation Attachments: Oxygen (2L) Transfers Therapy Code Descriptions/Definitions Functional [place] Measure: 0=Not Assessed/NA 4=Minimal Assistance 1=Total Assistance 5=Supervision or Setup 2=Maximal Assistance 6=Modified [place] 3=Moderate Assistance 7=Complete [place] Therapy Quality Codes: 6 Independent with activity with or without an assistive device 5 Patient requires set up or clean up by helper. Patient completes activity by themselves 4 Supervision or touching assist (CGA). [place] provide cues , steadying assist 3 The helper provides less than half the effort to complete the activity 2 The helper provides more than half the effort to complete the activity 1 Dependent. The helper does all the effort to complete an activity 7 Patient refused to complete or attempt activity 9 The patient did not perform the activity before the current illness or injury 88 Not attempted due to Medical conditions or safety concerns Scootin Sit to/from Stand: 5 Sit to Stand (QC): 5 Gait Training Does the Patient Walk?: Yes Gait (FIM): 5 Distance (FIM): 3=150 ft Distance: 150' Walk 10 feet (QC): 5 Walk 50 ft with 2 Turns(QC): 5 Walk 150 ft (QC): 5 Gait Level of Assist: 5 Gait Persons Needed: 1 Gait Assistive Device: FWW Pt needs VC to assist during ambulation due to visual deficits. Wheelchair Training Does the Pt Use a Wheelchair?: No Exercises NuStep Minutes: 15 NuStep Workload: 4 Treatments Pt concerned about Blood Sugar & BP, reports feeling "a little dizzy". Nurse is aware & both levels were monitored during tx.Pt transfers from recliner to standing then asks to use restroom. Pt ambulates in hallway with VC given for direction. Pt uses NuStep for 15m WL 4. Pt returns to room after RB. Pt resting in recliner with all needs met, call light in hand. Assessment Current Status: Fair Progress Pt needs encouragement to participate in PT. Morning Blood Sugar was in 50's but had increased to 99 previous to tx per Nurse. BP was 148/79 & Pulse was 70. PT Short Term Goals Short Term Goals Time Frame: Apr 21, 2019 Transfers (B,C,W/C) (FIM): 6 PT Skilled Nursing Goals Skilled Nursing Goals PT Sys Dir Goals Time Frame: Apr 28, 2019 Transfers (B,C,W/C) (FIM): 7 Sit to Lying (QC): 6 Lying-Sitting on Side/Bed(QC): 6 Sit to Stand (QC): 6 Roll Left to Right (QC): 6 Chair/Khe-es-Bybqz Xfer(QC): 6 Car Transfer (QC): 6 Does the Patient Walk: Yes Gait (FIM): 6 Gait distance (FIM): 3=150 ft Walk 10 feet (QC): 6 Walk 10ft-Uneven Surface(QC): 6 Walk 50ft with 2 Turns (QC): 6 Walk 150 ft (QC): 6 Gait Assistive Device: FWW Does the Pt use WC or Scooter?: No Stairs (FIM): 2 1 Step (curb) (QC): 6 4 Steps (QC): 9 12 Steps (QC): 9 Picking up an Object (QC): 9 PT Plan Problem List Problem List: Activity Tolerance, Gait Treatment/Plan Treatment Plan: Continue Plan of Care Treatment Plan: Bed Mobility, Education, Functional Activity Robert, Functional Strength, Group Therapy, Gait, Safety, Therapeutic Exercise, Transfers Treatment Duration: Apr 28, 2019 Frequency: At least 5 of 7 days/Wk (IRF) Estimated Hrs Per Day: 1.5 hours per day Patient and/or Family Agrees t: Yes Safety Risks/Education Patient Education: Gait Training, Correct Positioning, Safety Issues Teaching Recipient: Patient Teaching Methods: Discussion Response to Teaching: Verbalize Understanding Time/GCodes Time In: 800 Time Out: 900 Total Billed Treatment Time: 60 Total Billed Treatment 1, FA x2 (25m), GT (20m) & EX (15m) G Codes Necessary: MARISSA Ceron BENEFITS PROCESSOR Apr 15, 2019 09:21
--- NOTE | 2019-04-15 13:00 | Consultation-Cardiology ---
HPI-Cardiology Cardiology Consultation Date of Consultation 04/15/19 Date of Admission Time Seen by Provider: 09:00 Indication: dyspnea, HTN HPI Patient is a 79 y/o female with history of COPD, HTN, DM. Was hospitalized recently for pneumonia/AE COPD exacerbation, UTI. Complaining of dyspnea with exertion. Denies any chest pain, dizziness/lightheadedness or syncope. Reports some peripheral edema. Denies any cardiac history. No other complaints at this time. Home Medications & Allergies Allergies: Coded Allergies: levofloxacin (Unverified Allergy, Intermediate, HIVES, ITCHING, 04/14/19) metronidazole (Unverified Adverse Reaction, Mild, N/V, 12/16/18) latex (Unverified Adverse Reaction, Unknown, hives, 12/16/18) Home Medication List Reviewed: Yes SAK-Dxycec-Xofbjf Hx Patient Social History Marital Status: single Employed/Student: retired Smoking Status: Former Smoker 2nd Hand Smoke Exposure: No Recent Foreign Travel: No Recent Infectious Disease Expo: No Recent Hopitalizations: No Immunizations Up To Date Date of Pneumonia Vaccine: Sep 02, 2016 Past Medical History HTN, DM, COPD Family Medical History Significant Family History: CAD Over 55 Years Old Review of Systems-General Review of Systems Constitutional: see HPI, weakness EENTM: No ear pain, No blurred vision, No double vision, No epistaxis, No nose pain Respiratory: cough, dyspnea on exertion, short of breath Cardiovascular: No chest pain; edema; No palpitations, No syncope, No vascular heart diseas Gastrointestinal: no symptoms reported; No abdominal pain, No constipation, No diarrhea Genitourinary: no symptoms reported; No dysuria, No frequency Musculoskeletal: no symptoms reported; No joint swelling, No muscle pain Skin: no symptoms reported; No lesions, No rash Psychiatric/Neurological: No Symptoms Reported; Denies Anxiety, Denies Depressed All Other Systems Reviewed Negative Unless Noted: Yes Reviewed Test Results Reviewed Test Results Lab Laboratory Tests 04/14/19 15:22: Glucometer 307H 04/14/19 20:33: Glucometer 328H 04/15/19 05:25: White Blood Count 9.5, Red Blood Count 3.62L, Hemoglobin 10.9L, Hematocrit 34L, Mean Corpuscular Volume 93, Mean Corpuscular Hemoglobin 30, Mean Corpuscular Hemoglobin Concent 32, Red Cell Distribution Width 13.4, Platelet Count 217, Mean Platelet Volume 10.2, Neutrophils (%) (Auto) 65, Lymphocytes (%) (Auto) 27, Monocytes (%) (Auto) 8, Eosinophils (%) (Auto) 1, Basophils (%) (Auto) 0, Neutrophils # (Auto) 6.2, Lymphocytes # (Auto) 2.5, Monocytes # (Auto) 0.7, Eosinophils # (Auto) 0.1, Basophils # (Auto) 0.0, Sodium Level 144, Potassium Level 4.0, Chloride Level 104, Carbon Dioxide Level 31, Anion Gap 9, Blood Urea Nitrogen 24H, Creatinine 0.87, Estimat Glomerular Filtration Rate > 60, BUN/ Creatinine Ratio 28, Glucose Level 59*L, Calcium Level 8.9, Corrected Calcium 9.4, Total Bilirubin 0.4, Aspartate Amino Transf (AST/SGOT) 43H, Alanine Aminotransferase (ALT/SGPT) 84H, Alkaline Phosphatase 91, Total Protein 6.1L, Albumin 3.4 04/15/19 05:30: Glucometer 57*L 04/15/19 06:13: Glucometer 99 04/15/19 10:28: Glucometer 169H Physical Exam Physical Exam Vital Signs Vital Signs - First Documented 04/15/19 07:24 FiO2 28 Capillary Refill : Height, Weight, BMI Height: 5'6.00" Weight: 270lbs. 4.0oz. 122.260733mg; 43.6 BMI Method:Stated General Appearance: No Apparent Distress, WD/WN, Chronically ill, Obese HEENT: Normal ENT Inspection, Moist Mucous Membranes Neck: Full Range of Motion, Normal Inspection, Non Tender, Supple Respiratory: Chest Non Tender, No Accessory Muscle Use, No Respiratory Distress, Decreased Breath Sounds Cardiovascular: Regular Rate, Rhythm, No Edema, No Gallop, No JVD, No Murmur Gastrointestinal: Normal Bowel Sounds, No Organomegaly, No Pulsatile Mass, Non Tender, Soft Rectal: Deferred Back: Normal Inspection, No CVA Tenderness, No Vertebral Tenderness Extremity: Normal Capillary Refill, Normal Inspection, Normal Range of Motion, Non Tender, No Calf Tenderness, Pedal Edema Neurologic/Psychiatric: Alert, Oriented x3, No Motor/Sensory Deficits, Normal Mood/Affect, 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 Continue to monitor EKG. COPD- management per Dr. Barrios HTN- controlled. Continue on current medications and continue to monitor. DM- management per medical services CRI- continue to monitor renal function Elevated LFT's- continue to monitor Debility/weakness- continue PT/OT. Thank you for allowing us to participate in the management of Ms. Louie. This is Pavithra Ramirez PA-C, as a scribe for Dr. Brenner. This is Dr. Brenner, I have seen and evaluated the patient with Pavithra, examined the patient and discussed the management plan with Pavithra and agree with the current scribed note. In summary this is a 79-year-old lady with history of diabetes mellitus, COPD, hypertension hyperlipidemia admitted with pneumonia, currently improving, still having generalized weakness. Patient has multiple risk factors for coronary artery disease and increased risk for pulmonary hypertension, had an echocardiogram done. Planning to evaluate stress test as an outpatient once clinically more stable. Continue with physical therapy at this time and continue to monitor Clinical Quality Measures DVT/VTE Risk/Contraindication: Risk Factor Score Per Nursin RFS Level Per Nursing on Admit: 4+=Very High PAVITHRA BENNETT Apr 15, 2019 13:00 AISHA BRENNER MD Apr 15, 2019 15:01
--- NOTE | 2019-04-15 13:39 | Occupational Ther Daily Note ---
OT Current Status-Daily Note Subjective Pt. up in chair. Agrees to shower. Appearance No pain reported. Mental Status/Objective Patient Orientation: Person, Place, Time, Situation Therapy Code Descriptions/Definitions Functional [place] Measure: 0=Not Assessed/NA 4=Minimal Assistance 1=Total Assistance 5=Supervision or Setup 2=Maximal Assistance 6=Modified [place] 3=Moderate Assistance 7=Complete [place] ADL-Treatment Therapy Code Descriptions/Definitions Functional [place] Measure: 0=Not Assessed/NA 4=Minimal Assistance 1=Total Assistance 5=Supervision or Setup 2=Maximal Assistance 6=Modified [place] 3=Moderate Assistance 7=Complete [place] Therapy Quality Codes: 6 Independent with activity with or without an assistive device 5 Patient requires set up or clean up by helper. Patient completes activity by themselves 4 Supervision or touching assist (CGA). [place] provide cues , steadying assist 3 The helper provides less than half the effort to complete the activity 2 The helper provides more than half the effort to complete the activity 1 Dependent. The helper does all the effort to complete an activity 7 Patient refused to complete or attempt activity 9 The patient did not perform the activity before the current illness or injury 88 Not attempted due to Medical conditions or safety concerns Grooming (FIM): 4 Oral Hygiene (QC): 4 Bathing (FIM): 5 Shower/Bathe Self (QC): 4 Upper Body (FIM): 5 Upper Body Dressing (QC): 4 Lower Body Dressing (FIM): 4 (With AE) Lower Body Dressing (QC): 4 On/Off Footwear (QC): 4 Toileting (FIM): 5 Toileting Hygiene (QC): 4 Transfers (B, C, W/C) (FIM): 4 Toilet/Commode Transfer (FIM): 4 Toilet Transfer (QC): 4 Shower Transfer(FIM): 4 Other Treatment Pt. seen at first treatment for ADLs in room. This was [id number]. OT came back and ambulated with pt. with SBA to therapy gym. Completed 5 minutes on armbike at min resistance for increased endurance. Pt. on 2 L o2 during this. This was from [id number]. All needs met back in room. Education OT Patient Education: Correct positioning, Modified ADL techniques, Progress toward Goal/Update tx plan, Purpose of tx/functional activities, Reviewed precautions, Rehab process, Transfer techniques, Use of adapted equipment Teaching Recipient: Patient Teaching Methods: Demonstration, Discussion Response to Teaching: Verbalize Understanding, Return Demonstration OT Short Term Goals Short Term Goals Time Frame: Apr 21, 2019 Eating(FIM): 7 Grooming(FIM): 5 Bathing(FIM): 5 Upper Body Dressing(FIM): 5 Lower Body Dressing(FIM): 4 Toileting(FIM): 5 Transfers (B,C,W/C) (FIM): 6 Toilet/Commode Transfer(FIM): 6 Shower Transfer(FIM): 5 Additional Short Term Goals: 1-Demonstrate ADL Tasks, 2-Verbalize Understanding, 3-ImproveStrength/Robert 1=Demonstrate adherence to instructed precautions during ADL tasks. 2=Patient will verbalize/demonstrate understanding of assistive devices/modifi cations for ADL. 3=Patient will improve strength/tolerance for activity to enable patient to perform ADL's. OT Retirement Goals Retirement Goals Time Frame: Apr 28, 2019 Eating (FIM): 7 Eating (QC): 6 Groomin Oral Hygiene (QC): 6 Bathing(FIM): 5 Shower/Bathe Self (QC): 5 Upper Body Dressing(FIM): 6 Upper Body Dressing (QC): 6 Lower Body Dressing(FIM): 6 Lower Body Dressing (QC): 6 On/Off Footwear (QC): 6 Toileting(FIM): 6 Toileting Hygiene (QC): 6 Transfers (B,C,W/C) (FIM): 6 Toilet/Commode Transfer(FIM): 6 Toilet/Commode Transfer (QC): 6 Shower Transfer(FIM): 5 Additional Goals: 1-Demonstrate ADL Tasks, 2-Verbalize Understanding, 3- ImproveStrength/Robert 1=Demonstrate adherence to instructed precautions during ADL tasks. 2=Patient will verbalize/demonstrate understanding of assistive devices/modifications for ADL. 3=Patient will improve strength/tolerance for activity to enable patient to perform ADL's. OT Education/Plan Problem List/Assessment Assessment: Decreased Activ Tolerance, Decreased UE Strength, Impaired I ADL's, Impaired Self-Care Skills, Restricted Funct UE ROM Discharge Recommendations Plan/Recommendations: Continue POC Therapy D/C Recommendations: Home w/ Family Support Equpiment Recommendations-D/C: Hip Kit Treatment Plan/Plan of Care Treatment,Training & Education: Yes Patient would benefit from OT for education, treatment and training to promote independence in ADL's, mobility, safety and/or upper extremity function for ADL's. Plan of Care: ADL Retraining, Functional Mobility, Group Exercise/Act as Ind, UE Funct Exercise/Act Treatment Duration: Apr 28, 2019 Frequency: At least 5 of 7 days/Wk (IRF) Estimated Hrs Per Day: 1.5 hours per day Agreement: Yes Rehab Potential: Good Time/GCodes Start Time: 09:00 Stop Time: 11:30 Total Time Billed (hr/min): 75 Billed Treatment Time 0736-3023 1, ADL x 60minutes 1203-2844 1, Ex x 15minutes AMRIT LAW OT Apr 15, 2019 13:39
--- NOTE | 2019-04-15 13:45 | Pulmonary Progress Note ---
Sepsis Event Evaluation Height, Weight, BMI Height: 5'6.00" Weight: 270lbs. 4.0oz. 122.758406oy; 43.6 BMI Method:Stated Exam Exam Vital Signs Date Time Temp Pulse Resp B/P (MAP) Pulse Ox O2 Delivery O2 Flow Rate FiO2 04/15/19 08:20 Nasal Cannula 2.00 04/15/19 07:24 68 96 28 04/15/19 07:24 96 Nasal Cannula 2.00 04/15/19 05:50 98.2 71 20 153/70 (97) 96 Nasal Cannula 2.00 04/14/19 21:00 Nasal Cannula 2.00 04/14/19 17:44 99.0 77 20 131/75 (93) 96 Nasal Cannula 2.00 04/14/19 16:05 119/66 (83) 04/14/19 14:57 Room Air I & O 04/15/19 07:00 Intake Total 990 ml Balance 990 ml Height & Weight Height: 5'6.00" Weight: 270lbs. 4.0oz. 122.578546lx; 43.6 BMI Method:Stated General Appearance: No Apparent Distress, WD/WN, Chronically ill, Obese HEENT: Normal ENT Inspection, Pharynx Normal, Moist Mucous Membranes, Other (vision loss) Neck: Full Range of Motion, Normal Inspection, Non Tender, Supple Respiratory: Chest Non Tender, Lungs Clear, Normal Breath Sounds, No Accessory Muscle Use, No Respiratory Distress, Decreased Breath Sounds Cardiovascular: Regular Rate, Rhythm, No Edema, No Gallop, No JVD, No Murmur Extremity: Normal Capillary Refill, Normal Inspection, Normal Range of Motion, Non Tender, No Calf Tenderness, No Pedal Edema Neurologic/Psychiatric: Alert, Oriented x3, No Motor/Sensory Deficits, Normal Mood/Affect Skin: Normal Color, Warm/Dry Lymphatic: No Adenopathy Results Lab Laboratory Tests 04/15/19 05:25 Assessment/Plan Assessment/Plan COPDAE - prednisone taper -oxygen -SVNs Q4 UTI with sepsis -Omnicef and azithromycin -Jones cultures -MRSA nasal swab negative -IVF Hyperglycemia -Levemir Acute renal failure -IVF -Monitor Lung nodule - per CT report -Will need out pt F/u -I will have her see me 1-2wks after discharge to arrange out workup. DANUTA MOYER DO Apr 15, 2019 13:45
--- NOTE | 2019-04-15 14:58 | Progress Note - Hospitalist ---
[facility] 04/15/19 1458: Progress Note Patient feels like she is back to her baseline. She continues to have swings in her blood glucose levels, likely 2/2 prednisone. Heg random glucose was low this morning. Verified prednisone taper dosing. Spoke with patient at length about her baseline status and glycemic control regimens at home. She states that she has had an increasing home O2 load, wearing 2L NC all day. She also only uses Humalog 75/25 on a sliding scale, prn. Holding levemir dosing while still admitted and using sliding scale post-parandial Her HTN is usually cont rolled via lisinopril 2.5 qAM and 10mg qPM. She states this is an easy medication regimen to follow with her history of diabetic retinopathy. Plan today includes aggressive OT, weaning O2 and having an exercise oximetry performed. Will continue to monitor blood glucose and consulted cardiology for evaluation 2/2 COPD. Will further explore physical barriers to discharge as patient needed to return to OT. LYNDSAY JIANG DO 04/15/195: Supervisory-Addendum Brief Verification & Attestation Participated in pt care: history, MDM, physical Personally performed: exam, history, MDM, supervision of care Care discussed with: Medical Student Procedures: n/a Results interpretation: Verified all documentation Verification and Attestation of Medical Student E/M Service A medical student performed and documented this service in my presence. I reviewed and verified all information documented by the medical student and made modifications to such information, when appropriate. I personally performed the physical exam and medical decision making. Lyndsay Jiang Apr 15, 2019,21:[address] [facility] Apr 15, 2019 14:58 LYNDSAY JIANG DO Apr 15, 2019 21:25
--- NOTE | 2019-04-15 14:59 | Physical Therapy Daily Note ---
PT Daily Note-Current Subjective Pt R sidelying upon arrival. Pt reluctantly agrees to PT as pt's "stories" were on at tx. time. Mental Status Patient Orientation: Person, Place Attachments: Oxygen (2L) Transfers Therapy Code Descriptions/Definitions Functional [place] Measure: 0=Not Assessed/NA 4=Minimal Assistance 1=Total Assistance 5=Supervision or Setup 2=Maximal Assistance 6=Modified [place] 3=Moderate Assistance 7=Complete [place] Therapy Quality Codes: 6 Independent with activity with or without an assistive device 5 Patient requires set up or clean up by helper. Patient completes activity by themselves 4 Supervision or touching assist (CGA). Portal provide cues , steadying assist 3 The helper provides less than half the effort to complete the activity 2 The helper provides more than half the effort to complete the activity 1 Dependent. The helper does all the effort to complete an activity 7 Patient refused to complete or attempt activity 9 The patient did not perform the activity before the current illness or injury 88 Not attempted due to Medical conditions or safety concerns Exercises Supine Ex: Ankle pumps, Quad Set, Glut sets, Straight leg raise Supine Reps: 15 Treatments Pt completes Supine EX in bed with RB as needed. Pt resting at end of tx with all needs met, call light next to pt. Assessment Current Status: Fair Progress Pt is very preoccupied with her Soap Opera on tv during tx. ALLERGIST/PEDIATRIC PULMONOLOGIST encourages participation and pt will for a while for getting distracted again. Pt reports feeling a little dizzy and wonders if its due to "working on a BM". ALLERGIST/PEDIATRIC PULMONOLOGIST advises no but notifies Nursing of dizziness. Afternoon levels included: Blood Sugar- 169, & BP 151/80. PT Short Term Goals Short Term Goals Time Frame: Apr 21, 2019 Transfers (B,C,W/C) (FIM): 6 PT Jail Goals Marking Devices Assembler Goals PT Jail Goals Time Frame: Apr 28, 2019 Transfers (B,C,W/C) (FIM): 7 Sit to Lying (QC): 6 Lying-Sitting on Side/Bed(QC): 6 Sit to Stand (QC): 6 Roll Left to Right (QC): 6 Chair/Xpf-md-Orsrj Xfer(QC): 6 Car Transfer (QC): 6 Does the Patient Walk: Yes Gait (FIM): 6 Gait distance (FIM): 3=150 ft Walk 10 feet (QC): 6 Walk 10ft-Uneven Surface(QC): 6 Walk 50ft with 2 Turns (QC): 6 Walk 150 ft (QC): 6 Gait Assistive Device: FWW Does the Pt use WC or Scooter?: No Stairs (FIM): 2 1 Step (curb) (QC): 6 4 Steps (QC): 9 12 Steps (QC): 9 Picking up an Object (QC): 9 PT Plan Problem List Problem List: Activity Tolerance, Functional Strength Treatment/Plan Treatment Plan: Continue Plan of Care Treatment Plan: Bed Mobility, Education, Functional Activity Robert, Functional Strength, Group Therapy, Gait, Safety, Therapeutic Exercise, Transfers Treatment Duration: Apr 28, 2019 Frequency: At least 5 of 7 days/Wk (IRF) Estimated Hrs Per Day: 1.5 hours per day Patient and/or Family Agrees t: Yes Safety Risks/Education Patient Education: Correct Positioning, Safety Issues Teaching Recipient: Patient Teaching Methods: Discussion Response to Teaching: Verbalize Understanding Time/GCodes Time In: 1330 Time Out: 1400 Total Billed Treatment Time: 30 Total Billed Treatment 1, FA (10m) & EX (20m) G Codes Necessary: MARISSA Ceron ALLERGIST/PEDIATRIC PULMONOLOGIST Apr 15, 2019 14:59
--- NOTE | 2019-04-15 15:06 | Occupational Ther Daily Note ---
OT Current Status-Daily Note Subjective No pain reported. Appearance Pt. sitting on side of bed. Agrees to bilateral UE exercises with OT. Mental Status/Objective Patient Orientation: Person, Place, Time, Situation Therapy Code Descriptions/Definitions Functional [place] Measure: 0=Not Assessed/NA 4=Minimal Assistance 1=Total Assistance 5=Supervision or Setup 2=Maximal Assistance 6=Modified [place] 3=Moderate Assistance 7=Complete [place] ADL-Treatment Therapy Code Descriptions/Definitions Functional [place] Measure: 0=Not Assessed/NA 4=Minimal Assistance 1=Total Assistance 5=Supervision or Setup 2=Maximal Assistance 6=Modified [place] 3=Moderate Assistance 7=Complete [place] Therapy Quality Codes: 6 Independent with activity with or without an assistive device 5 Patient requires set up or clean up by helper. Patient completes activity by themselves 4 Supervision or touching assist (CGA). [place] provide cues , steadying as sist 3 The helper provides less than half the effort to complete the activity 2 The helper provides more than half the effort to complete the activity 1 Dependent. The helper does all the effort to complete an activity 7 Patient refused to complete or attempt activity 9 The patient did not perform the activity before the current illness or injury 88 Not attempted due to Medical conditions or safety concerns Other Treatment Pt. participated in bilateral UE exercises with red theraband for increased strength and independence with ADLs. Pt. tolerated 3 exercises, x 10 reps each, in all planes. Pt. demonstrates limited motion in left shoulder due to previous RCR. Pt. completed exercises to her comfort level and to available range. Tolerated this well. All needs met in room. Education OT Patient Education: Correct positioning, Exercise program, Home exercise program, Progress toward Goal/Update tx plan, Purpose of tx/functional activities, Reviewed precautions, Rehab process Teaching Recipient: Patient Teaching Methods: Demonstration, Discussion Response to Teaching: Verbalize Understanding, Return Demonstration OT Short Term Goals Short Term Goals Time Frame: Apr 21, 2019 Eating(FIM): 7 Grooming(FIM): 5 Bathing(FIM): 5 Upper Body Dressing(FIM): 5 Lower Body Dressing(FIM): 4 Toileting(FIM): 5 Transfers (B,C,W/C) (FIM): 6 Toilet/Commode Transfer(FIM): 6 Shower Transfer(FIM): 5 Additional Short Term Goals: 1-Demonstrate ADL Tasks, 2-Verbalize Understanding, 3-ImproveStrength/Robert 1=Demonstrate adherence to instructed precautions during ADL tasks. 2=Patient will verbalize/demonstrate understanding of assistive devices/ modifications for ADL. 3=Patient will improve strength/tolerance for activity to enable patient to perform ADL's. OT Care Home Goals Care Home Goals Time Frame: Apr 28, 2019 Eating (FIM): 7 Eating (QC): 6 Groomin Oral Hygiene (QC): 6 Bathing(FIM): 5 Shower/Bathe Self (QC): 5 Upper Body Dressing(FIM): 6 Upper Body Dressing (QC): 6 Lower Body Dressing(FIM): 6 Lower Body Dressing (QC): 6 On/Off Footwear (QC): 6 Toileting(FIM): 6 Toileting Hygiene (QC): 6 Transfers (B,C,W/C) (FIM): 6 Toilet/Commode Transfer(FIM): 6 Toilet/Commode Transfer (QC): 6 Shower Transfer(FIM): 5 Additional Goals: 1-Demonstrate ADL Tasks, 2-Verbalize Understanding, 3- ImproveStrength/Robert 1=Demonstrate adherence to instructed precautions during ADL tasks. 2=Patient will verbalize/demonstrate understanding of assistive devices/modifications for ADL. 3=Patient will improve strength/tolerance for activity to enable patient to perform ADL's. OT Education/Plan Problem List/Assessment Assessment: Decreased Activ Tolerance, Decreased UE Strength, Impaired I ADL's, Impaired Self-Care Skills, Restricted Funct UE ROM Discharge Recommendations Plan/Recommendations: Continue POC Therapy D/C Recommendations: Home w/ Family Support, Occupational Therapy Home Care Equpiment Recommendations-D/C: Hip Kit Treatment Plan/Plan of Care Treatment,Training & Education: Yes Patient would benefit from OT for education, treatment and training to promote independence in ADL's, mobility, safety and/or upper extremity function for ADL's. Plan of Care: ADL Retraining, Functional Mobility, Group Exercise/Act as Ind, UE Funct Exercise/Act Treatment Duration: Apr 28, 2019 Frequency: At least 5 of 7 days/Wk (IRF) Estimated Hrs Per Day: 1.5 hours per day Agreement: Yes Rehab Potential: Good Time/GCodes Start Time: 14:40 Stop Time: 14:55 Total Time Billed (hr/min): 15 Billed Treatment Time 1, Ex AMRIT LAW OT Apr 15, 2019 15:06
[2019-04-15] MEDS: RT-ALBUTEROL/IPRATROPIUM 3 ML (DUONEB) VIAL INH SCH ×4 (15:09→22:02)
--- NOTE | 2019-04-15 15:25 | NUR ---
Team conference Discussed team conference with patient. Recommended discharge date of 04/21/19, home with her son and [facility] PT, OT and RN. Patient is agreeable with this plan. Patient reports she currently has a walker, cane and wheelchair. She does have questions regarding her hospital bill and finances. Informed patient I would notify the inpatient rehab psych social worker on 04/20/19, when she returns, regarding her questions. Patient verbalizes understanding.
[2019-04-15] MEDS ORDERED: inSUlin ASPART (NovoLOG) 1 UNIT/0.01 ML (CHARGE PER UNIT) SC SCH (16:00)
[2019-04-15 17:26] VITALS: BP 148/57
[2019-04-15] MEDS: lisINopril 10 MG (PRINIVIL) TABLET PO SCH (20:47)
[2019-04-16] MEDS: RT-ALBUTEROL/IPRATROPIUM 3 ML (DUONEB) VIAL INH SCH ×6 (01:18→23:41)
[2019-04-16] MEDS: guaiFENesin/DM (ROBITUSSIN DM) 10 ML UDC PO PRN ×2 (04:21→21:50)
[2019-04-16 06:36] VITALS: BP 119/67
[2019-04-16] MEDS: inSUlin ASPART (NovoLOG) 1 UNIT/0.01 ML (CHARGE PER UNIT) SC SCH ×4 (06:38→20:24)
--- NOTE | 2019-04-16 08:26 | Individualized Plan of Care ---
Individualized Plan of Care Rehab Nursing IPOC Order Admission Date Apr 14, 2019 at 11:42 Current Orders Orders Admission Order(Inpt,Obs,Sdc) (04/14/19 10:32) Vital Signs: Per Unit Policy ( 08,16,00 (04/14/19 10:32) Clipper Machine-Inpt Rehab Con (04/14/19 10:32) Rehab Nursing Orders-Ipoc (04/14/19 10:32) Physical Therapy Rehab Orders (04/14/19 10:32) Occupational Therapy Rehab Ord (04/14/19 10:32) Speech Therapy Rehab Orders (04/14/19 10:32) Intake & Output 06,14,22 (04/14/19 10:32) Precautions (Aru) (04/14/19 10:32) Weekly Weight (Lbs) WEEK (04/14/19 10:32) Rehab-Intensity Of Therapy (04/14/19 10:32) Initiate Admission Nursing Pro .admission (04/14/19 10:32) Admission Arrival Bed Request (04/14/19 11:42) Code/Resuscitation (04/14/19 12:11) Activity (04/14/19 12:11) Ambulate 08,12,20 (04/14/19 12:11) Initiate Admission Nursing Pro .admission (04/14/19 12:11) Oxygen-Administer , (04/14/19 12:11) Sequential Compression Device , (04/14/19 12:11) Vital Signs: Every 4 Hours (Or (04/14/19 12:11) Cho 60g/M 1snack (16-2000 Vishnu) (04/14/19 Dinner) Acetaminophen Tablet/Caplet (Tylenol T (04/14/19 12:15) Albuterol/Ipra Inhalation Soln (Duoneb I (04/14/19 12:15) Calcium Carbonate Chew Tablet (Antacid C (04/14/19 12:15) Cefdinir Capsule (Omnicef Capsule) (04/14/19 21:00) Docusate Sodium Capsule (Colace Capsule) (04/14/19 12:15) Fluticasone Nasal [place] (Flonase Nasal S (04/14/19 12:15) Gabapentin Capsule/Tablet (Neurontin Cap (04/14/19 21:00) Melatonin Tablet (Melatonin Tablet) (04/14/19 12:15) Ondansetron Injection (Zofran Injectio (04/14/19 12:15) Ondansetron Oral Dissolve Tab (Zofran (04/14/19 12:15) Prednisone Tablet (Deltasone Tablet) (04/15/19 09:00) Senna S Tablet (Senokot S Tablet) (04/14/19 21:00) Diphenhydramine Tablet (Benadryl Tablet) (04/14/19 12:15) Guaifenesin/Dm Syrup (Robitussin Dm Syru (04/14/19 12:15) Lisinopril Tablet (Zestril Tablet) (04/14/19 21:00) Consult Physician (04/14/19 12:11) Oxygen Delivery Set Up (04/14/19 12:11) Svn Small Volume Nebulizer (04/14/19 12:11) Svn Small Volume Nebulizer (04/14/19 12:11) Amlodipine Tablet (Norvasc Tablet) (04/14/19 12:45) Amlodipine Tablet (Norvasc Tablet) (04/15/19 09:00) Insulin Determir (Per Unit) (Levemir (Pe (04/14/19 21:00) Accucheck Achs ACHS (04/14/19 12:11) Insulin Aspart (Novolog) (Novolog (Charg (04/14/19 16:00) Clonidine Tablet (Catapres Tablet) (04/14/19 12:15) Acetaminophen Tablet (Tylenol Tablet) (04/14/19 12:15) Calcium Carbonate Chew Tablet (Antacid C (04/14/19 12:15) Diphenhydramine Tablet (Benadryl Tablet) (04/14/19 12:15) Docusate Sodium Capsule (Colace Capsule) (04/14/19 12:15) Loperamide Tablet (Imodium Tablet) (04/14/19 12:15) Melatonin Tablet (Melatonin Tablet) (04/14/19 12:15) Ondansetron Oral Dissolve Tab (Zofran (04/14/19 12:15) Ondansetron Injection (Zofran Injectio (04/14/19 12:15) Senna S Tablet (Senokot S Tablet) (04/14/19 21:00) Cbc With Automated Diff (04/15/19 06:00) Comprehensive Metabolic Panel (04/15/19 06:00) Patient Visit (04/14/19 ) Pt Eval Moderate Complexity (04/14/19 ) Functional Activities, Ea 15 (04/14/19 ) Ambulate 08,12,20 (04/14/19 13:07) Sequential Compression Device 08,20 (04/14/19 13:07) Dvt/Vte Risk - Notifiy Physici .ONCE (04/14/19 13:07) Patient Visit (04/14/19 ) Exercise Therap, Ea 15 Min (04/14/19 ) Gait Training, Ea 15 Min (04/14/19 ) Functional Activities, Ea 15 (04/14/19 ) Patient Visit (04/14/19 ) Speech Sound Lang Comp (04/14/19 ) Mat Initiate Protocol (04/15/19 07:24) Albuterol/Ipra Inhalation Soln (Duoneb I (04/15/19 10:00) Svn Small Volume Nebulizer (04/15/19 08:01) Consult Cardiology (04/15/19 09:21) Echo W Doppler/Color Flow (04/15/19 09:21) Insulin Aspart (Novolog) (Novolog (Charg (04/15/19 16:00) Patient Visit (04/15/19 ) Functional Activities, Ea 15 (04/15/19 ) Gait Training, Ea 15 Min (04/15/19 ) Exercise Therap, Ea 15 Min (04/15/19 ) Patient Visit (04/15/19 ) Exercise Therap, Ea 15 Min (04/15/19 ) Functional Activities, Ea 15 (04/15/19 ) Insulin Aspart (Novolog) (Novolog (Charg (04/15/19 21:00) Insulin Aspart (Novolog) (Novolog (Charg (04/16/19 11:00) Patient Visit (04/15/19 ) Exercise Therap, Ea 15 Min (04/15/19 ) Cbc With Automated Diff (04/17/19 06:00) Comprehensive Metabolic Panel (04/17/19 06:00) Patient Visit (04/16/19 ) Gait Training, Ea 15 Min (04/16/19 ) Exercise Therap, Ea 15 Min (04/16/19 ) Functional Activities, Ea 15 (04/16/19 ) Patient Visit (04/16/19 ) Functional Activities, Ea 15 (04/16/19 ) Rehab Nursing Orders: Ongoing Assess. of Cognitive Status, Ongoing Assess. of Function Status, Disease Management & Educaiton, Fall Prevention, Fluid/Electrolyte/Nutrition Mgmt, Management of Risks & Complications, Nutrition Management, Pain Management, Patient/Family Support, Safety Management Intensity of Therapy to be met Patient to be seen: Min.3h per day/5 of 7d PT IPOC Problem List: Activity Tolerance, Functional Strength Treatment Plan: Continue Plan of Care Bed Mobility, Education, Functional Activity Robert, Functional Strength, Group Therapy, Gait, Safety, Therapeutic Exercise, Transfers Treatment Duration: Apr 28, 2019 Frequency: At least 5 of 7 days/Wk (IRF) Estimated Hrs Per Day: 1.5 hours per day OT IPOC Problems: Decreased Activ Tolerance, Decreased UE Strength, Impaired I ADL's, Impaired Self-Care Skills, Restricted Funct UE ROM OT Treatment, Training and Edu: Yes Plan of Care: ADL Retraining, Functional Mobility, Group Exercise/Act as Ind, UE Funct Exercise/Act Treatment Duration: Apr 28, 2019 Frequency: At least 5 of 7 days/Wk (IRF) Estimated Hrs Per Day: 1.[address] IPOC Speech Therapy Treatment Plan: Discontinue ST Treatment Duration: Apr 14, 2019 Frequency: 1 time per week Estimated Hrs Per Day: .25 hour per day Clipper Machine/Case Mgmt Clipper Machine/Case Managemen: Discharge Planning Dietitian/Certified Art Therapist Dietitian/Certified Art Therapist to monitor nutritional status and make changes and/or recommendations as needed and work with speech pathology on dietary upgrades as the occur. Physician IPOC Medical Issues being managed closely and that require the 24 hour availability of a physician: Very labile blood sugar and blood pressures will require close monitoring and insulin adjustment due to brittle status of diabetes Medical Issues: Bowel/Bladder Function, Falls Precautions, Fluid/Electrolyte/Nutrition Balance, Pain Management Brief Synthesis of Preadmission Screen, Post-Admission Evaluation, and Therapy Evaluations: Physical therapy will focus on increased ambulation and weaning off oxygen and navigating with oxygen dependent status if remains on oxygen during the daytime Occupational Therapy will focus on regaining independent ADLs to lessen the burden on son who lives with the patient Medical Prognosis: Good Anticipated Length of Stay: 5 days KEVIN SELBY DO Apr 16, 2019 08:26
--- NOTE | 2019-04-16 08:26 | PM&R Progress Note ---
Subjective HPI/CC On Admission Date Seen by Provider: Apr 16, 2019 Time Seen by Provider: 08:15 Med Surg Hospital course: Pt had an uneventful hospital course for a total 5 days after she was admitted to the ICU, placed on an insulin drip and placed on IV steroids for exacerbation of COPD and respiratory insufficiency. UTI was treated with Rocephin but that eventually are out three or more isolates so that treatment was discontinued. Blood sugars were very labile after steroids discontinued and hypoglycemia episode occurred at 51 level on day of discharge from acute care and considering she was in need of insulin adjustment and close monitoring of hemoglobin that was decreasing along with leukocytosis and weaning oxygen she was deemed meeting criteria for inpatient rehab for presumed 5 day stay and then return home to live with her son. CC: COPD exacerbation with debility HPI: This is a 79yoWF clinic patient of [facility] w/h/o DM OOC and vision loss from DM and COPD maintained on O2 at night and prn who presents after an ICU admit for 5 days at [facility] due to resp insufficiency and sepsis and ARF. Patient was managed aggressively with IV steroids and Nebs and O2 along with Dr Barrios's expertise a nd then she required insulin drip non-DKA due to sugars 500+ which improved with the DC of IV steroids and increased insulin who presents to the IRF in need of insulin modifications along with BP labile monitoring in order to return to [facility] to live with her son. Hypoglycemia still persists even though s/p decreased in insulin dosing yesterday. She does not see Cardiology but she appears to be high risk for CAD and DM cardiac complications so will consult Dr Brenner in order to improve her cardiac status to remain successful at home. We will wean O2 during the day as tolerated and will decrease steroids once AECOPD has improved. Subjective/Events-last exam Sugars are very labile Reviewed BP and blood sugar Wheezing a little bit and receiving Nebulizer treatments Maintain on oxygen Will need home O2 evaluation if we can't wean her off during daytime use Conferred with RN Reviewed therapy notes Review of Systems General: Fatigue Pulmonary: Dyspnea Objective Exam Vital Signs Vital Signs Date Time Temp Pulse Resp B/P (MAP) Pulse Ox O2 Delivery O2 Flow Rate FiO2 04/16/19 20:33 Nasal Cannula 2.00 04/16/19 18:00 98.4 88 20 154/75 (101) 98 04/15/19 07:24 28 Capillary Refill : General Appearance: No Apparent Distress, WD/WN, Chronically ill, Obese HEENT: Normal ENT Inspection, Moist Mucous Membranes Neck: Full Range of Motion, Normal Inspection, Non Tender, Supple Respiratory: Chest Non Tender, No Accessory Muscle Use, No Respiratory Distress, Decreased Breath Sounds, Wheezing Cardiovascular: Regular Rate, Rhythm, No Edema, No Gallop, No JVD, No Murmur Gastrointestinal: Normal Bowel Sounds, No Organomegaly, No Pulsatile Mass, Non Tender, Soft Rectal: Deferred Back: Normal Inspection, No CVA Tenderness, No Vertebral Tenderness Extremity: Normal Capillary Refill, Normal Inspection, Normal Range of Motion, Non Tender, No Calf Tenderness, Pedal Edema Neurologic/Psychiatric: Alert, Oriented x3, No Motor/Sensory Deficits, Normal Mood/Affect, liner inserter II-XII Norm as Tested Skin: Normal Color, Warm/Dry Lymphatic: No Adenopathy Results/Procedures Lab Patient resulted labs reviewed. FIM Transfers Therapy Code Descriptions/Definitions Functional [place] Measure: 0=Not Assessed/NA 4=Minimal Assistance 1=Total Assistance 5=Supervision or Setup 2=Maximal Assistance 6=Modified [place] 3=Moderate Assistance 7=Complete [place] Therapy Quality Codes: 6 Independent with activity with or without an assistive device 5 Patient requires set up or clean up by helper. Patient completes activity by themselves 4 Supervision or touching assist (CGA). [place] provide cues , steadying assist 3 The helper provides less than half the effort to complete the activity 2 The helper provides more than half the effort to complete the activity 1 Dependent. The helper does all the effort to complete an activity 7 Patient refused to complete or attempt activity 9 The patient did not perform the activity before the current illness or injury 88 Not attempted due to Medical conditions or safety concerns Transfers (B, C, W/C) (FIM): 4 Scootin Roll Left to Right (QC): 6 Supine to/from Sit: 5 Sit to/from Stand: 5 Sit to Lying (QC): 5 Sit to Stand (QC): 5 Chair/Eor-db-Vhrih Xfer(QC): 5 Bed to/from Chair: 6 Car Transfer (QC): 4 Gait Training Does the Patient Walk?: Yes Gait (FIM): 5 Distance (FIM): 3=150 ft Distance: 150' Walk 10 feet (QC): 5 Walk 50 ft with 2 Turns(QC): 5 Walk 150 ft (QC): 5 Walking 10ft/uneven surface-QC: 4 Gait Level of Assist: 5 Gait Persons Needed: 1 Gait Assistive Device: FWW Wheelchair Training Does the Pt Use a Wheelchair?: No Stair Training Stairs (FIM): 1 #of Steps: 1 1 Step (curb) (QC): 4 4 Steps (QC): 88 12 Steps (QC): 88 Level of Assist: 4 (CGA for safety) Balance Picking up an Object (QC): 9 Mental Status/Objective Comprehension: 7 Expression: 7 Social Interaction: 7 Problem Solvin Memory: 7 ADL-Treatment Feedin Eating (QC): 6 Groomin Oral Hygiene (QC): 4 Bathin Shower/Bathe Self (QC): 4 Upper Extremity Dressin Upper Body Dressing (QC): 4 Lower Extremity Dressin (With AE) Lower Body Dressing (QC): 4 On/Off Footwear (QC): 4 Toiletin Toileting Hygiene (QC): 4 Toilet/Commode Transfer: 4 Toilet Transfer (QC): 4 Shower: 4 Assessment/Plan Assessment and Plan Assess & Plan/Chief Complaint Assessment: Debility AECOPD Hypoxia chronic O2 dependent Obesity BROOKE DM labile and OOC HTN OOC h/o CVA Low vision Plan: Monitor closely Monitor glucose Checked meds and labs (1) COPD exacerbation Status: Acute (2) Hypertension Status: Chronic Qualifiers: Hypertension type: essential hypertension Qualified Codes: I10 - Essential (primary) hypertension (3) Hypoglycemia Status: Acute (4) Obesity, morbid, BMI 40.0-49.9 Status: Chronic (5) Vision loss Status: Chronic (6) Diabetic retinopathy Status: Chronic Qualifiers: Diabetes mellitus type: type 2 Diabetic retinopathy severity: with unspecified retinopathy severity Diabetes mellitus macular edema: macular edema presence unspecified Laterality: bilateral Qualified Codes: E11.319 - Type 2 diabetes mellitus with unspecified diabetic retinopathy without macular edema (7) Acute kidney injury Status: Acute (8) Lung nodules Status: Chronic (9) Type 2 diabetes mellitus Status: Chronic Qualifiers: Diabetes mellitus long term care social worker insulin use: with long term care social worker use Diabetes moisés litus complication status: with circulatory complication Diabetes mellitus complication detail: with other circulatory complications Qualified Codes: E11.59 - Type 2 diabetes mellitus with other circulatory complications; Z79.4 - FDC (current) use of insulin (10) Thyroid nodule Status: Chronic (11) Diabetic neuropathy Status: Chronic Qualifiers: Diabetes mellitus type: type 2 Diabetes mellitus complication detail: with other neurological complication Qualified Codes: E11.49 - Type 2 diabetes mellitus with other diabetic neurological complication (12) Elevated liver enzymes Status: Acute KEVIN SELBY DO Apr 16, 2019 08:26
[2019-04-16] MEDS: SENNA W/DOCUSATE (SENOKOT S) TABLET PO SCH ×2 (08:38→23:01)
[2019-04-16] MEDS: amLODIPine 5 MG (NORVASC) TAB PO SCH (08:38)
[2019-04-16] MEDS: CEFDINIR 300 MG (OMNICEF) CAP PO SCH ×2 (08:38→20:23)
[2019-04-16] MEDS: GABAPENTIN 300 MG (NEURONTIN) CAP PO SCH ×2 (08:38→20:23)
[2019-04-16] MEDS: predniSONE 10 MG TAB PO SCH (08:38)
--- NOTE | 2019-04-16 08:40 | Consultation-Cardiology ---
HPI-Cardiology Cardiology Consultation Date of Consultation 04/16/19 Date of Admission Time Seen by Provider: 08:15 Indication: dyspnea, HTN Attending Physician/PCP: AISHA SIMS MD HPI Patient is a 79 y/o female with history of COPD, HTN, DM. Was hospitalized recently for pneumonia/AE COPD exacerbation, UTI. Complaining of dyspnea with exertion. Denies any chest pain, dizziness/lightheadedness or syncope. Reports some peripheral edema. Denies any cardiac history. No other complaints at this time. Home Medications & Allergies Allergies: Coded Allergies: levofloxacin (Unverified Allergy, Intermediate, HIVES, ITCHING, 04/14/19) metronidazole (Unverified Adverse Reaction, Mild, N/V, 12/16/18) latex (Unverified Adverse Reaction, Unknown, hives, 12/16/18) XTN-[id number]-Qszvop Hx Patient Social History Marital Status: single Employed/Student: retired Smoking Status: Former Smoker 2nd Hand Smoke Exposure: No Recent Foreign Travel: No Recent Infectious Disease Expo: No Recent Hopitalizations: No Immunizations Up To Date Date of Pneumonia Vaccine: Sep 02, 2016 Past Medical History HTN, DM, COPD Family Medical History Significant Family History: CAD Over 55 Years Old Review of Systems-General Review of Systems Constitutional: see HPI, weakness EENTM: No ear pain, No blurred vision, No double vision, No epistaxis, No nose pain Respiratory: cough, dyspnea on exertion, short of breath Cardiovascular: No chest pain; edema; No palpitations, No syncope, No vascular heart diseas Gastrointestinal: no symptoms reported; No abdominal pain, No constipation, No diarrhea Genitourinary: no symptoms reported; No dysuria, No frequency Musculoskeletal: no symptoms reported; No joint swelling, No muscle pain Skin: no symptoms reported; No lesions, No rash Psychiatric/Neurological: No Symptoms Reported; Denies Anxiety, Denies Depressed All Other Systems Reviewed Negative Unless Noted: Yes Physical Exam Physical Exam Vital Signs Vital Signs - First Documented 04/15/19 07:24 FiO2 28 Capillary Refill : Height, Weight, BMI Height: 5'6.00" Weight: 270lbs. 4.0oz. [id number]; 43.6 BMI Method:Stated General Appearance: No Apparent Distress, WD/WN, Chronically ill, Obese HEENT: Normal ENT Inspection, Moist Mucous Membranes Neck: Full Range of Motion, Normal Inspection, Non Tender, Supple Respiratory: Chest Non Tender, No Accessory Muscle Use, No Respiratory Distress, Decreased Breath Sounds Cardiovascular: Regular Rate, Rhythm, No Edema, No Gallop, No JVD, No Murmur Gastrointestinal: Normal Bowel Sounds, No Organomegaly, No Pulsatile Mass, Non Tender, Soft Rectal: Deferred Back: Normal Inspection, No CVA Tenderness, No Vertebral Tenderness Extremity: Normal Capillary Refill, Normal Inspection, Normal Range of Motion, Non Tender, No Calf Tenderness, Pedal Edema Neurologic/Psychiatric: Alert, Oriented x3, No Motor/Sensory Deficits, Normal 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 Continue to monitor EKG. COPD- management per Dr. Barrios HTN- controlled. Continue on current medications and continue to monitor. DM- management per medical services CRI- continue to monitor renal function Elevated LFT's- continue to monitor Debility/weakness- continue PT/OT. Clinical Quality Measures AMI/AHF: Ejection Fraction %: 55 (55-65%) Ejection Fraction: Above/Equal to 40 DVT/VTE Risk/Contraindication: Risk Factor Score Per Nursin RFS Level Per Nursing on Admit: 4+=Very High CARRIE BORJAS MED STUDENT Apr 16, 2019 08:40
--- NOTE | 2019-04-16 10:25 | NUR ---
Pastoral care visit.
--- NOTE | 2019-04-16 10:32 | Physical Therapy Daily Note ---
PT Daily Note-Current Subjective Pt sitting in recliner upon arrival. Pt agrees to PT. Pt reports wanting to watch "my stories in afternoon", wanting tx after 2 pm. Pain Location: No Pain Reported Mental Status Patient Orientation: Person, Place, Situation Attachments: Oxygen (2L) Transfers Therapy Code Descriptions/Definitions Functional [place] Measure: 0=Not Assessed/NA 4=Minimal Assistance 1=Total Assistance 5=Supervision or Setup 2=Maximal Assistance 6=Modified [place] 3=Moderate Assistance 7=Complete [place] Therapy Quality Codes: 6 Independent with activity with or without an assistive device 5 Patient requires set up or clean up by helper. Patient completes activity by themselves 4 Supervision or touching assist (CGA). Malcolm provide cues , steadying assist 3 The helper provides less than half the effort to complete the activity 2 The helper provides more than half the effort to complete the activity 1 Dependent. The helper does all the effort to complete an activity 7 Patient refused to complete or attempt activity 9 The patient did not perform the activity before the current illness or injury 88 Not attempted due to Medical conditions or safety concerns Scootin Sit to/from Stand: 6 Sit to Stand (QC): 6 Weight Bearing Full Weight Bearing Full Weight Bearing Gait Training Does the Patient Walk?: Yes Distance (FIM): 3=150 ft Distance: 150' Walk 10 feet (QC): 5 Walk 50 ft with 2 Turns(QC): 5 Walk 150 ft (QC): 5 Gait Level of Assist: 5 Gait Persons Needed: 1 Gait Assistive Device: FWW Pt needs VC to ambulate in areas pt is not familiar with due to visual deficit due to glaucoma. Wheelchair Training Does the Pt Use a Wheelchair?: No Exercises Seated Therapy Exercises: Ankle pumps, Long arc quads, Hip flexion, Kicking activity, Hip abd/add Seated Reps: 20 NuStep Minutes: 15 NuStep Workload: 5 Treatments Pt completes Seated EX in chair then transfers from recliner to standing. Pt ambulates in hallway with VC from [facility]. Pt uses NuStep for 15m at WL 5. After short RB, pt returns to room to use restroom and rest in recliner. Pt has all needs met, call light next to pt. Assessment Current Status: Fair Progress Pt does not always want to participate in task at hand and needs VC for safety to wait for assistance to get up at this time. PT Short Term Goals Short Term Goals Time Frame: Apr 21, 2019 Transfers (B,C,W/C) (FIM): 6 PT Rn Iv Therapy Goals Fci Goals PT Fci Goals Time Frame: Apr 28, 2019 Transfers (B,C,W/C) (FIM): 7 Sit to Lying (QC): 6 Lying-Sitting on Side/Bed(QC): 6 Sit to Stand (QC): 6 Roll Left to Right (QC): 6 Chair/Llv-vg-Dziat Xfer(QC): 6 Car Transfer (QC): 6 Does the Patient Walk: Yes Gait (FIM): 6 Gait distance (FIM): 3=150 ft Walk 10 feet (QC): 6 Walk 10ft-Uneven Surface(QC): 6 Walk 50ft with 2 Turns (QC): 6 Walk 150 ft (QC): 6 Gait Assistive Device: FWW Does the Pt use WC or Scooter?: No Stairs (FIM): 2 1 Step (curb) (QC): 6 4 Steps (QC): 9 12 Steps (QC): 9 Picking up an Object (QC): 9 PT Plan Problem List Problem List: Activity Tolerance, Safety, Gait Treatment/Plan Treatment Plan: Continue Plan of Care Treatment Plan: Bed Mobility, Education, Functional Activity Robert, Functional Strength, Group Therapy, Gait, Safety, Therapeutic Exercise, Transfers Treatment Duration: Apr 28, 2019 Frequency: At least 5 of 7 days/Wk (IRF) Estimated Hrs Per Day: 1.5 hours per day Patient and/or Family Agrees t: Yes Safety Risks/Education Patient Education: Gait Training, Correct Positioning, Safety Issues Teaching Recipient: Patient Teaching Methods: Discussion Response to Teaching: Verbalize Understanding Time/GCodes Time In: 930 Time Out: 1030 Total Billed Treatment Time: 60 Total Billed Treatment 1, GT (15m), EX x2 (30m) & FA (15m) G Codes Necessary: No MARISSA HIDALGO SASH MAKER Apr 16, 2019 10:32
--- NOTE | 2019-04-16 11:29 | Progress Note - Hospitalist ---
CARYL CAT [facility] 04/16/19 1129: Progress Note Ms Louie continues to have blood glucose levels that are difficult to control 2/2 prednisone usage with ranges from 160's to 460's. No episode of hypoglycemia. Her lungs continue to have b/l wheezes. COntinue on breathing treatments. Continue to monitor O2 with attempt to wean usage during the day. Need ExOx for d/c palnning. Barriers to d/c mainly are confined to O2. She lives with her son, has support during the evenings; bathroom within 50 feet of bedroom. No stairs in the home, including entry stairs. Has home O2 delivery already. A mbulates with walker at home with walk in shower. LYNDSAY JIANG DO 04/16/19 [id number]: Supervisory-Addendum Brief Verification & Attestation Participated in pt care: history, MDM, physical Personally performed: exam, history, MDM, supervision of care Care discussed with: Medical Student Procedures: n/a Results interpretation: Verified all documentation Verification and Attestation of Medical Student E/M Service A medical student performed and documented this service in my presence. I reviewed and verified all information documented by the medical student and made modifications to such information, when appropriate. I personally performed the physical exam and medical decision making. Lyndsay Jiang, Apr 16, 2019,21:43 CARYL CAT [facility] Apr 16, 2019 11:29 LYNDSAY JIANG DO Apr 16, 2019 21:44
--- NOTE | 2019-04-16 12:15 | NUR ---
Requires assistance with opening packages and containers.
--- NOTE | 2019-04-16 12:57 | Cardiology Progress Note ---
Subjective Date Seen by Provider: Apr 16, 2019 Time Seen by Provider: 12:54 Subjective/Events-last exam patient is sitting in a chair, feeling better, no chest pain today. Review of Systems General: No Chills, No Fatigue, No Malaise, No Appetite, No Other HEENT: No Head Aches, No Visual Changes, No Eye Pain, No Ear Pain, No Dysphasia, No Sinus Congestion, No Post Nasal Drip, No Sore Throat, No Other Pulmonary: No Dyspnea, No Cough, No Pleuritic Chest Pain, No Other Cardiovascular: No: Chest Pain, Palpitations, Orthopnea, Paroxysmal Noc. Dyspnea, Edema, Lt Headedness, Other Objective-Cardiology Exam Last Set of Vital Signs Vital Signs 04/15/19 04/16/19 04/16/19 07:24 06:36 10:24 Temp 97.6 Pulse 80 Resp 20 B/P (MAP) 119/67 (84) Pulse Ox 98 O2 Delivery Nasal Cannula O2 Flow Rate 2.00 FiO2 28 Capillary Refill : I&O Intake and Output 04/16/19 00:00 Intake Total 1430 ml Balance 1430 ml Intake Oral 1430 ml # Voids 9 # Bowel Movements 1 General: Alert, Oriented X3, Cooperative HEENT: Atraumatic, PERRLA Neck: Supple, No JVD, No Thyromegaly Lungs: Clear to Auscultation, Normal Air Movement Heart: Regular Rate, Normal S1, Normal S2, No Murmurs Abdomen: Normal Bowel Sounds, Soft, No Tenderness, No Hepatosplenomegaly, No Masses Extremities: No Clubbing, No Cyanosis, No Edema, Normal Pulses, No Tenderness/Swelling Skin: No Rashes, No Breakdown, No Significant Lesion Neuro: Normal Gait, Normal Speech, Strength at 5/5 X4 Ext, Normal Tone, Sensation Intact Psych/Mental Status: Mental Status NL, Mood NL Results Lab Laboratory Tests Test 04/15/19 15:31 04/15/19 20:31 04/16/19 05:37 04/16/19 10:58 Range/Units Glucometer 366 H 414 *H 281 H 266 H 70-110 MG/DL A/P-Cardiology Admission Diagnosis Dyspnea COPD HTN DM Assessment/Plan Dyspnea on exertion- currently on O2, 2D echo from 04/15/19 showed EF 55-65%, mild increase in LV thickness, moderate MR, PA pressure 20, continue to monitor Chest pain nonspecific etiology, atypical in presentation, reporting improvement. Continue to monitor COPD- management per Dr. Barrios HTN- controlled. Continue on current medications and continue to monitor. DM- management per medical services CRI- continue to monitor renal function Elevated LFT's- continue to monitor Debility/weakness- continue PT/OT. Clinical Quality Measures AMI/AHF: Ejection Fraction %: 55 (55-65%) DVT/VTE Risk/Contraindication: Risk Factor Score Per Nursin RFS Level Per Nursing on Admit: 4+=Very High AISHA SIMS MD Apr 16, 2019 12:57
--- NOTE | 2019-04-16 13:00 | Occupational Ther Daily Note ---
OT Current Status-Daily Note Subjective No pain reported. Appearance Pt. sitting on side of bed when OT entered room. Agrees to treatment. Mental Status/Objective Patient Orientation: Person, Place Therapy Code Descriptions/Definitions Functional [place] Measure: 0=Not Assessed/NA 4=Minimal Assistance 1=Total Assistance 5=Supervision or Setup 2=Maximal Assistance 6=Modified [place] 3=Moderate Assistance 7=Complete [place] Attachments: IV ADL-Treatment Therapy Code Descriptions/Definitions Functional [place] Measure: 0=Not Assessed/NA 4=Minimal Assistance 1=Total Assistance 5=Supervision or Setup 2=Maximal Assistance 6=Modified [place] 3=Moderate Assistance 7=Complete [place] Therapy Quality Codes: 6 Independent with activity with or without an assistive device 5 Patient requires set up or clean up by helper. Patient completes activity by themselves 4 Supervision or touching assist (CGA). [place] provide cues , steadying assist 3 The helper provides less than half the effort to complete the activity 2 The helper provides more than half the effort to complete the activity 1 Dependent. The helper does all the effort to complete an activity 7 Patient refused to complete or attempt activity 9 The patient did not perform the activity before the current illness or inju ry 88 Not attempted due to Medical conditions or safety concerns Eating (FIM): 5 (Breakfast arrives and pt. needs assist to open packages due to visual loss.) Eating (QC): 4 Grooming (FIM): 3 (Pt. needs assistance to brush hair and put into ponytail due to limited shoulder movement.) Lower Body Dressing (FIM): 5 (SBA to don slipper socks using sock aide.) Lower Body Dressing (QC): 4 On/Off Footwear (QC): 4 Toileting (FIM): 5 Toileting Hygiene (QC): 4 Transfers (B, C, W/C) (FIM): 5 Toilet/Commode Transfer (FIM): 5 Toilet Transfer (QC): 4 Other Treatment Pt. declines showering today or changing clothing, as she said, "I'm not that dirty." Pt. completes bilateral UE exercises with red theraband x 3 exercises x 10 reps in all planes and in available range for increased UE strength. Pt. also finishes breakfast while OT and pt. talk about visual needs and routine at home. Pt. verbalizes several times that she is able to use her computer with adapted keyboard and program with large font. States that she is very interested in audio book program for visually impaired pt. OT and pt. did research to determine how to set this up. OT ran off application for pt. and assisted her with filling it out. Made phone call to [employer] to determine where to mail application to. Left information with pt. as to who to be in touch with if program does not arrive at her home. Pt. verbalizes understanding. Education OT Patient Education: Correct positioning, Modified ADL techniques, Progress toward Goal/Update tx plan, Purpose of tx/functional activities, Reviewed precautions, Rehab process, Transfer techniques Teaching Recipient: Patient Teaching Methods: Demonstration, Discussion Response to Teaching: Verbalize Understanding, Return Demonstration OT Short Term Goals Short Term Goals Time Frame: Apr 21, 2019 Eating(FIM): 7 Grooming(FIM): 5 Bathing(FIM): 5 Upper Body Dressing(FIM): 5 Lower Body Dressing(FIM): 4 Toileting(FIM): 5 Transfers (B,C,W/C) (FIM): 6 Toilet/Commode Transfer(FIM): 6 Shower Transfer(FIM): 5 Additional Short Term Goals: 1-Demonstrate ADL Tasks, 2-Verbalize Understanding, 3-ImproveStrength/Robert 1=Demonstrate adherence to instructed precautions during ADL tasks. 2=Patient will verbalize/demonstrate understanding of assistive devices/modifications for ADL. 3=Patient will improve strength/tolerance for activity to enable patient to perform ADL's. OT Snf Goals Assistant Football Coach Goals Time Frame: Apr 28, 2019 Eating (FIM): 7 Eating (QC): 6 Groomin Oral Hygiene (QC): 6 Bathing(FIM): 5 Shower/Bathe Self (QC): 5 Upper Body Dressing(FIM): 6 Upper Body Dressing (QC): 6 Lower Body Dressing(FIM): 6 Lower Body Dressing (QC): 6 On/Off Footwear (QC): 6 Toileting(FIM): 6 Toileting Hygiene (QC): 6 Transfers (B,C,W/C) (FIM): 6 Toilet/Commode Transfer(FIM): 6 Toilet/Commode Transfer (QC): 6 Shower Transfer(FIM): 5 Additional Goals: 1-Demonstrate ADL Tasks, 2-Verbalize Understanding, 3- ImproveStrength/Robert 1=Demonstrate adherence to instructed precautions during ADL tasks. 2=Patient will verbalize/demonstrate understanding of assistive devices/modifications for ADL. 3=Patient will improve strength/tolerance for activity to enable patient to perform ADL's. OT Education/Plan Problem List/Assessment Assessment: Decreased Activ Tolerance, Impaired I ADL's, Impaired Self-Care Skills, Restricted Funct UE ROM Discharge Recommendations Plan/Recommendations: Continue POC Therapy D/C Recommendations: Home w/ Family Support, Occupational Therapy Home Care Treatment Plan/Plan of Care Treatment,Training & Education: Yes Patient would benefit from OT for education, treatment and training to promote independence in ADL's, mobility, safety and/or upper extremity function for ADL's. Plan of Care: ADL Retraining, Functional Mobility, Group Exercise/Act as Ind, UE Funct Exercise/Act Treatment Duration: Apr 28, 2019 Frequency: At least 5 of 7 days/Wk (IRF) Estimated Hrs Per Day: 1.5 hours per day Agreement: Yes Rehab Potential: Good Time/GCodes Start Time: 08:30 Stop Time: 09:30 Total Time Billed (hr/min): 60 Billed Treatment Time 1, Ex x 15minutes, ADL x 15minutes, FA x 30minutes AMRIT LAW OT Apr 16, 2019 13:00
--- NOTE | 2019-04-16 13:07 | Occupational Ther Daily Note ---
OT Current Status-Daily Note Subjective No pain reported. Appearance Pt. up in chair. Agrees to work with OT. Mental Status/Objective Patient Orientation: Person, Place, Time, Situation Therapy Code Descriptions/Definitions Functional [place] Measure: 0=Not Assessed/NA 4=Minimal Assistance 1=Total Assistance 5=Supervision or Setup 2=Maximal Assistance 6=Modified [place] 3=Moderate Assistance 7=Complete [place] ADL-Treatment Therapy Code Descriptions/Definitions Functional [place] Measure: 0=Not Assessed/NA 4=Minimal Assistance 1=Total Assistance 5=Supervision or Setup 2=Maximal Assistance 6=Modified [place] 3=Moderate Assistance 7=Complete [place] Therapy Quality Codes: 6 Independent with activity with or without an assistive device 5 Patient requires set up or clean up by helper. Patient completes activity by themselves 4 Supervision or touching assist (CGA). [place] provide cues , steadying assist 3 The helper provides less than half the effort to complete the activity 2 The helper provides more than half the effort to complete the activity 1 Dependent. The helper does all the effort to complete an activity 7 Patient refused to complete or attempt activity 9 The patient did not perform the activity before the current illness or injury 88 Not attempted due to Medical conditions or safety concerns Toileting (FIM): 5 Toileting Hygiene (QC): 5 Transfers (B, C, W/C) (FIM): 5 Toilet/Commode Transfer (FIM): 5 Toilet Transfer (QC): 5 After toileting, pt. agreed to bilateral UE exercises. Completed fine motor task with therapy pegs that are resistive. Also worked on reaching to grasp pegs, which assisted with stretching shoulders. Pt. has reported that she has weakness in bilateral hands due to neuropathy. All needs met. Education OT Patient Education: Correct positioning, Exercise program, Modified ADL techniques, Progress toward Goal/Update tx plan, Purpose of tx/functional activities, Reviewed precautions, Rehab process, Transfer techniques Teaching Recipient: Patient Teaching Methods: Demonstration, Discussion Response to Teaching: Verbalize Understanding, Return Demonstration OT Short Term Goals Short Term Goals Time Frame: Apr 21, 2019 Eating(FIM): 7 Grooming(FIM): 5 Bathing(FIM): 5 Upper Body Dressing(FIM): 5 Lower Body Dressing(FIM): 4 Toileting(FIM): 5 Transfers (B,C,W/C) (FIM): 6 Toilet/Commode Transfer(FIM): 6 Shower Transfer(FIM): 5 Additional Short Term Goals: 1-Demonstrate ADL Tasks, 2-Verbalize Understanding, 3-ImproveStrength/Robert 1=Demonstrate adherence to instructed precautions during ADL tasks. 2=Patient will verbalize/demonstrate understanding of assistive devices/modifications for ADL. 3=Patient will improve strength/tolerance for activity to enable patient to perform ADL's. OT City Routeman Goals City Routeman Goals Time Frame: Apr 28, 2019 Eating (FIM): 7 Eating (QC): 6 Groomin Oral Hygiene (QC): 6 Bathing(FIM): 5 Shower/Bathe Self (QC): 5 Upper Body Dressing(FIM): 6 Upper Body Dressing (QC): 6 Lower Body Dressing(FIM): 6 Lower Body Dressing (QC): 6 On/Off Footwear (QC): 6 Toileting(FIM): 6 Toileting Hygiene (QC): 6 Transfers (B,C,W/C) (FIM): 6 Toilet/Commode Transfer(FIM): 6 Toilet/Commode Transfer (QC): 6 Shower Transfer(FIM): 5 Additional Goals: 1-Demonstrate ADL Tasks, 2-Verbalize Understanding, 3- ImproveStrength/Robert 1=Demonstrate adherence to instructed precautions during ADL tasks. 2=Patient will verbalize/demonstrate understanding of assistive devices/modifications for ADL. 3=Patient will improve strength/tolerance for activity to enable patient to perform ADL's. OT Education/Plan Problem List/Assessment Assessment: Decreased Activ Tolerance, Decreased UE Strength, Impaired I ADL's, Impaired Self-Care Skills Discharge Recommendations Plan/Recommendations: Continue POC Treatment Plan/Plan of Care Treatment,Training & Education: Yes Patient would benefit from OT for education, treatment and training to promote independence in ADL's, mobility, safety and/or upper extremity function for A DL's. Plan of Care: ADL Retraining, Functional Mobility, Group Exercise/Act as Ind, UE Funct Exercise/Act Treatment Duration: Apr 28, 2019 Frequency: At least 5 of 7 days/Wk (IRF) Estimated Hrs Per Day: 1.5 hours per day Agreement: Yes Rehab Potential: Good Time/GCodes Start Time: 11:15 Stop Time: 11:45 Total Time Billed (hr/min): 30 Billed Treatment Time 1, FA x 2 AMRIT LAW OT Apr 16, 2019 13:07
--- NOTE | 2019-04-16 15:43 | Physical Therapy Daily Note ---
PT Daily Note-Current Subjective Pt sitting in recliner upon arrival. Pt agrees to PT, although concerned with change of D/C date from Saturday (04/21) to Saturday (04/20). POT RUNNER discusses with pt. Pain Location: No Pain Reported Mental Status Patient Orientation: Person, Confused, Place Transfers Therapy Code Descriptions/Definitions Functional [place] Measure: 0=Not Assessed/NA 4=Minimal Assistance 1=Total Assistance 5=Supervision or Setup 2=Maximal Assistance 6=Modified [place] 3=Moderate Assistance 7=Complete [place] Therapy Quality Codes: 6 Independent with activity with or without an assistive device 5 Patient requires set up or clean up by helper. Patient completes activity by themselves 4 Supervision or touching assist (CGA). [place] provide cues , steadying assist 3 The helper provides less than half the effort to complete the activity 2 The helper provides more than half the effort to complete the activity 1 Dependent. The helper does all the effort to complete an activity 7 Patient refused to complete or attempt activity 9 The patient did not perform the activity before the current illness or injury 88 Not attempted due to Medical conditions or safety concerns Weight Bearing Full Weight Bearing Full Weight Bearing Treatments POT RUNNER & pt discuss changes in medical, progress of pt as well as what pt needs to do to keep pt safe at home. Pt resting at end of tx with all needs met, call light next to pt. Assessment Current Status: Fair Progress Pt shows confusion at times and wants to confirmation of plan for D/C so family can be consulted. PT Short Term Goals Short Term Goals Time Frame: Apr 21, 2019 Transfers (B,C,W/C) (FIM): 6 PT Xray Tech Goals Fdc Goals PT Xray Tech Goals Time Frame: Apr 28, 2019 Transfers (B,C,W/C) (FIM): 7 Sit to Lying (QC): 6 Lying-Sitting on Side/Bed(QC): 6 Sit to Stand (QC): 6 Roll Left to Right (QC): 6 Chair/Axt-nf-Esazb Xfer(QC): 6 Car Transfer (QC): 6 Does the Patient Walk: Yes Gait (FIM): 6 Gait distance (FIM): 3=150 ft Walk 10 feet (QC): 6 Walk 10ft-Uneven Surface(QC): 6 Walk 50ft with 2 Turns (QC): 6 Walk 150 ft (QC): 6 Gait Assistive Device: FWW Does the Pt use WC or Scooter?: No Stairs (FIM): 2 1 Step (curb) (QC): 6 4 Steps (QC): 9 12 Steps (QC): 9 Picking up an Object (QC): 9 PT Plan Problem List Problem List: Activity Tolerance, Safety Treatment/Plan Treatment Plan: Continue Plan of Care Treatment Plan: Bed Mobility, Education, Functional Activity Robert, Functional Strength, Group Therapy, Gait, Safety, Therapeutic Exercise, Transfers Treatment Duration: Apr 28, 2019 Frequency: At least 5 of 7 days/Wk (IRF) Estimated Hrs Per Day: 1.5 hours per day Patient and/or Family Agrees t: Yes Safety Risks/Education Patient Education: Correct Positioning, Safety Issues Teaching Recipient: Patient Teaching Methods: Discussion Response to Teaching: Verbalize Understanding Time/GCodes Time In: 1330 Time Out: 1400 Total Billed Treatment Time: 30 Total Billed Treatment 1, FA x2 (30m) G Codes Necessary: MARISSA Ceron POT RUNNER Apr 16, 2019 15:43
--- NOTE | 2019-04-16 17:19 | NUR ---
Notified med student Davis r/marsha fsbs 450. 12 units insulin ordered to be given
[2019-04-16 18:00] VITALS: BP 154/75
[2019-04-16] MEDS: lisINopril 10 MG (PRINIVIL) TABLET PO SCH (20:23)
[2019-04-16] MEDS: ACETAMINOPHEN 325 MG TABLET PO PRN (21:49)
[2019-04-17] MEDS: RT-ALBUTEROL/IPRATROPIUM 3 ML (DUONEB) VIAL INH SCH ×5 (02:54→19:46)
[2019-04-17 05:19] VITALS: BP 147/74
[2019-04-17] MEDS: inSUlin ASPART (NovoLOG) 1 UNIT/0.01 ML (CHARGE PER UNIT) SC SCH ×4 (05:29→20:32)
[2019-04-17 06:46] LABS: BASOPHILS % (AUTO) 0 % (0-10); EOSINOPHILS # (AUTO) 0.1 10^3/uL (0.0-0.3); EOSINOPHILS % (AUTO) 1 % (0-10); HEMATOCRIT 33 % (35-52); HEMOGLOBIN 10.5 G/DL (11.5-16.0); LYMPHOCYTES # (AUTO) 2.6 X 10^3 (1.0-4.0); LYMPHOCYTES % (AUTO) 28 % (12-44); MEAN CORPUSCULAR HEMOGLOBIN 30 PG (25-34); MEAN CORPUSCULAR HGB CONC 32 G/DL (32-36); MEAN CORPUSCULAR VOLUME 92 FL (80-99); MEAN PLATELET VOLUME 9.9 FL (7.4-10.4); MONOCYTES # (AUTO) 0.8 X 10^3 (0.0-1.0); MONOCYTES % (AUTO) 9 % (0-12); NEUTROPHILS # (AUTO) 5.8 X 10^3 (1.8-7.8); NEUTROPHILS % (AUTO) 62 % (42-75); PLATELET COUNT 220 10^3/uL (130-400); RED CELL DISTRIBUTION WIDTH 13.5 % (10.0-14.5); WHITE BLOOD COUNT 9.3 10^3/uL (4.3-11.0)
[2019-04-17 07:18] LABS: ALBUMIN 3.1 GM/DL (3.2-4.5); BILIRUBIN,TOTAL 0.3 MG/DL (0.1-1.0); CALCIUM 8.6 MG/DL (8.5-10.1); CREATININE SERUM 0.97 MG/DL (0.60-1.30); POTASSIUM 4.2 MMOL/L (3.6-5.0); TOTAL PROTEIN 5.5 GM/DL (6.4-8.2)
--- NOTE | 2019-04-17 08:44 | PM&R Progress Note ---
Subjective HPI/CC On Admission Date Seen by Provider: Apr 17, 2019 Time Seen by Provider: 08:45 Med Surg Hospital course: Pt had an uneventful hospital course for a total 5 days after she was admitted to the ICU, placed on an insulin drip and placed on IV steroids for exacerbation of COPD and respiratory insufficiency. UTI was treated with Rocephin but that eventually are out three or more isolates so that treatment was discontinued. Blood sugars were very labile after steroids discontinued and hypoglycemia episode occurred at 51 level on day of discharge from acute care and considering she was in need of insulin adjustment and close monitoring of hemoglobin that was decreasing along with leukocytosis and weaning oxygen she was deemed meeting criteria for inpatient rehab for presumed 5 day stay and then return home to live with her son. CC: COPD exacerbation with debility HPI: This is a 79yoWF clinic patient of [facility] w/h/o DM OOC and vision loss from DM and COPD maintained on O2 at night and prn who presents after an ICU admit for 5 days at [facility] due to resp insufficiency and sepsis and ARF. Patient was managed aggressively with IV steroids and Nebs and O2 along with Dr Barrios's expertise and then she required insulin drip non-DKA due to sugars 500+ which improved with the DC of IV steroids and increased insulin who presents to the IRF in need of insulin modifications along with BP labile monitoring in order to return to [facility] to live with her son. Hypoglycemia still persists even though s/p decreased in insulin dosing yesterday. She does not see Cardiology but she appears to be high risk for CAD and DM cardiac complications so will consult Dr Brenner in order to improve her cardiac status to remain successful at home. We will wean O2 during the day as tolerated and will decrease steroids once AECOPD has improved. Subjective/Events-last exam Sugars are very labile so increase SSI and have eliminated hypoglycemia now at least Reviewed BP and blood sugar Wheezing resolved with steroids and Nebs Maintained on oxygen Will need home O2 evaluation if we can't wean her off during daytime use Conferred with RN Reviewed therapy notes Review of Systems General: Fatigue Pulmonary: Dyspnea Objective Exam Vital Signs Vital Signs Date Time Temp Pulse Resp B/P (MAP) Pulse Ox O2 Delivery O2 Flow Rate FiO2 04/17/19 22:01 73 98 28 04/17/19 19:46 Nasal Cannula 2.00 04/17/19 16:25 97.3 14 99/60 (73) Capillary Refill : General Appearance: No Apparent Distress, WD/WN, Chronically ill, Obese HEENT: Normal ENT Inspection, Moist Mucous Membranes Neck: Full Range of Motion, Normal Inspection, Non Tender, Supple Respiratory: Chest Non Tender, No Accessory Muscle Use, No Respiratory Distress, Decreased Breath Sounds, Wheezing Cardiovascular: Regular Rate, Rhythm, No Edema, No Gallop, No JVD, No Murmur Gastrointestinal: Normal Bowel Sounds, No Organomegaly, No Pulsatile Mass, Non Tender, Soft Rectal: Deferred Back: Normal Inspection, No CVA Tenderness, No Vertebral Tenderness Extremity: Normal Capillary Refill, Normal Inspection, Normal Range of Motion, Non Tender, No Calf Tenderness, Pedal Edema Neurologic/Psychiatric: Alert, Oriented x3, No Motor/Sensory Deficits, Normal Mood/Affect, showcase maker II-XII Norm as Tested Skin: Normal Color, Warm/Dry Lymphatic: No Adenopathy Results/Procedures Lab Laboratory Tests 04/17/19 06:30 Patient resulted labs reviewed. FIM Transfers Therapy Code Descriptions/Definitions Functional [place] Measure: 0=Not Assessed/NA 4=Minimal Assistance 1=Total Assistance 5=Supervision or Setup 2=Maximal Assistance 6=Modified [place] 3=Moderate Assistance 7=Complete [place] Therapy Quality Codes: 6 Independent with activity with or without an assistive device 5 Patient requires set up or clean up by helper. Patient completes activity by themselves 4 Supervision or touching assist (CGA). [place] provide cues , steadying assist 3 The helper provides less than half the effort to complete the activity 2 The helper provides more than half the effort to complete the activity 1 Dependent. The helper does all the effort to complete an activity 7 Patient refused to complete or attempt activity 9 The patient did not perform the activity before the current illness or injury 88 Not attempted due to Medical conditions or safety concerns Transfers (B, C, W/C) (FIM): 5 Scootin Roll Left to Right (QC): 6 Supine to/from Sit: 5 Sit to/from Stand: 6 Sit to Lying (QC): 5 Sit to Stand (QC): 6 Chair/Abb-oa-Kuhvn Xfer(QC): 5 Bed to/from Chair: 6 Car Transfer (QC): 4 Gait Training Does the Patient Walk?: Yes Gait (FIM): 5 Distance (FIM): 3=150 ft Distance: 150' Walk 10 feet (QC): 5 Walk 50 ft with 2 Turns(QC): 5 Walk 150 ft (QC): 5 Walking 10ft/uneven surface-QC: 4 Gait Level of Assist: 5 Gait Persons Needed: 1 Gait Assistive Device: FWW Wheelchair Training Does the Pt Use a Wheelchair?: No Stair Training Stairs (FIM): 1 #of Steps: 1 1 Step (curb) (QC): 4 4 Steps (QC): 88 12 Steps (QC): 88 Level of Assist: 4 (CGA for safety) Balance Picking up an Object (QC): 9 Mental Status/Objective Comprehension: 7 Expression: 7 Social Interaction: 7 Problem Solvin Memory: 7 ADL-Treatment Feedin (Breakfast arrives and pt. needs assist to open packages due to visual loss.) Eating (QC): 4 Groomin (Pt. needs assistance to brush hair and put into ponytail due to limited shoulder movement.) Oral Hygiene (QC): 4 Bathin Shower/Bathe Self (QC): 4 Upper Extremity Dressin Upper Body Dressing (QC): 4 Lower Extremity Dressin (SBA to don slipper socks using sock aide.) Lower Body Dressing (QC): 4 On/Off Footwear (QC): 4 Toiletin Toileting Hygiene (QC): 5 Toilet/Commode Transfer: 5 Toilet Transfer (QC): 5 Shower: 4 Assessment/Plan Assessment and Plan Assess & Plan/Chief Complaint Assessment: Debility AECOPD Hypoxia chronic O2 dependent Obesity BROOKE DM labile and OOC HTN OOC h/o CVA Low vision Plan: Monitor closely Monitor glucose and increase insulin Checked meds and labs (1) COPD exacerbation Status: Acute (2) Hypertension Status: Chronic Qualifiers: Hypertension type: essential hypertension Qualified Codes: I10 - Essential (primary) hypertension (3) Hypoglycemia Status: Acute (4) Obesity, morbid, BMI 40.0-49.9 Status: Chronic (5) Vision loss Status: Chronic (6) Diabetic retinopathy Status: Chronic Qualifiers: Diabetes mellitus type: type 2 Diabetic retinopathy severity: with unspecified retinopathy severity Diabetes mellitus macular edema: macular edema presence unspecified Laterality: bilateral Qualified Codes: E11.319 - Type 2 diabetes mellitus with unspecified diabetic retinopathy without macular edema (7) Acute kidney injury Status: Acute (8) Lung nodules Status: Chronic (9) Type 2 diabetes mellitus Status: Chronic Qualifiers: Diabetes mellitus ferry terminal agent insulin use: with assisted use Diabetes mellitus complication status: with circulatory complication Diabetes mellitus complication detail: with other circulatory complications Qualified Codes: E11.59 - Type 2 diabetes mellitus with other circulatory complications; Z79.4 - terminal carman (current) use of insulin (10) Thyroid nodule Status: Chronic (11) Diabetic neuropathy Status: Chronic Qualifiers: Diabetes mellitus type: type 2 Diabetes mellitus complication detail: with other neurological complication Qualified Codes: E11.49 - Type 2 diabetes mellitus with other diabetic neurological complication (12) Elevated liver enzymes Status: Acute KEVIN SELBY DO Apr 17, 2019 08:44
[2019-04-17 09:00] VITALS: BP 131/72
[2019-04-17] MEDS: GABAPENTIN 300 MG (NEURONTIN) CAP PO SCH ×2 (09:03→20:31)
[2019-04-17] MEDS: predniSONE 10 MG TAB PO SCH (09:03)
[2019-04-17] MEDS: CEFDINIR 300 MG (OMNICEF) CAP PO SCH ×2 (09:03→20:31)
[2019-04-17] MEDS: amLODIPine 5 MG (NORVASC) TAB PO SCH (09:03)
[2019-04-17] MEDS: SENNA W/DOCUSATE (SENOKOT S) TABLET PO SCH ×2 (09:04→20:31)
--- NOTE | 2019-04-17 09:11 | Occupational Ther Daily Note ---
OT Current Status-Daily Note Subjective Pt in bed, agrees to therapy. Mental Status/Objective Therapy Code Descriptions/Definitions Functional [place] Measure: 0=Not Assessed/NA 4=Minimal Assistance 1=Total Assistance 5=Supervision or Setup 2=Maximal Assistance 6=Modified [place] 3=Moderate Assistance 7=Complete [place] Attachments: Oxygen ADL-Treatment Pt would like to shower today. Supine to sit with modified independence. Sit to stand with modified independence. Gait to restroom with FWW, no LOB noted. Transfer to toilet with SBA. Pt able to complete toileting with SBA. Transfer to walk in shower with supervision using grab bar for safety. Pt doffed clothing without assist. Bathing completed using hand held shower. Pt requires assist to wash/rinse hair secondary to decreased shoulder ROM, but is able to bathe other areas. Don pullover gown with SBA. Pt donned Depends with SBA using adaptive equipment. Pt requires cues to orient Depends prior to donning secondary to decreased vision. Stood with good balance during pant hike. Pt donned bilateral socks with SBA and verbal cues using sock aid. Pt able to brush hair, but required assist to pull back into ponytail secondary to decreased shoulder ROM. Pt sitting EOB with RN present after session. Therapy Code Descriptions/Definitions Functional [place] Measure: 0=Not Assessed/NA 4=Minimal Assistance 1=Total Assistance 5=Supervision or Setup 2=Maximal Assistance 6=Modified [place] 3=Moderate Assistance 7=Complete [place] Therapy Quality Codes: 6 Independent with activity with or without an assistive device 5 Patient requires set up or clean up by helper. Patient completes activity by themselves 4 Supervision or touching assist (CGA). [place] provide cues , steadying assist 3 The helper provides less than half the effort to complete the activity 2 The helper provides more than half the effort to complete the activity 1 Dependent. The helper does all the effort to complete an activity 7 Patient refused to complete or attempt activity 9 The patient did not perform the activity before the current illness or injury 88 Not attempted due to Medical conditions or safety concerns Grooming (FIM): 4 Bathing (FIM): 5 Shower/Bathe Self (QC): 4 Upper Body (FIM): 5 Upper Body Dressing (QC): 4 Lower Body Dressing (FIM): 5 Lower Body Dressing (QC): 4 On/Off Footwear (QC): 4 Toileting (FIM): 5 Toilet/Commode Transfer (FIM): 5 Shower Transfer(FIM): 5 Education OT Patient Education: Modified ADL techniques Teaching Recipient: Patient Teaching Methods: Discussion Response to Teaching: Verbalize Understanding OT Short Term Goals Short Term Goals Time Frame: Apr 21, 2019 Eating(FIM): 7 Grooming(FIM): 5 Bathing(FIM): 5 Upper Body Dressing(FIM): 5 Lower Body Dressing(FIM): 4 Toileting(FIM): 5 Transfers (B,C,W/C) (FIM): 6 Toilet/Commode Transfer(FIM): 6 Shower Transfer(FIM): 5 Additional Short Term Goals: 1-Demonstrate ADL Tasks, 2-Verbalize Understanding, 3-ImproveStrength/Robert 1=Demonstrate adherence to instructed precautions during ADL tasks. 2=Patient will verbalize/demonstrate understanding of assistive devices/modifications for ADL. 3=Patient will improve strength/tolerance for activity to enable patient to perform ADL's. OT Health Actuary Goals Health Actuary Goals Time Frame: Apr 28, 2019 Eating (FIM): 7 Eating (QC): 6 Groomin Oral Hygiene (QC): 6 Bathing(FIM): 5 Shower/Bathe Self (QC): 5 Upper Body Dressing(FIM): 6 Upper Body Dressing (QC): 6 Lower Body Dressing(FIM): 6 Lower Body Dressing (QC): 6 On/Off Footwear (QC): 6 Toileting(FIM): 6 Toileting Hygiene (QC): 6 Transfers (B,C,W/C) (FIM): 6 Toilet/Commode Transfer(FIM): 6 Toilet/Commode Transfer (QC): 6 Shower Transfer(FIM): 5 Additional Goals: 1-Demonstrate ADL Tasks, 2-Verbalize Understanding, 3- ImproveStrength/Robert 1=Demonstrate adherence to instructed precautions during ADL tasks. 2=Patient will verbalize/demonstrate understanding of assistive devices/modifications for ADL. 3=Patient will improve strength/tolerance for activity to enable patient to perform ADL's. OT Education/Plan Discharge Recommendations Plan/Recommendations: Continue POC Treatment Plan/Plan of Care Patient would benefit from OT for education, treatment and training to promote independence in ADL's, mobility, safety and/or upper extremity function for ADL's. Plan of Care: ADL Retraining, Functional Mobility, Group Exercise/Act as Ind, UE Funct Exercise/Act Treatment Duration: Apr 28, 2019 Frequency: At least 5 of 7 days/Wk (IRF) Estimated Hrs Per Day: 1.5 hours per day Agreement: Yes Rehab Potential: Good Time/GCodes Start Time: 08:00 Stop Time: 09:00 Total Time Billed (hr/min): 60 Billed Treatment Time 1 visit, ADLx4(60minutes) CARTER HAYES OT Apr 17, 2019 09:11
--- NOTE | 2019-04-17 09:36 | Progress Note - Hospitalist ---
CARYL [facility] 04/17/19 0936: Progress Note Ms Liban continue to work on her PT/OT requirements. Her blood glucose continues to be a challenge with the insulin change. Add additional sliding scale ACHS Lungs sounds are much improved b/l - continue breathing treatments and prednisone taper. Her cough is improving and limited to night time. Schedule [facility] LYNDSAY JIANG DO 04/17/19 0988: Supervisory-Addendum Brief Verification & Attestation Participated in pt care: history, MDM, physical Personally performed: exam, history, MDM, supervision of care Care discussed with: Medical Student Procedures: n/a Results interpretation: Verified all documentation Verification and Attestation of Medical Student E/M Service A medical student performed and documented this service in my presence. I reviewed and verified all information documented by the medical student and made modifications to such information, when appropriate. I personally performed the physical exam and medical decision making. Lyndsay Jiang Apr 17, 2019,22:18 [facility]ARYL [facility] Apr 17, 2019 09:36 LYNDSAY JIANG DO Apr 17, 2019 22:18
--- NOTE | 2019-04-17 10:50 | NUR ---
Pastoral care visit.
--- NOTE | 2019-04-17 12:12 | Physical Therapy Daily Note ---
PT Daily Note-Current Subjective Pt. agrees to Rx. Shares that she has a low vision issue and this has really brought on decreased activity at home etc. States she does not use steps at home and is apprehensive about it Pain Numeric Pain Scale: 4 Location: Medial Location Body Site: Back Pain Description: Ache Mental Status Patient Orientation: Normal For Age Attachments: Oxygen (2L) Transfers Therapy Code Descriptions/Definitions Functional [place] Measure: 0=Not Assessed/NA 4=Minimal Assistance 1=Total Assistance 5=Supervision or Setup 2=Maximal Assistance 6=Modified [place] 3=Moderate Assistance 7=Complete [place] Therapy Quality Codes: 6 Independent with activity with or without an assistive device 5 Patient requires set up or clean up by helper. Patient completes activity by themselves 4 Supervision or touching assist (CGA). [place] provide cues , steadying assist 3 The helper provides less than half the effort to complete the activity 2 The helper provides more than half the effort to complete the activity 1 Dependent. The helper does all the effort to complete an activity 7 Patient refused to complete or attempt activity 9 The patient did not perform the activity before the current illness or injury 88 Not attempted due to Medical conditions or safety concerns Transfers (B, C, W/C) (FIM): 5 Scootin Rollin Supine to/from Sit: 5 Sit to/from Stand: 5 Weight Bearing Full Weight Bearing Full Weight Bearing Gait Training Does the Patient Walk?: Yes Gait (FIM): 5 Distance (FIM): 3=150 ft (175x2) Gait Level of Assist: 5 Gait Persons Needed: 1 Gait Assistive Device: FWW needs guided/directed secondary to vision issues Exercises Supine Ex: Bridging, Ankle pumps, Quad Set, Rolling, Glut sets, Heel Slides, Short Arc Quads, Scooting, Hip abd/add Supine Reps: 15 Seated Therapy Exercises: Ankle pumps, Sit to stand, Long arc quads Seated Reps: 12 NuStep Minutes: 12 NuStep Workload: 3 Treatments leg presses on nustep x 12 Assessment Current Status: Good Progress PT Short Term Goals Short Term Goals Time Frame: Apr 21, 2019 Transfers (B,C,W/C) (FIM): 6 PT Phys Assistant Goals Phys Assistant Goals PT Phys Assistant Goals Time Frame: Apr 28, 2019 Transfers (B,C,W/C) (FIM): 7 Sit to Lying (QC): 6 Lying-Sitting on Side/Bed(QC): 6 Sit to Stand (QC): 6 Roll Left to Right (QC): 6 Chair/Kfl-im-Qbcnc Xfer(QC): 6 Car Transfer (QC): 6 Does the Patient Walk: Yes Gait (FIM): 6 Gait distance (FIM): 3=150 ft Walk 10 feet (QC): 6 Walk 10ft-Uneven Surface(QC): 6 Walk 50ft with 2 Turns (QC): 6 Walk 150 ft (QC): 6 Gait Assistive Device: FWW Does the Pt use WC or Scooter?: No Stairs (FIM): 2 1 Step (curb) (QC): 6 4 Steps (QC): 9 12 Steps (QC): 9 Picking up an Object (QC): 9 PT Plan Treatment/Plan Treatment Plan: Continue Plan of Care Treatment Plan: Bed Mobility, Education, Functional Activity Robert, Functional Strength, Group Therapy, Gait, Safety, Therapeutic Exercise, Transfers Treatment Duration: Apr 28, 2019 Frequency: At least 5 of 7 days/Wk (IRF) Estimated Hrs Per Day: 1.5 hours per day Patient and/or Family Agrees t: Yes Safety Risks/Education Patient Education: Gait Training, Transfer Techniques, Correct Positioning, Disease Process, Safety Issues Teaching Recipient: Patient Teaching Methods: Demonstration, Discussion Response to Teaching: Verbalize Understanding, Return Demonstration, Reinforcement Needed Time/GCodes Time In: 1115 Time Out: 1215 Total Billed Treatment Time: 60 Total Billed Treatment 1,EX30m,GT20m,FA10m G Codes Necessary: AMELIA Gardner PTA Apr 17, 2019 12:12
--- NOTE | 2019-04-17 14:47 | Therapy Group Daily Note ---
Therapy Daily Group Note Patient Education Topic Other List Below (understanding pain, ARU orientation, ways to manage pain) Exercises LE Seated Exercise, UE Exercise Session Ratio (pt:therapist): 4:1 Goal of Session: Education on ARU Expectations, Other (list) (explain pain) Goal Met for this Session: Yes Pt Benefit of Group: Contributions to Others, Socialization, Other Other/Notes Pt. participated in group PT OT session. Pt. ambulated to from group with SBA and FWW and assist for portable O2 2L. Pts shared their names, home town and a little about themselves. Education focused on orientation to ARU as well as ways to manage pain ie, massage, positioning, monitored heat and cold, vibration, trigger point release tools etc. Pt. utilized ice pack on her left thigh/femur during group and was educated on its use. Pts. were taught and participated in seated thoracic extension stretch, hamstring stretch as well as prayer hand stretches and UE stretches. Pts were all interactive and shared ideas and experiences regarding pain management. Pt. to room after Rx . Grace at hand Start Time: 13:00 Stop Time: 14:20 Total Billed Treatment Time: 80 Total Billed Treatment 1,GRP AMELIA LOU TABLE ASSEMBLER Apr 17, 2019 14:47
[2019-04-17] MEDS: ACETAMINOPHEN 325 MG TABLET PO PRN ×2 (14:57→22:05)
[2019-04-17 16:25] VITALS: BP 99/60
[2019-04-17] MEDS: lisINopril 10 MG (PRINIVIL) TABLET PO SCH (20:31)
[2019-04-17] MEDS: guaiFENesin/DM (ROBITUSSIN DM) 10 ML UDC PO PRN (22:05)
[2019-04-18 05:56] VITALS: BP 104/61
[2019-04-18] MEDS: inSUlin ASPART (NovoLOG) 1 UNIT/0.01 ML (CHARGE PER UNIT) SC SCH ×3 (06:15→16:22)
[2019-04-18] MEDS: RT-ALBUTEROL/IPRATROPIUM 3 ML (DUONEB) VIAL INH SCH ×2 (08:31→20:27)
[2019-04-18] MEDS: CEFDINIR 300 MG (OMNICEF) CAP PO SCH ×2 (09:39→20:20)
[2019-04-18] MEDS: predniSONE 10 MG TAB PO SCH (09:39)
[2019-04-18] MEDS: SENNA W/DOCUSATE (SENOKOT S) TABLET PO SCH ×2 (09:39→20:20)
[2019-04-18] MEDS: amLODIPine 5 MG (NORVASC) TAB PO SCH (09:39)
[2019-04-18] MEDS: GABAPENTIN 300 MG (NEURONTIN) CAP PO SCH ×2 (09:39→20:20)
--- NOTE | 2019-04-18 11:46 | NUR ---
PATIENT WAS ON 2 L NC AND SATTING 95%; O2 WAS REMOVED AND CHECKED AFTER 60 MINS AND O2 SAT WAS AT 87%; O2 WAS ADDED AND IT TOOK 2 L NC TO GET O2 SAT UP TO 90% AND STAY UP. PATIENT WENT FOR THE 6 MIN WALK AND IT TOOK 3 L TO KEEP SAT UP TO 90% AND STAY UP, SHE DID HAVE TO STOP AND TAKE A BREAK DURING THE 6 MINS. 2 L AT REST AND 3 L ON EXERTION
--- NOTE | 2019-04-18 11:51 | PM&R Progress Note ---
Subjective HPI/CC On Admission Date Seen by Provider: Apr 18, 2019 Time Seen by Provider: 11:00 Med Surg Hospital course: Pt had an uneventful hospital course for a total 5 days after she was admitted to the ICU, placed on an insulin drip and placed on IV steroids for exacerbation of COPD and respiratory insufficiency. UTI was treated with Rocephin but that eventually are out three or more isolates so that treatment was discontinued. Blood sugars were very labile after steroids discontinued and hypoglycemia episode occurred at 51 level on day of discharge from acute care and considering she was in need of insulin adjustment and close monitoring of hemoglobin that was decreasing along with leukocytosis and weaning oxygen she was deemed meeting criteria for inpatient rehab for presumed 5 day stay and then return home to live with her son. CC: COPD exacerbation with debility HPI: This is a 79yoWF clinic patient of [facility] w/h/o DM OOC and vision loss from DM and COPD maintained on O2 at night and prn who presents after an ICU admit for 5 days at [facility] due to resp insufficiency and sepsis and ARF. Patient was managed aggressively with IV steroids and Nebs and O2 along with Dr Barrios's expertise a nd then she required insulin drip non-DKA due to sugars 500+ which improved with the DC of IV steroids and increased insulin who presents to the IRF in need of insulin modifications along with BP labile monitoring in order to return to [facility] to live with her son. Hypoglycemia still persists even though s/p decreased in insulin dosing yesterday. She does not see Cardiology but she appears to be high risk for CAD and DM cardiac complications so will consult Dr Brenner in order to improve her cardiac status to remain successful at home. We will wean O2 during the day as tolerated and will decrease steroids once AECOPD has improved. Subjective/Events-last exam Sugars are very labile so increased SSI to C and have eliminated hypoglycemia now at least Reviewed BP and blood sugar Wheezing resolved with steroids and Nebs DC prednisone today Maintained on oxygen Will need home O2 evaluation if we can't wean her off during daytime use Conferred with RN Reviewed therapy notes Review of Systems General: Fatigue Pulmonary: Dyspnea Objective Exam Vital Signs Vital Signs Date Time Temp Pulse Resp B/P (MAP) Pulse Ox O2 Delivery O2 Flow Rate FiO2 04/18/19 16:15 98.4 75 14 94/55 (68) 96 Nasal Cannula 2.00 8/16/19 22:01 28 Capillary Refill : General Appearance: No Apparent Distress, WD/WN, Chronically ill, Obese HEENT: Normal ENT Inspection, Moist Mucous Membranes Neck: Full Range of Motion, Normal Inspection, Non Tender, Supple Respiratory: Chest Non Tender, Lungs Clear, Normal Breath Sounds, No Accessory Muscle Use, No Respiratory Distress Cardiovascular: Regular Rate, Rhythm, No Edema, No Gallop, No JVD, No Murmur Gastrointestinal: Normal Bowel Sounds, No Organomegaly, No Pulsatile Mass, Non Tender, Soft Rectal: Deferred Back: Normal Inspection, No CVA Tenderness, No Vertebral Tenderness Extremity: Normal Capillary Refill, Normal Inspection, Normal Range of Motion, Non Tender, No Calf Tenderness, Pedal Edema Neurologic/Psychiatric: Alert, Oriented x3, No Motor/Sensory Deficits, Normal Mood/Affect, chief knowledge officer II-XII Norm as Tested Skin: Normal Color, Warm/Dry Lymphatic: No Adenopathy Results/Procedures Lab Patient resulted labs reviewed. FIM Transfers Therapy Code Descriptions/Definitions Functional [place] Measure: 0=Not Assessed/NA 4=Minimal Assistance 1=Total Assistance 5=Supervision or Setup 2=Maximal Assistance 6=Modified [place] 3=Moderate Assistance 7=Complete [place] Therapy Quality Codes: 6 Independent with activity with or without an assistive device 5 Patient requires set up or clean up by helper. Patient completes activity by themselves 4 Supervision or touching assist (CGA). [place] provide cues , steadying assist 3 The helper provides less than half the effort to complete the activity 2 The helper provides more than half the effort to complete the activity 1 Dependent. The helper does all the effort to complete an activity 7 Patient refused to complete or attempt activity 9 The patient did not perform the activity before the current illness or injury 88 Not attempted due to Medical conditions or safety concerns Transfers (B, C, W/C) (FIM): 5 Scootin Rollin Roll Left to Right (QC): 6 Supine to/from Sit: 5 Sit to/from Stand: 5 Sit to Lying (QC): 5 Sit to Stand (QC): 6 Chair/Orj-tm-Uannl Xfer(QC): 5 Bed to/from Chair: 6 Car Transfer (QC): 4 Gait Training Does the Patient Walk?: Yes Gait (FIM): 5 Distance (FIM): 3=150 ft (175x2) Distance: 150' Walk 10 feet (QC): 5 Walk 50 ft with 2 Turns(QC): 5 Walk 150 ft (QC): 5 Walking 10ft/uneven surface-QC: 4 Gait Level of Assist: 5 Gait Persons Needed: 1 Gait Assistive Device: FWW Wheelchair Training Does the Pt Use a Wheelchair?: No Stair Training Stairs (FIM): 1 #of Steps: 1 1 Step (curb) (QC): 4 4 Steps (QC): 88 12 Steps (QC): 88 Level of Assist: 4 (CGA for safety) Balance Picking up an Object (QC): 9 Mental Status/Objective Comprehension: 7 Expression: 7 Social Interaction: 7 Problem Solvin Memory: 7 ADL-Treatment Feedin (Breakfast arrives and pt. needs assist to open packages due to v isual loss.) Eating (QC): 4 Groomin Oral Hygiene (QC): 4 Bathin Shower/Bathe Self (QC): 4 Upper Extremity Dressin Upper Body Dressing (QC): 4 Lower Extremity Dressin Lower Body Dressing (QC): 4 On/Off Footwear (QC): 4 Toiletin Toileting Hygiene (QC): 5 Toilet/Commode Transfer: 5 Toilet Transfer (QC): 5 Shower: 5 Assessment/Plan Assessment and Plan Assess & Plan/Chief Complaint Assessment: Debility AECOPD Hypoxia chronic O2 dependent Obesity BROOKE DM labile and OOC HTN OOC h/o CVA Low vision Plan: Monitor closely Monitor glucose and increase insulin Checked meds and labs DC steroids (1) COPD exacerbation Status: Acute (2) Hypertension Status: Chronic Qualifiers: Hypertension type: essential hypertension Qualified Codes: I10 - Essential (primary) hypertension (3) Hypoglycemia Status: Acute (4) Obesity, morbid, BMI 40.0-49.9 Status: Chronic (5) Vision loss Status: Chronic (6) Diabetic retinopathy Status: Chronic Qualifiers: Diabetes mellitus type: type 2 Diabetic retinopathy severity: with unspecified retinopathy severity Diabetes mellitus macular edema: macular eneida a presence unspecified Laterality: bilateral Qualified Codes: E11.319 - Type 2 diabetes mellitus with unspecified diabetic retinopathy without macular edema (7) Acute kidney injury Status: Acute (8) Lung nodules Status: Chronic (9) Type 2 diabetes mellitus Status: Chronic Qualifiers: Diabetes mellitus buttermaker insulin use: with snf use Diabetes mellitus complication status: with circulatory complication Diabetes mellitus complication detail: with other circulatory complications Qualified Codes: E11.59 - Type 2 diabetes mellitus with other circulatory complications; Z79.4 - retirement (current) use of insulin (10) Thyroid nodule Status: Chronic (11) Diabetic neuropathy Status: Chronic Qualifiers: Diabetes mellitus type: type 2 Diabetes mellitus complication detail: with other neurological complication Qualified Codes: E11.49 - Type 2 diabetes mellitus with other diabetic neurological complication (12) Elevated liver enzymes Status: Acute KEVIN SELBY DO Apr 18, 2019 11:51
--- NOTE | 2019-04-18 13:27 | Physical Therapy Daily Note ---
PT Daily Note-Current Subjective Pt agreeable to PT session. Discussed stair training today, pt declines stating that she will never do stairs, pt then agreeable to step training on single step Pain Numeric Pain Scale: 6 Comment: R muscle in shoulder Appearance Pt R sidelying in bed upon arrival. Pt in bed at end of session, per pt request, all needs met, call light, phone and bedside table within reach Mental Status Patient Orientation: Person, Place, Time, Eyes Open, Situation Transfers Therapy Code Descriptions/Definitions Functional [place] Measure: 0=Not Assessed/NA 4=Minimal Assistance 1=Total Assistance 5=Supervision or Setup 2=Maximal Assistance 6=Modified [place] 3=Moderate Assistance 7=Complete [place] Therapy Quality Codes: 6 Independent with activity with or without an assistive device 5 Patient requires set up or clean up by helper. Patient completes activity by themselves 4 Supervision or touching assist (CGA). [place] provide cues , steadying assist 3 The helper provides less than half the effort to complete the activity 2 The helper provides more than half the effort to complete the activity 1 Dependent. The helper does all the effort to complete an activity 7 Patient refused to complete or attempt activity 9 The patient did not perform the activity before the current illness or injury 88 Not attempted due to Medical conditions or safety concerns Transfers (B, C, W/C) (FIM): 5 Rollin Supine to/from Sit: 6 Sit to/from Stand: 5 verb inst for safety awareness and hand placement during transfers Weight Bearing Full Weight Bearing Full Weight Bearing Gait Training Does the Patient Walk?: Yes Gait (FIM): 4 Distance (FIM): 3=150 ft Distance: 300 x2 Gait Level of Assist: 4 (CGA to SBA) Gait Persons Needed: 1 Gait Assistive Device: FWW steady with no LOB, fatigue and SOA Stair Training #of Steps: 1 (x4) Stairs: Pattern: Step to Level of Assist: 4 (CGA with demonstration, verb inst for safety, use of walker and toes for tactile assist due to decreased vision, correct technique ) Exercises Standing: Marching, Retro gait, Sit to Stand, Side steps, Weight shifts Treatments bed mobility, gait, transfers, safety, education, step training, activity to lerance, functional mobility Assessment Current Status: Good Progress PT Short Term Goals Short Term Goals Time Frame: Apr 21, 2019 Transfers (B,C,W/C) (FIM): 6 PT Motor Checker Goals Fci Goals PT Fci Goals Time Frame: Apr 28, 2019 Transfers (B,C,W/C) (FIM): 7 Sit to Lying (QC): 6 Lying-Sitting on Side/Bed(QC): 6 Sit to Stand (QC): 6 Rollin Roll Left to Right (QC): 6 Chair/Ibi-xs-Voicp Xfer(QC): 6 Car Transfer (QC): 6 Does the Patient Walk: Yes Gait (FIM): 6 Gait distance (FIM): 3=150 ft Walk 10 feet (QC): 6 Walk 10ft-Uneven Surface(QC): 6 Walk 50ft with 2 Turns (QC): 6 Walk 150 ft (QC): 6 Gait Assistive Device: FWW Does the Pt use WC or Scooter?: No Stairs (FIM): 2 1 Step (curb) (QC): 6 4 Steps (QC): 9 12 Steps (QC): 9 Picking up an Object (QC): 9 PT Plan Treatment/Plan Treatment Plan: Continue Plan of Care Treatment Plan: Bed Mobility, Education, Functional Activity Robert, Functional Strength, Group Therapy, Gait, Safety, Therapeutic Exercise, Transfers Treatment Duration: Apr 28, 2019 Frequency: At least 5 of 7 days/Wk (IRF) Estimated Hrs Per Day: 1.5 hours per day Patient and/or Family Agrees t: Yes Safety Risks/Education Patient Education: Gait Training, Transfer Techniques, Steps, Safety Issues Teaching Recipient: Patient Teaching Methods: Demonstration, Discussion Response to Teaching: Verbalize Understanding, Return Demonstration Time/GCodes Time In: 1004 Time Out: 1042 Total Billed Treatment Time: 38 Total Billed Treatment 1 visit, GT x2 units, EX x1 unit SKIP COTTER PRECISION MECHANICAL INSTRUMENT MAKER Apr 18, 2019 13:27
--- NOTE | 2019-04-18 13:31 | Cardiology Progress Note ---
Cardiology SOAP Progress Note Subjective: No acute cardiac complaints. Objective: I&O/Vital Signs 04/18/19 04/18/19 04/18/19 04/18/19 05:56 08:31 09:00 11:41 Temp 98.0 Pulse 66 Resp 18 B/P (MAP) 104/61 (75) Pulse Ox 99 98 95 O2 Delivery Nasal Cannula Nasal Cannula Nasal Cannula O2 Flow Rate 2.00 2.00 2.00 2.00 04/18/19 00:00 Intake Total 2100 ml Balance 2100 ml Weight (Pounds): 272 Weight (Ounces): 3.2 Weight (Calculated Kilograms): 123.075982 Constitutional: No appears stated age; AAO x 3; No apparent distress, No PERRL, No well-developed, No well-nourished, No other Respiratory: No accessory muscle use, No respiratory distress, No chest tender, No chest expansion is symmetric; chest is bilaterally symmetric; No lungs clear to percussion; lungs clear to auscultation; No crackles, No rhonchi, No rales, No stridor, No wheezing, No pleural rub, No other Cardiovascular: regular rate-rhythm; No irregularly irregular, No extra beats, No parasternal heave is noted, No JVD, No edema, No bradycardia, No tachycardia, No point of maximal impulse, No cardiac thrills are palpable; S1 and S2; No gallop/S3, No gallop/S4, No diastolic murmur, No systolic murmur, No friction rub, No click, No other Gastrointestional: No tender, No soft, No round, No distended, No pulsatile mass, No organomegaly, No guarding, No rebound, No tenderness, No hernia, No mass, No audible bowel sounds, No abnormal bowel sounds, No abdominal bruits, No spleenomegaly, No other Extremities: No normal range of motion, No non-tender, No normal inspection, No pedal edema, No calf tenderness, No normal capillary refill, No pelvis stable, No calf tenderness, No inflammation, No pedal edema, No slow capillary refill, No swelling, No other, No abrasion, No clubbing, No cyanosis, No ecchymosis, No laceration, No no lower extremity edema bilateral, No significant edema, No tenderness, No wound Neurologic/Psychiatric: No traffic manager II-XII nml as tested; no motor/sensory deficits, alert, normal mood/affect, oriented x 3; No abnormal cerebellar tests, No abnormal traffic manager II-XII, No abnormal gait, No aphasia, No EOM palsy, No facial droop, No motor weakness, No sensory deficit, No depressed affect, No disoriented x 3, No other, No grossly intact, No power is 5/5 both on sides Skin: No normal color, No warm/dry, No cyanosis, No cool, No diaphoresis, No damp, No ecchymosis, No jaundice, No mottled, No pallor, No rash, No tattoos/piercings, No ulcerations, No rash on exposed areas, No ulcerations on exposed areas, No other Results/Procedures: Labs Laboratory Tests 04/17/19 16:21: Glucometer 446*H 04/17/19 20:20: Glucometer 423*H 04/18/19 05:16: Glucometer 232H 04/18/19 11:18: Glucometer 301H A/P: Assessment/Dx: Dyspnea COPD HTN DM Plan: Dyspnea on exertion- currently on O2, 2D echo from 04/15/19 showed EF 55-65%, mild increase in LV thickness, moderate MR, PA pressure 20, continue to monitor Chest pain nonspecific etiology, atypical in presentation, reporting improvement. Continue to monitor COPD- management per Dr. Barrios HTN- controlled. Continue on current medications and continue to monitor. DM- management per medical services CRI- continue to monitor renal function Elevated LFT's- continue to monitor Debility/weakness- continue PT/OT. Thank you for your consultation. Please call me if you have any questions. Brady Simms MD, FACP, FACC, FSCAI, FHRS, CCDS Interventional Cardiology Cardiac Electrophysiology Vascular Medicine and Endovascular Interventions Clinical Quality Measures AMI/AHF: Ejection Fraction %: 55 (55-65%) Norma SIMMS MD Apr 18, 2019 1:30 pm
--- NOTE | 2019-04-18 14:05 | NUR ---
Mariela is a 79 yo female currently inpatient for COPD exacerbation and cystitis with hematuria. She is doing very well on the rehab unit, currently ambulating SBA. Mariela does report slight pain in her arms d/t to exercises with therapy staff. Patient is currently on 2 L O2 and is able to safely manage O2 tubing. She reported she had a bowel movement this morning. No further issues noted, this nurse will continue to monitor patient.
[2019-04-18 16:15] VITALS: BP 94/55
[2019-04-18 18:00] VITALS: BP 94/55
[2019-04-18] MEDS ORDERED: inSUlin (REGULAR) HUMAN 1 UNIT/0.01 ML (CHARGE PER UNIT) ONE (18:25)
[2019-04-18] MEDS ORDERED: inSUlin (REGULAR) HUMAN 1 UNIT/0.01 ML (CHARGE PER UNIT) SC SCH ×3 (18:30→21:00)
[2019-04-18] MEDS: inSUlin (REGULAR) HUMAN 1 UNIT/0.01 ML (CHARGE PER UNIT) SC SCH (21:14)
[2019-04-18] MEDS: ACETAMINOPHEN 325 MG TABLET PO PRN (23:47)
[2019-04-19] MEDS: ACETAMINOPHEN 325 MG TABLET PO PRN ×2 (04:06→19:53)
[2019-04-19] MEDS: guaiFENesin/DM (ROBITUSSIN DM) 10 ML UDC PO PRN ×3 (04:06→19:53)
[2019-04-19 05:44] VITALS: BP 150/81
[2019-04-19] MEDS: inSUlin (REGULAR) HUMAN 1 UNIT/0.01 ML (CHARGE PER UNIT) SC SCH ×4 (06:00→20:33)
[2019-04-19] MEDS: RT-ALBUTEROL/IPRATROPIUM 3 ML (DUONEB) VIAL INH SCH ×2 (07:48→20:02)
[2019-04-19] MEDS: GABAPENTIN 300 MG (NEURONTIN) CAP PO SCH ×2 (08:14→20:33)
[2019-04-19] MEDS: SENNA W/DOCUSATE (SENOKOT S) TABLET PO SCH ×2 (08:14→20:33)
[2019-04-19] MEDS: CEFDINIR 300 MG (OMNICEF) CAP PO SCH ×2 (08:14→20:33)
[2019-04-19 10:47] VITALS: BP 111/64
--- NOTE | 2019-04-19 11:03 | PM&R Progress Note ---
Subjective HPI/CC On Admission Date Seen by Provider: Apr 19, 2019 Time Seen by Provider: 10:45 Med Surg Hospital course: Pt had an uneventful hospital course for a total 5 days after she was admitted to the ICU, placed on an insulin drip and placed on IV steroids for exacerbation of COPD and respiratory insufficiency. UTI was treated with Rocephin but that eventually are out three or more isolates so that treatment was discontinued. Blood sugars were very labile after steroids discontinued and hypoglycemia episode occurred at 51 level on day of discharge from acute care and considering she was in need of insulin adjustment and close monitoring of hemoglobin that was decreasing along with leukocytosis and weaning oxygen she was deemed meeting criteria for inpatient rehab for presumed 5 day stay and then return home to live with her son. CC: COPD exacerbation with debility HPI: This is a 79yoWF clinic patient of [facility] w/h/o DM OOC and vision loss from DM and COPD maintained on O2 at night and prn who presents after an ICU admit for 5 days at [facility] due to resp insufficiency and sepsis and ARF. Patient was managed aggressively with IV steroids and Nebs and O2 along with Dr Barrios's expertise a nd then she required insulin drip non-DKA due to sugars 500+ which improved with the DC of IV steroids and increased insulin who presents to the IRF in need of insulin modifications along with BP labile monitoring in order to return to [facility] to live with her son. Hypoglycemia still persists even though s/p decreased in insulin dosing yesterday. She does not see Cardiology but she appears to be high risk for CAD and DM cardiac complications so will consult Dr Brenner in order to improve her cardiac status to remain successful at home. We will wean O2 during the day as tolerated and will decrease steroids once AECOPD has improved. Subjective/Events-last exam Sugars are very labile so increased SSI to C with Regular insulin and that seems to making some progress Reviewed BP and blood sugar Wheezing resolved with steroids and Nebs DC prednisone yesterday Maintained on oxygen Will need home O2 evaluation if we can't wean her off during daytime use Conferred with RN Reviewed therapy notes Review of Systems Pulmonary: Dyspnea Objective Exam Vital Signs Vital Signs Date Time Temp Pulse Resp B/P (MAP) Pulse Ox O2 Delivery O2 Flow Rate FiO2 04/19/19 15:41 98.0 67 14 109/64 (79) 100 Nasal Cannula 2.00 04/17/19 22:01 28 Capillary Refill : General Appearance: No Apparent Distress, WD/WN, Chronically ill, Obese HEENT: Normal ENT Inspection, Moist Mucous Membranes Neck: Full Range of Motion, Normal Inspection, Non Tender, Supple Respiratory: Chest Non Tender, Lungs Clear, Normal Breath Sounds, No Accessory Muscle Use, No Respiratory Distress Cardiovascular: Regular Rate, Rhythm, No Edema, No Gallop, No JVD, No Murmur Gastrointestinal: Normal Bowel Sounds, No Organomegaly, No Pulsatile Mass, Non Tender, Soft Rectal: Deferred Back: Normal Inspection, No CVA Tenderness, No Vertebral Tenderness Extremity: Normal Capillary Refill, Normal Inspection, Normal Range of Motion, Non Tender, No Calf Tenderness, Pedal Edema Neurologic/Psychiatric: Alert, Oriented x3, No Motor/Sensory Deficits, Normal 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 FIM Transfers Therapy Code Descriptions/Definitions Functional [place] Measure: 0=Not Assessed/NA 4=Minimal Assistance 1=Total Assistance 5=Supervision or Setup 2=Maximal Assistance 6=Modified [place] 3=Moderate Assistance 7=Complete [place] Therapy Quality Codes: 6 Independent with activity with or without an assistive device 5 Patient requires set up or clean up by helper. Patient completes activity by themselves 4 Supervision or touching assist (CGA). [place] provide cues , steadying assist 3 The helper provides less than half the effort to complete the activity 2 The helper provides more than half the effort to complete the activity 1 Dependent. The helper does all the effort to complete an activity 7 Patient refused to complete or attempt activity 9 The patient did not perform the activity before the current illness or injury 88 Not attempted due to Medical conditions or safety concerns Transfers (B, C, W/C) (FIM): 5 Scootin Rollin Roll Left to Right (QC): 6 Supine to/from Sit: 6 Sit to/from Stand: 5 Sit to Lying (QC): 5 Sit to Stand (QC): 6 Chair/Cfr-mp-Myvan Xfer(QC): 5 Bed to/from Chair: 6 Car Transfer (QC): 4 Gait Training Does the Patient Walk?: Yes Gait (FIM): 4 Distance (FIM): 3=150 ft Distance: 300 x2 Walk 10 feet (QC): 5 Walk 50 ft with 2 Turns(QC): 5 Walk 150 ft (QC): 5 Walking 10ft/uneven surface-QC: 4 Gait Level of Assist: 4 (CGA to SBA) Gait Persons Needed: 1 Gait Assistive Device: FWW Wheelchair Training Does the Pt Use a Wheelchair?: No Stair Training Stairs (FIM): 1 #of Steps: 1 (x4) 1 Step (curb) (QC): 4 4 Steps (QC): 88 12 Steps (QC): 88 Stairs: Pattern: Step to Level of Assist: 4 (CGA with demonstration, verb inst for safety, use of walker and toes for tactile assist due to decreased vision, correct technique ) Balance Picking up an Object (QC): 9 Mental Status/Objective Comprehension: 7 Expression: 7 Social Interaction: 7 Problem Solvin Memory: 7 ADL-Treatment Feedin (Breakfast arrives and pt. needs assist to open packages due to visual loss.) Eating (QC): 4 Groomin Oral Hygiene (QC): 4 Bathin Shower/Bathe Self (QC): 4 Upper Extremity Dressin Upper Body Dressing (QC): 4 Lower Extremity Dressin Lower Body Dressing (QC): 4 On/Off Footwear (QC): 4 Toiletin Toileting Hygiene (QC): 5 Toilet/Commode Transfer: 5 Toilet Transfer (QC): 5 Shower: 5 Assessment/Plan Assessment and Plan Assess & Plan/Chief Complaint Assessment: Debility AECOPD Hypoxia chronic O2 dependent Obesity BROOKE DM labile and OOC HTN OOC h/o CVA Low vision Plan: Monitor closely Monitor glucose and increase insulin to SSI C and Regular insulin Checked meds and labs DC steroids (1) COPD exacerbation Status: Acute (2) Hypertension Status: Chronic Qualifiers: Hypertension type: essential hypertension Qualified Codes: I10 - Essential (primary) hypertension (3) Hypoglycemia Status: Acute (4) Obesity, morbid, BMI 40.0-49.9 Status: Chronic (5) Vision loss Status: Chronic (6) Diabetic retinopathy Status: Chronic Qualifiers: Diabetes mellitus type: type 2 Diabetic retinopathy severity: with unspecified retinopathy severity Diabetes mellitus macular edema: macular edema presence unspecified Laterality: bilateral Qualified Codes: E11.319 - Type 2 diabetes mellitus with unspecified diabetic retinopathy without macular edema (7) Acute kidney injury Status: Acute (8) Lung nodules Status: Chronic (9) Type 2 diabetes mellitus Status: Chronic Qualifiers: Diabetes mellitus buttermaker insulin use: with buttermaker use Diabetes mellitus complication status: with circulatory complication Diabetes mellitus complication detail: with other circulatory complications Qualified Codes: E11.59 - Type 2 diabetes mellitus with other circulatory complications; 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
--- NOTE | 2019-04-19 13:09 | Cardiology Progress Note ---
Cardiology SOAP Progress Note Subjective: no cardiac complaints. Objective: I&O/Vital Signs 04/19/19 04/19/19 04/19/19 04/19/19 05:44 07:48 09:00 10:47 Temp 97.4 Pulse 67 75 Resp 18 B/P (MAP) 150/81 (104) 111/64 (80) Pulse Ox 98 98 O2 Delivery Nasal Cannula Nasal Cannula Nasal Cannula O2 Flow Rate 2.00 2.00 2.00 04/19/19 00:00 Intake Total 1420 ml Balance 1420 ml Weight (Pounds): 272 Weight (Ounces): 3.2 Weight (Calculated Kilograms): 123.220992 Constitutional: No appears stated age; AAO x 3; No apparent distress, No PERRL, No well-developed, No well-nourished, No other Respiratory: No accessory muscle use, No respiratory distress, No chest tender, No chest expansion is symmetric; chest is bilaterally symmetric; No lungs clear to percussion; lungs clear to auscultation; No crackles, No rhonchi, No rales, No stridor, No wheezing, No pleural rub, No other Cardiovascular: regular rate-rhythm; No irregularly irregular, No extra beats, No parasternal heave is noted, No JVD, No edema, No bradycardia, No tachycardia, No point of maximal impulse, No cardiac thrills are palpable; S1 and S2; No gallop/S3, No gallop/S4, No diastolic murmur, No systolic murmur, No friction rub, No click, No other Gastrointestional: No tender, No soft, No round, No distended, No pulsatile mass, No organomegaly, No guarding, No rebound, No tenderness, No hernia, No mass, No audible bowel sounds, No abnormal bowel sounds, No abdominal bruits, No spleenomegaly, No other Extremities: No normal range of motion, No non-tender, No normal inspection, No pedal edema, No calf tenderness, No normal capillary refill, No pelvis stable, No calf tenderness, No inflammation, No pedal edema, No slow capillary refill, No swelling, No other, No abrasion, No clubbing, No cyanosis, No ecchymosis, No laceration, No no lower extremity edema bilateral, No significant edema, No tenderness, No wound Neurologic/Psychiatric: No administrator pesticide II-XII nml as tested; no motor/sensory deficits, alert, normal mood/affect, oriented x 3; No abnormal cerebellar tests, No abnormal administrator pesticide II-XII, No abnormal gait, No aphasia, No EOM palsy, No facial droop, No motor weakness, No sensory deficit, No depressed affect, No disoriented x 3, No other, No grossly intact, No power is 5/5 both on sides Skin: No normal color, No warm/dry, No cyanosis, No cool, No diaphoresis, No damp, No ecchymosis, No jaundice, No mottled, No pallor, No rash, No tattoos/piercings, No ulcerations, No rash on exposed areas, No ulcerations on exposed areas, No other Results/Procedures: Labs Laboratory Tests 04/18/19 16:08: Glucometer 465*H 04/18/19 17:32: Glucometer 490*H 04/18/19 18:35: Glucometer 409*H 04/18/19 19:40: Glucometer 372H 04/18/19 20:52: Glucometer 304H 04/18/19 23:47: Glucometer 230H 04/19/19 04:00: Glucometer 167H 04/19/19 05:31: Glucometer 170H 04/19/19 10:40: Glucometer 342H A/P: Assessment/Dx: Dyspnea COPD HTN DM Plan: Dyspnea on exertion- currently on O2, 2D echo from 04/15/19 showed EF 55-65%, mild increase in LV thickness, moderate MR, PA pressure 20, continue to monitor Chest pain nonspecific etiology, atypical in presentation, reporting improvement. Continue to monitor COPD- management per Dr. Barrios HTN- controlled. Continue on current medications and continue to monitor. DM- management per medical services CRI- continue to monitor renal function Elevated LFT's- continue to monitor Debility/weakness- continue PT/OT. Thank you for your consultation. Please call me if you have any questions. Brady Simms MD, FACP, FACC, FSCAI, FHRS, CCDS Interventional Cardiology Cardiac Electrophysiology Vascular Medicine and Endovascular Interventions Clinical Quality Measures AMI/AHF: Ejection Fraction %: 55 (55-65%) Norma SIMMS MD Apr 19, 2019 13:09
[2019-04-19 15:41] VITALS: BP 109/64
[2019-04-20] MEDS: ACETAMINOPHEN 325 MG TABLET PO PRN ×2 (00:02→23:10)
[2019-04-20 05:10] VITALS: BP 128/64
[2019-04-20] MEDS: RT-ALBUTEROL/IPRATROPIUM 3 ML (DUONEB) VIAL INH SCH ×2 (07:57→19:37)
--- NOTE | 2019-04-20 08:21 | Cardiology Progress Note ---
Subjective Date Seen by Provider: Apr 20, 2019 Time Seen by Provider: 08:20 Subjective/Events-last exam Patient sitting up in chair, no new complaints. Denies any chest pain or dy spnea. Objective-Cardiology Exam Last Set of Vital Signs Vital Signs 04/17/19 04/20/19 04/20/19 22:01 05:10 07:59 Temp 98.2 Pulse 64 Resp 18 B/P (MAP) 128/64 (85) Pulse Ox 97 O2 Delivery Nasal Cannula O2 Flow Rate 2.00 FiO2 28 Capillary Refill : I&O Intake and Output 04/20/19 00:00 Intake Total 1600 ml Balance 1600 ml Intake Oral 1600 ml # Voids 10 # Bowel Movements 2 General: Alert, Oriented X3, Cooperative HEENT: Atraumatic, PERRLA Neck: Supple, No JVD, No Thyromegaly Lungs: Clear to Auscultation, Normal Air Movement Heart: Regular Rate, Normal S1, Normal S2, No Murmurs Abdomen: Normal Bowel Sounds, Soft, No Tenderness, No Hepatosplenomegaly, No Masses Extremities: No Clubbing, No Cyanosis, No Edema, Normal Pulses, No Tenderness/Swelling Skin: No Rashes, No Breakdown, No Significant Lesion Neuro: Normal Gait, Normal Speech, Strength at 5/5 X4 Ext, Normal Tone, Sensation Intact Psych/Mental Status: Mental Status NL, Mood NL A/P-Cardiology Admission Diagnosis Dyspnea COPD HTN DM Assessment/Plan Dyspnea on exertion- currently on O2, 2D echo from 04/15/19 showed EF 55-65%, mild increase in LV thickness, moderate MR, PA pressure 20, continue to monitor Chest pain nonspecific etiology, atypical in presentation, reporting improvement. Continue to monitor COPD- management per Dr. Barrios HTN- controlled. Continue on current medications and continue to monitor. DM- management per medical services CRI- continue to monitor renal function Elevated LFT's-improved, continue to monitor Debility/weakness- continue PT/OT. Clinical Quality Measures AMI/AHF: Ejection Fraction %: 55 (55-65%) DVT/VTE Risk/Contraindication: Risk Factor Score Per Nursin RFS Level Per Nursing on Admit: 4+=Very High RAQUEL BENNETT Apr 20, 2019 08:21
[2019-04-20] MEDS: SENNA W/DOCUSATE (SENOKOT S) TABLET PO SCH ×2 (08:28→20:03)
[2019-04-20] MEDS: CEFDINIR 300 MG (OMNICEF) CAP PO SCH (08:28)
[2019-04-20] MEDS: GABAPENTIN 300 MG (NEURONTIN) CAP PO SCH ×2 (08:28→20:02)
[2019-04-20] MEDS: inSUlin (REGULAR) HUMAN 1 UNIT/0.01 ML (CHARGE PER UNIT) SC SCH ×3 (08:28→17:45)
--- NOTE | 2019-04-20 08:53 | PM&R Progress Note ---
Subjective HPI/CC On Admission Date Seen by Provider: Apr 20, 2019 Time Seen by Provider: 08:45 Med Surg Hospital course: Pt had an uneventful hospital course for a total 5 days after she was admitted to the ICU, placed on an insulin drip and placed on IV steroids for exacerbation of COPD and respiratory insufficiency. UTI was treated with Rocephin but that eventually are out three or more isolates so that treatment was discontinued. Blood sugars were very labile after steroids discontinued and hypoglycemia episode occurred at 51 level on day of discharge from acute care and considering she was in need of insulin adjustment and close monitoring of hemoglobin that was decreasing along with leukocytosis and weaning oxygen she was deemed meeting criteria for inpatient rehab for presumed 5 day stay and then return home to live with her son. CC: COPD exacerbation with debility HPI: This is a 79yoWF clinic patient of [facility] w/h/o DM OOC and vision loss from DM and COPD maintained on O2 at night and prn who presents after an ICU admit for 5 days at [facility] due to resp insufficiency and sepsis and ARF. Patient was managed aggressively with IV steroids and Nebs and O2 along with Dr Barrios's expertise a nd then she required insulin drip non-DKA due to sugars 500+ which improved with the DC of IV steroids and increased insulin who presents to the IRF in need of insulin modifications along with BP labile monitoring in order to return to [facility] to live with her son. Hypoglycemia still persists even though s/p decreased in insulin dosing yesterday. She does not see Cardiology but she appears to be high risk for CAD and DM cardiac complications so will consult Dr Brenner in order to improve her cardiac status to remain successful at home. We will wean O2 during the day as tolerated and will decrease steroids once AECOPD has improved. Subjective/Events-last exam Blood sugars are labile Off Prednisone now and blood sugars were a little bit low yesterday Will work on her insulin dosing an due able to kind of give her some guidance of when its low and when its high but she goes by clicks of her pen to be able to know what dose of insulin she is taking Home O2 eval for day time use will be done today Cefdinir will be discontinued DC planned for tomorrow Conferred with RN Reviewed therapy notes Review of Systems General: Fatigue Objective Exam Vital Signs Vital Signs Date Time Temp Pulse Resp B/P (MAP) Pulse Ox O2 Delivery O2 Flow Rate FiO2 04/20/19 20:00 Room Air 04/20/19 19:37 91 04/20/19 16:56 66 04/20/19 16:01 98.2 14 116/63 (80) 04/20/19 08:30 2.00 04/17/19 22:01 28 Capillary Refill : General Appearance: No Apparent Distress, WD/WN, Chronically ill, Obese HEENT: Normal ENT Inspection, Moist Mucous Membranes Neck: Full Range of Motion, Normal Inspection, Non Tender, Supple Respiratory: Chest Non Tender, Lungs Clear, Normal Breath Sounds, No Accessory Muscle Use, No Respiratory Distress Cardiovascular: Regular Rate, Rhythm, No Edema, No Gallop, No JVD, No Murmur Gastrointestinal: Normal Bowel Sounds, No Organomegaly, No Pulsatile Mass, Non Tender, Soft Rectal: Deferred Back: Normal Inspection, No CVA Tenderness, No Vertebral Tenderness Extremity: Normal Capillary Refill, Normal Inspection, Normal Range of Motion, Non Tender, No Calf Tenderness, Pedal Edema Neurologic/Psychiatric: Alert, Oriented x3, No Motor/Sensory Deficits, Normal Mood/Affect, medical dermatologist II-XII Norm as Tested Skin: Normal Color, Warm/Dry Lymphatic: No Adenopathy Results/Procedures Lab Patient resulted labs reviewed. FIM Transfers Therapy Code Descriptions/Definitions Functional [place] Measure: 0=Not Assessed/NA 4=Minimal Assistance 1=Total Assistance 5=Supervision or Setup 2=Maximal Assistance 6=Modified [place] 3=Moderate Assistance 7=Complete [place] Therapy Quality Codes: 6 Independent with activity with or without an assistive device 5 Patient requires set up or clean up by helper. Patient completes activity by themselves 4 Supervision or touching assist (CGA). [place] provide cues , steadying assist 3 The helper provides less than half the effort to complete the activity 2 The helper provides more than half the effort to complete the activity 1 Dependent. The helper does all the effort to complete an activity 7 Patient refused to complete or attempt activity 9 The patient did not perform the activity before the current illness or injury 88 Not attempted due to Medical conditions or safety concerns Transfers (B, C, W/C) (FIM): 5 Scootin Rollin Roll Left to Right (QC): 6 Supine to/from Sit: 6 Sit to/from Stand: 5 Sit to Lying (QC): 5 Sit to Stand (QC): 6 Chair/Bgz-gt-Drefm Xfer(QC): 5 Bed to/from Chair: 6 Car Transfer (QC): 4 Gait Training Does the Patient Walk?: Yes Gait (FIM): 4 Distance (FIM): 3=150 ft Distance: 300 x2 Walk 10 feet (QC): 5 Walk 50 ft with 2 Turns(QC): 5 Walk 150 ft (QC): 5 Walking 10ft/uneven surface-QC: 4 Gait Level of Assist: 4 (CGA to SBA) Gait Persons Needed: 1 Gait Assistive Device: FWW Wheelchair Training Does the Pt Use a Wheelchair?: No Stair Training Stairs (FIM): 1 #of Steps: 1 (x4) 1 Step (curb) (QC): 4 4 Steps (QC): 88 12 Steps (QC): 88 Stairs: Pattern: Step to Level of Assist: 4 (CGA with demonstration, verb inst for safety, use of walker and toes for tactile assist due to decreased vision, correct technique ) Balance Picking up an Object (QC): 9 Mental Status/Objective Comprehension: 7 Expression: 7 Social Interaction: 7 Problem Solvin Memory: 7 ADL-Treatment Feedin (Breakfast arrives and pt. needs assist to open packages due to visual loss.) Eating (QC): 4 Groomin Oral Hygiene (QC): 4 Bathin Shower/Bathe Self (QC): 4 Upper Extremity Dressin Upper Body Dressing (QC): 4 Lower Extremity Dressin Lower Body Dressing (QC): 4 On/Off Footwear (QC): 4 Toiletin Toileting Hygiene (QC): 5 Toilet/Commode Transfer: 5 Toilet Transfer (QC): 5 Shower: 5 Assessment/Plan Assessment and Plan Assess & Plan/Chief Complaint Assessment: Debility AECOPD Hypoxia chronic O2 dependent Obesity BROOKE DM labile and OOC HTN OOC h/o CVA Low vision Plan: Monitor closely Monitor glucose and increase insulin to SSI C and Regular insulin Checked meds and labs DC steroids DC abx DC home tomorrow (1) COPD exacerbation Status: Acute (2) Hypertension Status: Chronic Qualifiers: Hypertension type: essential hypertension Qualified Codes: I10 - Essential (primary) hypertension (3) Hypoglycemia Status: Acute (4) Obesity, morbid, BMI 40.0-49.9 Status: Chronic (5) Vision loss Status: Chronic (6) Diabetic retinopathy Status: Chronic Qualifiers: Diabetes mellitus type: type 2 Diabetic retinopathy severity: with unspecified retinopathy severity Diabetes mellitus macular edema: macular edema presence unspecified Laterality: bilateral Qualified Codes: E11.319 - Type 2 diabetes mellitus with unspecified diabetic retinopathy without macular edema (7) Acute kidney injury Status: Acute (8) Lung nodules Status: Chronic (9) Type 2 diabetes mellitus Status: Chronic Qualifiers: Diabetes mellitus terminal press operator insulin use: with prison use Diabetes mellitus complication status: with circulatory complication Diabetes mellitus complication detail: with other circulatory complications Qualified Codes: E11.59 - Type 2 diabetes mellitus with other circulatory complications; Z79.4 - [facility] (current) use of insulin (10) Thyroid nodule Status: Chronic (11) Diabetic neuropathy Status: Chronic Qualifiers: Diabetes mellitus type: type 2 Diabetes mellitus complication detail: with other neurological complication Qualified Codes: E11.49 - Type 2 diabetes mellitus with other diabetic neurological complication (12) Elevated liver enzymes Status: Acute KEVIN SELBY DO Apr 20, 2019 08:52
[2019-04-20] MEDS ORDERED: inSUlin (REGULAR) HUMAN 1 UNIT/0.01 ML (CHARGE PER UNIT) SC ONE (11:00)
--- NOTE | 2019-04-20 11:21 | Progress Note - Hospitalist ---
[facility] 04/20/19 1121: Progress Note Ms Louie is ready for d/c for tomorrow RT to perform O2 assessment to register new baseline - Home level [employer] was 2L O2 for sleeping, current is 2L O2 all day Her lungs are CTAB Blood glucose is still labile, but will go back to her home levels on d/c LYNDSAY JIANG DO 04/20/19 2104: Supervisory-Addendum Brief Verification & Attestation Participated in pt care: history, MDM, physical Personally performed: exam, history, MDM, supervision of care Care discussed with: Medical Student Procedures: n/a Results interpretation: Verified all documentation Verification and Attestation of Medical Student E/M Service A medical student performed and documented this service in my presence. I reviewed and verified all information documented by the medical student and made modifications to such information, when appropriate. I personally performed the physical exam and medical decision making. Lyndsay Jiang, Apr 20, 2019,21:04 CARYL [facility] Apr 20, 2019 11:21 LYNDSAY JIANG DO Apr 20, 2019 21:04
--- NOTE | 2019-04-20 12:00 | Physical Therapy Daily Note ---
PT Daily Note-Current Subjective Pt. states she has had a rough morning and will do the best she can for PT but cant make promises. States she has had diarrhea and felt a little nauseous Pain Numeric Pain Scale: 0-No Pain Mental Status Patient Orientation: Normal For Age Transfers Therapy Code Descriptions/Definitions Functional [place] Measure: 0=Not Assessed/NA 4=Minimal Assistance 1=Total Assistance 5=Supervision or Setup 2=Maximal Assistance 6=Modified [place] 3=Moderate Assistance 7=Complete [place] Therapy Quality Codes: 6 Independent with activity with or without an assistive device 5 Patient requires set up or clean up by helper. Patient completes activity by themselves 4 Supervision or touching assist (CGA). [place] provide cues , steadying assist 3 The helper provides less than half the effort to complete the activity 2 The helper provides more than half the effort to complete the activity 1 Dependent. The helper does all the effort to complete an activity 7 Patient refused to complete or attempt activity 9 The patient did not perform the activity before the current illness or injury 88 Not attempted due to Medical conditions or safety concerns Transfers (B, C, W/C) (FIM): 5 Scootin Rollin Roll Left to Right (QC): 6 Supine to/from Sit: 6 Sit to/from Stand: 6 Sit to Lying (QC): 6 Sit to Stand (QC): 6 Chair/Sou-cl-Finch Xfer(QC): 5 Bed to/from Chair: 6 Car Transfer (QC): 5 Pt needs only cuing and direction secondary to low vision Weight Bearing Full Weight Bearing Full Weight Bearing Gait Training Does the Patient Walk?: Yes Gait (FIM): 5 Distance (FIM): 3=150 ft (150x4) Walk 10 feet (QC): 5 Walk 50 ft with 2 Turns(QC): 5 Walk 150 ft (QC): 5 Walking 10ft/uneven surface-QC: 5 Gait Level of Assist: 5 Gait Persons Needed: 1 Gait Assistive Device: FWW needs guidance secondary to low vision, no LOB, flexed at trunk Stair Training Stair Training: Handrails/: 2 handrails Stairs (FIM): 2 #of Steps: 4 1 Step (curb) (QC): 4 4 Steps (QC): 4 Stairs: Pattern: Step to Level of Assist: 4 needs instruction and guidance , uses toes and [id number] to locate edge of step for each step Balance Special Test Comments unsafe top trial Exercises Supine Ex: Bridging, Ankle pumps, Quad Set, Rolling, Glut sets, Heel Slides, Short Arc Quads, Scooting, Straight leg raise, Hip abd/add Supine Reps: 15 Seated Therapy Exercises: Ankle pumps, Sit to stand, Long arc quads, Hip flexion, Hip abd/add Seated Reps: 12 NuStep Minutes: 10 NuStep Workload: 3 Treatments pt. just off O2 when arrived, trialing off O2 checking sats, 96 and 97% at every check at rest and with activity Assessment Current Status: Good Progress tolerated all of Rx well, off O2 with sats steady greater than 90% consistently PT Short Term Goals Short Term Goals Time Frame: Apr 21, 2019 Transfers (B,C,W/C) (FIM): 6 PT Chcf Goals Chcf Goals PT Chcf Goals Time Frame: Apr 28, 2019 Transfers (B,C,W/C) (FIM): 7 Sit to Lying (QC): 6 Lying-Sitting on Side/Bed(QC): 6 Sit to Stand (QC): 6 Rollin Roll Left to Right (QC): 6 Chair/Oge-ue-Eoici Xfer(QC): 6 Car Transfer (QC): 6 Does the Patient Walk: Yes Gait (FIM): 6 Gait distance (FIM): 3=150 ft Walk 10 feet (QC): 6 Walk 10ft-Uneven Surface(QC): 6 Walk 50ft with 2 Turns (QC): 6 Walk 150 ft (QC): 6 Gait Assistive Device: FWW Does the Pt use WC or Scooter?: No Stairs (FIM): 2 1 Step (curb) (QC): 6 4 Steps (QC): 9 12 Steps (QC): 9 Picking up an Object (QC): 9 PT Plan Treatment/Plan Treatment Plan: Continue Plan of Care Treatment Plan: Bed Mobility, Education, Functional Activity Robert, Functional Strength, Group Therapy, Gait, Safety, Therapeutic Exercise, Transfers Treatment Duration: Apr 28, 2019 Frequency: At least 5 of 7 days/Wk (IRF) Estimated Hrs Per Day: 1.5 hours per day Patient and/or Family Agrees t: Yes Safety Risks/Education Patient Education: Gait Training, Transfer Techniques, Steps, Correct Positioning, Disease Process, Safety Issues Teaching Recipient: Patient Teaching Methods: Demonstration, Discussion Response to Teaching: Verbalize Understanding, Return Demonstration, Reinforcement Needed Time/GCodes Time In: 1100 Time Out: 1200 Total Billed Treatment Time: 60 Total Billed Treatment 1,EX35m,FA30m,GT25m AMELIA LOU SUSTAINABILITY PROJECT COORDINATOR Apr 20, 2019 12:00
--- NOTE | 2019-04-20 12:02 | NUR ---
patent was exercised sat was 96 Addendum: 04/20/19 at 1202 by SILVESTRE UREÑA RT Amended: Links added.
--- NOTE | 2019-04-20 12:08 | Occupational Ther Daily Note ---
OT Current Status-Daily Note Subjective No pain reported during treatment. Appearance Pt. up on side of bed. Agrees to shower. Mental Status/Objective Patient Orientation: Person, Place, Time, Situation Therapy Code Descriptions/Definitions Functional [place] Measure: 0=Not Assessed/NA 4=Minimal Assistance 1=Total Assistance 5=Supervision or Setup 2=Maximal Assistance 6=Modified [place] 3=Moderate Assistance 7=Complete [place] Attachments: IV ADL-Treatment Therapy Code Descriptions/Definitions Functional [place] Measure: 0=Not Assessed/NA 4=Minimal Assistance 1=Total Assistance 5=Supervision or Setup 2=Maximal Assistance 6=Modified [place] 3=Moderate Assistance 7=Complete [place] Therapy Quality Codes: 6 Independent with activity with or without an assistive device 5 Patient requires set up or clean up by helper. Patient completes activity by themselves 4 Supervision or touching assist (CGA). [place] provide cues , steadying assist 3 The helper provides less than half the effort to complete the activity 2 The helper provides more than half the effort to complete the activity 1 Dependent. The helper does all the effort to complete an activity 7 Patient refused to complete or attempt activity 9 The patient did not perform the activity before the current illness or injury 88 Not attempted due to Medical conditions or safety concerns Eating (FIM): 7 Eating (QC): 6 Bathing (FIM): 6 Shower/Bathe Self (QC): 6 Upper Body (FIM): 6 Upper Body Dressing (QC): 6 Lower Body Dressing (FIM): 5 Lower Body Dressing (QC): 4 On/Off Footwear (QC): 4 Toileting (FIM): 6 Toileting Hygiene (QC): 6 Transfers (B, C, W/C) (FIM): 6 Toilet/Commode Transfer (FIM): 6 Toilet Transfer (QC): 6 Shower Transfer(FIM): 6 Pt. utilized AE during treatment. Donned LE clothing with AE, and required SBA with this due to visual issues. Pt. requested to doff oxygen during shower. OT took sats after shower and oxygen at 92%. Pt. was SOA however and requested to don oxygen again. Pt. transferred to toilet. After having BM, pt. states that she is dizzy and not feeling well. BP at this time is 79/60. Nursing notified. Pt. ambulated to bed. Laid down and BP at 140/80. HR at 79. All needs met. Pt. resting after session. Education OT Patient Education: Correct positioning, Modified ADL techniques, Progress toward Goal/Update tx plan, Purpose of tx/functional activities, Reviewed precautions, Rehab process, Transfer techniques, Use of adapted equipment Teaching Recipient: Patient Teaching Methods: Demonstration, Discussion Response to Teaching: Verbalize Understanding, Return Demonstration OT Short Term Goals Short Term Goals Time Frame: Apr 21, 2019 Eating(FIM): 7 Grooming(FIM): 5 Bathing(FIM): 5 Upper Body Dressing(FIM): 5 Lower Body Dressing(FIM): 4 Toileting(FIM): 5 Transfers (B,C,W/C) (FIM): 6 Toilet/Commode Transfer(FIM): 6 Shower Transfer(FIM): 5 Additional Short Term Goals: 1-Demonstrate ADL Tasks, 2-Verbalize Understanding, 3-ImproveStrength/Roebrt 1=Demonstrate adherence to instructed precautions during ADL tasks. 2=Patient will verbalize/demonstrate understanding of assistive devices/modifications for ADL. 3=Patient will improve strength/tolerance for activity to enable patient to perform ADL's. OT Intermediate Goals Intermediate Goals Time Frame: Apr 28, 2019 Eating (FIM): 7 Eating (QC): 6 Groomin Oral Hygiene (QC): 6 Bathing(FIM): 5 Shower/Bathe Self (QC): 5 Upper Body Dressing(FIM): 6 Upper Body Dressing (QC): 6 Lower Body Dressing(FIM): 6 Lower Body Dressing (QC): 6 On/Off Footwear (QC): 6 Toileting(FIM): 6 Toileting Hygiene (QC): 6 Transfers (B,C,W/C) (FIM): 6 Toilet/Commode Transfer(FIM): 6 Toilet/Commode Transfer (QC): 6 Shower Transfer(FIM): 5 Additional Goals: 1-Demonstrate ADL Tasks, 2-Verbalize Understanding, 3- ImproveStrength/Robert 1=Demonstrate adherence to instructed precautions during ADL tasks. 2=Patient will verbalize/demonstrate understanding of assistive devices/modifications for ADL. 3=Patient will improve strength/tolerance for activity to enable patient to perform ADL's. OT Education/Plan Problem List/Assessment Assessment: Decreased Activ Tolerance Discharge Recommendations Plan/Recommendations: Continue POC Therapy D/C Recommendations: Home w/ Family Support Equpiment Recommendations-D/C: Hip Kit Treatment Plan/Plan of Care Treatment,Training & Education: Yes Patient would benefit from OT for education, treatment and training to promote independence in ADL's, mobility, safety and/or upper extremity function for ADL's. Plan of Care: ADL Retraining, Functional Mobility, Group Exercise/Act as Ind, UE Funct Exercise/Act Treatment Duration: Apr 28, 2019 Frequency: At least 5 of 7 days/Wk (IRF) Estimated Hrs Per Day: 1.5 hours per day Agreement: Yes Rehab Potential: Good Time/GCodes Start Time: 08:30 Stop Time: 10:00 Total Time Billed (hr/min): 90 Billed Treatment Time 1, ADL x 6 AMRIT LAW OT Apr 20, 2019 12:08
--- NOTE | 2019-04-20 13:09 | D/C HH Face to Face Order ---
D/C Face to Face Orders Reconcile Patient Problems Problems Reviewed?: Yes Instructions for Patient Patient Instructions/FollowUp: [facility] 1 week Physician to follow Patient: [facility] Discharge Diet for Home: ADA Diet Patient Problems: Debility COPD O2 dependent Patient Data-Allergies,Ht & Wt Patient Allergies: Coded Allergies: levofloxacin (Unverified Allergy, Intermediate, HIVES, ITCHING, 04/14/19) metronidazole (Unverified Adverse Reaction, Mild, N/V, 12/16/18) latex (Unverified Adverse Reaction, Unknown, hives, 12/16/18) Height (Feet): 5 Height (Inches): 6.00 Weight (Pounds): 272 Weight (Ounces): 3.2 Home Health Need/Face to Face Date of Face to Face: Apr 20, 2019 Clinical Findings: Generalized weakness and fatigue, Instability, Muscle weakness, Shortness of breath, Unsteady gait I have seen Pt [id number]: Yes Discharged To: Home Diagnosis/Conditions: Debility COPD O2 dependent Patient is Homebound due to: Sonal fall risk due to instabilty, Muscle weakness, Pain w/ambulation, Shortness of breath/distress Homebound Status Due to the above stated illness, injury or surgical procedure (medical condition or diagnosis) and associated clinical findings, the patient is homebound because of his/her inability to leave home except with aid of a supportive device and/or person AND leaving the home requires a considerable and taxing effort or is medically contraindicated. Pt req the following assistanc: Walker Home Health Nursing Orders Home Health Services Order: Nursing Services (blood sugar monitoring), Planer Operator-Evaluate & Treat, Physical Therapy-Evaluate & Treat Certify Stmt I certify that this patient is under my care and that I, a nurse practitioner or a physician; a assistant pressman working with me, had a face to face encounter that - meets the physician face to face encounter requirements with this patient as dated. KEVIN SELBY DO Apr 20, 2019 13:09
[2019-04-20 16:01] VITALS: BP 116/63
[2019-04-20 16:56] VITALS: BP 116/63
--- NOTE | 2019-04-20 17:28 | NUR ---
-IT ACCOUNT MANAGER met with patient to review any last minute concerns regarding discharge plans to return home tomorrow. Patient is eager to return home and expresses no concerns. IT ACCOUNT MANAGER reviewed recommendation of home health services for PT and OT, patient has selected [facility]. Patient has no DME needs. IT ACCOUNT MANAGER reviewed IMM and Patient Choice Letter, patient provided signature on both documents. Patient states her son can be available to provide transport home tomorrow. IT ACCOUNT MANAGER sent referral to [facility], they will start care on 04/23. Please see discharge summary for further information.
[2019-04-20] MEDS ORDERED: GABA-488 PO (21:03)
[2019-04-20] MEDS ORDERED: FLUT16SP22 NS (21:03)
[2019-04-20] MEDS ORDERED: LISI10TA2 PO (21:03)
[2019-04-20] MEDS ORDERED: AMLO5TAB9 PO (21:03)
[2019-04-20] MEDS ORDERED: IPRA3AMP31 INH (21:03)
[2019-04-20] MEDS ORDERED: GUAI5SYR PO (21:03)
[2019-04-20] MEDS ORDERED: INSU100I21 SQ (21:03)
[2019-04-20] MEDS: guaiFENesin/DM (ROBITUSSIN DM) 10 ML UDC PO PRN (23:10)
[2019-04-21] MEDS: inSUlin (REGULAR) HUMAN 1 UNIT/0.01 ML (CHARGE PER UNIT) SC SCH ×2 (05:35→11:29)
[2019-04-21 05:43] VITALS: BP 126/66
--- NOTE | 2019-04-21 08:03 | Cardiology Progress Note ---
Subjective Date Seen by Provider: Apr 21, 2019 Time Seen by Provider: 08:01 Subjective/Events-last exam Patient is sitting up in bed, no new complaints. Being discharge home later today. Review of Systems General: No Chills, No Night Sweats, No Fatigue, No Malaise, No Appetite, No Other HEENT: No Head Aches, No Visual Changes, No Eye Pain, No Ear Pain, No Dysphasia, No Sinus Congestion, No Post Nasal Drip, No Sore Throat, No Other Pulmonary: No Dyspnea, No Cough, No Pleuritic Chest Pain, No Other Cardiovascular: No: Chest Pain, Palpitations, Orthopnea, Paroxysmal Noc. Dyspnea, Edema, Lt Headedness, Other Objective-Cardiology Exam Last Set of Vital Signs Vital Signs 04/17/19 04/20/19 04/21/19 04/21/19 04/21/19 22:01 08:30 05:43 08:39 10:05 Temp 98.2 Pulse 86 Resp 14 B/P (MAP) 126/74 (91) Pulse Ox 94 O2 Delivery Room Air O2 Flow Rate 2.00 FiO2 28 Capillary Refill : I&O Intake and Output 04/21/19 00:00 Intake Total 1750 ml Balance 1750 ml Intake Oral 1750 ml # Voids 8 # Bowel Movements 3 General: Alert, Oriented X3, Cooperative HEENT: Atraumatic, PERRLA Neck: Supple, No JVD, No Thyromegaly Lungs: Clear to Auscultation, Normal Air Movement Heart: Regular Rate, Normal S1, Normal S2, No Murmurs Abdomen: Normal Bowel Sounds, Soft, No Tenderness, No Hepatosplenomegaly, No M asses Extremities: No Clubbing, No Cyanosis, No Edema, Normal Pulses, No Tenderness/Swelling Skin: No Rashes, No Breakdown, No Significant Lesion Neuro: Normal Gait, Normal Speech, Strength at 5/5 X4 Ext, Normal Tone, Sensation Intact Psych/Mental Status: Mental Status NL, Mood NL A/P-Cardiology Admission Diagnosis Dyspnea COPD HTN DM Assessment/Plan Dyspnea on exertion- patient reports improvement, 2D echo from 04/15/19 showed EF 55-65%, mild increase in LV thickness, moderate MR, PA pressure 20, continue to monitor Chest pain nonspecific etiology, atypical in presentation, reporting improvement. Continue to monitor COPD- management per Dr. Sophie HTN- controlled. Continue on current medications and continue to monitor. DM- management per medical services CRI- continue to monitor renal function Elevated LFT's-improved, continue to monitor Debility/weakness- continue PT/OT. OK for discharge from cardiology standpoint. Follow up in 2-4 weeks. Clinical Quality Measures AMI/AHF: Ejection Fraction %: 55 (55-65%) DVT/VTE Risk/Contraindication: Risk Factor Score Per Nursin RFS Level Per Nursing on Admit: 4+=Very High Supervisory-Addendum Brief Supervisory Addendum Participated in pt care: history, MDM, physical Personally performed: exam, history, MDM Care discussed with: ROJAS Notes: Patient was seen and evaluated with Pavithra, denied any chest pain, no change in her dyspnea. Back to baseline. Okay for discharge from cardiology standpoint and follow-up as an outpatient. PAVITHRA BENNETT Apr 21, 2019 8:02 am AISHA SIMS MD Apr 21, 2019 1:00 pm
[2019-04-21] MEDS: GABAPENTIN 300 MG (NEURONTIN) CAP PO SCH (08:34)
[2019-04-21] MEDS: SENNA W/DOCUSATE (SENOKOT S) TABLET PO SCH (08:34)
[2019-04-21 08:39] VITALS: BP 126/74
[2019-04-21] MEDS ORDERED: INSU100I21 SQ (09:11)
--- NOTE | 2019-04-21 09:13 | Discharge Summary ---
Diagnosis/Chief Complaint Date of Admission Apr 14, 2019 at 11:42 Date of Discharge Discharge Date: Apr 21, 2019 Discharge Diagnosis Assessment: Debility AECOPD Hypoxia chronic O2 dependent Obesity BROOKE DM labile and OOC HTN OOC h/o CVA Low vision Plan: Monitor closely Monitor glucose and increase insulin to SSI C and Regular insulin Checked meds and labs DC steroids DC abx DC home tomorrow (1) COPD exacerbation Status: Acute (2) Hypertension Status: Chronic Qualifiers: Hypertension type: essential hypertension Qualified Codes: I10 - Essential (primary) hypertension (3) Hypoglycemia Status: Acute (4) Obesity, morbid, BMI 40.0-49.9 Status: Chronic (5) Vision loss Status: Chronic (6) Diabetic retinopathy Status: Chronic Qualifiers: Diabetes mellitus type: type 2 Diabetic retinopathy severity: with unspecified retinopathy severity Diabetes mellitus macular edema: macular edema presence unspecified Laterality: bilateral Qualified Codes: E11.319 - Type 2 diabetes mellitus with unspecified diabetic retinopathy without macular edema (7) Acute kidney injury Status: Acute (8) Lung nodules Status: Chronic (9) Type 2 diabetes mellitus Status: Chronic Qualifiers: Diabetes mellitus fpc insulin use: with fpc use Diabetes mellitus complication status: with circulatory complication Diabetes mellitus complication detail: with other circulatory complications Qualified Codes: E 11.59 - Type 2 diabetes mellitus with other circulatory complications; 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 (10) Thyroid nodule Status: Chronic (11) Diabetic neuropathy Status: Chronic Qualifiers: Diabetes mellitus type: type 2 Diabetes mellitus complication detail: with other neurological complication Qualified Codes: E11.49 - Type 2 diabetes mellitus with other diabetic neurological complication (12) Elevated liver enzymes Status: Acute Discharge Summary Discharge Physical Examination Allergies: Coded Allergies: levofloxacin (Unverified Allergy, Intermediate, HIVES, ITCHING, 04/14/19) metronidazole (Unverified Adverse Reaction, Mild, N/V, 12/16/18) latex (Unverified Adverse Reaction, Unknown, hives, 12/16/18) Vitals & I&Os Vital Signs Date Time Temp Pulse Resp B/P (MAP) Pulse Ox O2 Delivery O2 Flow Rate FiO2 04/21/19 09:05 Room Air 04/21/19 08:39 86 126/74 (91) 04/21/19 05:43 98.2 14 94 04/20/19 08:30 2.00 04/17/19 22:01 28 General Appearance: Alert, Oriented X3, Cooperative Respiratory: Clear to Auscultation, Normal Air Movement Neuro: Normal Gait, Normal Speech, Strength at 5/5 X4 Ext Psych/Mental Status: Mental Status NL, Mood NL Hospital Course Was the Problem List Reviewed?: Yes Hospital course: Patient had an uneventful hospital course for full 8 days while in inpatient rehabilitation after admitted for severe exacerbation of COPD and severe hyperglycemia requiring insulin drip. Pulmonology followed patient completed antibiotics and taper down steroids. Discontinuation of the steroids helped blood sugar control although she is very brittle and hfo-io-ggxfyvo at home anyway. She was weaned off oxygen during the day maintained at night per her usual routine. Labs remained stable monitor renal function closely along with liver enzymes. Labile blood sugars remained an issue will need close follow-up with primary care provider along with home health to monitor that and I did change her home insulin NovoLog mix 75/25-20 units before meals and to adjust for high and low sugars and she appears to understand that since she is able to take her insulin just by noting the clicks of her insulin pen because she is low-vision. Overall she improved back to her prior level of functioning was able to wean off oxygen during the day and overall much improved and was able to return home deemed stable from all aspects from therapy and nursing staff and was excited about returning back home. Labs (last 24 hrs) Laboratory Tests 04/14/19 15:22: Glucometer 307H 04/14/19 20:33: Glucometer 328H 04/15/19 05:25: White Blood Count 9.5, Red Blood Count 3.62L, Hemoglobin 10.9L, Hematocrit 34L, Mean Corpuscular Volume 93, Mean Corpuscular Hemoglobin 30, Mean Corpuscular Hemoglobin Concent 32, Red Cell Distribution Width 13.4, Platelet Count 217, Mean Platelet Volume 10.2, Neutrophils (%) (Auto) 65, Lymphocytes (%) (Auto) 27, Monocytes (%) (Auto) 8, Eosinophils (%) (Auto) 1, Basophils (%) (Auto) 0, Neutrophils # (Auto) 6.2, Lymphocytes # (Auto) 2.5, Monocytes # (Auto) 0.7, Eosinophils # (Auto) 0.1, Basophils # (Auto) 0.0, Sodium Level 144, Potassium Level 4.0, Chloride Level 104, Carbon Dioxide Level 31, Anion Gap 9, Blood Urea Nitrogen 24H, Creatinine 0.87, Estimat Glomerular Filtration Rate > 60, BUN/Creatinine Ratio 28, Glucose Level 59*L, Calcium Level 8.9, Corrected Calcium 9.4, Total Bilirubin 0.4, Aspartate Amino Transf (AST/SGOT) 43H, Alanine Aminotransferase (ALT/SGPT) 84H, Alkaline Phosphatase 91, Total Protein 6.1L, Albumin 3.4 04/15/19 05:30: Glucometer 57*L 04/15/19 06:13: Glucometer 99 04/15/19 10:28: Glucometer 169H 04/15/19 15:31: Glucometer 366H 04/15/19 20:31: Glucometer 414*H 04/16/19 05:37: Glucometer 281H 04/16/19 10:58: Glucometer 266H 04/16/19 15:42: Glucometer 450*H 04/16/19 20:21: Glucometer 504*H 04/17/19 05:24: Glucometer 333H 04/17/19 06:30: White Blood Count 9.3, Red Blood Count 3.53L, Hemoglobin 10.5L, Hematocrit 33L, Mean Corpuscular Volume 92, Mean Corpuscular Hemoglobin 30, Mean Corpuscular Hemoglobin Concent 32, Red Cell Distribution Width 13.5, Platelet Count 220, Mean Platelet Volume 9.9, Neutrophils (%) (Auto) 62, Lymphocytes (%) (Auto) 28, Monocytes (%) (Auto) 9, Eosinophils (%) (Auto) 1, Basophils (%) (Auto) 0, Neutrophils # (Auto) 5.8, Lymphocytes # (Auto) 2.6, Monocytes # (Auto) 0.8, Eosinophils # (Auto) 0.1, Basophils # (Auto) 0.0, Sodium Level 141, Potassium Level 4.2, Chloride Level 101, Carbon Dioxide Level 30, Anion Gap 10, Blood Urea Nitrogen 26H, Creatinine 0.97, Estimat Glomerular Filtration Rate 56, BUN/C reatinine Ratio 27, Glucose Level 297H, Calcium Level 8.6, Corrected Calcium 9.3, Total Bilirubin 0.3, Aspartate Amino Transf (AST/SGOT) 14, Alanine Aminotransferase (ALT/SGPT) 50, Alkaline Phosphatase 93, Total Protein 5.5L, Albumin 3.1L 04/17/19 10:59: Glucometer 298H 04/17/19 16:21: Glucometer 446*H 04/17/19 20:20: Glucometer 423*H 04/18/19 05:16: Glucometer 232H 04/18/19 11:18: Glucometer 301H 04/18/19 16:08: Glucometer 465*H 04/18/19 17:32: Glucometer 490*H 04/18/19 18:35: Glucometer 409*H 04/18/19 19:40: Glucometer 372H 04/18/19 20:52: Glucometer 304H 04/18/19 23:47: Glucometer 230H 04/19/19 04:00: Glucometer 167H 04/19/19 05:31: Glucometer 170H 04/19/19 10:40: Glucometer 342H 04/19/19 15:40: Glucometer 388H 04/19/19 19:50: Glucometer 314H 04/19/19 23:34: Glucometer 85 04/19/19 23:57: Glucometer 78 04/20/19 00:08: Glucometer 75 04/20/19 00:20: Glucometer 88 04/20/19 04:35: Glucometer 155H 04/20/19 09:43: Glucometer 341H 04/20/19 10:59: Glucometer 332H 04/20/19 16:00: Glucometer 360H 04/20/19 20:22: Glucometer 339H 04/20/19 23:14: Glucometer 293H 04/21/19 05:28: Glucometer 313H Pending Labs Laboratory Tests 04/14/19 15:22: Glucometer 307 04/14/19 20:33: Glucometer 328 04/15/19 05:25: White Blood Count 9.5, Red Blood Count 3.62, Hemoglobin 10.9, Hematocrit 34, Mean Corpuscular Volume 93, Mean Corpuscular Hemoglobin 30, Mean Corpuscular Hemoglobin Concent 32, Red Cell Distribution Width 13.4, Platelet Count 217, Mean Platelet Volume 10.2, Neutrophils (%) (Auto) 65, Lymphocytes (%) (Auto) 27, Monocytes (%) (Auto) 8, Eosinophils (%) (Auto) 1, Basophils (%) (Auto) 0, Neutrophils # (Auto) 6.2, Lymphocytes # (Auto) 2.5, Monocytes # (Auto) 0.7, Eosinophils # (Auto) 0.1, Basophils # (Auto) 0.0, Sodium Level 144, Potassium Level 4.0, Chloride Level 104, Carbon Dioxide Level 31, Anion Gap 9, Blood Urea Nitrogen 24, Creatinine 0.87, Estimat Glomerular Filtration Rate > 60, BUN/Creatinine Ratio 28, Glucose Level 59, Calcium Level 8.9, Corrected Calcium 9.4, Total Bilirubin 0.4, Aspartate Amino Transf (AST/SGOT) 43, Alanine Aminotransferase (ALT/SGPT) 84, Alkaline Phosphatase 91, Total Protein 6.1, Albumin 3.4 04/15/19 05:30: Glucometer 57 04/15/19 06:13: Glucometer 99 04/15/19 10:28: Glucometer 169 04/15/19 15:31: Glucometer 366 04/15/19 20:31: Glucometer 414 04/16/19 05:37: Glucometer 281 04/16/19 10:58: Glucometer 266 04/16/19 15:42: Glucometer 450 04/16/19 20:21: Glucometer 504 04/17/19 05:24: Glucometer 333 04/17/19 06:30: White Blood Count 9.3, Red Blood Count 3.53, Hemoglobin 10.5, Hematocrit 33, Mean Corpuscular Volume 92, Mean Corpuscular Hemoglobin 30, Mean Corpuscular Hemoglobin Concent 32, Red Cell Distribution Width 13.5, Platelet Count 220, Mean Platelet Volume 9.9, Neutrophils (%) (Auto) 62, Lymphocytes (%) (Auto) 28, Monocytes (%) (Auto) 9, Eosinophils (%) (Auto) 1, Basophils (%) (Auto) 0, Neutrophils # (Auto) 5.8, Lymphocytes # (Auto) 2.6, Monocytes # (Auto) 0.8, Eosinophils # (Auto) 0.1, Basophils # (Auto) 0.0, Sodium Level 141, Potassium Level 4.2, Chloride Level 101, Carbon Dioxide Level 30, Anion Gap 10, Blood Urea Nitrogen 26, Creatinine 0.97, Estimat Glomerular Filtration Rate 56, BUN/Crea tinine Ratio 27, Glucose Level 297, Calcium Level 8.6, Corrected Calcium 9.3, Total Bilirubin 0.3, Aspartate Amino Transf (AST/SGOT) 14, Alanine Aminotransferase (ALT/SGPT) 50, Alkaline Phosphatase 93, Total Protein 5.5, Albumin 3.1 04/17/19 10:59: Glucometer 298 04/17/19 16:21: Glucometer 446 04/17/19 20:20: Glucometer 423 04/18/19 05:16: Glucometer 232 04/18/19 11:18: Glucometer 301 04/18/19 16:08: Glucometer 465 04/18/19 17:32: Glucometer 490 04/18/19 18:35: Glucometer 409 04/18/19 19:40: Glucometer 372 04/18/19 20:52: Glucometer 304 04/18/19 23:47: Glucometer 230 04/19/19 04:00: Glucometer 167 04/19/19 05:31: Glucometer 170 04/19/19 10:40: Glucometer 342 04/19/19 15:40: Glucometer 388 04/19/19 19:50: Glucometer 314 04/19/19 23:34: Glucometer 85 04/19/19 23:57: Glucometer 78 04/20/19 00:08: Glucometer 75 04/20/19 00:20: Glucometer 88 04/20/19 04:35: Glucometer 155 04/20/19 09:43: Glucometer 341 04/20/19 10:59: Glucometer 332 04/20/19 16:00: Glucometer 360 04/20/19 20:22: Glucometer 339 04/20/19 23:14: Glucometer 293 04/21/19 05:28: Glucometer 313 Discharge Home Medications: Active Scripts Active Humalog Mix 75-25 Kwikpen (Insulin NPL/Insulin Lispro) 100 Unit/1 Ml Insuln.pen 20 Unit SQ AC If sugar is less than 130 take 10 units If sugar is greater than 200 take 30 units Fluticasone Propionate 16 Gm [place].susp 0 [place] NS DAILY PRN Guaifenesin Dm Syrup (Guaifenesin/Dextromethorphan) 5 Ml Syrup 5 Ml PO Q4H PRN Gabapentin 300 Mg Capsule 300 Mg PO BID Lisinopril 10 Mg Tablet 10 Mg PO HS Iprat-Albut 0.5-3(2.5) mg/3 ml (Ipratropium/Albuterol Sulfate) 3 Ml Ampul.neb 3 Ml INH RTBID Instructions to patient/family Please see electronic discharge instructions given to patient. Diagnosis/Problems Diagnosis/Problems (1) COPD exacerbation Status: Acute (2) Hypertension Status: Chronic Qualifiers: Qualified Codes: I10 - Essential (primary) hypertension (3) Hypoglycemia Status: Acute (4) Obesity, morbid, BMI 40.0-49.9 Status: Chronic (5) Vision loss Status: Chronic (6) Diabetic retinopathy Status: Chronic Qualifiers: Qualified Codes: E11.319 - Type 2 diabetes mellitus with unspecified diabetic retinopathy without macular edema (7) Acute kidney injury Status: Acute (8) Lung nodules Status: Chronic (9) Type 2 diabetes mellitus Status: Chronic Qualifiers: Qualified Codes: E11.59 - Type 2 diabetes mellitus with other circulatory complications; 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
--- NOTE | 2019-04-21 09:30 | Therapy Team Discharge Summary ---
Therapy Discharge Summary Discharge Recommendations Date of Discharge 04-21-19 Therapy D/C Recommendations: Home w/ Family Support, Occupational Therapy Home Care Occupational Therapy Pt. seen by occupational therapy to increase overall strength and endurance with daily tasks. Pt. has met most goals. Does have some difficulty with LE dressing due to low vision. At this facility, pt. put into touch with visual service that offers audio books for the visually impaired. Pt. is discharging home with family support. Recommend OT home health services due to low vision and progression of this. Pt. may benefit from resources to better navigate her home environment. Recommend hip kit as needed. Decreased Activ Tolerance PT Spray Maker Goals Spray Maker Goals PT Care Home Goals Time Frame: Apr 28, 2019 Transfers (B,C,W/C) (FIM): 7 Roll Left to Right (QC): 6 Sit to Lying (QC): 6 Lying-Sitting on Side/Bed(QC): 6 Sit to Stand (QC): 6 Chair/Kjb-og-Fiqjc Xfer(QC): 6 Car Transfer (QC): 6 Does the Patient Walk: Yes Gait (FIM): 6 Gait distance (FIM): 3=150 ft Walk 10 feet (QC): 6 Walk 10ft-Uneven Surface(QC): 6 Walk 50ft with 2 Turns (QC): 6 Walk 150 ft (QC): 6 Gait Assistive Device: FWW Does the Pt use WC or Scooter?: No Stairs (FIM): 2 1 Step (curb) (QC): 6 4 Steps (QC): 9 12 Steps (QC): 9 Picking up an Object (QC): 9 OT Spray Maker Goals Care Home Goals Time Frame: Apr 28, 2019 Eating (FIM): 7 (met) Eating (QC): 6 (met) Oral Hygiene (QC): 6 (met) Grooming(FIM): 6 (met) Bathing(FIM): 5 (met) Shower/Bathe Self (QC): 5 (met) Upper Body Dressing(FIM): 6 (met) Upper Body Dressing (QC): 6 (met) Lower Body Dressing(FIM): 6 (not met) Lower Body Dressing (QC): 6 (not met) On/Off Footwear (QC): 6 (not met) Toileting(FIM): 6 (met) Toileting Hygiene (QC): 6 (met) Transfers (B,C,W/C) (FIM): 6 (met) Toilet/Commode Transfer(FIM): 6 (met) Toilet/Commode Transfer (QC): 6 (met) Shower Transfer(FIM): 5 (met) Additional Goals: 1-Demonstrate ADL Tasks, 2-Verbalize Understanding, 3- ImproveStrength/Robert 1=Demonstrate adherence to instructed precautions during ADL tasks. 2=Patient will verbalize/demonstrate understanding of assistive devices/modifications for ADL. 3=Patient will improve strength/tolerance for activity to enable patient to perform ADL's. AMRIT LAW OT Apr 21, 2019 09:30
[2019-04-21] MEDS: RT-ALBUTEROL/IPRATROPIUM 3 ML (DUONEB) VIAL INH SCH (10:05)
[2019-04-21 13:23] VITALS: BP 126/74
--- NOTE | 2019-04-21 14:11 | Therapy Team Discharge Summary ---
Therapy Discharge Summary Discharge Recommendations Date of Discharge Therapy D/C Recommendations: Home w/ Family Support, Occupational Therapy Home Care Physical Therapy Patient came to rehab with COPD exacerbation. Upon evaluation patient performed bed mobility and transfers with SBA, car transfer SBA, ambulated 150' with a rolling walker with SBA (including 50' with at least 2 turns of 90 degrees and 10' over an uneven surface), and went up and down 1 step using a rolling walker with CGA. Patient has been performing bed mobility and transfer training, balance and endurance training, functional strengthening, stair training, gait training, and education. Patient has made fair progress but has only met her terminal gauger goals for bed mobility and transfers. Now, patient performs bed mobility and transfers with mod I, car transfer with setup, ambulates 150' with a rolling walker with SBA (including 50' with at least 2 turns of 90 degrees and 10' over an uneven surface), and can go up and down 4 steps using 2 handrails with CGA. Patient is discharging from this facility today and will be discharged from PT at this time. Occupational Therapy Decreased Activ Tolerance PT Supervisor Baking Goals Supervisor Baking Goals PT Residential Goals Time Frame: Apr 28, 2019 Transfers (B,C,W/C) (FIM): 7 Roll Left to Right (QC): 6 Sit to Lying (QC): 6 Lying-Sitting on Side/Bed(QC): 6 Sit to Stand (QC): 6 Chair/Uwj-us-Mcanb Xfer(QC): 6 Car Transfer (QC): 6 Does the Patient Walk: Yes Gait (FIM): 6 Gait distance (FIM): 3=150 ft Walk 10 feet (QC): 6 Walk 10ft-Uneven Surface(QC): 6 Walk 50ft with 2 Turns (QC): 6 Walk 150 ft (QC): 6 Gait Assistive Device: FWW Does the Pt use WC or Scooter?: No Stairs (FIM): 2 1 Step (curb) (QC): 6 4 Steps (QC): 9 12 Steps (QC): 9 Picking up an Object (QC): 9 OT Residential Goals Supervisor Baking Goals Time Frame: Apr 28, 2019 Eating (FIM): 7 (met) Eating (QC): 6 (met) Oral Hygiene (QC): 6 (met) Grooming(FIM): 6 (met) Bathing(FIM): 5 (met) Shower/Bathe Self (QC): 5 (met) Upper Body Dressing(FIM): 6 (met) Upper Body Dressing (QC): 6 (met) Lower Body Dressing(FIM): 6 (not met) Lower Body Dressing (QC): 6 (not met) On/Off Footwear (QC): 6 (not met) Toileting(FIM): 6 (met) Toileting Hygiene (QC): 6 (met) Transfers (B,C,W/C) (FIM): 6 (met) Toilet/Commode Transfer(FIM): 6 (met) Toilet/Commode Transfer (QC): 6 (met) Shower Transfer(FIM): 5 (met) Additional Goals: 1-Demonstrate ADL Tasks, 2-Verbalize Understanding, 3- ImproveStrength/Robert 1=Demonstrate adherence to instructed precautions during ADL tasks. 2=Patient will verbalize/demonstrate understanding of assistive devices/modifications for ADL. 3=Patient will improve strength/tolerance for activity to enable patient to perform ADL's. ODILON MERCADO PT Apr 21, 2019 14:11
[2019-04-24] MEDS ORDERED: ACHD5005 PO (12:07)
== END 2019-04-21 13:20 | disposition home health service (06) | DRG 191 ==
PROVIDERS: ADMIT Internal Medicine; ATTEND Internal Medicine
DX: J43.9 Emphysema, unspecified (principal); E11.65 Type 2 diabetes mellitus with hyperglycemia; E11.649 Type 2 diabetes mellitus with hypoglycemia without coma; E11.319 Type 2 diabetes mellitus with unspecified diabetic retinopathy without macular edema; E11.40 Type 2 diabetes mellitus with diabetic neuropathy, unspecified; I12.9 Hypertensive chronic kidney disease with stage 1 through stage 4 chronic kidney disease, or unspecified chronic kidney disease; N18.9 Chronic kidney disease, unspecified; Z68.41 Body mass index [BMI] 40.0-44.9, adult; E66.01 Morbid (severe) obesity due to excess calories; R09.02 Hypoxemia; F32.9 Major depressive disorder, single episode, unspecified; I34.0 Nonrheumatic mitral (valve) insufficiency; R07.9 Chest pain, unspecified; R06.00 Dyspnea, unspecified; R91.8 Other nonspecific abnormal finding of lung field; E04.1 Nontoxic single thyroid nodule
CPT/HCPCS: 36415; 80053; 82962; 85025; 93306; 94640; 94760; 94761

== ENCOUNTER 2019-04-24 09:07 | Emergency (ER) | payer MEDICARE | END 2019-04-24 12:19 | disposition home or self-care (01) | LOC: ER FS 09:07 ==

== ENCOUNTER → 2019-04-28 | Outpatient (CLI) | payer MEDICARE ==
[~2019-04-28] MED LIST changes: +ACHD5005 PO; +AMLO5TAB9 PO; +FLUT16SP22 NS; +GUAI5SYR PO; +INSU100I21 SQ; +IPRA3AMP31 INH
--- NOTE | 2019-04-28 12:48 | Diagnostic Imaging Report ---
INDICATION: Recent fall. Back pain. COMPARISON: None FINDINGS: Frontal and lateral views of the thoracic spine were obtained. Visualization of the upper thoracic spine is limited on the lateral projection. Alignment and vertebral heights are maintained. There is no fracture or destructive process. There are no large paraspinal masses. Moderate multilevel degenerative disease is noted in the thoracic spine. Limited views of the lungs are clear. IMPRESSION: 1. No acute fracture or dislocation of the thoracic spine. 2. Moderate multilevel degenerative changes. Dictated by: Dictated on workstation # [id number]
== END ==
LOC: RAD FS 11:22
PROVIDERS: ATTEND Nurse Practitioner Family
DX: M47.814 Spondylosis without myelopathy or radiculopathy, thoracic region (principal); W19.XXXA Unspecified fall, initial encounter
CPT/HCPCS: 72072

== ENCOUNTER 2020-05-17 19:11 | Emergency (ER) | payer MEDICARE ==
[2020-05-17] MEDS ORDERED: ONDANSETRON 4 MG/2 ML (SDV) Z0FRAN IVP ONE (19:30)
[2020-05-17] MEDS ORDERED: fentaNYL INJECTION 100 MCG/2 ML AMP IVP ONE (19:30)
[2020-05-17] MEDS ORDERED: NS IV 1000 ML 1,000 ML IV SCH (19:30)
[2020-05-17 19:46] LABS: BASOPHILS % (AUTO) 0 % (0-10); EOSINOPHILS # (AUTO) 0.6 10^3/uL (0.0-0.3); EOSINOPHILS % (AUTO) 8 % (0-10); HEMATOCRIT 37 % (35-52); HEMOGLOBIN 12.4 G/DL (11.5-16.0); LYMPHOCYTES # (AUTO) 2.8 X 10^3 (1.0-4.0); LYMPHOCYTES % (AUTO) 36 % (12-44); MEAN CORPUSCULAR HEMOGLOBIN 30 PG (25-34); MEAN CORPUSCULAR HGB CONC 33 G/DL (32-36); MEAN CORPUSCULAR VOLUME 91 FL (80-99); MEAN PLATELET VOLUME 10.6 FL (7.4-10.4); MONOCYTES # (AUTO) 0.4 X 10^3 (0.0-1.0); MONOCYTES % (AUTO) 5 % (0-12); NEUTROPHILS % (AUTO) 51 % (42-75); PLATELET COUNT 218 10^3/uL (130-400); WHITE BLOOD COUNT 7.9 10^3/uL (4.3-11.0)
--- NOTE | 2020-05-17 20:05 | Diagnostic Imaging Report ---
INDICATION: Shortness of breath and fever at home. EXAMINATION: Chest 05/17/2020 COMPARISON: 04/28/2019 FINDINGS: There is linear atelectasis at the lung bases. The lungs are clear. No effusions or pneumothorax. Heart and pulmonary vasculature normal. IMPRESSION: 1. Minimal bibasilar atelectasis, otherwise negative chest. Dictated by: Dictated on workstation # [id number]
[2020-05-17 20:15] LABS: CARBON DIOXIDE 27 MMOL/L (21-32); CHLORIDE 103 MMOL/L (98-107); POTASSIUM 4.4 MMOL/L (3.6-5.0); SODIUM 141 MMOL/L (135-145)
[2020-05-17 20:16] LABS: ALANINE AMINOTRANSFERASE 17 U/L (0-55); ALBUMIN 3.3 GM/DL (3.2-4.5); ALKALINE PHOSPHATASE 98 U/L (40-136); BILIRUBIN,TOTAL 0.3 MG/DL (0.1-1.0); BUN/CREATININE RATIO 21; CALCIUM 8.7 MG/DL (8.5-10.1); CREATININE SERUM 0.85 MG/DL (0.60-1.30); GFR ESTIMATED > 60; GLUCOSE 318 MG/DL (70-105); LIPASE 14 U/L (8-78); TOTAL PROTEIN 5.9 GM/DL (6.4-8.2)
--- NOTE | 2020-05-17 21:35 | ED Cough/URI ---
General Chief Complaint: Respiratory Problems Stated Complaint: COUGH,SOA,CHILLS,HOT FLASHES Nursing Triage Note: Pt complaining of shortness of breath and fever at home Sepsis Screen: No Definite Risk History of Present Illness Date Seen by Provider: May 17, 2020 Time Seen by Provider: 22:30 Initial Comments Patient is a 80-year-old female history of COPD on 2 L of oxygen at baseline who presents with multiple medical symptoms. Patient complains increased shortness breath over the past 2 days with subjective fever. Reports nonproductive cough. No nausea vomiting. Reports diarrhea. No urinary frequency urgency or dysuria. Denies dizziness lightheadedness chest pain palpitations. No medications or therapies prior to ED arrival. Timing/Duration: week Severity/Quality: mild Prior Episodes/Possible Cause: no prior episodes Modifying Factors: Improves With Activity Associated Symptoms: cough, shortness of breath Allergies and Home Medications Allergies Coded Allergies: levofloxacin (Unverified Allergy, Intermediate, HIVES, ITCHING, 04/14/19) metronidazole (Unverified Adverse Reaction, Mild, N/V, 12/16/18) latex (Unverified Adverse Reaction, Unknown, hives, 12/16/18) Home Medications Fluticasone Propionate 16 Gm [place].susp, 0 SPRAY NS DAILY PRN for allergies Prescribed by: KEVIN SELBY on 04/20/192102 Gabapentin 300 Mg Capsule, 300 MG PO BID Prescribed by: KEVIN SELBY on 04/20/192102 Guaifenesin/Dextromethorphan 5 Ml Syrup, 5 ML PO Q4H PRN for COUGH Prescribed by: KEVIN SELBY on 04/20/192102 Hydrocodone Bit/Acetaminophen 1 Tab Tab, 1 EACH PO Q4-6HR PRN for PAIN-MODERATE Prescribed by: ALISA BALDWIN on 04/24/19 1207 Insulin NPL/Insulin Lispro 100 Unit/1 Ml Insuln.pen, 20 UNIT SQ AC If sugar is less than 130 take 10 units If sugar is greater than 200 take 30 units Prescribed by: KEVIN SELBY on 04/21/19 09 Ipratropium/Albuterol Sulfate 3 Ml Ampul.neb, 3 ML INH RTBID Prescribed by: KEVIN SELBY on 04/20/192102 Lisinopril 10 Mg Tablet, 10 MG PO HS Prescribed by: KEVIN SELBY on 04/20/192102 Patient Home Medication List Home Medication List Reviewed: Yes Review of Systems Review of Systems Constitutional: see HPI EENTM: see HPI Respiratory: see HPI Cardiovascular: see HPI Gastrointestinal: see HPI Genitourinary: see HPI Musculoskeletal: see HPI Skin: see HPI Psychiatric/Neurological: See HPI Hematologic/Lymphatic: See HPI Immunological/Allergic: see HPI All Other Systems Reviewed Negative Unless Noted: Yes Past Iyeqeks-Xgnwar-Bpqvbd Hx Past Med/Social Hx: Reviewed Nursing Past Med/Soc Hx Patient Social History Alcohol Use: Denies Use Recreational Drug Use: No 2nd Hand Smoke Exposure: No Recent Foreign Travel: No Contact w/Someone Who Travel: No Recent Infectious Disease Expo: No Recent Hopitalizations: No Physical Abuse: No Sexual Abuse: No Immunizations Up To Date Date of Pneumonia Vaccine: Sep 02, 2016 Seasonal Allergies Seasonal Allergies: Yes (ALLERGIC RHINITIS) Past Medical History Surgeries: Yes (CERVICAL DISC SURGERY, BILAT ROTATOR CUFF, FOOT SURGERY) Appendectomy, Gallbladder, Hysterectomy, Orthopedic Respiratory: Yes COPD Cardiac: Yes Hypertension Neurological: Yes (SEVERE DIABETIC NEUROPATHY HANDS/FEET, POST HERPETIC NEURALGIA) Neuropathy Genitourinary: No Gastrointestinal: No Musculoskeletal: Yes (OSTEOARTHRITIS) Endocrine: Yes (DM TYPE II, MORBID OBESITY) Diabetes, Insulin dep HEENT: No Loss of Vision: Bilateral Hearing Impairment: Denies Cancer: No Psychosocial: Yes Depression Integumentary: Yes (SORES AND SCABS GENERALIZED) Recent Skin Changes, Psoriasis Blood Disorders: No Family Medical History CAD Over 55 Years Old Physical Exam Vital Signs - First Documented 05/17/20 19:35 Temp 36.1 Pulse 98 Resp 18 B/P (MAP) 156/76 (102) Pulse Ox 96 O2 Delivery Room Air Capillary Refill : Less Than 3 Seconds Height: 5'6.00" Weight: 272lbs. 3.2oz. 123.342389if; 43.6 BMI Method:Stated General Appearance: WD/WN, no apparent distress Eyes: Bilateral Eye Normal Inspection, Bilateral Eye PERRL, Bilateral Eye EOMI HEENT: PERRL/EOMI, normal ENT inspection, pharynx normal Neck: non-tender, normal inspection Respiratory: lungs clear Cardiovascular: normal peripheral pulses, regular rate, rhythm Gastrointestinal: normal bowel sounds, non tender, soft Extremities: normal range of motion Neurologic/Psychiatric: alert, oriented x 3 Focused Exam Sepsis Stage: Ruled Out Progress/Results/Core Measures Suspected Sepsis Recent Fever Within 48 Hours: No Infection Criteria Present: Suspected New Infection New/Unexplained Altered Menta: No Sepsis Screen: No Definite Risk SIRS Temperature: Pulse: 98 Respiratory Rate: 18 Laboratory Tests 05/17/20 19:30: White Blood Count 7.9 Blood Pressure 156 /76 Mean: 102 Laboratory Tests 05/17/20 19:30: Platelet Count 218 05/17/20 19:50: Creatinine 0.85, Total Bilirubin 0.3 Results/Orders Lab Results Laboratory Tests Test 05/17/20 19:30 05/17/20 19:50 05/17/20 21:45 Range/Units White Blood Count 7.9 4.3-11.0 10^3/uL Red Blood Count 4.07 L 4.35-5.85 10^6/uL Hemoglobin 12.4 11.5-16.0 G/DL Hematocrit 37 35-52 % Mean Corpuscular Volume 91 80-99 FL Mean Corpuscular Hemoglobin 30 25-34 PG Mean Corpuscular Hemoglobin Concent 33 32-36 G/DL Red Cell Distribution Width 13.1 10.0-14.5 % Platelet Count 218 130-400 10^3/uL Mean Platelet Volume 10.6 H 7.4-10.4 FL Neutrophils (%) (Auto) 51 42-75 % Lymphocytes (%) (Auto) 36 12-44 % Monocytes (%) (Auto) 5 0-12 % Eosinophils (%) (Auto) 8 0-10 % Basophils (%) (Auto) 0 0-10 % Neutrophils # (Auto) 4.0 1.8-7.8 X 10^3 Lymphocytes # (Auto) 2.8 1.0-4.0 X 10^3 Monocytes # (Auto) 0.4 0.0-1.0 X 10^3 Eosinophils # (Auto) 0.6 H 0.0-0.3 10^3/uL Basophils # (Auto) 0.0 0.0-0.1 10^3/uL Sodium Level 141 135-145 MMOL/L Potassium Level 4.4 3.6-5.0 MMOL/L Chloride Level 103 98-107 MMOL/L Carbon Dioxide Level 27 21-32 MMOL/L Anion Gap 11 5-14 MMOL/L Blood Urea Nitrogen 18 7-18 MG/DL Creatinine 0.85 0.60-1.30 MG/DL Estimat Glomerular Filtration Rate > 60 BUN/Creatinine Ratio 21 Glucose Level 318 H 70-105 MG/DL Calcium Level 8.7 8.5-10.1 MG/DL Corrected Calcium 9.3 8.5-10.1 MG/DL Total Bilirubin 0.3 0.1-1.0 MG/DL Aspartate Amino Transf (AST/SGOT) 19 5-34 U/L Alanine Aminotransferase (ALT/SGPT) 17 0-55 U/L Alkaline Phosphatase 98 40-136 U/L Total Protein 5.9 L 6.4-8.2 GM/DL Albumin 3.3 3.2-4.5 GM/DL Lipase 14 8-78 U/L Urine Color YELLOW Urine Clarity CLEAR Urine pH 6.0 5-9 Urine Specific [place] 1.025 H 1.016-1.022 Urine Protein NEGATIVE NEGATIVE Urine Glucose (UA) 2+ H NEGATIVE Urine Ketones NEGATIVE NEGATIVE Urine Nitrite NEGATIVE NEGATIVE Urine Bilirubin NEGATIVE NEGATIVE Urine Urobilinogen 0.2 < = 1.0 MG/DL Urine Leukocyte Esterase NEGATIVE NEGATIVE Urine RBC (Auto) TRACE NEGATIVE Urine RBC 2-5 H /HPF Urine WBC 0-2 /HPF Urine Squamous Epithelial Cells 10-25 H /HPF Urine Crystals NONE /LPF Urine Bacteria MODERATE H /HPF Urine Casts NONE /LPF Urine Mucus SMALL H /LPF Urine Culture Indicated NO My Orders Orders - BAMBI GEIGER DO Cbc With Automated Diff (05/17/20 19:26) Comprehensive Metabolic Panel (05/17/20 19:26) Chest 1 View Ap/Pa Only (05/17/20:) Lipase (05/17/20 19:26) Ua Culture If Indicated (05/17/20 19:26) C Difficile Ag + Toxin A/B. (05/17/20 19:26) Stool Culture (05/17/20 19:26) Isolation Central Supply Req (05/17/20 19:26) Fentanyl Injection (Sublimaze Injection (05/17/20 19:30) Ondansetron Injection (Zofran Injectio (05/17/20 19:30) Ns Iv 1000 Ml (Sodium Chloride 0.9%) (05/17/20 19:30) Ed Iv/Invasive Line Start (05/17/20 21:23) Medications Given in ED Current Medications Medications Dose Ordered Sig/Annie Route Start Time Stop Time Status Last Admin Dose Admin Ondansetron HCl 4 mg ONCE ONCE IVP 05/17/20 19:30 05/17/20 19:31 DC 05/17/20 19:45 4 MG Vital Signs/I&O 05/17/20 19:35 Temp 36.1 Pulse 98 Resp 18 B/P (MAP) 156/76 (102) Pulse Ox 96 O2 Delivery Room Air Capillary Refill : Less Than 3 Seconds Blood Pressure Mean: 102 Departure Communication (Admissions) Chest x-ray: No acute disease. Cough with increased shortness of breath and subjective fever. Vital signs stable emergency department. Chest x-ray clear, white blood cell count normal. Will treat for otitis was COPD exacerbation with PCP follow-up. Return precautions reviewed. Patient verbalizes understanding. Discharge instructions prior to departure. Impression Primary Impression: COPD exacerbation Additional Impression: Acute bronchitis Disposition: HOME, SELF-CARE Condition: Stable Departure-Patient Inst. Referrals: [facility]/ (PCP) Primary Care Physician ALVINO KOHLER APRN (Family) Primary Care Physician Patient Instructions: Acute Bronchitis, Chronic Obstructive Pulmonary Disease (COPD) (DC) Add. Discharge Instructions: You were evaluated in the emergency department for cough and shortness rest. EKG chest x-ray and lab were performed and are nondiagnostic. Please take newly prescribed medications as directed and follow-up with your PCP. Return to the ED if new or worsening symptoms. All discharge instructions reviewed with patient and/or family. Voiced understanding. Scripts Prednisone (Prednisone) 20 Mg Tab 40 MG PO DAILY, #10 TAB 0 Refills Prov: BAMBI GEIGER DO 05/17/20 Cephalexin (Keflex) 500 Mg Capsule 500 MG PO TID, #21 CAP Prov: BAMBI GEIGER DO 05/17/20 BAMBI GEIGER DO May 17, 2020 21:35
[2020-05-17 21:57] LABS: CLARITY,URINE CLEAR; COLOR,URINE YELLOW; GLUCOSE, URINE (UA) 2+ (NEGATIVE); PROTEIN,URINE NEGATIVE (NEGATIVE)
[2020-05-17 21:58] LABS: BACTERIA,URINE MODERATE /HPF; BILIRUBIN,URINE NEGATIVE (NEGATIVE); KETONES,URINE NEGATIVE (NEGATIVE); LEUKOCYTE ESTERASE ,URINE NEGATIVE (NEGATIVE); NITRITE,URINE NEGATIVE (NEGATIVE); WBC,URINE 0-2 /HPF
[2020-05-17] MEDS ORDERED: PRD20T PO (22:17)
[2020-05-17] MEDS ORDERED: CEPH-507 PO (22:17)
[2020-05-17 22:30] VITALS: BP 173/66
[2020-05-17] MEDS ORDERED: CEPHALEXIN 250 MG (KEFLEX) CAP PO ONE (22:30)
[2020-05-17] MEDS ORDERED: predniSONE 20 MG TAB PO ONE (22:30)
== END 2020-05-17 22:31 | disposition home or self-care (01) ==
LOC: EDUNIT# 19:11 → ER FS 19:12
DX: J44.1 Chronic obstructive pulmonary disease with (acute) exacerbation (principal); J20.9 Acute bronchitis, unspecified; J44.0 Chronic obstructive pulmonary disease with (acute) lower respiratory infection; I10 Essential (primary) hypertension; E11.40 Type 2 diabetes mellitus with diabetic neuropathy, unspecified; E66.01 Morbid (severe) obesity due to excess calories; Z68.41 Body mass index [BMI] 40.0-44.9, adult; Z99.81 Dependence on supplemental oxygen; Z88.1 Allergy status to other antibiotic agents; Z91.040 Latex allergy status; Z88.8 Allergy status to other drugs, medicaments and biological substances; Z79.51 Long term (current) use of inhaled steroids; Z79.4 Long term (current) use of insulin; Z82.49 Family history of ischemic heart disease and other diseases of the circulatory system
CPT/HCPCS: 36415; 71045; 80053; 81000; 83690; 85025; 87015; 87045; 87046; 87324; 87449; 87899

== ENCOUNTER 2020-08-14 14:38 | Emergency (ER) | payer MEDICARE, MEDICAID ==
[~2020-08-14] VITALS: Ht 165 cm; Wt 108.9 kg
[~2020-08-14 14:38] MED LIST changes: +AMLO-250 PO; -AMLO5TAB9 PO; +CEPH-507 PO; +PRD20T PO
--- NOTE | 2020-08-14 15:01 | ED Fall/Injury ---
General Chief Complaint: Trauma-Non Activation Stated Complaint: FALL Nursing Triage Note: Patient reports she slipped out of her bed and hit the right side of her head on her dresser. She denies any loss of consciousness, states she does not take any anticoagulants. She reports pain in her left shoulder and left rib cage/back. Source: patient History of Present Illness Date Seen by Provider: Aug 14, 2020 Time Seen by Provider: 14:41 Initial Comments 80 yo female presents with complaints of left head pain, left shoulder pain, left lateral chest wall pain since slipping out of bed and hitting her head, shoulder and chest on the dresser. She denies losing consciousness. She took Ibuprofen 800 mg just after this happened. This occurred about 30 min station captain in ED. She has no n/v. She has no change in vision. She takes no blood thinners. She denies fever or chills. Allergies and Home Medications Allergies Coded Allergies: levofloxacin (Unverified Allergy, Intermediate, HIVES, ITCHING, 04/14/19) metronidazole (Unverified Adverse Reaction, Mild, N/V, 12/16/18) latex (Unverified Adverse Reaction, Unknown, hives, 12/16/18) Home Medications Cephalexin 500 Mg Capsule, 500 MG PO TID Prescribed by: BAMBI GEIGER on 05/17/202216 Fluticasone Propionate 16 Gm [place].susp, 0 SPRAY NS DAILY PRN for allergies Prescribed by: KEVIN SELBY on 04/20/192102 Gabapentin 300 Mg Capsule, 300 MG PO BID Prescribed by: KEVIN SELBY on 04/20/192102 Guaifenesin/Dextromethorphan 5 Ml Syrup, 5 ML PO Q4H PRN for COUGH Prescribed by: KEVIN SELBY on 04/20/192102 Hydrocodone Bit/Acetaminophen 1 Tab Tab, 1 EACH PO Q4-6HR PRN for PAIN-MODERATE Prescribed by: ALISA BALDWIN on 04/24/19 1207 Hydrocodone/Acetaminophen 1 Each Tablet, 1 EACH PO Q6H PRN for PAIN-SEVERE (8- 10) Prescribed by: ALESSANDRO JEAN on 08/14/20 1622 Insulin NPL/Insulin Lispro 100 Unit/1 Ml Insuln.pen, 20 UNIT SQ AC If sugar is less than 130 take 10 units If sugar is greater than 200 take 30 units Prescribed by: KEVIN SELBY on 04/21/19 0911 Ipratropium/Albuterol Sulfate 3 Ml Ampul.neb, 3 ML INH RTBID Prescribed by: KEVIN SELBY on 04/20/192102 Lisinopril 10 Mg Tablet, 10 MG PO HS Prescribed by: KEVIN SELBY on 04/20/192102 Prednisone 20 Mg Tab, 40 MG PO DAILY Prescribed by: BAMBI GEIGER on 05/17/202216 Patient Home Medication List Home Medication List Reviewed: Yes Review of Systems Review of Systems Constitutional: No chills, No fever Eyes: No Symptoms Reported Ears, Nose, Mouth, Throat: no symptoms reported Respiratory: short of breath (chronic from COPD) Cardiovascular: see HPI Gastrointestinal: no symptoms reported Genitourinary: no symptoms reported Musculoskeletal: see HPI Skin: no symptoms reported Psychiatric/Neurological: See HPI Past Pzwaeum-Idmxed-Aampvu Hx Past Med/Social Hx: Reviewed Nursing Past Med/Soc Hx Patient Social History 2nd Hand Smoke Exposure: No Recent Foreign Travel: No Contact w/Someone Who Travel: No Recent Infectious Disease Expo: No Recent Hopitalizations: No Immunizations Up To Date Date of Pneumonia Vaccine: Sep 02, 2016 Seasonal Allergies Seasonal Allergies: Yes (ALLERGIC RHINITIS) Past Medical History Surgeries: Yes (CERVICAL DISC SURGERY, BILAT ROTATOR CUFF, FOOT SURGERY) Appendectomy, Gallbladder, Hysterectomy, Orthopedic Respiratory: Yes COPD Cardiac: Yes Hypertension Neurological: Yes (SEVERE DIABETIC NEUROPATHY HANDS/FEET, POST HERPETIC NEURALGIA) Neuropathy Genitourinary: No Gastrointestinal: No Musculoskeletal: Yes (OSTEOARTHRITIS) Endocrine: Yes (DM TYPE II, MORBID OBESITY) Diabetes, Insulin dep HEENT: No Loss of Vision: Bilateral Hearing Impairment: Denies Cancer: No Psychosocial: Yes Depression Integumentary: Yes (SORES AND SCABS GENERALIZED) Recent Skin Changes, Psoriasis Blood Disorders: No Family Medical History CAD Over 55 Years Old Physical Exam Vital Signs Vital Signs - First Documented 08/14/20 14:48 Pulse 74 Resp 18 B/P (MAP) 184/56 (98) Pulse Ox 100 O2 Delivery Room Air Capillary Refill : Less Than 3 Seconds Height, Weight, BMI Height: 5'6.00" Weight: 272lbs. 3.2oz. 123.439506tf; 40.00 BMI Method:Stated General Appearance: mild distress, obese HEENT: PERRL/EOMI, TMs normal Neck: non-tender, supple Cardiovascular: normal peripheral pulses, regular rate, rhythm Respiratory: lungs clear, normal breath sounds, other (tender to palpation on left lateral chest wall on lower ribs) Gastrointestinal: normal bowel sounds, non tender, soft Extremities: normal range of motion, normal capillary refill, other (pain in left shoulder but normal ROM) Neurologic/Psychiatric: alert, oriented x 3 Skin: normal color, warm/dry Evie Coma Score Best Eye Response: (4) Open Spontaneously Best Verbal Response: (5) Oriented Best Motor Response: (6) Obeys Commands Levasy Total: 15 Progress/Results/Core Measures Results/Orders My Orders Orders - ALESSANDRO JEAN MD Ct Head/Cervical Spine Wo (08/14/20 14:53) Ct Chest Wo (08/14/20 14:53) Shoulder 3 View Left (08/14/20 14:53) Ice: Apply To Affected Area (08/14/20 14:54) Pelvis With Right Hip 2-3 View (08/14/20 15:25) Morphine Injection (Morphine Injection (08/14/20 16:17) Orphenadrine Inj (Ed Only) (Norflex Inje (08/14/20 16:17) Vital Signs/I&O 08/14/20 08/14/20 14:48 16:38 Pulse 74 76 Resp 18 18 B/P (MAP) 184/56 (98) 156/53 Pulse Ox 100 96 O2 Delivery Room Air Room Air Blood Pressure Mean: 98 Progress Progress Note #1: Progress Note ice pack for pain since she already took Ibuprofen at home and want to check imaging prior to narcotic or stronger medicine if possible to look for bleeding or fracture. CT head, cervical spine, chest and xrays of left shoulder. Progress Note #2: Time: 16:05 Progress Note While in radiology department pt complained of right hip hurting as well so xray of R hip and pelvis added on. Imaging shows age related changes but no fractures or internal bleeding noted. Will see if pt wants to try IM injections here and short course of oral pain medicine with understanding that this can cause her to be more unsteady on her feet. Progress Note #3: Progress Note pt states she has tolerated hydrocodone before and was wanting to know how many she would get for home. Give Morphine 10 mg IM and Norflex 60 mg IM. Hydrocodone/APAP 5/325 1 q6h prn pain # 16. Follow up with pcp. Diagnostic Imaging Diagon[facility] Imaging: CT Plain Films/CT/US/NM/MRI: c-spine, head Comments NAME: TOMAS TELLO REC#: [id number] PT STATUS: REG ER : 1940 PHYSICIAN: ALESSANDRO JEAN MD ADMIT DATE: 08/14/20/ER FS Draft Date of Exam:08/14/20 CT HEAD/CERVICAL SPINE WO TECHNIQUE: Auto Exposure Controls were utilized during the CT exam to meet ALARA standards for radiation dose reduction. INDICATION: Fell, head and neck pain. COMPARISON STUDY: CT scanning of the head and cervical spine from 04/24/2019. FINDINGS: Noncontrast CT scanning of the head demonstrates mild age-related atrophy and White matter disease. No focal area of ischemia is present. There is no mass effect, midline shift, hemorrhage or extra-axial fluid collection. No fracture is present. There is no fluid in the paranasal sinuses or mastoid air cells. CT cervical spine: There are fairly severe diffuse degenerative changes of the cervical spine with ankylosing of the C5, C6 and C7 vertebrae. No fracture or subluxation is present. Diffuse narrowing of the neural foramina is present. Soft tissues of the neck appear unremarkable. Lung apices are clear. IMPRESSION: 1. CT scanning of the head demonstrates some mild age-related atrophy with no acute or focal finding. 2. Severe degenerative changes of the cervical spine appear stable. No fracture is identified. Dictated on workstation # [id number] Dict: 08/14/20 1551 Trans: 08/14/[address] [facility] [phone] Interpreted by: DB MCKOY MD Electronically signed by: Diagon[facility] Imaging: CT Plain Films/CT/US/NM/MRI: chest Comments NAME: TOMAS TELLO [facility] REC#: [id number] PT STATUS: REG ER : 1940 PHYSICIAN: ALESSANDRO JEAN MD ADMIT DATE: 08/14/20/ER FS Draft Date of Exam:08/14/[address] chest w/o TECHNIQUE: Multiple contiguous axial images were obtained through the chest without the use of intravenous contrast. All CT scans use one or more of the following dose optimizing techniques: automated exposure control, MA and/or KvP adjustment based on patient size and exam type or iterative reconstruction. INDICATION: Trauma, fall with left-sided chest wall pain. COMPARISON: CT chest from 04/24/2019. FINDINGS: Lungs and airway: No endoluminal nodule within trachea. No features of pulmonary laceration or contusion. No suspicious nodule or mass. Pleura: No pleural effusion or pneumothorax. Heart and mediastinum: Stable 17 mm nodule in the left thyroid lobe. No supraclavicular or axillary lymphadenopathy. No mediastinal, hilar or juxtaphrenic lymphadenopathy. No feature of mediastinal hemorrhage. Heart is normal in size without pericardial effusion. Normal caliber thoracic aorta has moderate atherosclerotic plaquing. Upper abdomen: No feature of acute abnormality in the upper abdomen. Musculoskeletal: No acute rib fracture on either side. No sternal fracture. Visualized aspects of clavicles are intact. No fracture in the right or left scapula. Moderate degenerative arthritis of both glenohumeral joints. No compression fracture within the thoracic vertebrae. IMPRESSION: No acute traumatic injury in the chest. Dictated on workstation # [id number] Dict: 08/14/20 1551 Trans: 08/14/[address] [facility] [phone] Interpreted by: URMILA ARAIZA MD Electronically signed by: Diagon[facility] Imaging: Xray Plain Films/CT/US/NM/MRI: other (shoulder) Comments NAME: TOMAS TELLO [facility] REC#: [id number] PT STATUS: REG ER : 1940 PHYSICIAN: ALESSANDRO JEAN MD ADMIT DATE: 08/14/20/ER FS Draft Date of Exam:08/14/20 SHOULDER 3 VIEW LEFT INDICATION: Left shoulder pain after fall. COMPARISON: CT chest performed concurrently. TECHNIQUE: Three views of the left shoulder were obtained. FINDINGS: There is no acute fracture or traumatic malalignment about the left shoulder. Severe osteoarthritis of the glenohumeral joint has a ring of osteophytes around the humeral head neck junction. Narrowing of the subacromial space is most compatible with chronic superior rotator cuff tear. IMPRESSION: No acute fracture or traumatic malalignment about the left shoulder. Dictated on workstation # [id number] Dict: 08/14/20 1554 Trans: 08/14/[address] [facility] [phone] Interpreted by: URMILA ARAIZA MD Electronically signed by: Manjinder Imaging: Xray Plain Films/CT/US/NM/MRI: pelvis, hip Comments NAME: TOMAS TELLO [facility] REC#: [id number] PT STATUS: REG ER : 1940 PHYSICIAN: ALESSANDRO JEAN MD ADMIT DATE: 08/14/20/ER FS Draft Date of Exam:08/14/20 PELVIS WITH RIGHT HIP 2-3 VIEW INDICATION: Right hip pain after a fall. COMPARISON: None available. TECHNIQUE: AP pelvis with AP and frog-leg lateral views of the right hip. FINDINGS: There is no acute fracture about the right hip. No displaced fracture within the pelvis. Moderate degenerative arthritis of both hips. Facet osteoarthritis is also noted in the lumbar spine. Extensive vascular calcifications are noted. IMPRESSION: No acute fracture about the right hip. Dictated on workstation # [id number] Dict: 08/14/20 1557 Trans: 08/14/[address] [facility] [phone] Interpreted by: URMILA ARAIZA MD Electronically signed by: Departure Impression Primary Impression: Contusion of scalp, initial encounter Additional Impressions: Fall from bed, initial encounter Contusion of left chest wall Qualified Codes: S20.212A - Contusion of left front wall of thorax, initial encounter Contusion of right hip, initial encounter Contusion of left shoulder, initial encounter Disposition: 01 HOME, SELF-CARE Condition: Stable Departure-Patient Inst. Decision time for Depature: 16:22 Referrals: [facility] (PCP) Primary Care Physician ALVINO KOHLER APRN (Family) Primary Care Physician Patient Instructions: Bruised Rib (DC), Hip Pain (DC), Minor Head Injury, Adult ED, Shoulder Pain ED Add. Discharge Instructions: Try alternating ice and heat to the painful areas. Take Hydrocodone for severe pain. Ibuprofen for inflammation. Check with your regular provider if you need more than the pain medicine that you can get from the Emergency Department. All discharge instructions reviewed with patient and/or family. Voiced understanding. Scripts Hydrocodone/Acetaminophen (Hydrocodone-Acetamin 5-325 mg) 1 Each Tablet 1 EACH PO Q6H PRN for PAIN-SEVERE (8-10) for 4 Days, #16 TAB 0 Refills Prov: ALESSANDRO JEAN MD 08/14/20 ALESSANDRO JEAN MD Aug 14, 2020 15:01
--- NOTE | 2020-08-14 15:57 | Diagnostic Imaging Report ---
CT chest w/o TECHNIQUE: Multiple contiguous axial images were obtained through the chest without the use of intravenous contrast. All CT scans use one or more of the following dose optimizing techniques: automated exposure control, MA and/or KvP adjustment based on patient size and exam type or iterative reconstruction. INDICATION: Trauma, fall with left-sided chest wall pain. COMPARISON: CT chest from 04/24/2019. FINDINGS: Lungs and airway: No endoluminal nodule within trachea. No features of pulmonary laceration or contusion. No suspicious nodule or mass. Pleura: No pleural effusion or pneumothorax. Heart and mediastinum: Stable 17 mm nodule in the left thyroid lobe. No supraclavicular or axillary lymphadenopathy. No mediastinal, hilar or juxtaphrenic lymphadenopathy. No feature of mediastinal hemorrhage. Heart is normal in size without pericardial effusion. Normal caliber thoracic aorta has moderate atherosclerotic plaquing. Upper abdomen: No feature of acute abnormality in the upper abdomen. Musculoskeletal: No acute rib fracture on either side. No sternal fracture. Visualized aspects of clavicles are intact. No fracture in the right or left scapula. Moderate degenerative arthritis of both glenohumeral joints. No compression fracture within the thoracic vertebrae. IMPRESSION: No acute traumatic injury in the chest. Dictated by: Dictated on workstation # [id number]
--- NOTE | 2020-08-14 16:00 | Diagnostic Imaging Report ---
TECHNIQUE: Auto Exposure Controls were utilized during the CT exam to meet ALARA standards for radiation dose reduction. INDICATION: Fell, head and neck pain. COMPARISON STUDY: CT scanning of the head and cervical spine from 04/24/2019. FINDINGS: Noncontrast CT scanning of the head demonstrates mild age-related atrophy and White matter disease. No focal area of ischemia is present. There is no mass effect, midline shift, hemorrhage or extra-axial fluid collection. No fracture is present. There is no fluid in the paranasal sinuses or mastoid air cells. CT cervical spine: There are fairly severe diffuse degenerative changes of the cervical spine with ankylosing of the C5, C6 and C7 vertebrae. No fracture or subluxation is present. Diffuse narrowing of the neural foramina is present. Soft tissues of the neck appear unremarkable. Lung apices are clear. IMPRESSION: 1. CT scanning of the head demonstrates some mild age-related atrophy with no acute or focal finding. 2. Severe degenerative changes of the cervical spine appear stable. No fracture is identified. Dictated by: Dictated on workstation # [id number]
--- NOTE | 2020-08-14 16:01 | Diagnostic Imaging Report ---
INDICATION: Left shoulder pain after fall. COMPARISON: CT chest performed concurrently. TECHNIQUE: Three views of the left shoulder were obtained. FINDINGS: There is no acute fracture or traumatic malalignment about the left shoulder. Severe osteoarthritis of the glenohumeral joint has a ring of osteophytes around the humeral head neck junction. Narrowing of the subacromial space is most compatible with chronic superior rotator cuff tear. IMPRESSION: No acute fracture or traumatic malalignment about the left shoulder. Dictated by: Dictated on workstation # [id number]
--- NOTE | 2020-08-14 16:02 | Diagnostic Imaging Report ---
INDICATION: Right hip pain after a fall. COMPARISON: None available. TECHNIQUE: AP pelvis with AP and frog-leg lateral views of the right hip. FINDINGS: There is no acute fracture about the right hip. No displaced fracture within the pelvis. Moderate degenerative arthritis of both hips. Facet osteoarthritis is also noted in the lumbar spine. Extensive vascular calcifications are noted. IMPRESSION: No acute fracture about the right hip. Dictated by: Dictated on workstation # [id number]
[2020-08-14] MEDS ORDERED: ORPHENADRINE 60 MG/2 ML (NORFLEX) AMP (ED ONLY) IM STA (16:17)
[2020-08-14] MEDS ORDERED: morphine INJ 10 MG/ML 1ML (SYR OR VIAL) IM STA (16:17)
[2020-08-14] MEDS ORDERED: ACHD5005 PO (16:22)
[2020-08-14 16:38] VITALS: BP 156/53
== END 2020-08-14 16:40 | disposition home or self-care (01) ==
LOC: EDUNIT# 14:38 → ER FS 14:39
DX: S00.03XA Contusion of scalp, initial encounter (principal); S20.212A Contusion of left front wall of thorax, initial encounter; S70.01XA Contusion of right hip, initial encounter; S40.012A Contusion of left shoulder, initial encounter; E66.01 Morbid (severe) obesity due to excess calories; J44.9 Chronic obstructive pulmonary disease, unspecified; I10 Essential (primary) hypertension; E11.9 Type 2 diabetes mellitus without complications; Z68.41 Body mass index [BMI] 40.0-44.9, adult; Z82.49 Family history of ischemic heart disease and other diseases of the circulatory system; Z79.52 Long term (current) use of systemic steroids; Z79.4 Long term (current) use of insulin; Z91.040 Latex allergy status; Z88.1 Allergy status to other antibiotic agents; Z88.8 Allergy status to other drugs, medicaments and biological substances; W06.XXXA Fall from bed, initial encounter
CPT/HCPCS: 70450; 71250; 72125; 73030; 73502

== ENCOUNTER 2020-09-24 14:37 | Emergency (ER) | payer MEDICARE, MEDICAID ==
[~2020-09-24] VITALS: Ht 167.7 cm; Wt 120.0 kg
--- NOTE | 2020-09-24 14:41 | ED Hip Pain/Injury ---
General Stated Complaint: LT HIP PAIN History of Present Illness Date Seen by Provider: Sep 24, 2020 Time Seen by Provider: 14:41 Initial Comments 80-year-old female presents with hip pain. Patient reports that she has had hip pain over the last couple weeks. She reports that she was getting better her to lifted into bed and was difficult. She has no falls. She does have known osteoarthritis in the hip. She has range of motion in her left leg. She has no back pain. She did not have any other acute injury. Allergies and Home Medications Allergies Coded Allergies: levofloxacin (Unverified Allergy, Intermediate, HIVES, ITCHING, 04/14/19) metronidazole (Unverified Adverse Reaction, Mild, N/V, 12/16/18) latex (Unverified Adverse Reaction, Unknown, hives, 12/16/18) Home Medications Cephalexin 500 Mg Capsule, 500 MG PO TID Prescribed by: BAMBI GEIGER on 05/17/202216 Fluticasone Propionate 16 Gm [place].susp, 0 SPRAY NS DAILY PRN for allergies Prescribed by: KEVIN SELBY on 04/20/192102 Gabapentin 300 Mg Capsule, 300 MG PO BID Prescribed by: KEVIN SELBY on 04/20/192102 Guaifenesin/Dextromethorphan 5 Ml Syrup, 5 ML PO Q4H PRN for COUGH Prescribed by: KEVIN SELBY on 04/20/192102 Hydrocodone Bit/Acetaminophen 1 Tab Tab, 1 EACH PO Q4-6HR PRN for PAIN-MODERATE Prescribed by: ALISA BALDWIN on 04/24/19 1207 Hydrocodone/Acetaminophen 1 Each Tablet, 1 EACH PO Q6H PRN for PAIN-SEVERE (8- 10) Prescribed by: ALESSANDRO JEAN on 08/14/20 1622 Insulin NPL/Insulin Lispro 100 Unit/1 Ml Insuln.pen, 20 UNIT SQ AC If sugar is less than 130 take 10 units If sugar is greater than 200 take 30 units Prescribed by: KEVIN SELBY on 04/21/19 0911 Ipratropium/Albuterol Sulfate 3 Ml Ampul.neb, 3 ML INH RTBID Prescribed by: KEVIN SELBY on 04/20/192102 Lisinopril 10 Mg Tablet, 10 MG PO HS Prescribed by: KEVIN SELBY on 04/20/192102 Prednisone 20 Mg Tab, 40 MG PO DAILY Prescribed by: BAMBI GEIGER on 05/17/202216 Patient Home Medication List Home Medication List Reviewed: Yes Review of Systems Constitutional: No chills, No fever EENTM: no symptoms reported Respiratory: no symptoms reported Cardiovascular: no symptoms reported Gastrointestinal: no symptoms reported Genitourinary: no symptoms reported Musculoskeletal: see HPI Skin: no symptoms reported Psychiatric/Neurological: No Symptoms Reported Past Wzuaghg-Szizol-Yfcwsu Hx Past Med/Social Hx: Reviewed Nursing Past Med/Soc Hx Patient Social History Type Used: Cigarettes 2nd Hand Smoke Exposure: Yes Recent Hopitalizations: No Immunizations Up To Date Date of Pneumonia Vaccine: Sep 02, 2016 Seasonal Allergies Seasonal Allergies: Yes (ALLERGIC RHINITIS) Past Medical History Surgeries: Yes (CERVICAL DISC SURGERY, BILAT ROTATOR CUFF, FOOT SURGERY) Appendectomy, Gallbladder, Hysterectomy, Orthopedic Respiratory: Yes COPD Cardiac: Yes Hypertension Neurological: Yes (SEVERE DIABETIC NEUROPATHY HANDS/FEET, POST HERPETIC NEURALGIA) Neuropathy Genitourinary: No Gastrointestinal: No Musculoskeletal: Yes (OSTEOARTHRITIS) Endocrine: Yes (DM TYPE II, MORBID OBESITY) Diabetes, Insulin dep HEENT: No Loss of Vision: Bilateral Hearing Impairment: Denies Cancer: No Psychosocial: Yes Depression Integumentary: Yes (SORES AND SCABS GENERALIZED) Recent Skin Changes, Psoriasis Blood Disorders: No Family Medical History CAD Over 55 Years Old Physical Exam Vital Signs Vital Signs - First Documented 09/24/20 14:48 Temp 36.6 Pulse 79 Resp 20 B/P (MAP) 192/74 (113) Pulse Ox 100 O2 Delivery Room Air Capillary Refill : Height, Weight, BMI Height: 5'6.00" Weight: 272lbs. 3.2oz. 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 Referrals: [facility] (PCP) Primary Care Physician ALVINO KOHLER APRN (Family) Primary Care Physician Patient Instructions: Hip Pain (DC), Hip Pain in Older People, Nocturnal (Nighttime) Leg Cramps, Osteoarthritis (DC) Add. Discharge Instructions: Follow-up next week with your primary care provider for continuation of care and further outpatient management JERICHO ROBLERO DO Sep 24, 2020 14:41
[2020-09-24 14:48] VITALS: BP 192/74
--- NOTE | 2020-09-24 15:03 | Diagnostic Imaging Report ---
EXAM: HIP 2-3 VIEW LEFT INDICATION: Fall. COMPARISON: Pelvis and right hip radiographs 08/14/2020. FINDINGS: Examination mildly limited by demineralization and overlapping soft tissues. No fracture is identified. Normal alignment. Vascular calcifications. IMPRESSION: No acute radiographic finding in the left hip. Dictated by: Dictated on workstation # [id number]
[2020-09-24] MEDS ORDERED: KETOROLAC 30 MG/ML VIAL IM STA (15:19)
== END 2020-09-24 15:59 | disposition home or self-care (01) ==
LOC: EDUNIT# 14:37 → ER FS 14:38
DX: M16.12 Unilateral primary osteoarthritis, left hip (principal); E66.01 Morbid (severe) obesity due to excess calories; J44.9 Chronic obstructive pulmonary disease, unspecified; I10 Essential (primary) hypertension; E11.9 Type 2 diabetes mellitus without complications; Z68.41 Body mass index [BMI] 40.0-44.9, adult; Z77.22 Contact with and (suspected) exposure to environmental tobacco smoke (acute) (chronic); Z88.1 Allergy status to other antibiotic agents; Z91.040 Latex allergy status; Z88.8 Allergy status to other drugs, medicaments and biological substances; Z82.49 Family history of ischemic heart disease and other diseases of the circulatory system; Z79.52 Long term (current) use of systemic steroids; Z79.4 Long term (current) use of insulin
CPT/HCPCS: 73502

== ENCOUNTER → 2020-10-06 | Outpatient (CLI) | payer MEDICARE, MEDICAID ==
--- NOTE | 2020-10-06 14:44 | Diagnostic Imaging Report ---
EXAMINATION: Pelvis at 1:48 p.m. INDICATION: Fell, pelvic pain. A single AP view was obtained. There is no fracture, dislocation or acute bony abnormality evident. There is moderate degenerative disease involving the hip and sacroiliac joints. These degenerative changes seem similar to the prior exam of 08/14/2020. The soft tissues are unremarkable. IMPRESSION: 1. There is no evidence for an acute bony abnormality. 2. If clinical concern regarding an occult injury persists, then MRI would be recommended for further evaluation. Dictated by: Dictated on workstation # [id number]
--- NOTE | 2020-10-06 14:47 | Diagnostic Imaging Report ---
INDICATION: Fall. Pain. FINDINGS: The lumbar statures are normal. There are degenerative changes to the discs, endplates and facets throughout the lumbar spine. No acute appearing endplate irregularity. There is retrolisthesis of grade 1 of L1 on L2. IMPRESSION: Spondylosis and likely degenerative retrolisthesis. Normal vertebral statures with no fracture or acute endplate irregularity. Dictated by: Dictated on workstation # [id number]
== END ==
LOC: RAD FS 13:40
PROVIDERS: ATTEND Nurse Practitioner
DX: M47.816 Spondylosis without myelopathy or radiculopathy, lumbar region (principal); R10.2 Pelvic and perineal pain; W19.XXXA Unspecified fall, initial encounter
CPT/HCPCS: 72100; 72170

== ENCOUNTER 2021-02-16 14:43 | Emergency (ER) | payer MEDICARE, MEDICAID ==
[~2021-02-16 14:43] MED LIST changes: -LISI10TA2 PO; +LISI10TA25 PO
[2021-02-16 14:56] VITALS: BP 147/74
--- NOTE | 2021-02-16 15:04 | ED Fall/Injury ---
General Chief Complaint: Trauma-Non Activation Stated Complaint: FALL Nursing Triage Note: misjudged distance when sitting on bed and fell forward hitting head and left hand. History of Present Illness Date Seen by Provider: Feb 16, 2021 Time Seen by Provider: 14:50 Initial Comments 81-year-old female presents following a fall. Patient reports that she went to sit on her bed when she misjudged the distance and fell forward. She reports when she fell forward she struck her left forehead over her eye on the ground has some abrasion and swelling. She also complains of pain in her left hand. She has full range of motion her left hand but complains of pain throughout the hand. Patient denies any loss of consciousness. She does not believe she is on any blood thinners. She has no other systemic complaints. Allergies and Home Medications Allergies Coded Allergies: levofloxacin (Unverified Allergy, Intermediate, HIVES, ITCHING, 04/14/19) metronidazole (Unverified Adverse Reaction, Mild, N/V, 12/16/18) latex (Unverified Adverse Reaction, Unknown, hives, 12/16/18) Home Medications Cephalexin 500 Mg Capsule, 500 MG PO TID Prescribed by: BAMBI GEIGER on 05/17/202216 Fluticasone Propionate 16 Gm [place].susp, 0 SPRAY NS DAILY PRN for allergies Prescribed by: KEVIN SELBY on 04/20/192102 Gabapentin 300 Mg Capsule, 300 MG PO BID Prescribed by: KEVIN SELBY on 04/20/192102 Guaifenesin/Dextromethorphan 5 Ml Syrup, 5 ML PO Q4H PRN for COUGH Prescribed by: KEVIN SELBY on 04/20/192102 Hydrocodone Bit/Acetaminophen 1 Tab Tab, 1 EACH PO Q4-6HR PRN for PAIN-MODERATE Prescribed by: ALISA BALDWIN on 04/24/19 1207 Hydrocodone/Acetaminophen 1 Each Tablet, 1 EACH PO Q6H PRN for PAIN-SEVERE (8- 10) Prescribed by: ALESSANDRO JEAN on 08/14/20 1622 Insulin NPL/Insulin Lispro 100 Unit/1 Ml Insuln.pen, 20 UNIT SQ AC If sugar is less than 130 take 10 units If sugar is greater than 200 take 30 units Prescribed by: KEVIN SELBY on 04/21/19 0911 Ipratropium/Albuterol Sulfate 3 Ml Ampul.neb, 3 ML INH RTBID Prescribed by: KEVIN SELBY on 04/20/192102 Lisinopril 10 Mg Tablet, 10 MG PO HS Prescribed by: KEVIN SELBY on 04/20/192102 Prednisone 20 Mg Tab, 40 MG PO DAILY Prescribed by: BAMBI GEIGER on 05/17/202216 Patient Home Medication List Home Medication List Reviewed: Yes Review of Systems Review of Systems Constitutional: No chills, No fever Ears, Nose, Mouth, Throat: no symptoms reported Respiratory: no symptoms reported Cardiovascular: no symptoms reported Gastrointestinal: no symptoms reported Genitourinary: no symptoms reported Musculoskeletal: see HPI Skin: see HPI Psychiatric/Neurological: No Symptoms Reported Past Lgscsdx-Htkhrj-Zjptlk Hx Past Med/Social Hx: Reviewed Nursing Past Med/Soc Hx Patient Social History Alcohol Use: Denies Use Smoking Status: Former Smoker Type Used: Cigarettes 2nd Hand Smoke Exposure: Yes Recent Infectious Disease Expo: No Recent Hopitalizations: No Immunizations Up To Date Date of Pneumonia Vaccine: Sep 02, 2016 Seasonal Allergies Seasonal Allergies: Yes (ALLERGIC RHINITIS) Past Medical History Surgeries: Yes (CERVICAL DISC SURGERY, BILAT ROTATOR CUFF, FOOT SURGERY) Appendectomy, Gallbladder, Hysterectomy, Orthopedic Respiratory: Yes COPD Cardiac: Yes Hypertension Neurological: Yes (SEVERE DIABETIC NEUROPATHY HANDS/FEET, POST HERPETIC NEURALGIA) Neuropathy Genitourinary: No Gastrointestinal: No Musculoskeletal: Yes (OSTEOARTHRITIS) Endocrine: Yes (DM TYPE II, MORBID OBESITY) Diabetes, Insulin dep HEENT: No Loss of Vision: Bilateral Hearing Impairment: Denies Cancer: No Psychosocial: Yes Depression Integumentary: Yes (SORES AND SCABS GENERALIZED) Recent Skin Changes, Psoriasis Blood Disorders: No Family Medical History CAD Over 55 Years Old Physical Exam Vital Signs Vital Signs - First Documented 02/16/21 14:56 Temp 36.4 Pulse 87 Resp 16 B/P (MAP) 147/74 (98) Pulse Ox 96 Capillary Refill : Less Than 3 Seconds Height, Weight, BMI Height: 5'6.00" Weight: 272lbs. 3.2oz. 123.899391fx; 42.00 BMI Method:Stated General Appearance: WD/WN, no apparent distress HEENT: other (Small abrasion/contusion above left eye, forehead) Neck: supple, normal inspection Cardiovascular: normal peripheral pulses, regular rate, rhythm Respiratory: lungs clear, normal breath sounds Gastrointestinal: non tender, soft Back: normal inspection, no CVA tenderness Extremities: other (Mild tenderness diffuse left hand, full range of motion) Neurologic/Psychiatric: alert, normal mood/affect, oriented x 3 Skin: ecchymosis Progress/Results/Core Measures Results/Orders My Orders Orders - JERICHO ROBLERO DO Ct Head Wo (02/16/21 15:00) Hand 2 View Left (02/16/21 15:00) Vital Signs/I&O 02/16/21 14:56 Temp 36.4 Pulse 87 Resp 16 B/P (MAP) 147/74 (98) Pulse Ox 96 Blood Pressure Mean: 98 Departure Impression Primary Impression: Contusion of scalp, initial encounter Additional Impressions: Contusion of left hand Qualified Codes: S60.222A - Contusion of left hand, initial encounter Fall Qualified Codes: W19.XXXA - Unspecified fall, initial encounter Disposition: HOME, SELF-CARE Condition: Critical Departure-Patient Inst. Referrals: [facility] (PCP) Primary Care Physician ALVINO KOHLER APRN (Family) Primary Care Physician Patient Instructions: Minor Head Injury, Adult ED, Contusion (DC) Add. Discharge Instructions: Ice to affected area Tylenol or ibuprofen as needed for pain Follow-up with your primary care provider as needed All discharge instructions reviewed with patient and/or family. Voiced understanding. JERICHO ROBLERO DO Feb 16, 2021 15:04
--- NOTE | 2021-02-16 15:25 | Diagnostic Imaging Report ---
PROCEDURE: CT head without contrast. TECHNIQUE: Multiple contiguous axial images were obtained through the brain without the use of intravenous contrast. Auto Exposure Controls were utilized during the CT exam to meet ALARA standards for radiation dose reduction. INDICATION: Fall with head injury. COMPARISON: Prior head CT from 08/14/2020. There is some soft tissue swelling in the left frontal scalp. Ventricles and sulci are stable in appearance. No sulcal effacement or midline shift is identified. No acute intra-axial or extra-axial hemorrhage is detected. Cisterns are patent. The visualized paranasal sinuses are clear. No depressed calvarial fracture is seen. IMPRESSION: Left frontal scalp swelling. No acute intracranial process is detected. Dictated by: Dictated on workstation # [id number]
--- NOTE | 2021-02-16 15:26 | Diagnostic Imaging Report ---
INDICATION: Fall with left hand pain. EXAMINATION: AP and lateral views of the left hand were obtained. FINDINGS: No fracture or acute bony abnormality is seen. There is extensive degenerative change about the interphalangeal joints and MCP joints as well as the 1st carpal metacarpal joint and radiocarpal joint. IMPRESSION: Extensive degenerative findings are present with no acute fracture or acute bony abnormality. Dictated by: Dictated on workstation # [id number]
== END 2021-02-16 15:44 | disposition home or self-care (01) ==
LOC: EDUNIT# 14:43 → ER FS 14:47
DX: S00.03XA Contusion of scalp, initial encounter (principal); S60.222A Contusion of left hand, initial encounter; I10 Essential (primary) hypertension; E66.01 Morbid (severe) obesity due to excess calories; E11.9 Type 2 diabetes mellitus without complications; J44.9 Chronic obstructive pulmonary disease, unspecified; Z68.41 Body mass index [BMI] 40.0-44.9, adult; Z79.4 Long term (current) use of insulin; Z79.52 Long term (current) use of systemic steroids; Z87.891 Personal history of nicotine dependence; W22.8XXA Striking against or struck by other objects, initial encounter
CPT/HCPCS: 70450; 73120

== ENCOUNTER 2021-06-29 19:00 | Emergency (ER) | payer MEDICARE, MEDICAID ==
[~2021-06-29 19:00] MED LIST changes: -LISI2.5T PO; +LISI2.5T13 PO
--- OUTSIDE RECORDS SUMMARY | 2021-06-29 19:05 | XMS REPORT | Clinical Summary ---
Author Author [facility] Organization [facility] Address Unknown Phone Unavailable Care Team Providers Care Licensed Funeral Director And Embalmer Name Role Phone PCP Unavailable Allergies Not on File Medications End Date Status Medication Sig Dispensed Refills Start Date Active aspirin 81 MG chewable chew 1 tablet 0 tablet (81MG) by 0 ORAL route every day Active metoprolol succinate take 1 tablet 0 (TOPROL-XL) 50 MG 24 hr (50MG) by 0 tablet ORAL route every day Active insulin NPH-insulin inject by 0 regular (HUMULIN 70/30) Subcutaneous 0 100 unit/mL (70-30) route as per injection insulin protocol Active multivitamin (THERAGRAN) take 1 tablet 0 06/08 per tablet by ORAL route 0 every day with food Active HYDROcodone-acetaminophen take 1 tablet 0 (NORCO) 5-325 mg per by ORAL route 0 tablet every 6 hours as needed for pain Active diazepam (VALIUM) 2 MG once a day 0 0 tablet 0 Active albuterol (PROVENTIL inhale 2 puff 0 HFA;VENTOLIN HFA) 90 by INHALATION 0 mcg/actuation inhaler route every 4 - 6 hours as needed Active fluticasone-salmeterol inhale 1 puff 0 01 (ADVAIR DISKUS) 250-50 by INHALATION 0 mcg/dose DISKUS route 2 times every day morning and eveningapprox imately 12 hours apart Active Problems Not on file Family History Relation Name Status Comments Brother Cause of was Hepatitis C at age . Father Cause of was Staph infection at age 80. (Age 80) Mother Cause of was Cancer at age 83. (Age 83) Sister Cause of was MVA at age . Social History Date Tobacco Use Types Packs/Day Years Used Never Assessed Sex Assigned at Date Recorded Not on file Last Filed Vital Signs Reading Time Taken Comments Vital Sign 122/60 06/08/2010 10:07 AM CDT Blood Pressure 66 06/08/2010 10:07 AM CDT Pulse - - Temperature - - Respiratory Rate - - Oxygen Saturation - - Inhaled Oxygen Concentration 137.5 kg (303 lb 3.2 oz) 06/08/2010 10:07 AM CDT morbidly ob silvio Weight 165.1 cm (5' 5") 06/08/2010 10:07 AM CDT Height 50.46 06/08/2010 10:07 AM CDT Body Mass Index Plan of Treatment Not on file Results Not on filefrom Last 3 Months
--- NOTE | 2021-06-29 19:37 | ED Hip Pain/Injury ---
General Chief Complaint: Hip/Pelvic Problems Stated Complaint: HIP/BACK PAIN Nursing Triage Note: Pt c/o bilateral hip pain and lower back pain. Pt denies injury or trauma. Pt did a video visit with PCP and was given Flexeril and Prednisone but reports she could not handle pain tonight. Source: patient History of Present Illness Date Seen by Provider: Jun 29, 2021 Time Seen by Provider: 18:45 Initial Comments Patient is an 81-year-old female presents with bilateral hip pain and low back pain. The symptoms are intermittent for the past several weeks and have gradually gotten worse. No saddle anesthesias, extremity weakness, loss of bowel or bladder function. Patient was prescribed tramadol Flexeril and pre dnisone by her PCP today with limited relief. She has had x-rays in the past several weeks with additional studies ordered and pending today. Patient denies distal motor weakness or loss of sensation she is. She reports pain is poorly controlled. No abdominal pain. Timing/Duration: getting worse, changing over time Location: pelvis, other Method of Injury: other Associated Symptoms: other Allergies and Home Medications Allergies Coded Allergies: levofloxacin (Unverified Allergy, Intermediate, HIVES, ITCHING, 04/14/19) metronidazole (Unverified Adverse Reaction, Mild, N/V, 12/16/18) latex (Unverified Adverse Reaction, Unknown, hives, 12/16/18) Patient Home Medication List Home Medication List Reviewed: Yes Cephalexin (Keflex) 500 Mg Capsule, 500 MG PO TID Prescribed by: BAMBI GEIGER on 05/17/202216 Fluticasone Propionate (Fluticasone Propionate) 16 Gm [place].susp, 0 SPRAY NS DAILY PRN for allergies Prescribed by: KEVIN SELBY on 04/20/192102 Gabapentin (Gabapentin) 300 Mg Capsule, 300 MG PO BID Prescribed by: KEVIN SELBY on 04/20/192102 Guaifenesin/Dextromethorphan (Guaifenesin Dm Syrup) 5 Ml Syrup, 5 ML PO Q4H PRN for COUGH Prescribed by: KEVIN SELBY on 04/20/192102 Hydrocodone Bit/Acetaminophen (Lortab 5 Mg Tablet) 1 Tab Tab, 1 EACH PO Q4-6HR PRN for PAIN-MODERATE Prescribed by: ALISA BALDWIN on 04/24/19 1207 Hydrocodone/Acetaminophen (Hydrocodone-Acetamin 5-325 mg) 1 Each Tablet, 1 EACH PO Q6H PRN for PAIN-SEVERE (8-10) Prescribed by: ALESSANDRO JEAN on 08/14/20 1622 Insulin NPL/Insulin Lispro (Humalog Mix 75-25 Kwikpen) 100 Unit/1 Ml Insuln.pen, 20 UNIT SQ AC Prescribed by: KEVIN SELBY on 04/21/19 0911 Ipratropium/Albuterol Sulfate (Iprat-Albut 0.5-3(2.5) mg/3 ml) 3 Ml Ampul.neb, 3 ML INH RTBID Prescribed by: KEVIN SELBY on 04/20/192102 Lisinopril (Lisinopril) 10 Mg Tablet, 10 MG PO HS Prescribed by: KEVIN SELBY on 04/20/192102 Prednisone (Prednisone) 20 Mg Tab, 40 MG PO DAILY Prescribed by: BAMBI GEIGER on 05/17/202216 Review of Systems Constitutional: no symptoms reported, see HPI EENTM: no symptoms reported Respiratory: see HPI Cardiovascular: see HPI Gastrointestinal: no symptoms reported Genitourinary: see HPI Musculoskeletal: see HPI Skin: see HPI Past Fiyrxni-Nydney-Bdcwsf Hx Patient Social History Tobacco Use?: No Use of E-Cig and/or Vaping dev: No Substance use?: No Alcohol Use?: No Pt feels they are or have been: No Immunizations Up To Date Influenza Vaccine Up-to-Date: No; Not Current Seasonal Allergies Seasonal Allergies: Yes (ALLERGIC RHINITIS) Past Medical History Surgeries: Yes (CERVICAL DISC SURGERY, BILAT ROTATOR CUFF, FOOT SURGERY) Appendectomy, Gallbladder, Hysterectomy, Orthopedic Respiratory: Yes COPD Cardiac: Yes Hypertension Neurological: Yes (SEVERE DIABETIC NEUROPATHY HANDS/FEET, POST HERPETIC NEURALGIA) Neuropathy Genitourinary: No Gastrointestinal: No Musculoskeletal: Yes (OSTEOARTHRITIS) Endocrine: Yes (DM TYPE II, MORBID OBESITY) Diabetes, Insulin dep HEENT: No Loss of Vision: Bilateral Hearing Impairment: Denies Cancer: No Psychosocial: Yes Depression Integumentary: Yes (SORES AND SCABS GENERALIZED) Recent Skin Changes, Psoriasis Blood Disorders: No Family Medical History CAD Over 55 Years Old Physical Exam Vital Signs Vital Signs - First Documented 06/29/21 19:05 Temp 36.9 Pulse 103 Resp 14 B/P (MAP) 174/92 (119) Pulse Ox 95 O2 Delivery Room Air Capillary Refill : Less Than 3 Seconds Height, Weight, BMI Height: 5'6.00" Weight: 272lbs. 3.2oz. [id number]; 42.00 BMI Method:Stated General Appearance: Mild Distress, Obese HEENT: PERRL/EOMI Cardiovascular: Regular Rate, Rhythm, No Edema Respiratory: Chest Non Tender, Lungs Clear Gastrointestinal: Non Tender, Soft Back: No CVA Tenderness, No Vertebral Tenderness, Muscle Spasm Extremity: Normal Capillary Refill Neurologic/Psychiatric: Alert, Oriented x3, No Motor/Sensory Deficits Progress/Results/Core Measures Results/Orders My Orders Orders - BAMBI GEIGER DO Ct Lumbar Spine Wo (06/29/21 19:18) Ct Pelvis Wo (06/29/21 19:18) Vital Signs/I&O 06/29/21 19:05 Temp 36.9 Pulse 103 Resp 14 B/P (MAP) 174/92 (119) Pulse Ox 95 O2 Delivery Room Air Blood Pressure Mean: 119 Departure Communication (Admissions) CT lumbar spine/pelvis: High-grade neural stenosis with arthritic changes of lumbar spine and pelvis. No fractures noted Bilateral hip pain and back pain without neurologic compromise. CT findings suggestive of neural stenosis. Recommendations are supportive care with PCP follow-up with consideration of neurosurgical referral. Patient verbalizes understanding agreement discharge instructions prior to departure. Impression Primary Impression: Lumbar radiculopathy, chronic Additional Impression: Neural foraminal stenosis of lumbosacral spine Disposition: 01 HOME, SELF-CARE Condition: Stable Departure-Patient Inst. Decision time for Depature: 20:23 Referrals: [facility] (PCP) Primary Care Physician ALVINO KOHLER APRN (Family) Primary Care Physician Patient Instructions: Spinal Stenosis (DC) Add. Discharge Instructions: You were evaluated in the emergency department for low back pain radiating to both hips. CT findings are consistent with narrowing of your spinal column encroaching on your spinal cord. This is the likely cause of your pain. Please continue home meds and take hydrocodone as needed for additional relief. Follow-up with your PCP in the next 3 to 5 days for consideration of neurosurgical referral. Return to the ED if new or worsening symptoms. All discharge instructions reviewed with patient and/or family. Voiced understanding. Scripts Hydrocodone/Acetaminophen (Hydrocodone-Acetamin 5-325 mg) 1 Each Tablet 1 TAB PO Q4H PRN for PAIN-MODERATE (5-7), #14 TAB Prov: BAMBI GEIGER DO 06/29/21 BAMBI GEIGER DO Jun 29, 2021 19:37
--- NOTE | 2021-06-29 20:00 | Diagnostic Imaging Report ---
PROCEDURE: CT lumbar spine without contrast. TECHNIQUE: Multiple contiguous axial images were obtained through the lumbar spine without the use of intravenous contrast. Sagittal and coronal reformations were then performed. Auto Exposure Controls were utilized during the CT exam to meet ALARA standards for radiation dose reduction. INDICATION: Bilateral hip pain and low back pain. Correlation is made with radiographs from 10/06/2020. FINDINGS: There are advanced multilevel endplate changes present throughout the lumbar spine as well as advanced multilevel facet arthropathy. There are vacuum discs at L1-L2, L2-L3 and L3-L4. There are no findings of a pars defect. There is some gas within the L2-L3 and L3-L4 facets. There is a slight anterolisthesis of L2 on 3 and L3 on 4 due to these hypertrophic facets. Alignment is otherwise normal. The vertebral body heights are maintained. Within the lower thoracic canal, there is facet arthropathy ligamentous thickening as well as some ligamentous calcification. There is no high-grade lower thoracic canal stenosis evident. At L1-L2 there is left greater than right facet arthropathy with ossification of the left ligamentum flavum. There appears to likely be at least moderate if not severe canal stenosis at that level. There is also moderate narrowing of both neural foramen. At L2-L3, there is endplate spurring disc bulging and advanced facet arthropathy and ligamentous thickening. There appears to be severe narrowing of the central canal of both of the lateral recesses with severe right and moderate left foraminal stenosis. At L3-L4 marked facet arthropathy and ligamentous thickening are present. There is endplate spurring and likely disc bulging with severe narrowing of the central canal and both lateral recesses. There is also moderate to severe narrowing of both neural foramen. At L4-L5 there is advanced facet arthropathy and ligamentous thickening. There is endplate spurring and disc bulge with additional level of apparent severe central canal and lateral recess stenosis. There is also severe narrowing of both neural foramen. At L5-S1 with only mild narrowing of the central canal but facet arthropathy and ligamentous ossification appear to result in severe narrowing of the lateral recesses. There is also severe narrowing of both neural foramen. The paraspinal soft tissues demonstrate no acute process. Advanced atherosclerotic calcifications within a normal caliber aorta. There is a nonspecific exophytic lesion arising off the posterior aspect of the right kidney that cannot be confirmed on this examination as a simple cyst. There is no retroperitoneal adenopathy. The lung bases appear clear. IMPRESSION: 1. Severe multilevel lumbar degenerative disc disease and facet arthropathy without findings of traumatic malalignment or acute fracture. There is no suspicious marrow replacing lesion. 2. Extensive multilevel high-grade canal, lateral recess and neural foraminal stenosis detailed above level by level. 3. Advanced atherosclerosis. 4. Nonspecific exophytic lesion arising off the right kidney. This cannot be confirmed on this examination alone. This could be further assessed with followup renal ultrasound. Dictated by: Dictated on workstation # [id number]
--- NOTE | 2021-06-29 20:12 | Diagnostic Imaging Report ---
PROCEDURE: CT pelvis without contrast. TECHNIQUE: Multiple contiguous axial images were obtained through the pelvis without the use of intravenous contrast. Sagittal and coronal reformations were performed. Auto Exposure Controls were utilized during the CT exam to meet ALARA standards for radiation dose reduction. INDICATION: Hip pain. Back pain. Correlation made with CT of the lumbar spine performed same day. FINDINGS: There are no findings of hip dislocation. Morphology of the femoral heads appropriate without evidence of collapse or acute fracture. There is moderate to advanced bilateral hip osteoarthritis joint space narrowing. Arthritic changes of the pubic symphysis and at the SI joints. There are no findings of an acute pelvic fracture or suspicious marrow replacing lesion. Advanced degenerative features within the lumbar spine are again noted. The visualized intrapelvic contents demonstrate no acute process. There is no free fluid. Patient is status post hysterectomy. There is moderate stool within the colon without diverticulosis. There is no free fluid. There is aortic atherosclerosis. IMPRESSION: Bilateral osteoarthritic changes at both hips as well as of the pubic symphysis and SI joints. There are no findings of an acute pelvic fracture or evidence of hip dislocation. There is no femoral head collapse or osteonecrosis. There is no findings of a suspicious marrow replacing lesion. Dictated by: Dictated on workstation # [id number]
[2021-06-29] MEDS ORDERED: ACHD5005 PO (20:25)
[2021-06-29] MEDS ORDERED: HYDROcodone/APAP 5 MG/325 MG (LORTAB) TAB PO ONE (20:45)
[2021-06-29 20:55] VITALS: BP 119/54
== END 2021-06-29 20:55 | disposition home or self-care (01) ==
LOC: EDUNIT# 19:00 → ER FS 19:02
DX: M54.16 Radiculopathy, lumbar region (principal); M48.07 Spinal stenosis, lumbosacral region; E66.01 Morbid (severe) obesity due to excess calories; J44.9 Chronic obstructive pulmonary disease, unspecified; I10 Essential (primary) hypertension; E11.9 Type 2 diabetes mellitus without complications; Z68.41 Body mass index [BMI] 40.0-44.9, adult; Z79.4 Long term (current) use of insulin; Z79.899 Other long term (current) drug therapy
CPT/HCPCS: 72131; 72192

== ENCOUNTER 2021-07-26 15:00 | Inpatient (IN) | payer MEDICARE, MEDICAID ==
[~2021-07-26] VITALS: Ht 160 cm; Wt 107.5 kg
[~2021-07-26 15:00] MED LIST changes: -POTA10TA36 PO; +POTA10TA37 PO
--- NOTE | 2021-07-26 15:13 | ED Respiratory ---
General Stated Complaint: COUGH; FEVER; DIARRHEA; VOMITING Source: patient, family Exam Limitations: no limitations History of Present Illness Date Seen by Provider: Jul 26, 2021 Time Seen by Provider: 15:02 Initial Comments 81-year-old female with past medical history of COPD, diabetes, hypertension coming in due to she says 8 weeks of congestion, cough, shortness of breath, and general weakness. She says she is unable to really eat or drink anything. She says she has been having chills intermittently. Says she wears 2 and half liters of oxygen at nighttime, but does not wear any in the daytime. Is otherwise denying any chest pain, abdominal pain, nausea, vomiting, focal weakness or numbness, vision changes, headaches, rash, dysuria, or any other concerns. Per granddaughter who is the caregiver, she says that the patient normally walks around at home, but has been going slowly downhill over the past month or so. She noticed things started getting worse around July 05. She says she is unwilling to really eat anything, had multiple loose stools, has felt like she is burning up at times. Allergies and Home Medications Allergies Coded Allergies: levofloxacin (Unverified Allergy, Intermediate, HIVES, ITCHING, 04/14/19) azithromycin (Verified Allergy, Unknown, 07/26/21) metronidazole (Unverified Adverse Reaction, Mild, N/V, 12/16/18) latex (Unverified Adverse Reaction, Unknown, hives, 12/16/18) Patient Home Medication List Home Medication List Reviewed: Yes Cephalexin (Keflex) 500 Mg Capsule, 500 MG PO TID Prescribed by: BAMBI GEIGER on 05/17/202216 Fluticasone Propionate (Fluticasone Propionate) 16 Gm [place].susp, 0 SPRAY NS DAILY PRN for allergies Prescribed by: KEVIN SELBY on 04/20/192102 Gabapentin (Gabapentin) 300 Mg Capsule, 300 MG PO BID Prescribed by: KEVIN SELBY on 04/20/192102 Guaifenesin/Dextromethorphan (Guaifenesin Dm Syrup) 5 Ml Syrup, 5 ML PO Q4H PRN for COUGH Prescribed by: KEVIN SELBY on 04/20/192102 Hydrocodone Bit/Acetaminophen (Lortab 5 Mg Tablet) 1 Tab Tab, 1 EACH PO Q4-6HR PRN for PAIN-MODERATE Prescribed by: ALISA BALDWIN on 04/24/19 1207 Hydrocodone/Acetaminophen (Hydrocodone-Acetamin 5-325 mg) 1 Each Tablet, 1 EACH PO Q6H PRN for PAIN-SEVERE (8-10) Prescribed by: ALESSANDRO JEAN on 08/14/20 1622 Hydrocodone/Acetaminophen (Hydrocodone-Acetamin 5-325 mg) 1 Each Tablet, 1 TAB PO Q4H PRN for PAIN-MODERATE (5-7) Prescribed by: BAMBI GEIGER on 06/29/212025 Insulin NPL/Insulin Lispro (Humalog Mix 75-25 Kwikpen) 100 Unit/1 Ml Insuln.pen, 20 UNIT SQ AC Prescribed by: KEVIN SELBY on 04/21/19 0911 Ipratropium/Albuterol Sulfate (Iprat-Albut 0.5-3(2.5) mg/3 ml) 3 Ml Ampul.neb, 3 ML INH RTBID Prescribed by: KEVIN SELBY on 04/20/192102 Lisinopril (Lisinopril) 10 Mg Tablet, 10 MG PO HS Prescribed by: KEVIN SELBY on 04/20/192102 Prednisone (Prednisone) 20 Mg Tab, 40 MG PO DAILY Prescribed by: BAMBI GEIGER on 05/17/202216 Review of Systems Review of Systems Constitutional: chills; No fever EENTM: No blurred vision Respiratory: cough, short of breath Cardiovascular: No chest pain Gastrointestinal: no symptoms reported Genitourinary: no symptoms reported Musculoskeletal: no symptoms reported Skin: no symptoms reported Psychiatric/Neurological: No Symptoms Reported Hematologic/Lymphatic: No Symptoms Reported Immunological/Allergic: no symptoms reported All Other Systems Reviewed Negative Unless Noted: Yes Past Dxqdavr-Nrdrnm-Oxvzau Hx Patient Social History Tobacco Use?: No Seasonal Allergies Seasonal Allergies: Yes (ALLERGIC RHINITIS) Past Medical History Surgeries: Yes (CERVICAL DISC SURGERY, BILAT ROTATOR CUFF, FOOT SURGERY) Appendectomy, Gallbladder, Hysterectomy, Orthopedic Respiratory: Yes COPD Cardiac: Yes Hypertension Neurological: Yes (SEVERE DIABETIC NEUROPATHY HANDS/FEET, POST HERPETIC NEURALGIA) Neuropathy Genitourinary: No Gastrointestinal: No Musculoskeletal: Yes (OSTEOARTHRITIS) Endocrine: Yes (DM TYPE II, MORBID OBESITY) Diabetes, Insulin dep HEENT: No Loss of Vision: Bilateral Hearing Impairment: Denies Cancer: No Psychosocial: Yes Depression Integumentary: Yes (SORES AND SCABS GENERALIZED) Recent Skin Changes, Psoriasis Blood Disorders: No Family Medical History CAD Over 55 Years Old Physical Exam Vital Signs - First Documented 07/26/21 15:11 Temp 36.8 Pulse 96 Resp 22 B/P (MAP) 145/72 (96) Pulse Ox 88 O2 Delivery Nasal Cannula O2 Flow Rate 2.50 Capillary Refill : Height: 5'6.00" Weight: 272lbs. 3.2oz. 123.465532pl; 42.00 BMI Method:Stated General Appearance: WD/WN, no apparent distress Eyes: Bilateral Eye Normal Inspection HEENT: PERRL/EOMI, normal ENT inspection, pharynx normal Neck: non-tender, full range of motion, supple, normal inspection Respiratory: chest non-tender, no respiratory distress, no accessory muscle use, crackles Cardiovascular: regular rate, rhythm, no edema, no murmur Gastrointestinal: normal bowel sounds, non tender, soft; No distended, No guarding Extremities: normal range of motion, non-tender, normal inspection, no calf tenderness, normal capillary refill, pedal edema Neurologic/Psychiatric: no motor/sensory deficits, alert, normal mood/affect, oriented x 3 Skin: normal color, warm/dry Lymphatic: no adenopathy Progress/Results/Core Measures Suspected Sepsis SIRS Temperature: Pulse: Respiratory Rate: Laboratory Tests 07/26/21 15:07: White Blood Count 7.3 Blood Pressure / Mean: Laboratory Tests 07/26/21 15:07: Creatinine 1.42H, INR Comment 1.0, Platelet Count 261, Total Bilirubin 0.7 Results/Orders Lab Results Laboratory Tests Test 07/26/21 15:07 07/26/21 15:30 07/26/21 16:15 07/26/21 16:25 Range/Units White Blood Count 7.3 4.3-11.0 10^3/uL Red Blood Count 3.37 L 3.80-5.11 10^6/uL Hemoglobin 12.0 11.5-16.0 g/dL Hematocrit 36 35-52 % Mean Corpuscular Volume 90 80-99 fL Mean Corpuscular Hemoglobin 30 25-34 pg Mean Corpuscular Hemoglobin Concent 34 32-36 g/dL Red Cell Distribution Width 14.0 10.0-14.5 % Platelet Count 261 130-400 10^3/uL Mean Platelet Volume 9.3 9.0-12.2 fL Immature Granulocyte % (Auto) 0 % Neutrophils (%) (Auto) 57 42-75 % Lymphocytes (%) (Auto) 33 12-44 % Monocytes (%) (Auto) 10 0-12 % Eosinophils (%) (Auto) 0 0-10 % Basophils (%) (Auto) 0 0-10 % Neutrophils # (Auto) 4.2 1.8-7.8 X 10^3 Lymphocytes # (Auto) 2.4 1.0-4.0 X 10^3 Monocytes # (Auto) 0.7 0.0-1.0 X 10^3 Eosinophils # (Auto) 0.0 0.0-0.3 10^3/uL Basophils # (Auto) 0.0 0.0-0.1 10^3/uL Immature Granulocyte # (Auto) 0.0 0.0-0.1 10^3/uL Neutrophils % (Manual) 62 % Lymphocytes % (Manual) 20 % Monocytes % (Manual) 7 % Basophils % (Manual) 1 % Atypical Lymphocytes 3 % Reactive Lymphocytes 7 % Platelet Estimate NORMAL Blood Morphology Comment NORMAL Prothrombin Time 13.8 12.2-14.7 SEC INR Comment 1.0 0.8-1.4 Activated Partial Thromboplast Time 33 24-35 SEC Sodium Level 133 L 135-145 MMOL/L Potassium Level 3.8 3.6-5.0 MMOL/L Chloride Level 94 L 98-107 MMOL/L Carbon Dioxide Level 26 21-32 MMOL/L Anion Gap 13 5-14 MMOL/L Blood Urea Nitrogen 29 H 7-18 MG/DL Creatinine 1.42 H 0.60-1.30 MG/DL Estimat Glomerular Filtration Rate 36 BUN/Creatinine Ratio 20 Glucose Level 217 H 70-105 MG/DL Calcium Level 8.5 8.5-10.1 MG/DL Corrected Calcium 9.1 8.5-10.1 MG/DL Total Bilirubin 0.7 0.1-1.0 MG/DL Aspartate Amino Transf (AST/SGOT) 85 H 5-34 U/L Alanine Aminotransferase (ALT/SGPT) 47 0-55 U/L Alkaline Phosphatase 72 40-136 U/L Troponin I < 0.30 <0.30 NG/ML C-Reactive Protein 15.60 H <0.50 MG/DL Pro-B-Type Natriuretic Peptide 373.0 H <75.0 PG/ML Total Protein 6.6 6.4-8.2 GM/DL Albumin 3.2 3.2-4.5 GM/DL Smear Scan ATYP & REACTIVE LYMP Influenza Type A Antigen NEGATIVE NEGATIVE Influenza Type B Antigen NEGATIVE NEGATIVE Urine Color YELLOW Urine Clarity TURBID Urine pH 5.5 5-9 Urine Specific [place] 1.020 1.016-1.022 Urine Protein 1+ H NEGATIVE Urine Glucose (UA) NEGATIVE NEGATIVE Urine Ketones TRACE H NEGATIVE Urine Nitrite NEGATIVE NEGATIVE Urine Bilirubin 1+ H NEGATIVE Urine Urobilinogen 0.2 < = 1.0 MG/DL Urine Leukocyte Esterase 3+ H NEGATIVE Urine RBC (Auto) 1+ H NEGATIVE Urine RBC 0-2 /HPF Urine WBC TNTC H /HPF Urine Squamous Epithelial Cells 0-2 /HPF Urine Crystals NONE /LPF Urine Bacteria LARGE H /HPF Urine Casts PRESENT /LPF Urine Hyaline Casts 5-10 H /LPF Urine Granular Casts RARE /LPF Urine White Blood Cell Casts RARE H /LPF Urine Mucus NEGATIVE /LPF Urine Culture Indicated YES Blood Gas Puncture Site RAC Blood Gas Patient Temperature NA Arterial Blood pH 7.43 7.37-7.43 Arterial Blood Partial Pressure CO2 46 H 35-45 MMHG Arterial Blood Partial Pressure O2 25 *L 79-93 MMHG Arterial Blood HCO3 31 H 23-27 MMOL/L Arterial Blood Total CO2 31.9 H 21.0-31.0 MMOL/L Arterial Blood Oxygen Saturation 48 L 94-100 % Arterial Blood Base Excess 5.3 H -2.5-2.5 MMOL/L Chance Test NA Blood Gas Ventilator Setting NO Blood Gas Inspired Oxygen 2.5 L My Orders Orders - AHBINAV REYES MD Cbc With Automated Diff (07/26/21 15:08) Comprehensive Metabolic Panel (07/26/21 15:08) Protime With Inr (07/26/21 15:08) Partial Thromboplastin Time (07/26/21 15:08) Probnp Fs (07/26/21 15:08) Troponin I Fs (07/26/21 15:08) Influenza A & B Antigens (07/26/21 15:08) Chest 1 View Ap/Pa Only (07/26/21 15:08) Ekg Tracing (07/26/21 15:08) Covid 19 Inhouse Test (07/26/21 15:08) Monitor-Rhythm Ecg Trace Only (07/26/21 15:08) Pulse Oximetry Order (07/26/21 15:08) Albuterol/Ipra Inhalation Soln (Duoneb I (07/26/21 15:15) Ua Culture If Indicated (07/26/21 15:13) Crp Fs (07/26/21 15:07) Manual Differential (07/26/21 15:07) Lactated Ringers (Lr 1000 Ml Iv Solution (07/26/21 16:15) Ceftriaxone (Rocephin) (07/26/21 16:15) Arterial Blood Gas (07/26/21 16:15) Water (Sterile) For Injection (Sterile W (07/26/21 16:29) Doxycycline Hyclate Tablet (Vibramycin T (07/26/21 16:36) Urine Culture (07/26/21 16:15) Arterial Blood Gas (07/26/21 16:53) Medications Given in ED Current Medications Medications Dose Ordered Sig/Annie Route Start Time Stop Time Status Last Admin Dose Admin Albuterol/ Ipratropium 3 ml ONCE ONCE IH 07/26/21 15:15 07/26/21 15:16 DC 07/26/21 15:14 3 ML Ceftriaxone Sodium 1,000 mg ONCE ONCE IV 07/26/21 16:15 07/26/21 16:18 DC 07/26/21 16:40 1,000 MG Lactated Ringer's 1,000 ml @ 0 mls/hr Q0M ONCE IV 07/26/21 16:15 07/26/21 16:18 DC 07/26/21 16:40 0 MLS/HR Sterile Water 10 ml @ ud STK-MED ONCE .ROUTE 07/26/21 16:29 07/26/21 16:31 DC 07/26/21 16:40 10 MLS/HR Vital Signs/I&O 07/26/21 07/26/21 15:11 15:11 Temp 36.8 Pulse 96 Resp 22 B/P (MAP) 145/72 (96) Pulse Ox 88 O2 Delivery Nasal Cannula Room Air O2 Flow Rate 2.50 2.00 Capillary Refill : Progress Note : Progress Note 81-year-old female with above history coming in due to general weakness, shortness of breath, cough, congestion, and loose stools. The patient was 80% on room air on presentation. I reviewed her previous charts and she typically was in the emergency department at 95 to 96% on room air even within the past month. This is certainly a change for her. She does have crackles on exam and some mild wheezing. Give her a breathing treatment. Prior to breathing treatment she was on 2 L oxygen with a saturation of 92%. Afterwards she was on 2 L with a saturation of 98%. Labs significant for an CAITLIN with a creatinine around 1.5, slightly elevated BNP, negative troponin. PCO2 is 46 on VBG which is likely good for her considering her h/o COPD. Chest x-ray concerning for atypical pneumonia versus pulmonary edema. Given she has not really had anything to eat or drink over several days, has an CAITLIN and overall I feel like could be volume down she was given a bolus of IV fluids as well as ceftriaxone and doxycycline. Covid test is still pending so there is a possibility this is a viral pneumonia. I called and discussed the case with Dr. Park who admit the patient to the hospital for further evaluation and management as an inpatient status. ECG Initial ECG Impression Date: Jul 26, 2021 Initial ECG Impression Time: 15:12 Initial ECG Rate: 89 Initial ECG Rhythm: Normal Sinus Comment Narrow QRS, normal axis, no significant ST changes, T wave inversion in lead aVL which is nonspecific Diagnostic Imaging Diagonstic Imaging: Xray Plain Films/CT/US/NM/MRI: chest Comments [facility], [place] NAME: [facility] REC#: [id number] PT STATUS: REG ER : 1940 PHYSICIAN: ABHINAV REYES MD ADMIT DATE: 07/26/21/ER FS Draft Date of Exam:07/26/21 CHEST 1 VIEW AP/PA ONLY EXAMINATION: Chest 1 view. HISTORY: Hypoxia. COMPARISON: None available. FINDINGS: Heart size and pulmonary vasculature are normal. There are mild interstitial opacities within the right mid and lower lung. No pleural effusion or pneumothorax. Degenerative changes of the thoracic spine. Osseous structures are otherwise intact. IMPRESSION: Mild interstitial opacities within the right mid and lower lung which can be seen with atelectasis, atypical infection or pulmonary edema. Dictated on workstation # [id number] Dict: 07/26/21 1528 Trans: 07/26/21 1530 [facility] [id number] Interpreted by: ALECIA WICK DO Electronically signed by: Departure Impression Primary Impression: Acute kidney injury Additional Impressions: Respiratory failure Qualified Codes: J96.01 - Acute respiratory failure with hypoxia Pneumonia Qualified Codes: J18.9 - Pneumonia, unspecified organism Person under investigation for COVID-19 Disposition: 30 STILL A PATIENT Condition: Stable Admissions Decision to Admit Reason: Admit from ER (General) Decision to Admit/Date: Jul 26, 2021 Time/Decision to Admit Time: 16:30 Departure-Patient Inst. Referrals: ALVINO KOHLER APRN (PCP) Primary Care Physician [facility] (Family) Primary Care Physician ABHINAV REYES MD Jul 26, 2021 15:13
[2021-07-26] MEDS ORDERED: RT-ALBUTEROL/IPRATROPIUM 3 ML (DUONEB) VIAL IH ONE (15:15)
[2021-07-26 15:27] LABS: PROTHROMBIN TIME PATIENT 13.8 SEC (12.2-14.7)
--- NOTE | 2021-07-26 15:30 | Diagnostic Imaging Report ---
EXAMINATION: Chest 1 view. HISTORY: Hypoxia. COMPARISON: None available. FINDINGS: Heart size and pulmonary vasculature are normal. There are mild interstitial opacities within the right mid and lower lung. No pleural effusion or pneumothorax. Degenerative changes of the thoracic spine. Osseous structures are otherwise intact. IMPRESSION: Mild interstitial opacities within the right mid and lower lung which can be seen with atelectasis, atypical infection or pulmonary edema. Dictated by: Dictated on workstation # [id number]
[2021-07-26 16:03] LABS: HEMATOCRIT 36 % (35-52); MEAN CORPUSCULAR HGB CONC 34 g/dL (32-36); MEAN CORPUSCULAR VOLUME 90 fL (80-99); PLATELET COUNT 261 10^3/uL (130-400); WHITE BLOOD COUNT 7.3 10^3/uL (4.3-11.0)
[2021-07-26 16:04] LABS: BASOPHILS % (AUTO) 0 % (0-10); EOSINOPHILS % (AUTO) 0 % (0-10); LYMPHOCYTES # (AUTO) 2.4 X 10^3 (1.0-4.0); LYMPHOCYTES % (AUTO) 33 % (12-44); MEAN PLATELET VOLUME 9.3 fL (9.0-12.2); MONOCYTES # (AUTO) 0.7 X 10^3 (0.0-1.0); MONOCYTES % (AUTO) 10 % (0-12); NEUTROPHILS # (AUTO) 4.2 X 10^3 (1.8-7.8); NEUTROPHILS % (AUTO) 57 % (42-75)
[2021-07-26 16:05] LABS: MEAN CORPUSCULAR HEMOGLOBIN 30 pg (25-34)
[2021-07-26 16:07] LABS: ALANINE AMINOTRANSFERASE 47 U/L (0-55); ALKALINE PHOSPHATASE 72 U/L (40-136); BILIRUBIN,TOTAL 0.7 MG/DL (0.1-1.0); BUN/CREATININE RATIO 20; CALCIUM 8.5 MG/DL (8.5-10.1); CARBON DIOXIDE 26 MMOL/L (21-32); CHLORIDE 94 MMOL/L (98-107); CREATININE SERUM 1.42 MG/DL (0.60-1.30); GFR ESTIMATED 36; GLUCOSE 217 MG/DL (70-105); POTASSIUM 3.8 MMOL/L (3.6-5.0); SODIUM 133 MMOL/L (135-145)
[2021-07-26 16:08] LABS: ALBUMIN 3.2 GM/DL (3.2-4.5); TOTAL PROTEIN 6.6 GM/DL (6.4-8.2)
[2021-07-26] MEDS ORDERED: LACTATED RINGERS 1,000 ML IV ONE (16:15)
[2021-07-26] MEDS ORDERED: cefTRIAXone 1,000 MG VIAL IV ONE (16:15)
[2021-07-26] MEDS ORDERED: AZITHROMYCIN INJECTION 500 MG in NS (IVPB) 250 ML IV ONE (16:15)
[2021-07-26 16:29] LABS: CLARITY,URINE TURBID; COLOR,URINE YELLOW; GLUCOSE, URINE (UA) NEGATIVE (NEGATIVE); KETONES,URINE TRACE (NEGATIVE); LEUKOCYTE ESTERASE ,URINE 3+ (NEGATIVE); NITRITE,URINE NEGATIVE (NEGATIVE); PH,URINE 5.5 (5-9); PROTEIN,URINE 1+ (NEGATIVE)
[2021-07-26] MEDS ORDERED: WATER (STERILE) FOR INJECTION 10 ML ONE (16:29)
[2021-07-26] MEDS ORDERED: DOXYCYCLINE 100 MG (VIBRAMYCIN) TABLET PO STA (16:36)
[2021-07-26 16:39] LABS: BACTERIA,URINE LARGE /HPF; RBC,URINE 0-2 /HPF; SQUAMOUS EPITHELIAL CELL,UR 0-2 /HPF; WBC,URINE TNTC /HPF
[2021-07-26 16:40] LABS: GRANULAR CASTS,URINE RARE /LPF; WHITE BLOOD CELL CASTS, URINE RARE /LPF
[2021-07-26 16:41] LABS: BILIRUBIN,URINE 1+ (NEGATIVE)
[2021-07-26 16:56] LABS: ATYPICAL LYMPHOCYTES 3 %; BASOPHILS % (MANUAL) 1 %; LYMPHOCYTES % (MANUAL) 20 %; MONOCYTES % (MANUAL) 7 %; NEUTROPHILS % (MANUAL) 62 %; REACTIVE LYMPHOCYTES 7 %
[2021-07-26 16:57] LABS: PLATELET ESTIMATE NORMAL; RBC MORPH NORMAL
[2021-07-26 16:58] LABS: SMEAR SCAN COMMENT ATYP & REACTIVE LYMP
[2021-07-26 17:03] LABS: ABG PCO2 46 MMHG (35-45); ABG PH 7.43 (7.37-7.43)
[2021-07-26 17:04] LABS: ABG BASE EXCESS 5.3 MMOL/L (-2.5-2.5); ABG OXYGEN SATURATION 48 % (94-100); ABG PO2 25 MMHG (79-93); ABG TCO2 31.9 MMOL/L (21.0-31.0)
[2021-07-26 17:05] LABS: INSPIRED O2 2.5 L; VENTILATOR NO
[2021-07-26] MEDS ORDERED: PHARMACY TO DOSE SQ SCH (18:45)
[2021-07-26] MEDS: NS IV 1000 ML 1,000 ML IV SCH (18:52)
[2021-07-26] MEDS ORDERED: ENOXAPARIN 40 MG/0.4 ML (LOVENOX) SYR SC SCH (19:00)
[2021-07-26 19:05] VITALS: BP 145/72
[2021-07-26] MEDS: ENOXAPARIN 40 MG/0.4 ML (LOVENOX) SYR SC SCH (19:15)
[2021-07-26 19:29] VITALS: BP 112/68
[2021-07-26] MEDS ORDERED: RT-ALBUTEROL HFA 8.5 GM INHALER IH PRN (20:30)
[2021-07-26] MEDS: inSUlin ASPART (NovoLOG) 1 UNIT/0.01 ML (CHARGE PER UNIT) SC SCH (21:50)
[2021-07-26] MEDS: RT-ALBUTEROL HFA 8.5 GM INHALER IH SCH (21:59)
[2021-07-26] MEDS ORDERED: RT-ALBUTEROL/IPRATROPIUM 3 ML (DUONEB) VIAL INH SCH (22:00)
[2021-07-26 23:46] VITALS: BP 118/58
[2021-07-27] MEDS: RT-ALBUTEROL HFA 8.5 GM INHALER IH SCH ×6 (02:23→22:43)
[2021-07-27 03:26] VITALS: BP 126/74
[2021-07-27] MEDS: ENOXAPARIN 40 MG/0.4 ML (LOVENOX) SYR SC SCH ×2 (05:20→17:56)
[2021-07-27] MEDS: inSUlin ASPART (NovoLOG) 1 UNIT/0.01 ML (CHARGE PER UNIT) SC SCH ×4 (05:20→22:48)
[2021-07-27] MEDS: NS IV 1000 ML 1,000 ML IV SCH ×2 (05:20→22:48)
[2021-07-27 05:57] LABS: HEMATOCRIT 31 % (35-52); HEMOGLOBIN 10.4 g/dL (11.5-16.0); MEAN CORPUSCULAR HEMOGLOBIN 30 pg (25-34); MEAN CORPUSCULAR HGB CONC 33 g/dL (32-36); MEAN CORPUSCULAR VOLUME 90 fL (80-99); MEAN PLATELET VOLUME 9.6 fL (9.0-12.2); PLATELET COUNT 242 10^3/uL (130-400); WHITE BLOOD COUNT 5.6 10^3/uL (4.3-11.0)
[2021-07-27 06:06] LABS: ALBUMIN 2.7 GM/DL (3.2-4.5)
[2021-07-27 06:07] LABS: POTASSIUM 3.4 MMOL/L (3.6-5.0)
[2021-07-27 06:08] LABS: CALCIUM 7.7 MG/DL (8.5-10.1)
[2021-07-27 06:09] LABS: TOTAL PROTEIN 5.4 GM/DL (6.4-8.2)
[2021-07-27 06:11] LABS: BILIRUBIN,TOTAL 0.5 MG/DL (0.1-1.0)
[2021-07-27 06:13] LABS: CREATININE SERUM 0.95 MG/DL (0.60-1.30)
[2021-07-27] MEDS ORDERED: DOXYCYCLINE 100 MG (VIBRAMYCIN) TABLET PO SCH (07:00)
[2021-07-27 07:47] VITALS: BP 119/63
[2021-07-27] MEDS: KCL 20 MEQ TAB (K-DUR) PO SCH ×2 (08:21→22:48)
[2021-07-27] MEDS: cefTRIAXone 1 GM PRE-MIX 50 ML IV SCH (08:27)
[2021-07-27] MEDS ORDERED: LISI5TAB20 PO (10:50)
[2021-07-27] MEDS ORDERED: TRAM50TA3 PO (10:50)
--- NOTE | 2021-07-27 11:43 | History & Physical ---
ZANE KILLIAN MD 07/27/21 1143: HPI History of Present Illness: 81 year old female with history of hypertension, type II DM, COPD, chronic hypoxic respiratory failure on 2.5 L O2 overnight, chronic pain, not vaccinated against Covid presented 07/27 for a reported 8 weeks of symptoms. She states that she has had progressive weakness, poor PO intake, diarrhea, and chills over that time. She is unable to report when these symptoms worsened, but per chart review, family reports that symptoms worsened Novermber 3rd. She denies UTI symptoms. In the ED, found to have 2.5 L oxygen requirement. WBC 7.3, CRP 15.6, creatinine 1.42, D-dimer 1.61, pro-BNP 373, Covid positive, UA with 3+ LE, TNTC WBC, large bacteria, and CXR with interstitial opacities. She was given doxycycline, CTX, 1 L LR, and admitted for further management. Source: patient Exam Limitations: no limitations Date seen by provider: Jul 27, 2021 Time Seen by Provider: 07:15 Attending Physician Gil Ghotra MD PCP Mildred Ernandez Aprn Consult Date of Admission Jul 26, 2021 at 18:15 Home Medications Home Medications Reviewed patient Home Medication Reconciliation performed by pharmacy medication reconciliations medical technician and/or nursing. Patients Allergies have been reviewed. Allergies Coded Allergies: levofloxacin (Unverified Allergy, Intermediate, HIVES, ITCHING, 04/14/19) azithromycin (Verified Allergy, Unknown, 07/26/21) metronidazole (Unverified Adverse Reaction, Mild, N/V, 12/16/18) latex (Unverified Adverse Reaction, Unknown, hives, 12/16/18) LLZ-Qpnqyd-Jwfoqf Hx Patient Social History 2nd Hand Smoke Exposure: Yes Recent Hopitalizations: No Alcohol Use?: No Have you traveled recently?: No Immunizations Up To Date Date of Pneumonia Vaccine: Sep 02, 2016 Family Medical History Significant Family History: CAD Over 55 Years Old Review of Systems ([facility]) Constitutional: see HPI, chills, malaise, weakness EENTM: no symptoms reported Respiratory: cough, short of breath Cardiovascular: edema Gastrointestinal: abdominal pain; No constipation; diarrhea, nausea Genitourinary: no symptoms reported Musculoskeletal: back pain Skin: No change in color Reviewed Test Results Reviewed Test Results Lab See HPI Radiology See HPI Physical Exam-([facility]) Physical Exam Vital Signs VS - Last 72 Hours, by Label 07/26/21 07/26/21 07/26/21 07/26/21 15:11 15:11 17:21 18:32 Temp 36.8 36.8 Pulse 96 92 Resp 22 B/P (MAP) 145/72 (96) 124/53 Pulse Ox 88 94 94 O2 Delivery Nasal Cannula Room Air Nasal Cannula Nasal Cannula O2 Flow Rate 2.50 2.00 2.50 2.50 2.00 07/26/21 07/26/21 07/26/21 07/26/21 19:05 19:29 21:59 23:19 Temp 36.8 36.6 Pulse 96 92 Resp 20 B/P (MAP) 112/68 (83) Pulse Ox 88 91 93 93 O2 Delivery Nasal Cannula Nasal Cannula Nasal Cannula O2 Flow Rate 2.00 2.00 4.00 FiO2 30 07/26/21 07/27/21 07/27/21 07/27/21 23:46 03:26 07:04 07:47 Temp 37.4 37.0 36.8 Pulse 82 74 91 Resp 22 B/P (MAP) 118/58 (78) 126/74 (91) 119/63 (81) Pulse Ox 93 95 93 93 O2 Delivery Nasal Cannula Nasal Cannula Nasal Cannula Nasal Cannula O2 Flow Rate 4.00 4.00 4.00 4.00 07/27/21 11:09 Pulse Ox 94 O2 Delivery Nasal Cannula O2 Flow Rate 4.00 Capillary Refill : Less Than 3 Seconds General Appearance: WD/WN, no apparent distress HEENT: PERRL/EOMI Neck: non-tender, full range of motion, supple Respiratory: chest non-tender, decreased breath sounds, wheezing (Expiratory wheezing noted) Cardiovascular: regular rate, rhythm, other (1-2+ edema present) Gastrointestinal: normal bowel sounds, non tender Extremities: normal range of motion Neurologic/Psychiatric: alert, normal mood/affect, oriented x 3 Skin: normal color, warm/dry Assessment/Plan Assessment/Plan Admission Dx Acute Hypoxic Respiratory Failure Admission Status: Inpatient Order (span 2 midnights) Reason for Inpatient Admission: Acute Hypoxic Respiratory Failure (1) Respiratory failure Status: Acute Assessment & Plan: Presented with 8 weeks of progressive weakness found to have 2 L oxygen requirement in ED, increased to 4 L this AM in the setting of covid pneumonia and a history of COPD. Should patient deteriorate, she does wish to pursue intubation. -4 L NC, weaning as tolerated -See plan for Covid & COPD below Qualifiers: Qualified Codes: J96.01 - Acute respiratory failure with hypoxia (2) Pneumonia due to COVID-19 virus Status: Acute Assessment & Plan: Unvaccinated eldlery female with multiple comorbidities and worsening weakness, diarrhea since 07/05 with bilateral infiltrates on CXR and Covid positive. -Ferritin, D-dimer in AM -Decadron 6 mg daily x 10 days -Outside of window for remdesivir -Will speak with pharmacy about toculizumab given increasing O2 requirement & co morbidities -Continue CTX for possible superimposed bacterial infection (3) COPD exacerbation Status: Acute Assessment & Plan: History of COPD per chart review on duoneb inhaler at home, reports using 2-3 times daily presenting for dyspnea in the setting of covid. Wheezy on exam. -Albuterol Q4H with Q2H PRN -Dexamethasone for Covid -CTX for coverage of superimposed bacterial PNA, discontinued doxycyline tdoday (4) Elevated d-dimer Assessment & Plan: D-dimer 1.61 in the setting of Covid. No exam findings consistent with DVT, low concern currently for PE. -Lovenox for DVT PPx -Trend D-dimer (5) Acute kidney injury Status: Acute Assessment & Plan: Normal baseline Cr, presenting with Cr 1.42 in setting of poor PO intake improved to 0.95 this AM with fluids. -Daily BMP -IVF at 50 ml/hr (6) Bacteriuria Assessment & Plan: Asymptomatic bacteriuria. -On CTX for possible superimposed bacterial pneumonia (7) Elevated liver enzymes Status: Acute Assessment & Plan: Elevated AST. -Trend CMP (8) Type 2 diabetes mellitus Status: Chronic Assessment & Plan: Unclear insulin regimen at home with multiple different insulin orders per clinic chart review. Patient reports taking NPL/lispro 75-25 with ~30 U in AM and ~50 U in PM. Here BGL elevated, but not taking good PO. -Cover with sliding scale for now -Transition to basal-bolus with SS if persistent hyperglycemia (9) Hypertension Status: Chronic Assessment & Plan: On lisinopril 10 mg at home, held on admission given CAITLIN. GIL GHOTRA MD 07/27/212100: Home Medications Allergies Coded Allergies: levofloxacin (Unverified Allergy, Intermediate, HIVES, ITCHING, 04/14/19) azithromycin (Verified Allergy, Unknown, 07/26/21) metronidazole (Unverified Adverse Reaction, Mild, N/V, 12/16/18) latex (Unverified Adverse Reaction, Unknown, hives, 12/16/18) Supervisory-Addendum Brief Supervisory Addendum I personally have seen and evaluated the patient. I agree with the documented assessment and plan as documented by PGY3 Otilio Killian MD. ZANE KILLIAN MD Jul 27, 2021 11:43 GIL GHOTRA MD Jul 27, 2021 21:01
[2021-07-27 11:51] VITALS: BP 117/65
[2021-07-27 15:30] VITALS: BP 135/74
[2021-07-27 20:15] VITALS: BP 153/78
[2021-07-28 00:32] VITALS: BP 157/74
[2021-07-28] MEDS: RT-ALBUTEROL HFA 8.5 GM INHALER IH SCH ×6 (02:53→22:35)
[2021-07-28 03:31] VITALS: BP 140/65
[2021-07-28] MEDS: inSUlin ASPART (NovoLOG) 1 UNIT/0.01 ML (CHARGE PER UNIT) SC SCH ×6 (06:07→21:36)
[2021-07-28] MEDS: ENOXAPARIN 40 MG/0.4 ML (LOVENOX) SYR SC SCH ×2 (06:08→17:42)
[2021-07-28 06:45] LABS: BASOPHILS % (AUTO) 0 % (0-10); EOSINOPHILS % (AUTO) 0 % (0-10); HEMATOCRIT 32 % (35-52); HEMOGLOBIN 10.6 g/dL (11.5-16.0); LYMPHOCYTES # (AUTO) 1.1 10^3/uL (1.0-4.0); LYMPHOCYTES % (AUTO) 20 % (12-44); MEAN CORPUSCULAR HEMOGLOBIN 31 pg (25-34); MEAN CORPUSCULAR HGB CONC 33 g/dL (32-36); MEAN CORPUSCULAR VOLUME 92 fL (80-99); MEAN PLATELET VOLUME 9.7 fL (9.0-12.2); MONOCYTES # (AUTO) 0.6 10^3/uL (0.0-1.0); MONOCYTES % (AUTO) 12 % (0-12); NEUTROPHILS # (AUTO) 3.7 10^3/uL (1.8-7.8); NEUTROPHILS % (AUTO) 67 % (42-75); PLATELET COUNT 285 10^3/uL (130-400); WHITE BLOOD COUNT 5.5 10^3/uL (4.3-11.0)
[2021-07-28 07:19] LABS: ALBUMIN 2.7 GM/DL (3.2-4.5); BILIRUBIN,TOTAL 0.4 MG/DL (0.1-1.0); CALCIUM 8.1 MG/DL (8.5-10.1); CREATININE SERUM 0.86 MG/DL (0.60-1.30); POTASSIUM 4.4 MMOL/L (3.6-5.0); TOTAL PROTEIN 5.7 GM/DL (6.4-8.2)
[2021-07-28 08:00] VITALS: BP 108/64
[2021-07-28] MEDS: cefTRIAXone 1 GM PRE-MIX 50 ML IV SCH (09:21)
[2021-07-28] MEDS: lisINopril 5 MG (PRINIVIL) TABLET PO SCH (09:22)
[2021-07-28] MEDS ORDERED: MULT-1136 PO (10:43)
[2021-07-28] MEDS ORDERED: INSU100I21 SQ (10:43)
[2021-07-28] MEDS ORDERED: DOCU-26 PO (10:43)
[2021-07-28] MEDS ORDERED: IBUP-1780 PO (10:43)
[2021-07-28] MEDS ORDERED: CYCL10TA25 PO (10:43)
[2021-07-28] MEDS ORDERED: MAGN400T39 PO (10:43)
--- NOTE | 2021-07-28 11:10 | Physical Therapy Evaluation ---
PT Evaluation-General Medical Diagnosis Admission Date Jul 26, 2021 at 18:15 Medical Diagnosis: Acute Respiratory Failure Onset Date: Jul 27, 2021 Therapy Diagnosis Therapy Diagnosis: Gait deficit, strength deficit Height/Weight Height (Feet): 5 Height (Inches): 6.00 Weight (Pounds): 272 Weight (Ounces): 3.2 Precautions Precautions/Isolations: Airborne Isolation, Contact Isolation, Droplet Isolation, Fall Prevention COVID precautions. Weight Bear Status Right Lower Extremity: Right Weight Bearing/Tolerated Left Lower Extremity: Left Weight Bearing/Tolerated Referral Physician: Dr. Killian Reason for Referral: Evaluation/Treatment Medical History Pertinent Medical History: COPD, DM, HTN, Neuropathy Reviewed History: Yes Social History Home: Single Level Current Living Status: Children Entry Into Home: Ramp Prior Prior Level of Function SCALE: Activities may be completed with or without assistive devices. 7-Uheqllzmww-gcodjop completes the activity by him/herself with no assistance from a helper. 5-Set-up or Clean-up Assistance-helper sets up or cleans up; patient completes activity. [place] assists only prior to or following the activity. 4-Supervision or Touching Assistance-helper provides verbal cues and/or touching/steadying and/or contact guard assistance as patient completes activity. Assistance may be provided throughout the activity or intermittently. 3-Partial/Moderate Assistance-helper does LESS THAN HALF the effort. [place] lifts, holds or supports trunk or limbs, but provides less than half the effort. 2-Substantial/Maximal Assistance-helper does MORE THAN HALF the effort. [place] lifts or holds trunk or limbs and provides more than half the effort. 0-Njswlpuxf-xdbilm does ALL the effort. Patient does none of the effort to complete the activity. Or, the assistance of 2 or more helpers is required for the patient to complete the activity. If activity was not attempted, code reason: 7-Patient Refused. 9-Not Applicable-not attempted and the patient did not perform the activity before the current illness, exacerbation or injury. 10-Not Attempted due to Environmental Limitations-(lack of equipment, weather restraints, etc.). 88-Not Attempted due to Medical Conditions or Safety Concerns. Bed Mobility: 6 Transfers (B,C,W/C): 6 Gait: 6 Stairs: 6 Indoor Mobility (Ambulation): Independent Stairs: Independent Prior Devices Use: Walker Patient reports she has an agency that comes into her house M-F to help with cooking, cleaning and bathing. 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 PT Evaluation-Current Subjective Patient reports 0/10 pain currently Objective Patient Orientation: Person ROM/Strength ROM Lower Extremities WFLs bilaterally all planes to PROM Strength Lower Extremities 3+/5 bilaterally all planes Sensory Vision: Blind Legally Hearing: Impaired Sensation Right Lower Extremit: Intact Sensation Left Lower Extremity: Intact Sensation Lower Extremities Able to identify all dermatomes from L3-S2, however does report she has Neuropathy in her feet. Transfers Roll Left to Right (QC): 3 Sit to Lying (QC): 3 Lying to Sitting/Side of Bed(Q: 3 Sit to Stand (QC): 3 Chair/Yhn-pv-Nemrm Xfer(QC): 3 Gait Does the Patient Walk?: Yes Mode of Locomotion: Walk Anticipated Mode of Locomotion: Walk Distance: 4 feet Gait Assistive Device: FWW Wheelchair Training Does the Pt Use a Wheelchair?: No Balance Sitting Static: Fair Sitting Dynamic: Fair Standing Static: Fair Standing Dynamic: Poor Assessment/Needs Patient in COVID precautions. Patient lying supine in bed upon PT arrival, agreeable to treatment. Patient performs all observed bed mobility and transfers with min A. Patient is able to stand with the FWW with min A and able to amb./sidestep to the chair with FWW x 4 feet with min A. Patient in chair post treatment with all needs met, nursing notified, call light in hand. Rehab Potential: Fair Equipment Needs Unsure at this time as patient reports she has a FWW, Cane, Crutches and w/c. PT Flower Shop Laborer/Designer Goals Flower Shop Laborer/Designer Goals PT Shelter Goals Time Frame: Sep 01, 2021 Roll Left & Right (QC): 6 Sit to Lying (QC): 6 Lying-Sitting on Side/Bed(QC): 6 Sit to Stand (QC): 6 Chair/Jvj-bj-Xcgtv Xfer(QC): 6 Toilet Transfer (QC): 6 Car Transfer (QC): 6 Does the Patient Walk: Yes Walk 10 feet (QC): 4 Walk 50ft with 2 Turns (QC): 4 Walk 150 ft (QC): 4 Walking 10ft on Uneven Surface: 4 Picking up an Object (QC): 4 PT Plan Problem List Problem List: Activity Tolerance, Functional Strength, Safety, Balance, Gait, Transfer, Bed Mobility, ROM Treatment/Plan Treatment Plan: Continue Plan of Care Treatment Plan: Bed Mobility, Education, Functional Activity Robert, Functional Strength, Group Therapy, Gait, Safety, Therapeutic Exercise, Transfers Treatment Duration: Sep 01, 2021 Frequency: 6 times per week Estimated Hrs Per Day: .25 hour per day Safety Risks/Education Patient Education: Gait Training, Transfer Techniques, Reviewed Precautions Teaching Recipient: Patient Teaching Methods: Demonstration, Discussion Response to Teaching: Verbalize Understanding, Reinforcement Needed Discharge Recommendations Target Placement Post acute placement recommended based upon current presentation Time/GCodes Time In: 1019 Time Out: 1051 Total Billed Treatment Time: 32 Total Billed Treatment Visit, Kelvin Low JOHN A PT Jul 28, 2021 11:10
--- NOTE | 2021-07-28 11:56 | Progress Note ---
ZANE HAMPTON MD 07/28/21 1156: Subjective Subjective/Events-last exam No acute events overnight. Sleepy on exam this AM without complaints. States that breathing is the same and denies CP, abdominal pain. On 4 L NC, weaned to 3 L when I was in the room. Objective Exam Last Set of Vital Signs Vital Signs Date Time Temp Pulse Resp B/P (MAP) Pulse Ox O2 Delivery O2 Flow Rate FiO2 07/28/21 11:25 97 Nasal Cannula 3.00 07/28/21 08:00 36.5 78 20 108/64 (79) 07/26/21 19:05 30 Capillary Refill : Less Than 3 Seconds I&O Intake and Output 07/28/21 00:00 Intake Total 500 ml Output Total 1120 ml Balance -620 ml Intake Oral 450 ml IV Total 50 ml Output Urine Total 1120 ml General: Alert, Cooperative, No Acute Distress HEENT: Atraumatic Neck: Supple Lungs: Other (Diminished air movement) Abdomen: Normal Bowel Sounds, Soft Extremities: Other (1+ edema) Skin: No Significant Lesion Psych/Mental Status: Mental Status NL Results/Procedures Lab Laboratory Tests 07/27/21 15:25: Glucometer 274H 07/27/21 21:41: Glucometer 363H 07/28/21 05:55: Glucometer 375H 07/28/21 06:29: White Blood Count 5.5, Red Blood Count 3.47L, Hemoglobin 10.6L, Hematocrit 32L, Mean Corpuscular Volume 92, Mean Corpuscular Hemoglobin 31, Mean Corpuscular Hemoglobin Concent 33, Red Cell Distribution Width 13.9, Platelet Count 285, Mean Platelet Volume 9.7, Immature Granulocyte % (Auto) 1, Neutrophils (%) (Auto) 67, Lymphocytes (%) (Auto) 20, Monocytes (%) (Auto) 12, Eosinophils (%) (Auto) 0, Basophils (%) (Auto) 0, Neutrophils # (Auto) 3.7, Lymphocytes # (Auto) 1.1, Monocytes # (Auto) 0.6, Eosinophils # (Auto) 0.0, Basophils # (Auto) 0.0, Immature Granulocyte # (Auto) 0.0, D-Dimer 1.44H, Sodium Level 136, Potassium Level 4.4, Chloride Level 101, Carbon Dioxide Level 24, Anion Gap 11, Blood Urea Nitrogen 23H, Creatinine 0.86, Estimat Glomerular Filtration Rate 63, BUN/Creatinine Ratio 27, Glucose Level 399H, Calcium Level 8.1L, Corrected Calcium 9.1, Total Bilirubin 0.4, Aspartate Amino Transf (AST/SGOT) 66H, Alanine Aminotransferase (ALT/SGPT) 45, Alkaline Phosphatase 59, Total Protein 5.7L, Albumin 2.7L Microbiology 07/26/21 Urine Culture - Preliminary, Resulted Escherichia coli Susceptibility To Follow Radiology See HPI Assessment/Plan Assessment/Plan (1) Respiratory failure Status: Acute Assessment & Plan: Presented with 8 weeks of progressive weakness found to have 4 L O2 requirement initially in the setting of covid pneumonia and a history of COPD. Should patient deteriorate, she does wish to pursue intubation. -3 L NC, weaning as tolerated -See plan for Covid & COPD below Qualifiers: Qualified Codes: J96.01 - Acute respiratory failure with hypoxia (2) Pneumonia due to COVID-19 virus Status: Acute Assessment & Plan: Unvaccinated elderly female with multiple comorbidities and worsening weakness, diarrhea since 07/05 with bilateral infiltrates on CXR and Covid positive. D-dimer down-trending. -Decadron 6 mg daily x 10 days -Outside of window for remdesivir -Continue CTX for possible superimposed bacterial infection (3) COPD exacerbation Status: Acute Assessment & Plan: History of COPD per chart review on duoneb inhaler at home, reports using 2-3 times daily presenting for dyspnea in the setting of covid. Wheezy on exam. -Albuterol Q4H with Q2H PRN -Dexamethasone for Covid -CTX for coverage of superimposed bacterial PNA (4) Elevated d-dimer Assessment & Plan: D-dimer 1.61 in the setting of Covid. No exam findings consistent with DVT, low concern currently for PE. -Lovenox for DVT PPx -Trend D-dimer (5) Acute kidney injury Status: Acute Assessment & Plan: Normal baseline Cr, presenting with Cr 1.42 in setting of poor PO intake improved to 0.86 this AM with fluids. -Daily BMP -IVF at 50 ml/hr (6) Bacteriuria Assessment & Plan: Asymptomatic bacteriuria. -On CTX for possible superimposed bacterial pneumonia (7) Elevated liver enzymes Status: Acute Assessment & Plan: Elevated AST improving. -Trend CMP (8) Type 2 diabetes mellitus Status: Chronic Assessment & Plan: Unclear insulin regimen at home with multiple different insulin orders per clinic chart review. Patient reports taking NPL/lispro 75-25 with ~30 U in AM and ~50 U in PM. Here BGL elevated, but not taking good PO. -Levemir 15 QHS, Aspart 5 AC -Sliding scale ACHS (9) Hypertension Status: Chronic Assessment & Plan: On lisinopril at home. -Resume lisinopril GIL GHOTRA MD 07/28/212126: Supervisory-Addendum Brief Supervisory Addendum I personally have seen and evaluated the patient and performed my own physical exam. I agree with the documented assessment and plan by PGY3 Otilio Hampton MD. ZANE HAMPTON MD Jul 28, 2021 11:56 GIL GHOTRA MD Jul 28, 2021 21:27
[2021-07-28 12:00] VITALS: BP 135/83
[2021-07-28 16:21] VITALS: BP 178/71
[2021-07-28] MEDS: NS IV 1000 ML 1,000 ML IV SCH (17:45)
[2021-07-28 20:26] VITALS: BP 159/71
[2021-07-29] VITALS (7 sets, daily range): BP systolic 105–174; BP diastolic 47–96
[2021-07-29] MEDS: RT-ALBUTEROL HFA 8.5 GM INHALER IH SCH ×5 (03:38→22:50)
[2021-07-29 05:55] LABS: HEMATOCRIT 34 % (35-52); HEMOGLOBIN 11.4 g/dL (11.5-16.0); MEAN CORPUSCULAR HEMOGLOBIN 30 pg (25-34); MEAN CORPUSCULAR HGB CONC 33 g/dL (32-36); MEAN CORPUSCULAR VOLUME 91 fL (80-99); MEAN PLATELET VOLUME 9.5 fL (9.0-12.2); PLATELET COUNT 361 10^3/uL (130-400); WHITE BLOOD COUNT 10.3 10^3/uL (4.3-11.0)
[2021-07-29 06:12] LABS: POTASSIUM 4.1 MMOL/L (3.6-5.0)
[2021-07-29 06:13] LABS: CALCIUM 8.5 MG/DL (8.5-10.1)
[2021-07-29 06:18] LABS: CREATININE SERUM 0.81 MG/DL (0.60-1.30)
--- NOTE | 2021-07-29 06:49 | Progress Note - Hospitalist ---
Subjective HPI/CC On Admission Date Seen by Provider: Jul 29, 2021 Time Seen by Provider: 11:00 Subjective/Events-last exam Patient doing well Still in isolation No shortness of breath Maintain on oxygen Check meds labs No BM for 7 days will initiate aggressive laxatives Home meds were restarted Review of Systems Pulmonary: Dyspnea Gastrointestinal: Constipation Objective Exam Vital Signs Vital Signs Date Time Temp Pulse Resp B/P (MAP) Pulse Ox O2 Delivery O2 Flow Rate FiO2 07/30/21 04:32 36.4 81 22 132/68 (89) 95 High Flow N/C 7.00 07/29/21 02:20 30 Capillary Refill : Less Than 3 Seconds General Appearance: No Apparent Distress, WD/WN, Chronically ill, Obese Respiratory: Lungs Clear, Normal Breath Sounds, Decreased Breath Sounds Cardiovascular: Regular Rate, Rhythm Neurologic/Psychiatric: Alert, Oriented x3, No Motor/Sensory Deficits, Normal Mood/Affect Results/Procedures Lab Laboratory Tests 07/30/21 05:42 Patient resulted labs reviewed. Assessment/Plan Assessment and Plan Assess & Plan/Chief Complaint Assessment: Acute hypoxic respiratory failure COVID-19 pneumonia Advanced age Diabetes Hypertension Chronic pain Severe constipation Plan: Supportive care Decadron Bowel regimen Restart home meds KEVIN SELBY DO Jul 29, 2021 06:49
[2021-07-29] MEDS: ENOXAPARIN 40 MG/0.4 ML (LOVENOX) SYR SC SCH ×2 (07:01→18:13)
[2021-07-29] MEDS: inSUlin ASPART (NovoLOG) 1 UNIT/0.01 ML (CHARGE PER UNIT) SC SCH ×7 (07:01→21:49)
[2021-07-29] MEDS: lisINopril 5 MG (PRINIVIL) TABLET PO SCH (10:05)
[2021-07-29] MEDS: cefTRIAXone 1 GM PRE-MIX 50 ML IV SCH (10:06)
--- NOTE | 2021-07-29 10:49 | Physical Therapy Progress Note ---
Therapy Progress Note Patient refused treatment. Reports she didn't sleep well and rates abdominal pain at 8/10. Nursing notified, will attempt treatment again next visit. PATRICE LANDEROS PT Jul 29, 2021 10:49
[2021-07-29] MEDS ORDERED: BISACODYL 10 MG SUPP (DULCOLAX) PR PRN (13:00)
[2021-07-29] MEDS ORDERED: DOCUSATE SODIUM 100 MG (COLACE) CAP PO PRN (13:00)
[2021-07-29] MEDS ORDERED: MAGNESIUM OXIDE (MAG-OX)400 MG TAB PO PRN (13:15)
[2021-07-29] MEDS: SENNA W/DOCUSATE (SENOKOT S) TABLET PO SCH ×2 (15:23→21:49)
[2021-07-29] MEDS: polyethylene glycoL POWDER 17 GM (MIRALAX) PACK PO SCH ×2 (15:23→21:49)
[2021-07-29] MEDS ORDERED: NS IV 1000 ML 1,000 ML ONE (15:29)
[2021-07-29] MEDS: NS IV 1000 ML 1,000 ML IV SCH (15:32)
[2021-07-29] MEDS ORDERED: [UNRECOGNIZED DRUG - OTHER] SQ SCH (18:00)
[2021-07-29] MEDS ORDERED: INSULIN NPL SQ SCH (18:00)
[2021-07-29] MEDS ORDERED: INSULIN LISPRO SQ SCH (18:00)
[2021-07-29] MEDS: LACTULOSE SYRUP 10GM/15ML (ENULOSE) 30ML UDC PO SCH (21:49)
[2021-07-30] VITALS: BP 151/81
[2021-07-30] MEDS: RT-ALBUTEROL HFA 8.5 GM INHALER IH SCH ×6 (03:19→22:29)
[2021-07-30 04:32] VITALS: BP 132/68
[2021-07-30 05:54] LABS: BASOPHILS % (AUTO) 0 % (0-10); EOSINOPHILS % (AUTO) 0 % (0-10); HEMATOCRIT 32 % (35-52); HEMOGLOBIN 10.8 g/dL (11.5-16.0); LYMPHOCYTES # (AUTO) 1.1 10^3/uL (1.0-4.0); LYMPHOCYTES % (AUTO) 14 % (12-44); MEAN CORPUSCULAR HEMOGLOBIN 30 pg (25-34); MEAN CORPUSCULAR HGB CONC 33 g/dL (32-36); MEAN CORPUSCULAR VOLUME 91 fL (80-99); MEAN PLATELET VOLUME 9.4 fL (9.0-12.2); MONOCYTES # (AUTO) 0.7 10^3/uL (0.0-1.0); MONOCYTES % (AUTO) 9 % (0-12); NEUTROPHILS # (AUTO) 5.9 10^3/uL (1.8-7.8); NEUTROPHILS % (AUTO) 76 % (42-75); PLATELET COUNT 361 10^3/uL (130-400); WHITE BLOOD COUNT 7.7 10^3/uL (4.3-11.0)
[2021-07-30 06:15] LABS: ALBUMIN 2.9 GM/DL (3.2-4.5)
[2021-07-30 06:16] LABS: POTASSIUM 3.9 MMOL/L (3.6-5.0)
[2021-07-30 06:17] LABS: CALCIUM 8.4 MG/DL (8.5-10.1)
[2021-07-30 06:18] LABS: TOTAL PROTEIN 5.7 GM/DL (6.4-8.2)
[2021-07-30 06:20] LABS: BILIRUBIN,TOTAL 0.6 MG/DL (0.1-1.0)
[2021-07-30 06:22] LABS: CREATININE SERUM 0.75 MG/DL (0.60-1.30)
[2021-07-30] MEDS: ENOXAPARIN 40 MG/0.4 ML (LOVENOX) SYR SC SCH ×2 (07:01→18:20)
[2021-07-30] MEDS: MULTIVIT W/MINERALS TAB (THERAGRAN M) PO SCH (07:01)
[2021-07-30] MEDS: inSUlin ASPART (NovoLOG) 1 UNIT/0.01 ML (CHARGE PER UNIT) SC SCH ×7 (07:01→21:32)
--- NOTE | 2021-07-30 07:37 | Diagnostic Imaging Report ---
EXAMINATION: Chest 1 view HISTORY: Pneumonia COMPARISON: 07/26/2021 FINDINGS: Heart size and pulmonary vasculature are stable. Increasing patchy consolidation seen throughout both lungs, right greater than left. No pleural effusion or pneumothorax. The osseous structures are intact. IMPRESSION: 1. Increasing patchy consolidation throughout both lungs compatible with worsening pneumonia. Dictated by: Dictated on workstation # [id number]
[2021-07-30 08:39] VITALS: BP 186/103
[2021-07-30] MEDS: cefTRIAXone 1 GM PRE-MIX 50 ML IV SCH (09:00)
[2021-07-30] MEDS: SENNA W/DOCUSATE (SENOKOT S) TABLET PO SCH ×2 (09:00→21:30)
[2021-07-30] MEDS: LACTULOSE SYRUP 10GM/15ML (ENULOSE) 30ML UDC PO SCH ×2 (09:00→21:31)
[2021-07-30] MEDS: polyethylene glycoL POWDER 17 GM (MIRALAX) PACK PO SCH ×2 (09:00→21:31)
[2021-07-30] MEDS: lisINopril 5 MG (PRINIVIL) TABLET PO SCH (09:00)
[2021-07-30 12:23] VITALS: BP 172/79
--- NOTE | 2021-07-30 12:28 | Progress Note - Hospitalist ---
Subjective HPI/CC On Admission Date Seen by Provider: Jul 30, 2021 Time Seen by Provider: 12:30 Subjective/Events-last exam Patient doing about the same Requiring oxygen Very frail at baseline Very sedentary at baseline Checked meds and labs Review of Systems General: Fatigue Pulmonary: Dyspnea Objective Exam Vital Signs Vital Signs Date Time Temp Pulse Resp B/P (MAP) Pulse Ox O2 Delivery O2 Flow Rate FiO2 07/31/21 04:55 35.9 70 20 151/63 (92) 96 High Flow N/C 5.00 07/29/21 02:20 30 Capillary Refill : Less Than 3 Seconds General Appearance: No Apparent Distress, WD/WN, Chronically ill Respiratory: No Accessory Muscle Use, No Respiratory Distress, Decreased Breath Sounds Cardiovascular: Regular Rate, Rhythm Neurologic/Psychiatric: Alert, Oriented x3, No Motor/Sensory Deficits, Normal Mood/Affect Results/Procedures Lab Patient resulted labs reviewed. Assessment/Plan Assessment and Plan Assess & Plan/Chief Complaint Assessment: Acute hypoxic respiratory failure COVID-19 pneumonia Advanced age Diabetes Hypertension Chronic pain Severe constipation Plan: Supportive care Decadron Bowel regimen Restart home meds 07/30/2021: Suppository and fleets Supportive care KEVIN SELBY DO Jul 30, 2021 12:28
[2021-07-30] MEDS ORDERED: GLYCERIN ADULT SUPPOSITORY PR ONE (13:00)
[2021-07-30 15:43] VITALS: BP 135/72
[2021-07-30 19:57] VITALS: BP 137/70
[2021-07-30] MEDS: IBUPROFEN 800 MG (MOTRIN) TAB PO PRN (21:38)
[2021-07-31 00:45] VITALS: BP 132/65
[2021-07-31] MEDS: RT-ALBUTEROL HFA 8.5 GM INHALER IH SCH ×6 (02:37→22:08)
[2021-07-31 04:55] VITALS: BP 151/63
[2021-07-31 05:54] LABS: BASOPHILS % (AUTO) 0 % (0-10); EOSINOPHILS % (AUTO) 0 % (0-10); HEMATOCRIT 32 % (35-52); HEMOGLOBIN 10.6 g/dL (11.5-16.0); LYMPHOCYTES # (AUTO) 1.6 10^3/uL (1.0-4.0); LYMPHOCYTES % (AUTO) 22 % (12-44); MEAN CORPUSCULAR HEMOGLOBIN 30 pg (25-34); MEAN CORPUSCULAR HGB CONC 33 g/dL (32-36); MEAN CORPUSCULAR VOLUME 92 fL (80-99); MEAN PLATELET VOLUME 9.7 fL (9.0-12.2); MONOCYTES # (AUTO) 0.6 10^3/uL (0.0-1.0); MONOCYTES % (AUTO) 8 % (0-12); NEUTROPHILS # (AUTO) 5.1 10^3/uL (1.8-7.8); NEUTROPHILS % (AUTO) 69 % (42-75); PLATELET COUNT 378 10^3/uL (130-400); WHITE BLOOD COUNT 7.4 10^3/uL (4.3-11.0)
[2021-07-31 06:21] LABS: ALBUMIN 2.6 GM/DL (3.2-4.5); BILIRUBIN,TOTAL 0.5 MG/DL (0.1-1.0); CALCIUM 8.2 MG/DL (8.5-10.1); CREATININE SERUM 0.71 MG/DL (0.60-1.30); POTASSIUM 3.7 MMOL/L (3.6-5.0); TOTAL PROTEIN 5.4 GM/DL (6.4-8.2)
[2021-07-31] MEDS: inSUlin ASPART (NovoLOG) 1 UNIT/0.01 ML (CHARGE PER UNIT) SC SCH ×7 (06:26→21:34)
[2021-07-31] MEDS: MULTIVIT W/MINERALS TAB (THERAGRAN M) PO SCH (06:53)
[2021-07-31] MEDS: ENOXAPARIN 40 MG/0.4 ML (LOVENOX) SYR SC SCH ×2 (06:53→18:16)
[2021-07-31 07:29] VITALS: BP 142/63
[2021-07-31] MEDS: cefTRIAXone 1 GM PRE-MIX 50 ML IV SCH (08:29)
[2021-07-31] MEDS: polyethylene glycoL POWDER 17 GM (MIRALAX) PACK PO SCH ×2 (08:30→21:33)
[2021-07-31] MEDS: LACTULOSE SYRUP 10GM/15ML (ENULOSE) 30ML UDC PO SCH ×2 (08:30→21:33)
[2021-07-31] MEDS: SENNA W/DOCUSATE (SENOKOT S) TABLET PO SCH ×2 (08:30→21:34)
[2021-07-31] MEDS: lisINopril 5 MG (PRINIVIL) TABLET PO SCH (08:30)
--- NOTE | 2021-07-31 09:30 | Physical Therapy Progress Note ---
Therapy Progress Note Patient refuses therapy this morning. Nursing just got her back to bed and she doesn't want to participate. Patient educated on the benefits of therapy but she continues to refuse. Will check back later today if possible. ODILON MERCADO PT Jul 31, 2021 09:30
--- NOTE | 2021-07-31 10:35 | Progress Note - Hospitalist ---
Subjective HPI/CC On Admission Date Seen by Provider: Jul 31, 2021 Time Seen by Provider: 11:00 Subjective/Events-last exam Pt is doing okay Talks on the phone to a family member while I am examining her Oxygen remains stable On 5 liters Initiate PT and OT Large bowel movement after laxatives Review of Systems General: Fatigue, Malaise Pulmonary: Dyspnea Objective Exam Vital Signs Vital Signs Date Time Temp Pulse Resp B/P (MAP) Pulse Ox O2 Delivery O2 Flow Rate FiO2 08/01/21 02:33 96 High Flow N/C 3.00 08/01/21 00:30 36.4 83 20 154/78 (103) 07/29/21 02:20 30 Capillary Refill : Less Than 3 Seconds General Appearance: No Apparent Distress, WD/WN, Chronically ill, Obese Respiratory: Lungs Clear, Decreased Breath Sounds Cardiovascular: Regular Rate, Rhythm Neurologic/Psychiatric: Alert, Oriented x3, Depressed Affect Results/Procedures Lab Laboratory Tests 07/31/21 05:45 Patient resulted labs reviewed. Assessment/Plan Assessment and Plan Assess & Plan/Chief Complaint Assessment: Acute hypoxic respiratory failure COVID-19 pneumonia Advanced age Diabetes Hypertension Chronic pain Severe constipation Plan: Supportive care Decadron Bowel regimen Restart home meds 07/30/2021: Suppository and fleets Supportive care 07/31/2021: Supportive care Bowel regimen PT and OT KEVIN SELBY DO Jul 31, 2021 10:35
[2021-07-31 10:57] VITALS: BP 131/79
--- NOTE | 2021-07-31 11:28 | Physical Therapy Daily Note ---
PT Daily Note-Current Subjective Patient in bed pre tx, agrees to PT but doesn't want to get out of bed, has no complaints of pain. Appearance Patient in bed post tx with nurse call, phone, tray, all needs met. Mental Status Patient Orientation: Person, Place, Situation Attachments: Gifford Catheter Transfers SCALE: Activities may be completed with or without assistive devices. 1-Hsrkcjowhm-bcahdlv completes the activity by him/herself with no assistance from a helper. 5-Set-up or Clean-up Assistance-helper sets up or cleans up; patient completes activity. [place] assists only prior to or following the activity. 4-Supervision or Touching Assistance-helper provides verbal cues and/or touching/steadying and/or contact guard assistance as patient completes activity. Assistance may be provided throughout the activity or intermittently. 3-Partial/Moderate Assistance-helper does LESS THAN HALF the effort. [place] lifts, holds or supports trunk or limbs, but provides less than half the effort. 2-Substantial/Maximal Assistance-helper does MORE THAN HALF the effort. [place] lifts or holds trunk or limbs and provides more than half the effort. 6-Hbtzsmual-ravviu does ALL the effort. Patient does none of the effort to complete the activity. Or, the assistance of 2 or more helpers is required for the patient to complete the activity. If activity was not attempted, code reason: 7-Patient Refused. 9-Not Applicable-not attempted and the patient did not perform the activity before the current illness, exacerbation or injury. 10-Not Attempted due to Environmental Limitations-(lack of equipment, weather restraints, etc.). 88-Not Attempted due to Medical Conditions or Safety Concerns. Weight Bearing Right Lower Extremity: Right Weight Bearing/Tolerated Left Lower Extremity: Left Weight Bearing/Tolerated Exercises Supine Ex: Ankle pumps, Quad Set, Glut sets, Heel Slides, Straight leg raise (AAROM), Hip abd/add (AAROM) Supine Reps: 20 Treatments BLE strengthening Assessment Current Status: Poor Progress Patient doesn't want to get out of bed because she did so earlier this morning. PT Social Security Specialist Goals Mcc Goals PT Social Security Specialist Goals Time Frame: Sep 01, 2021 Roll Left & Right (QC): 6 Sit to Lying (QC): 6 Lying-Sitting on Side/Bed(QC): 6 Sit to Stand (QC): 6 Chair/Fri-ln-Eiosl Xfer(QC): 6 Toilet Transfer (QC): 6 Car Transfer (QC): 6 Does the Patient Walk: Yes Walk 10 feet (QC): 4 Walk 50ft with 2 Turns (QC): 4 Walk 150 ft (QC): 4 Walking 10ft on Uneven Surface: 4 Picking up an Object (QC): 4 PT Plan Problem List Problem List: Activity Tolerance, Functional Strength, Safety, Balance, Gait, Transfer, Bed Mobility, ROM Treatment/Plan Treatment Plan: Continue Plan of Care Treatment Plan: Bed Mobility, Education, Functional Activity Robert, Functional Strength, Group Therapy, Gait, Safety, Therapeutic Exercise, Transfers Treatment Duration: Sep 01, 2021 Frequency: 6 times per week Estimated Hrs Per Day: .25 hour per day Safety Risks/Education Patient Education: Correct Positioning, Safety Issues Teaching Recipient: Patient Teaching Methods: Demonstration, Discussion Response to Teaching: Reinforcement Needed Time/GCodes Time In: 1115 Time Out: 1125 Total Billed Treatment Time: 10 Total Billed Treatment 1 visit EX ODILON LOBO PT Jul 31, 2021 11:28
[2021-07-31 15:54] VITALS: BP 158/80
[2021-07-31 19:30] VITALS: BP 162/84
[2021-08-01 00:30] VITALS: BP 154/78
[2021-08-01] MEDS: CYCLOBENZAPRINE 10 MG (FLEXERIL) TAB PO PRN (02:18)
[2021-08-01] MEDS: IBUPROFEN 800 MG (MOTRIN) TAB PO PRN (02:18)
[2021-08-01] MEDS: RT-ALBUTEROL HFA 8.5 GM INHALER IH SCH ×8 (02:33→21:41)
[2021-08-01 05:15] VITALS: BP 138/76
[2021-08-01] MEDS: inSUlin ASPART (NovoLOG) 1 UNIT/0.01 ML (CHARGE PER UNIT) SC SCH ×7 (06:41→21:59)
[2021-08-01] MEDS: MULTIVIT W/MINERALS TAB (THERAGRAN M) PO SCH (06:41)
[2021-08-01] MEDS: ENOXAPARIN 40 MG/0.4 ML (LOVENOX) SYR SC SCH ×2 (06:41→17:35)
[2021-08-01 07:01] LABS: BASOPHILS % (AUTO) 0 % (0-10); EOSINOPHILS # (AUTO) 0.1 10^3/uL (0.0-0.3); EOSINOPHILS % (AUTO) 1 % (0-10); HEMATOCRIT 33 % (35-52); HEMOGLOBIN 10.6 g/dL (11.5-16.0); LYMPHOCYTES # (AUTO) 1.9 10^3/uL (1.0-4.0); LYMPHOCYTES % (AUTO) 26 % (12-44); MEAN CORPUSCULAR HEMOGLOBIN 30 pg (25-34); MEAN CORPUSCULAR HGB CONC 32 g/dL (32-36); MEAN CORPUSCULAR VOLUME 93 fL (80-99); MEAN PLATELET VOLUME 9.1 fL (9.0-12.2); MONOCYTES # (AUTO) 0.8 10^3/uL (0.0-1.0); MONOCYTES % (AUTO) 10 % (0-12); NEUTROPHILS # (AUTO) 4.6 10^3/uL (1.8-7.8); NEUTROPHILS % (AUTO) 61 % (42-75); PLATELET COUNT 374 10^3/uL (130-400); WHITE BLOOD COUNT 7.5 10^3/uL (4.3-11.0)
--- NOTE | 2021-08-01 07:01 | Progress Note - Hospitalist ---
Subjective HPI/CC On Admission Date Seen by Provider: Aug 01, 2021 Time Seen by Provider: 11:00 Subjective/Events-last exam Pt doing about the same Remains on five liters of oxygen Doesn't do anything but sleep which is likely baseline Gifford catheter still in place Will evaluate for long-term placement Review of Systems General: Fatigue Objective Exam Vital Signs Vital Signs Date Time Temp Pulse Resp B/P (MAP) Pulse Ox O2 Delivery O2 Flow Rate FiO2 08/02/21 04:20 37.2 83 20 101/69 (80) 94 High Flow N/C 2.00 07/29/21 02:20 30 Capillary Refill : Less Than 3 Seconds General Appearance: No Apparent Distress, WD/WN, Chronically ill, Obese, Other (Sleeping) Respiratory: Lungs Clear, Normal Breath Sounds Cardiovascular: Regular Rate, Rhythm Results/Procedures Lab Laboratory Tests 08/01/21 06:51 Patient resulted labs reviewed. Assessment/Plan Assessment and Plan Assess & Plan/Chief Complaint Assessment: Acute hypoxic respiratory failure COVID-19 pneumonia Advanced age Diabetes Hypertension Chronic pain Severe constipation Plan: Supportive care Decadron Bowel regimen Restart home meds 07/30/2021: Suppository and fleets Supportive care 07/31/2021: Supportive care Bowel regimen PT and OT 08/01/2021: Supportive care KEVIN SELBY DO Aug 01, 2021 07:01
[2021-08-01 07:44] LABS: ALBUMIN 2.5 GM/DL (3.2-4.5); BILIRUBIN,TOTAL 0.5 MG/DL (0.1-1.0); CALCIUM 8.2 MG/DL (8.5-10.1); CREATININE SERUM 0.77 MG/DL (0.60-1.30); POTASSIUM 3.7 MMOL/L (3.6-5.0); TOTAL PROTEIN 5.2 GM/DL (6.4-8.2)
[2021-08-01 08:00] VITALS: BP 143/67
--- NOTE | 2021-08-01 08:56 | Occupational Therapy Eval ---
OT Evaluation-General/PLF Medical Diagnosis Admission Date Jul 26, 2021 at 18:15 Medical Diagnosis: Acute Respiratory Failure Onset Date: Jul 27, 2021 Therapy Diagnosis Therapy Diagnosis: decreased ADL status Height/Weight Height (Feet): 5 Height (Inches): 6.00 Weight (Pounds): 272 Weight (Ounces): 3.2 Precautions Precautions/Isolations: Airborne Isolation, Contact Isolation, Droplet Isolation, Fall Prevention Referral Physician: Deidre Referral Reason: Evaluation/Treatment Medical History Pertinent Medical History: COPD, DM, HTN, Neuropathy Additional Medical History hypertension, type II DM, COPD, chronic hypoxic respiratory failure on 2.5 L O2 overnight, chronic pain Current History Pt presents with COVID-19 07/27, unvaccinated. States she has gotten progressively weaker, had poor intake, diarrhea and chills. Social History Home: Single Level Current Living Status: Children Entry Into Home: Ramp ADL-Prior Level of Function SCALE: Activities may be completed with or without assistive devices. 4-Ikitpqkuvg-ilvmimg completes the activity by him/herself with no assistance from a helper. 5-Set-up or Clean-up Assistance-helper sets up or cleans up; patient completes activity. [place] assists only prior to or following the activity. 4-Supervision or Touching Assistance-helper provides verbal cues and/or touching/steadying and/or contact guard assistance as patient completes activity. Assistance may be provided throughout the activity or intermittently. 3-Partial/Moderate Assistance-helper does LESS THAN HALF the effort. [place] lifts, holds or supports trunk or limbs, but provides less than half the effort. 2-Substantial/Maximal Assistance-helper does MORE THAN HALF the effort. [place] lifts or holds trunk or limbs and provides more than half the effort. 9-Dfweqfknl-jeubwm does ALL the effort. Patient does none of the effort to complete the activity. Or, the assistance of 2 or more helpers is required for the patient to complete the activity. If activity was not attempted, code reason: 7-Patient Refused. 9-Not Applicable-not attempted and the patient did not perform the activity before the current illness, exacerbation or injury. 10-Not Attempted due to Environmental Limitations-(lack of equipment, weather restraints, etc.). 88-Not Attempted due to Medical Conditions or Safety Concerns. ADL PLOF Comments Pt unable to provide information on this date, per chart review and PT evaluation, pt has an agency that comes to her house M-F to assist with cooking, cleaning and bathing. She is partially blind, but able to dress herself if her clothes are laid out for her. Self Care: Needed Some Help Functional Cognition: Unknown OT Current Status Subjective Pt laying in bed, eyes closed. Pt appeared lethargic and had difficulty following instructions throughout session due to lethargy. Mental Status/Objective Patient Orientation: Person, Place, Time, Situation Attachments: Suprapubic Catheter Current Upper Extremity ROM Unable to test due to lethargy ADL-Treatment Eating (QC): 5 (set up assist) On/Off Footwear (QC): 1 (total assist to don bilateral gripper socks.) Other Treatments Pt laying in bed, eyes closed. Slight difficulty arousing pt and she would not keep her eyes closed. Pt transferred supine to sit EOB, assist x2. Once EOB, Pt stood at FWW and transferred to recliner, CGA, with verbal guidance and assistance with maneuvering walker. Pt transferred to recliner. OT positioned breakfast in front of pt, set up assistance provided with opening containers and informing pt what food was on her tray. Pt did not eat anything while OT was in the room, but based on chart review of nursing notes, pt has been independent with meals. Post tx, pt in recliner, call light in reach and all needs met. Education OT Patient Education: Correct positioning, Modified ADL techniques, Progress toward Goal/Update tx plan, Purpose of tx/functional activities, Rehab process Teaching Recipient: Patient Teaching Methods: Discussion Response to Teaching: Verbalize Understanding OT [facility] Goals [employer]er Goals Time Frame: Aug 18, 2021 Eating (QC): 5 Oral Hygiene (QC): 5 Toileting Hygiene (QC): 4 Shower/Bathe Self (QC): 3 Upper Body Dressing (QC): 5 Lower Body Dressing (QC): 4 On/Off Footwear (QC): 3 Additional Goals: 1-Demonstrate ADL Tasks, 2-Verbalize Understanding, 3- ImproveStrength/Robert 1=Demonstrate adherence to instructed precautions during ADL tasks. 2=Patient will verbalize/demonstrate understanding of assistive devices/modifications for ADL. 3=Patient will improve strength/tolerance for activity to enable patient to perform ADL's. OT Education/Plan Problem List/Assessment Assessment: Decreased Activ Tolerance, Decreased Safety Aware, Decreased UE Strength, Impaired Funct Balance, Impaired I ADL's, Impaired Self-Care Skills, Visual-Perceptual Deficit Discharge Recommendations Plan/Recommendations: Continue POC Treatment Plan/Plan of Care Patient would benefit from OT for education, treatment and training to promote independence in ADL's, mobility, safety and/or upper extremity function for ADL's. Plan of Care: ADL Retraining, Functional Mobility, UE Funct Exercise/Act Treatment Duration: Aug 18, 2021 Frequency: 3 times per week (3-5 times per week) Rehab Potential: Fair Time/GCodes Start Time: 08:28 Stop Time: 08:38 Total Time Billed (hr/min): 10 Billed Treatment Time 1, LOUIE GONZALEZ OT Aug 01, 2021 08:56
--- NOTE | 2021-08-01 08:58 | Physical Therapy Daily Note ---
PT Daily Note-Current Subjective Patient in bed pre tx, agrees to PT, very lethargic, voices no complaints of pain. Appearance Patient in recliner post tx with nurse call, phone, tray, all needs met. Mental Status Patient Orientation: Person Attachments: Oxygen, Gifford Catheter Transfers SCALE: Activities may be completed with or without assistive devices. 4-Glnvzpiqpy-igzjaei completes the activity by him/herself with no assistance from a helper. 5-Set-up or Clean-up Assistance-helper sets up or cleans up; patient completes activity. [place] assists only prior to or following the activity. 4-Supervision or Touching Assistance-helper provides verbal cues and/or touching/steadying and/or contact guard assistance as patient completes activ ity. Assistance may be provided throughout the activity or intermittently. 3-Partial/Moderate Assistance-helper does LESS THAN HALF the effort. [place] lifts, holds or supports trunk or limbs, but provides less than half the effort. 2-Substantial/Maximal Assistance-helper does MORE THAN HALF the effort. [place] lifts or holds trunk or limbs and provides more than half the effort. 4-Rzhaemets-taqszr does ALL the effort. Patient does none of the effort to complete the activity. Or, the assistance of 2 or more helpers is required for the patient to complete the activity. If activity was not attempted, code reason: 7-Patient Refused. 9-Not Applicable-not attempted and the patient did not perform the activity before the current illness, exacerbation or injury. 10-Not Attempted due to Environmental Limitations-(lack of equipment, weather restraints, etc.). 88-Not Attempted due to Medical Conditions or Safety Concerns. Roll Left & Right (QC): 3 Lying to Sitting/Side of Bed(Q: 3 Sit to Stand (QC): 3 Chair/Emk-ou-Lwmcj Xfer(QC): 4 Weight Bearing Right Lower Extremity: Right Weight Bearing/Tolerated Left Lower Extremity: Left Weight Bearing/Tolerated Gait Training Distance: 5' Gait Persons Needed: 1 Gait Assistive Device: FWW slow, slumped posture, patient needs guiding and cues to open her eyes Treatments bed mobility and transfers, ambulation Assessment Current Status: Poor Progress Patient has poor motivation, lethargic PT Snf Goals Snf Goals PT Snf Goals Time Frame: Sep 01, 2021 Roll Left & Right (QC): 6 Sit to Lying (QC): 6 Lying-Sitting on Side/Bed(QC): 6 Sit to Stand (QC): 6 Chair/Ogf-um-Casxn Xfer(QC): 6 Toilet Transfer (QC): 6 Car Transfer (QC): 6 Does the Patient Walk: Yes Walk 10 feet (QC): 4 Walk 50ft with 2 Turns (QC): 4 Walk 150 ft (QC): 4 Walking 10ft on Uneven Surface: 4 Picking up an Object (QC): 4 PT Plan Problem List Problem List: Activity Tolerance, Functional Strength, Safety, Balance, Gait, Transfer, Bed Mobility, ROM Treatment/Plan Treatment Plan: Continue Plan of Care Treatment Plan: Bed Mobility, Education, Functional Activity Robert, Functional Strength, Group Therapy, Gait, Safety, Therapeutic Exercise, Transfers Treatment Duration: Sep 01, 2021 Frequency: 6 times per week Estimated Hrs Per Day: .25 hour per day Safety Risks/Education Patient Education: Gait Training, Transfer Techniques, Correct Positioning, Safety Issues Teaching Recipient: Patient Teaching Methods: Demonstration, Discussion Response to Teaching: Reinforcement Needed Time/GCodes Time In: 827 Time Out: 837 Total Billed Treatment Time: 10 Total Billed Treatment 1 visit FA Jada' ODILON MERCADO PT Aug 01, 2021 08:58
[2021-08-01] MEDS: cefTRIAXone 1 GM PRE-MIX 50 ML IV SCH (09:32)
[2021-08-01] MEDS: LACTULOSE SYRUP 10GM/15ML (ENULOSE) 30ML UDC PO SCH ×2 (09:32→21:59)
[2021-08-01] MEDS: dexAMETHasone 6 MG TAB (DECADRON) PO SCH (09:32)
[2021-08-01] MEDS: SENNA W/DOCUSATE (SENOKOT S) TABLET PO SCH ×2 (09:33→21:59)
[2021-08-01] MEDS: polyethylene glycoL POWDER 17 GM (MIRALAX) PACK PO SCH ×2 (09:33→21:59)
[2021-08-01] MEDS: lisINopril 5 MG (PRINIVIL) TABLET PO SCH (09:34)
[2021-08-01 12:00] VITALS: BP 158/77
[2021-08-01 15:29] VITALS: BP 125/75
[2021-08-01 19:20] VITALS: BP 179/81
[2021-08-02 00:05] VITALS: BP 166/64
[2021-08-02] MEDS: RT-ALBUTEROL HFA 8.5 GM INHALER IH SCH ×6 (02:32→22:45)
[2021-08-02 04:20] VITALS: BP 101/69
[2021-08-02] MEDS: MULTIVIT W/MINERALS TAB (THERAGRAN M) PO SCH (06:13)
[2021-08-02] MEDS: ENOXAPARIN 40 MG/0.4 ML (LOVENOX) SYR SC SCH ×2 (06:14→17:28)
[2021-08-02] MEDS: inSUlin ASPART (NovoLOG) 1 UNIT/0.01 ML (CHARGE PER UNIT) SC SCH ×7 (06:15→21:36)
[2021-08-02 06:16] LABS: BASOPHILS % (AUTO) 0 % (0-10); EOSINOPHILS # (AUTO) 0.1 10^3/uL (0.0-0.3); EOSINOPHILS % (AUTO) 1 % (0-10); HEMATOCRIT 34 % (35-52); LYMPHOCYTES % (AUTO) 25 % (12-44); MEAN CORPUSCULAR HEMOGLOBIN 30 pg (25-34); MEAN CORPUSCULAR HGB CONC 32 g/dL (32-36); MEAN CORPUSCULAR VOLUME 93 fL (80-99); MEAN PLATELET VOLUME 9.4 fL (9.0-12.2); MONOCYTES # (AUTO) 0.8 10^3/uL (0.0-1.0); MONOCYTES % (AUTO) 11 % (0-12); NEUTROPHILS # (AUTO) 4.8 10^3/uL (1.8-7.8); NEUTROPHILS % (AUTO) 60 % (42-75); PLATELET COUNT 321 10^3/uL (130-400)
[2021-08-02 06:28] LABS: ALBUMIN 2.6 GM/DL (3.2-4.5); POTASSIUM 4.6 MMOL/L (3.6-5.0)
[2021-08-02 06:29] LABS: CALCIUM 8.3 MG/DL (8.5-10.1)
[2021-08-02 06:31] LABS: TOTAL PROTEIN 5.8 GM/DL (6.4-8.2)
[2021-08-02 06:32] LABS: BILIRUBIN,TOTAL 0.5 MG/DL (0.1-1.0)
[2021-08-02 06:34] LABS: CREATININE SERUM 0.73 MG/DL (0.60-1.30)
[2021-08-02 08:00] VITALS: BP_SYST 141; BP_SYST 175; BP_DIAS 74; BP_DIAS 82
[2021-08-02] MEDS: LACTULOSE SYRUP 10GM/15ML (ENULOSE) 30ML UDC PO SCH ×2 (08:55→21:35)
[2021-08-02] MEDS: SENNA W/DOCUSATE (SENOKOT S) TABLET PO SCH ×2 (08:55→21:35)
[2021-08-02] MEDS: polyethylene glycoL POWDER 17 GM (MIRALAX) PACK PO SCH ×2 (08:56→21:35)
[2021-08-02] MEDS: dexAMETHasone 6 MG TAB (DECADRON) PO SCH (09:28)
[2021-08-02] MEDS: lisINopril 5 MG (PRINIVIL) TABLET PO SCH (09:28)
--- NOTE | 2021-08-02 09:41 | Occupational Ther Daily Note ---
OT Current Status-Daily Note Subjective Pt drowsy, lying in bed. Pt woke to name. Pt agrees to therapy. No c/o pain at this time. Mental Status/Objective Patient Orientation: Person, Place, Time, Situation Attachments: IV, Oxygen (hiflow 2L), Telemetry ADL-Treatment Pt independent with bed mobility. Supine to EOB independent. Pt sat on EOB until dizziness subsided. Pt unable to manage footwear sitting EOB, dependent. Using FWW, pt able to transfer to BSC beside bed with SBA for safety. Pt then completed upper body and marley area bathing while on BSC. Assist to cleanse lower legs/feet then assist to cleanse buttocks in standing. Pt stated that she has neuropathy and was unable to complete. With encouragement pt was able to bath marley area and attempted buttocks. Pt then ambulated to recliner using FWW with SBA. After session, pt sitting in recliner with nrsg present in room. All needs met in room. Therapy Code Descriptions/Definitions Functional [place] Measure: 0=Not Assessed/NA 4=Minimal Assistance 1=Total Assistance 5=Supervision or Setup 2=Maximal Assistance 6=Modified [place] 3=Moderate Assistance 7=Complete IndependenceSCALE: Activities may be completed with or without assistive devices. 7-Ssndbebkdu-lzwnfha completes the activity by him/herself with no assistance from a helper. 5-Set-up or Clean-up Assistance-helper sets up or cleans up; patient completes activity. [place] assists only prior to or following the activity. 4-Supervision or Touching Assistance-helper provides verbal cues and/or touching/steadying and/or contact guard assistance as patient completes activity. Assistance may be provided throughout the activity or intermittently. 3-Partial/Moderate Assistance-helper does LESS THAN HALF the effort. [place] lifts, holds or supports trunk or limbs, but provides less than half the effort. 2-Substantial/Maximal Assistance-helper does MORE THAN HALF the effort. [place] lifts or holds trunk or limbs and provides more than half the effort. 4-Oqfivyqts-qooost does ALL the effort. Patient does none of the effort to comp lete the activity. Or, the assistance of 2 or more helpers is required for the patient to complete the activity. If activity was not attempted, code reason: 7-Patient Refused. 9-Not Applicable-not attempted and the patient did not perform the activity before the current illness, exacerbation or injury. 10-Not Attempted due to Environmental Limitations-(lack of equipment, weather restraints, etc.). 88-Not Attempted due to Medical Conditions or Safety Concerns. Bathing Location: L Arm, R Arm, L Upper Leg, R Upper Leg, Chest, Abdomen, Perineal Area Shower/Bathe Self (QC): 3 (mod A) Toileting Hygiene (QC): 3 (mod A) Toilet Transfer (QC): 4 (SBA) OT Skilled Nursing Goals Skilled Nursing Goals Time Frame: Aug 18, 2021 Eating (QC): 5 Oral Hygiene (QC): 5 Toileting Hygiene (QC): 4 Shower/Bathe Self (QC): 3 Upper Body Dressing (QC): 5 Lower Body Dressing (QC): 4 On/Off Footwear (QC): 3 Additional Goals: 1-Demonstrate ADL Tasks, 2-Verbalize Understanding, 3-ImproveStrength/Robert 1=Demonstrate adherence to instructed precautions during ADL tasks. 2=Patient will verbalize/demonstrate understanding of assistive devices/modifications for ADL. 3=Patient will improve strength/tolerance for activity to enable patient to perform ADL's. OT Education/Plan Problem List/Assessment Assessment: Decreased Activ Tolerance, Impaired Self-Care Skills Discharge Recommendations Plan/Recommendations: Continue POC Treatment Plan/Plan of Care Patient would benefit from OT for education, treatment and training to promote i ndependence in ADL's, mobility, safety and/or upper extremity function for ADL's. Plan of Care: ADL Retraining, Functional Mobility, UE Funct Exercise/Act Treatment Duration: Aug 18, 2021 Frequency: 3 times per week (3-5 times per week) Rehab Potential: Fair Time/GCodes Start Time: 08:45 Stop Time: 09:08 Total Time Billed (hr/min): 23 Billed Treatment Time 1 visit-ADL 2 (23 min) JOSE L SHAW Aug 02, 2021 09:41
--- NOTE | 2021-08-02 10:11 | Physical Therapy Daily Note ---
PT Daily Note-Current Subjective Patient in recliner pre tx, agrees to PT, voices no complaints of pain. Appearance Patient in recliner post tx with nurse call, phone, tray, all needs met. Mental Status Patient Orientation: Person, Place, Situation Attachments: Oxygen, Gifford Catheter Transfers SCALE: Activities may be completed with or without assistive devices. 0-Mnmotylbct-chxbrro completes the activity by him/herself with no assistance from a helper. 5-Set-up or Clean-up Assistance-helper sets up or cleans up; patient completes activity. [place] assists only prior to or following the activity. 4-Supervision or Touching Assistance-helper provides verbal cues and/or touching/steadying and/or contact guard assistance as patient completes activity. Assistance may be provided throughout the activity or intermittently. 3-Partial/Moderate Assistance-helper does LESS THAN HALF the effort. [place] lifts, holds or supports trunk or limbs, but provides less than half the effort. 2-Substantial/Maximal Assistance-helper does MORE THAN HALF the effort. [place] lifts or holds trunk or limbs and provides more than half the effort. 8-Mdxqtelnq-hpshxp does ALL the effort. Patient does none of the effort to complete the activity. Or, the assistance of 2 or more helpers is required for the patient to complete the activity. If activity was not attempted, code reason: 7-Patient Refused. 9-Not Applicable-not attempted and the patient did not perform the activity before the current illness, exacerbation or injury. 10-Not Attempted due to Environmental Limitations-(lack of equipment, weather restraints, etc.). 88-Not Attempted due to Medical Conditions or Safety Concerns. Sit to Stand (QC): 4 CGA for sit to stand. Patient states she doesn't feel like she can ambulate today. After standing she does a couple of standing strengthening exercises and then needs to sit. Her O2 has dropped to low 80's with just that activity but comes back up to 90% in no longer than about 15 seconds. Weight Bearing Right Lower Extremity: Right Weight Bearing/Tolerated Left Lower Extremity: Left Weight Bearing/Tolerated Exercises Standing: Heel/toe raises, Mini squats Standing Reps: 10 Treatments LE strengthening Assessment Current Status: Poor Progress Patient has dizziness with standing, very fatigued after tx. PT Molded Goods Spot Picker Goals Molded Goods Spot Picker Goals PT Prison Goals Time Frame: Sep 01, 2021 Roll Left & Right (QC): 6 Sit to Lying (QC): 6 Lying-Sitting on Side/Bed(QC): 6 Sit to Stand (QC): 6 Chair/Fds-cq-Tqnqj Xfer(QC): 6 Toilet Transfer (QC): 6 Car Transfer (QC): 6 Does the Patient Walk: Yes Walk 10 feet (QC): 4 Walk 50ft with 2 Turns (QC): 4 Walk 150 ft (QC): 4 Walking 10ft on Uneven Surface: 4 Picking up an Object (QC): 4 PT Plan Problem List Problem List: Activity Tolerance, Functional Strength, Safety, Balance, Gait, Transfer, Bed Mobility, ROM Treatment/Plan Treatment Plan: Continue Plan of Care Treatment Plan: Bed Mobility, Education, Functional Activity Robert, Functional Strength, Group Therapy, Gait, Safety, Therapeutic Exercise, Transfers Treatment Duration: Sep 01, 2021 Frequency: 6 times per week Estimated Hrs Per Day: .25 hour per day Safety Risks/Education Patient Education: Correct Positioning, Safety Issues Teaching Recipient: Patient Teaching Methods: Demonstration, Discussion Response to Teaching: Reinforcement Needed Time/GCodes Time In: 33 Time Out: 09 Total Billed Treatment Time: 10 Total Billed Treatment 1 visit EX 10' ODILON MERCADO PT Aug 02, 2021 10:11
[2021-08-02 12:00] VITALS: BP 175/74
[2021-08-02 15:52] VITALS: BP 125/58
[2021-08-02 19:52] VITALS: BP 120/70
[2021-08-03] VITALS (7 sets, daily range): BP systolic 107–158; BP diastolic 64–82
[2021-08-03] MEDS: RT-ALBUTEROL HFA 8.5 GM INHALER IH SCH ×6 (03:12→23:03)
[2021-08-03] MEDS: inSUlin ASPART (NovoLOG) 1 UNIT/0.01 ML (CHARGE PER UNIT) SC SCH ×7 (06:09→21:18)
[2021-08-03] MEDS: MULTIVIT W/MINERALS TAB (THERAGRAN M) PO SCH (06:39)
[2021-08-03] MEDS: ENOXAPARIN 40 MG/0.4 ML (LOVENOX) SYR SC SCH ×2 (06:39→16:40)
--- NOTE | 2021-08-03 09:46 | Occupational Ther Daily Note ---
OT Current Status-Daily Note Subjective Pt sleeping in bed, woke to name. Pt agrees to therapy. No c/o pain. Mental Status/Objective Patient Orientation: Person, Place, Time, Situation Attachments: IV, Oxygen ADL-Treatment Pt independent with bed mobility. Supine to EOB independent. Pt sat on EOB until dizziness subsided. Pt unable to manage footwear sitting EOB, dependent. Using FWW, pt able to ambulate from bed to recliner with SBA for safety. Pt then completed upper body and marley area bathing while on BSC. Assist to cleanse lower legs/feet. Pt and nrsg reported that pt had just used BSC so buttocks and marley area had been cleansed after toileting. Pt then ambulated to recliner using FWW with SBA. After session, pt sitting in recliner with nrsg present in room. All needs met in room. Therapy Code Descriptions/Definitions Functional [place] Measure: 0=Not Assessed/NA 4=Minimal Assistance 1=Total Assistance 5=Supervision or Setup 2=Maximal Assistance 6=Modified [place] 3=Moderate Assistance 7=Complete IndependenceSCALE: Activities may be completed with or without assistive devices. 5-Cvtnzbclsg-feznaug completes the activity by him/herself with no assistance f rom a helper. 5-Set-up or Clean-up Assistance-helper sets up or cleans up; patient completes activity. [place] assists only prior to or following the activity. 4-Supervision or Touching Assistance-helper provides verbal cues and/or touching/steadying and/or contact guard assistance as patient completes activity. Assistance may be provided throughout the activity or intermittently. 3-Partial/Moderate Assistance-helper does LESS THAN HALF the effort. [place] lifts, holds or supports trunk or limbs, but provides less than half the effort. 2-Substantial/Maximal Assistance-helper does MORE THAN HALF the effort. [place] lifts or holds trunk or limbs and provides more than half the effort. 9-Zwkvsxxyx-nybtsu does ALL the effort. Patient does none of the effort to complete the activity. Or, the assistance of 2 or more helpers is required for the patient to complete the activity. If activity was not attempted, code reason: 7-Patient Refused. 9-Not Applicable-not attempted and the patient did not perform the activity before the current illness, exacerbation or injury. 10-Not Attempted due to Environmental Limitations-(lack of equipment, weather restraints, etc.). 88-Not Attempted due to Medical Conditions or Safety Concerns. OT [facility] Goals [facility] Goals Time Frame: Aug 18, 2021 Eating (QC): 5 Oral Hygiene (QC): 5 Toileting Hygiene (QC): 4 Shower/Bathe Self (QC): 3 Upper Body Dressing (QC): 5 Lower Body Dressing (QC): 4 On/Off Footwear (QC): 3 Additional Goals: 1-Demonstrate ADL Tasks, 2-Verbalize Understanding, 3-ImproveStrength/Robert 1=Demonstrate adherence to instructed precautions during ADL tasks. 2=Patient will verbalize/demonstrate understanding of assistive devices/modifications for ADL. 3=Patient will improve strength/tolerance for activity to enable patient to perform ADL's. OT Education/Plan Problem List/Assessment Assessment: Decreased Activ Tolerance, Impaired Self-Care Skills, Restricted Funct UE ROM Discharge Recommendations Plan/Recommendations: Continue POC Treatment Plan/Plan of Care Patient would benefit from OT for education, treatment and training to promote independence in ADL's, mobility, safety and/or upper extremity function for ADL's. Plan of Care: ADL Retraining, Functional Mobility, UE Funct Exercise/Act Treatment Duration: Aug 18, 2021 Frequency: 3 times per week (3-5 times per week) Rehab Potential: Fair Time/GCodes Start Time: 08:45 Stop Time: 09:00 Total Time Billed (hr/min): 15 Billed Treatment Time 1 visit-ADL 1 (15 min) JOSE L SHAW Aug 03, 2021 09:46
[2021-08-03] MEDS: polyethylene glycoL POWDER 17 GM (MIRALAX) PACK PO SCH ×2 (09:48→21:18)
[2021-08-03] MEDS: LACTULOSE SYRUP 10GM/15ML (ENULOSE) 30ML UDC PO SCH ×2 (09:48→21:18)
[2021-08-03] MEDS: SENNA W/DOCUSATE (SENOKOT S) TABLET PO SCH ×2 (09:49→21:18)
[2021-08-03] MEDS: dexAMETHasone 6 MG TAB (DECADRON) PO SCH (09:49)
[2021-08-03] MEDS: lisINopril 5 MG (PRINIVIL) TABLET PO SCH (09:49)
--- NOTE | 2021-08-03 11:54 | Progress Note - Hospitalist ---
Subjective HPI/CC On Admission Date Seen by Provider: Aug 03, 2021 Time Seen by Provider: 11:00 Subjective/Events-last exam Pt has no complaints [facility] take her Awaiting approval when [facility] will take her since she is covid positive Review of Systems General: Fatigue, Malaise Pulmonary: Dyspnea Objective Exam Vital Signs Vital Signs Date Time Temp Pulse Resp B/P (MAP) Pulse Ox O2 Delivery O2 Flow Rate FiO2 08/04/21 03:08 96 High Flow N/C 2.00 08/03/21 23:38 37.0 81 20 136/80 (98) 07/29/21 02:20 30 Capillary Refill : Less Than 3 Seconds General Appearance: No Apparent Distress, WD/WN, Chronically ill Respiratory: Lungs Clear, Normal Breath Sounds Cardiovascular: Regular Rate, Rhythm Neurologic/Psychiatric: Alert, Depressed Affect Results/Procedures Lab Patient resulted labs reviewed. Assessment/Plan Assessment and Plan Assess & Plan/Chief Complaint Assessment: Acute hypoxic respiratory failure COVID-19 pneumonia Advanced age Diabetes Hypertension Chronic pain Severe constipation Plan: Supportive care Decadron Bowel regimen Restart home meds 07/30/2021: Suppository and fleets Supportive care 07/31/2021: Supportive care Bowel regimen PT and OT 08/01/2021: Supportive care 08/03/2021: Supportive care Apathy noted KEVIN SELBY DO Aug 03, 2021 11:54
--- NOTE | 2021-08-03 12:33 | Physical Therapy Daily Note ---
PT Daily Note-Current Subjective Patient lying supine in bed upon PT arrival, agreeable to treatment. Transfers SCALE: Activities may be completed with or without assistive devices. 1-Vbvuwohxbm-tywloeq completes the activity by him/herself with no assistance from a helper. 5-Set-up or Clean-up Assistance-helper sets up or cleans up; patient completes activity. [place] assists only prior to or following the activity. 4-Supervision or Touching Assistance-helper provides verbal cues and/or touching/steadying and/or contact guard assistance as patient completes act ivity. Assistance may be provided throughout the activity or intermittently. 3-Partial/Moderate Assistance-helper does LESS THAN HALF the effort. [place] lifts, holds or supports trunk or limbs, but provides less than half the effort. 2-Substantial/Maximal Assistance-helper does MORE THAN HALF the effort. [place] lifts or holds trunk or limbs and provides more than half the effort. 4-Ffvmyzmbw-jcphwz does ALL the effort. Patient does none of the effort to complete the activity. Or, the assistance of 2 or more helpers is required for the patient to complete the activity. If activity was not attempted, code reason: 7-Patient Refused. 9-Not Applicable-not attempted and the patient did not perform the activity before the current illness, exacerbation or injury. 10-Not Attempted due to Environmental Limitations-(lack of equipment, weather restraints, etc.). 88-Not Attempted due to Medical Conditions or Safety Concerns. Roll Left & Right (QC): 3 Sit to Lying (QC): 3 Lying to Sitting/Side of Bed(Q: 3 Sit to Stand (QC): 4 Chair/Sjk-lq-Sbrqf Xfer(QC): 4 Weight Bearing Right Lower Extremity: Right Weight Bearing/Tolerated Left Lower Extremity: Left Weight Bearing/Tolerated Gait Training Does the Patient Walk?: Yes Distance: 6 feet Gait Assistive Device: FWW Exercises Seated Therapy Exercises: Ankle pumps, Long arc quads, Hip flexion, Hamstring Curls, Hip abd/add Seated Reps: 20 Assessment Current Status: Fair Progress Patient tolerated treatment well. Requires min A for all observed bed mobility and CGA for transfers. Patient ambulates 6 feet to the chair with FWW, with min A and verbal cues for progression. Patient performs LE therapeutic exercise while in the chair. Patient in chair post treatment with all needs met, nursing notified, call light in reach. PT Fdc Goals Show Girl Goals PT Fdc Goals Time Frame: Sep 01, 2021 Roll Left & Right (QC): 6 Sit to Lying (QC): 6 Lying-Sitting on Side/Bed(QC): 6 Sit to Stand (QC): 6 Chair/Zmn-gj-Ygzdl Xfer(QC): 6 Toilet Transfer (QC): 6 Car Transfer (QC): 6 Does the Patient Walk: Yes Walk 10 feet (QC): 4 Walk 50ft with 2 Turns (QC): 4 Walk 150 ft (QC): 4 Walking 10ft on Uneven Surface: 4 Picking up an Object (QC): 4 PT Plan Treatment/Plan Treatment Plan: Continue Plan of Care Treatment Plan: Bed Mobility, Education, Functional Activity Robert, Functional Strength, Group Therapy, Gait, Safety, Therapeutic Exercise, Transfers Treatment Duration: Sep 01, 2021 Frequency: 6 times per week Estimated Hrs Per Day: .25 hour per day Safety Risks/Education Patient Education: Gait Training, Transfer Techniques Teaching Recipient: Patient Teaching Methods: Demonstration, Discussion Response to Teaching: Reinforcement Needed Time/GCodes Time In: 1120 Time Out: 1135 Total Billed Treatment Time: 15 Total Billed Treatment Visit, EX PATRICE LANDEROS PT Aug 03, 2021 12:33
[2021-08-03] MEDS: CYCLOBENZAPRINE 10 MG (FLEXERIL) TAB PO PRN (23:42)
[2021-08-03] MEDS: IBUPROFEN 800 MG (MOTRIN) TAB PO PRN (23:42)
[2021-08-04] MEDS: RT-ALBUTEROL HFA 8.5 GM INHALER IH SCH ×4 (03:08→21:58)
[2021-08-04 04:00] VITALS: BP 149/84
[2021-08-04] MEDS: inSUlin ASPART (NovoLOG) 1 UNIT/0.01 ML (CHARGE PER UNIT) SC SCH ×7 (05:34→21:02)
[2021-08-04] MEDS: MULTIVIT W/MINERALS TAB (THERAGRAN M) PO SCH (06:38)
[2021-08-04] MEDS: ENOXAPARIN 40 MG/0.4 ML (LOVENOX) SYR SC SCH ×2 (06:38→21:01)
[2021-08-04 07:28] VITALS: BP 152/78
[2021-08-04] MEDS: lisINopril 5 MG (PRINIVIL) TABLET PO SCH (08:48)
[2021-08-04] MEDS: LACTULOSE SYRUP 10GM/15ML (ENULOSE) 30ML UDC PO SCH ×3 (08:49→21:05)
[2021-08-04] MEDS: dexAMETHasone 6 MG TAB (DECADRON) PO SCH (08:49)
[2021-08-04] MEDS: SENNA W/DOCUSATE (SENOKOT S) TABLET PO SCH ×2 (08:49→21:01)
[2021-08-04] MEDS: polyethylene glycoL POWDER 17 GM (MIRALAX) PACK PO SCH ×2 (08:49→21:01)
[2021-08-04 09:02] VITALS: BP 152/78
--- NOTE | 2021-08-04 09:06 | Physical Therapy Daily Note ---
PT Daily Note-Current Subjective Patient in bed pre tx, agrees to PT, has no complaints of pain Appearance Patient in recliner post tx with nurse call, phone, tray, all needs met. Mental Status Patient Orientation: Person, Place, Situation Transfers SCALE: Activities may be completed with or without assistive devices. 1-Wlyuyunswm-hpbhgll completes the activity by him/herself with no assistance from a helper. 5-Set-up or Clean-up Assistance-helper sets up or cleans up; patient completes activity. [place] assists only prior to or following the activity. 4-Supervision or Touching Assistance-helper provides verbal cues and/or touching/steadying and/or contact guard assistance as patient completes activity. Assistance may be provided throughout the activity or intermittently. 3-Partial/Moderate Assistance-helper does LESS THAN HALF the effort. [place] lifts, holds or supports trunk or limbs, but provides less than half the effort. 2-Substantial/Maximal Assistance-helper does MORE THAN HALF the effort. [place] lifts or holds trunk or limbs and provides more than half the effort. 5-Qstigxfvq-oubbwc does ALL the effort. Patient does none of the effort to complete the activity. Or, the assistance of 2 or more helpers is required for the patient to complete the activity. If activity was not attempted, code reason: 7-Patient Refused. 9-Not Applicable-not attempted and the patient did not perform the activity before the current illness, exacerbation or injury. 10-Not Attempted due to Environmental Limitations-(lack of equipment, weather restraints, etc.). 88-Not Attempted due to Medical Conditions or Safety Concerns. Roll Left & Right (QC): 6 Lying to Sitting/Side of Bed(Q: 4 Sit to Stand (QC): 4 Chair/Xrj-gk-Xzomc Xfer(QC): 4 Weight Bearing Right Lower Extremity: Right Weight Bearing/Tolerated Left Lower Extremity: Left Weight Bearing/Tolerated Gait Training Distance: 5' Gait Persons Needed: 1 Gait Assistive Device: FWW More steady ambulation, patient declined to ambulate further Exercises Seated Therapy Exercises: Ankle pumps, Long arc quads Seated Reps: 20 Treatments bed mobility and transfers, ambulation, LE strengthening Assessment Current Status: Fair Progress improving bed mobility and transfers PT Dishwasher Goals Dishwasher Goals PT Dishwasher Goals Time Frame: Sep 01, 2021 Roll Left & Right (QC): 6 Sit to Lying (QC): 6 Lying-Sitting on Side/Bed(QC): 6 Sit to Stand (QC): 6 Chair/Qot-ed-Eqwvc Xfer(QC): 6 Toilet Transfer (QC): 6 Car Transfer (QC): 6 Does the Patient Walk: Yes Walk 10 feet (QC): 4 Walk 50ft with 2 Turns (QC): 4 Walk 150 ft (QC): 4 Walking 10ft on Uneven Surface: 4 Picking up an Object (QC): 4 PT Plan Problem List Problem List: Activity Tolerance, Functional Strength, Safety, Balance, Gait, Transfer, Bed Mobility, ROM Treatment/Plan Treatment Plan: Continue Plan of Care Treatment Plan: Bed Mobility, Education, Functional Activity Robert, Functional Strength, Group Therapy, Gait, Safety, Therapeutic Exercise, Transfers Treatment Duration: Sep 01, 2021 Frequency: 6 times per week Estimated Hrs Per Day: .25 hour per day Safety Risks/Education Patient Education: Gait Training, Transfer Techniques, Correct Positioning, Safety Issues Teaching Recipient: Patient Teaching Methods: Demonstration, Discussion Response to Teaching: Reinforcement Needed Time/GCodes Time In: 0838 Time Out: 0848 Total Billed Treatment Time: 10 Total Billed Treatment 1 visit FA 10' ODILON MERCADO PT Aug 04, 2021 09:06
--- NOTE | 2021-08-04 10:58 | Occupational Ther Daily Note ---
OT Current Status-Daily Note Subjective Pt sleeping in bed, woke easily to name. Pt agrees to therapy. Nrsg tech in room to take VS. Mental Status/Objective Patient Orientation: Person, Place, Time, Situation Attachments: IV ADL-Treatment Therapy Code Descriptions/Definitions Functional Ruth Measure: 0=Not Assessed/NA 4=Minimal Assistance 1=Total Assistance 5=Supervision or Setup 2=Maximal Assistance 6=Modified Ruth 3=Moderate Assistance 7=Complete IndependenceSCALE: Activities may be completed with or without assistive devices. 6-Jeabiilolk-yasobqd completes the activity by him/herself with no assistance from a helper. 5-Set-up or Clean-up Assistance-helper sets up or cleans up; patient completes activity. [place] assists only prior to or following the activity. 4-Supervision or Touching Assistance-helper provides verbal cues and/or touching/steadying and/or contact guard assistance as patient completes activity. Assistance may be provided throughout the activity or intermittently. 3-Partial/Moderate Assistance-helper does LESS THAN HALF the effort. [place] lifts, holds or supports trunk or limbs, but provides less than half the effort. 2-Substantial/Maximal Assistance-helper does MORE THAN HALF the effort. [place] lifts or holds trunk or limbs and provides more than half the effort. 5-Oqazyinkn-yrlxxc does ALL the effort. Patient does none of the effort to complete the activity. Or, the assistance of 2 or more helpers is required for the patient to complete the activity. If activity was not attempted, code reason: 7-Patient Refused. 9-Not Applicable-not attempted and the patient did not perform the activity before the current illness, exacerbation or injury. 10-Not Attempted due to Environmental Limitations-(lack of equipment, weather restraints, etc.). 88-Not Attempted due to Medical Conditions or Safety Concerns. Other Treatment Skilled instruction to complete B UE light resistance theraband exercises, requires cue for correct technique and to stay focused on task. Pt completed 3 exercises 2 set 10 reps each, horizontal shldr add/abd, tricep ext, bicep curls. Pt required recovery after completing 1 set. After therapy, pt lying in bed with call light/phone in reach. All needs met in room. OT Driver Engineer Goals Correction Goals Time Frame: Aug 18, 2021 Eating (QC): 5 Oral Hygiene (QC): 5 Toileting Hygiene (QC): 4 Shower/Bathe Self (QC): 3 Upper Body Dressing (QC): 5 Lower Body Dressing (QC): 4 On/Off Footwear (QC): 3 Additional Goals: 1-Demonstrate ADL Tasks, 2-Verbalize Understanding, 3- ImproveStrength/Robert 1=Demonstrate adherence to instructed precautions during ADL tasks. 2=Patient will verbalize/demonstrate understanding of assistive devices/modifications for ADL. 3=Patient will improve strength/tolerance for activity to enable patient to perform ADL's. OT Education/Plan Problem List/Assessment Assessment: Decreased Activ Tolerance, Decreased UE Strength, Impaired Self-Ca re Skills Discharge Recommendations Plan/Recommendations: Continue POC Treatment Plan/Plan of Care Patient would benefit from OT for education, treatment and training to promote independence in ADL's, mobility, safety and/or upper extremity function for ADL's. Plan of Care: ADL Retraining, Functional Mobility, UE Funct Exercise/Act Treatment Duration: Aug 18, 2021 Frequency: 3 times per week (3-5 times per week) Rehab Potential: Fair Time/GCodes Start Time: 10:33 Stop Time: 10:47 Total Time Billed (hr/min): 14 Billed Treatment Time 1 visit-EX 1 (14 min) JOSE L SHAW Aug 04, 2021 10:58
[2021-08-04 11:08] VITALS: BP 117/54
--- NOTE | 2021-08-04 11:23 | Progress Note - Hospitalist ---
Subjective HPI/CC On Admission Date Seen by Provider: Aug 04, 2021 Time Seen by Provider: 11:30 Subjective/Events-last exam Pt about the same [facility] placement on Saturday All she does is sleep Unsure of her prognosis Review of Systems General: Fatigue, Malaise Objective Exam Vital Signs Vital Signs Date Time Temp Pulse Resp B/P (MAP) Pulse Ox O2 Delivery O2 Flow Rate FiO2 08/05/21 02:41 91 Room Air 08/05/21 00:18 36.7 78 16 121/69 (86) 08/04/21 09:02 24 08/04/21 08:06 1.00 Capillary Refill : Less Than 3 Seconds General Appearance: No Apparent Distress, WD/WN, Chronically ill, Obese, Other (Asleep) Respiratory: Normal Breath Sounds, No Accessory Muscle Use Results/Procedures Lab Laboratory Tests 08/05/21 05:31 Patient resulted labs reviewed. Assessment/Plan Assessment and Plan Assess & Plan/Chief Complaint Assessment: Acute hypoxic respiratory failure COVID-19 pneumonia Advanced age Diabetes Hypertension Chronic pain Severe constipation Plan: Supportive care Decadron Bowel regimen Restart home meds 07/30/2021: Suppository and fleets Supportive care 07/31/2021: Supportive care Bowel regimen PT and OT 08/01/2021: Supportive care 08/03/2021: Supportive care Apathy noted 08/04/2021: [facility] on Saturday Prognosis poor KEVIN SELBY DO Aug 04, 2021 11:23
[2021-08-04 15:18] VITALS: BP 144/80
[2021-08-05 00:18] VITALS: BP 121/69
[2021-08-05] MEDS: IBUPROFEN 800 MG (MOTRIN) TAB PO PRN (00:21)
[2021-08-05] MEDS: RT-ALBUTEROL HFA 8.5 GM INHALER IH SCH ×4 (02:41→20:37)
[2021-08-05 05:41] LABS: BASOPHILS % (AUTO) 0 % (0-10); EOSINOPHILS # (AUTO) 0.1 10^3/uL (0.0-0.3); EOSINOPHILS % (AUTO) 2 % (0-10); HEMATOCRIT 33 % (35-52); HEMOGLOBIN 10.9 g/dL (11.5-16.0); LYMPHOCYTES # (AUTO) 2.2 10^3/uL (1.0-4.0); LYMPHOCYTES % (AUTO) 26 % (12-44); MEAN CORPUSCULAR HEMOGLOBIN 30 pg (25-34); MEAN CORPUSCULAR HGB CONC 33 g/dL (32-36); MEAN CORPUSCULAR VOLUME 93 fL (80-99); MONOCYTES % (AUTO) 12 % (0-12); NEUTROPHILS # (AUTO) 4.9 10^3/uL (1.8-7.8); NEUTROPHILS % (AUTO) 59 % (42-75); PLATELET COUNT 366 10^3/uL (130-400); WHITE BLOOD COUNT 8.4 10^3/uL (4.3-11.0)
[2021-08-05 05:52] LABS: ALBUMIN 2.7 GM/DL (3.2-4.5)
[2021-08-05 05:53] LABS: CALCIUM 8.3 MG/DL (8.5-10.1)
[2021-08-05 05:54] LABS: TOTAL PROTEIN 5.7 GM/DL (6.4-8.2)
[2021-08-05 05:56] LABS: BILIRUBIN,TOTAL 0.4 MG/DL (0.1-1.0)
[2021-08-05 05:58] LABS: CREATININE SERUM 0.85 MG/DL (0.60-1.30)
[2021-08-05] MEDS: inSUlin ASPART (NovoLOG) 1 UNIT/0.01 ML (CHARGE PER UNIT) SC SCH ×7 (06:13→21:20)
[2021-08-05] MEDS: ENOXAPARIN 40 MG/0.4 ML (LOVENOX) SYR SC SCH ×2 (06:14→18:30)
[2021-08-05] MEDS: MULTIVIT W/MINERALS TAB (THERAGRAN M) PO SCH (06:14)
[2021-08-05 07:41] VITALS: BP 149/74
[2021-08-05] MEDS: polyethylene glycoL POWDER 17 GM (MIRALAX) PACK PO SCH ×2 (08:39→21:23)
[2021-08-05] MEDS: LACTULOSE SYRUP 10GM/15ML (ENULOSE) 30ML UDC PO SCH ×2 (08:39→21:23)
[2021-08-05] MEDS: SENNA W/DOCUSATE (SENOKOT S) TABLET PO SCH ×2 (08:40→21:24)
[2021-08-05] MEDS: dexAMETHasone 6 MG TAB (DECADRON) PO SCH (08:40)
[2021-08-05] MEDS: lisINopril 5 MG (PRINIVIL) TABLET PO SCH (08:40)
--- NOTE | 2021-08-05 09:15 | Progress Note - Hospitalist ---
Subjective HPI/CC On Admission Date Seen by Provider: Aug 05, 2021 Time Seen by Provider: 11:00 Subjective/Events-last exam Patient out of isolation today Bowels are moving after laxatives Check meds and labs Patient sleeps most of the time Review of Systems General: Fatigue, Malaise Objective Exam Vital Signs Vital Signs Date Time Temp Pulse Resp B/P (MAP) Pulse Ox O2 Delivery O2 Flow Rate FiO2 08/06/21 02:35 91 Room Air 08/05/21 23:11 36.6 69 24 130/68 (88) 08/05/21 10:38 0.00 08/04/21 09:02 24 Capillary Refill : Less Than 3 Seconds General Appearance: No Apparent Distress, WD/WN, Chronically ill Respiratory: Lungs Clear, Normal Breath Sounds Neurologic/Psychiatric: Alert, Oriented x3 Results/Procedures Lab Laboratory Tests 08/06/21 05:42 Patient resulted labs reviewed. Assessment/Plan Assessment and Plan Assess & Plan/Chief Complaint Assessment: Acute hypoxic respiratory failure COVID-19 pneumonia Advanced age Diabetes Hypertension Chronic pain Severe constipation Plan: Supportive care Decadron Bowel regimen Restart home meds 07/30/2021: Suppository and fleets Supportive care 07/31/2021: Supportive care Bowel regimen PT and OT 08/01/2021: Supportive care 08/03/2021: Supportive care Apathy noted 08/04/2021: alf on Saturday Prognosis poor 08/05/2021: Out of isolation Supportive care KEVIN SELBY DO Aug 05, 2021 09:15
--- NOTE | 2021-08-05 10:27 | Physical Therapy Daily Note ---
PT Daily Note-Current Subjective Patient in shower pre tx with nurse aide. Patient has no complaints of pain. Appearance Patient sitting EOB post tx, nurse aide will comb her hair. Mental Status Patient Orientation: Person, Place, Situation Transfers SCALE: Activities may be completed with or without assistive devices. 2-Owsbgktqgu-lcorcki completes the activity by him/herself with no assistance from a helper. 5-Set-up or Clean-up Assistance-helper sets up or cleans up; patient completes activity. [place] assists only prior to or following the activity. 4-Supervision or Touching Assistance-helper provides verbal cues and/or touchin g/steadying and/or contact guard assistance as patient completes activity. Assistance may be provided throughout the activity or intermittently. 3-Partial/Moderate Assistance-helper does LESS THAN HALF the effort. [place] lifts, holds or supports trunk or limbs, but provides less than half the effort. 2-Substantial/Maximal Assistance-helper does MORE THAN HALF the effort. [place] lifts or holds trunk or limbs and provides more than half the effort. 2-Xlsuvjiwk-ksxvia does ALL the effort. Patient does none of the effort to complete the activity. Or, the assistance of 2 or more helpers is required for the patient to complete the activity. If activity was not attempted, code reason: 7-Patient Refused. 9-Not Applicable-not attempted and the patient did not perform the activity before the current illness, exacerbation or injury. 10-Not Attempted due to Environmental Limitations-(lack of equipment, weather restraints, etc.). 88-Not Attempted due to Medical Conditions or Safety Concerns. Sit to Stand (QC): 4 Chair/Yii-xl-Teoie Xfer(QC): 4 Weight Bearing Right Lower Extremity: Right Weight Bearing/Tolerated Left Lower Extremity: Left Weight Bearing/Tolerated Gait Training Distance: 20' Walk 10 feet (QC): 4 Gait Assistive Device: FWW Patient ambulates slowly, seems completely exhausted after ambulation but her O2 was 89% after ambulation Treatments standing and ambulation Assessment Current Status: Fair Progress patient very shaky PT Dials Inspector Goals Dials Inspector Goals PT Dials Inspector Goals Time Frame: Sep 01, 2021 Roll Left & Right (QC): 6 Sit to Lying (QC): 6 Lying-Sitting on Side/Bed(QC): 6 Sit to Stand (QC): 6 Chair/Xle-st-Lktss Xfer(QC): 6 Toilet Transfer (QC): 6 Car Transfer (QC): 6 Does the Patient Walk: Yes Walk 10 feet (QC): 4 Walk 50ft with 2 Turns (QC): 4 Walk 150 ft (QC): 4 Walking 10ft on Uneven Surface: 4 Picking up an Object (QC): 4 PT Plan Problem List Problem List: Activity Tolerance, Functional Strength, Safety, Balance, Gait, Transfer, Bed Mobility, ROM Treatment/Plan Treatment Plan: Continue Plan of Care Treatment Plan: Bed Mobility, Education, Functional Activity Robert, Functional Strength, Group Therapy, Gait, Safety, Therapeutic Exercise, Transfers Treatment Duration: Sep 01, 2021 Frequency: 6 times per week Estimated Hrs Per Day: .25 hour per day Safety Risks/Education Patient Education: Gait Training, Transfer Techniques, Correct Positioning, Safety Issues Teaching Recipient: Patient Teaching Methods: Demonstration, Discussion Response to Teaching: Reinforcement Needed Time/GCodes Time In: 1001 Time Out: 1013 Total Billed Treatment Time: 12 Total Billed Treatment 1 visit FA ODILON BLANCHARD PT Aug 05, 2021 10:27
[2021-08-05 15:41] VITALS: BP 139/62
[2021-08-05 23:11] VITALS: BP 130/68
[2021-08-06] MEDS: RT-ALBUTEROL HFA 8.5 GM INHALER IH SCH ×4 (02:35→20:58)
[2021-08-06 06:21] LABS: BASOPHILS % (AUTO) 0 % (0-10); EOSINOPHILS # (AUTO) 0.2 10^3/uL (0.0-0.3); EOSINOPHILS % (AUTO) 2 % (0-10); HEMATOCRIT 36 % (35-52); HEMOGLOBIN 11.5 g/dL (11.5-16.0); LYMPHOCYTES # (AUTO) 2.2 10^3/uL (1.0-4.0); LYMPHOCYTES % (AUTO) 25 % (12-44); MEAN CORPUSCULAR HEMOGLOBIN 30 pg (25-34); MEAN CORPUSCULAR HGB CONC 32 g/dL (32-36); MEAN CORPUSCULAR VOLUME 94 fL (80-99); MEAN PLATELET VOLUME 9.5 fL (9.0-12.2); MONOCYTES # (AUTO) 0.9 10^3/uL (0.0-1.0); MONOCYTES % (AUTO) 10 % (0-12); NEUTROPHILS # (AUTO) 5.7 10^3/uL (1.8-7.8); NEUTROPHILS % (AUTO) 62 % (42-75); PLATELET COUNT 352 10^3/uL (130-400); WHITE BLOOD COUNT 9.2 10^3/uL (4.3-11.0)
[2021-08-06 06:31] LABS: ALBUMIN 2.8 GM/DL (3.2-4.5)
[2021-08-06 06:32] LABS: POTASSIUM 4.6 MMOL/L (3.6-5.0)
[2021-08-06 06:33] LABS: CALCIUM 8.4 MG/DL (8.5-10.1)
[2021-08-06 06:34] LABS: TOTAL PROTEIN 5.8 GM/DL (6.4-8.2)
[2021-08-06 06:36] LABS: BILIRUBIN,TOTAL 0.5 MG/DL (0.1-1.0)
[2021-08-06 06:38] LABS: CREATININE SERUM 0.81 MG/DL (0.60-1.30)
[2021-08-06] MEDS: inSUlin ASPART (NovoLOG) 1 UNIT/0.01 ML (CHARGE PER UNIT) SC SCH ×7 (06:38→21:08)
[2021-08-06] MEDS: ENOXAPARIN 40 MG/0.4 ML (LOVENOX) SYR SC SCH ×2 (06:48→19:18)
[2021-08-06] MEDS: MULTIVIT W/MINERALS TAB (THERAGRAN M) PO SCH (06:48)
[2021-08-06 07:50] VITALS: BP 143/80
[2021-08-06] MEDS: SENNA W/DOCUSATE (SENOKOT S) TABLET PO SCH ×2 (08:45→21:03)
[2021-08-06] MEDS: lisINopril 5 MG (PRINIVIL) TABLET PO SCH (08:45)
[2021-08-06] MEDS: dexAMETHasone 6 MG TAB (DECADRON) PO SCH (08:45)
[2021-08-06] MEDS: polyethylene glycoL POWDER 17 GM (MIRALAX) PACK PO SCH ×2 (08:46→21:03)
[2021-08-06] MEDS: LACTULOSE SYRUP 10GM/15ML (ENULOSE) 30ML UDC PO SCH ×2 (08:46→21:03)
--- NOTE | 2021-08-06 12:05 | Progress Note - Hospitalist ---
Subjective HPI/CC On Admission Date Seen by Provider: Aug 06, 2021 Time Seen by Provider: 11:45 Subjective/Events-last exam No significant changes Patient sleeps most of the time Objective Exam Vital Signs Vital Signs Date Time Temp Pulse Resp B/P (MAP) Pulse Ox O2 Delivery O2 Flow Rate FiO2 08/06/21 16:00 36.6 74 24 136/67 (90) 90 Room Air 08/05/21 10:38 0.00 08/04/21 09:02 24 Capillary Refill : Less Than 3 Seconds General Appearance: No Apparent Distress, WD/WN, Chronically ill Respiratory: Lungs Clear, Normal Breath Sounds Cardiovascular: Regular Rate, Rhythm Results/Procedures Lab Laboratory Tests 08/06/21 05:42 Patient resulted labs reviewed. Assessment/Plan Assessment and Plan Assess & Plan/Chief Complaint Assessment: Acute hypoxic respiratory failure COVID-19 pneumonia Advanced age Diabetes Hypertension Chronic pain Severe constipation Plan: Supportive care Decadron Bowel regimen Restart home meds 07/30/2021: Suppository and fleets Supportive care 07/31/2021: Supportive care Bowel regimen PT and OT 08/01/2021: Supportive care 08/03/2021: Supportive care Apathy noted 08/04/2021: halfway on Saturday Prognosis poor 08/05/2021: Out of isolation Supportive care 08/06/2021: Supportive care KEVIN SELBY DO Aug 06, 2021 12:05
[2021-08-06 16:00] VITALS: BP 136/67
[2021-08-06] MEDS ORDERED: inSUlin (REGULAR) HUMAN 1 UNIT/0.01 ML (CHARGE PER UNIT) SC ONE (16:45)
[2021-08-07 00:04] VITALS: BP 118/61
[2021-08-07] MEDS: RT-ALBUTEROL HFA 8.5 GM INHALER IH SCH ×4 (02:38→21:10)
[2021-08-07 06:04] LABS: BASOPHILS % (AUTO) 0 % (0-10); EOSINOPHILS # (AUTO) 0.1 10^3/uL (0.0-0.3); EOSINOPHILS % (AUTO) 2 % (0-10); HEMATOCRIT 39 % (35-52); HEMOGLOBIN 12.4 g/dL (11.5-16.0); LYMPHOCYTES # (AUTO) 2.5 10^3/uL (1.0-4.0); LYMPHOCYTES % (AUTO) 28 % (12-44); MEAN CORPUSCULAR HEMOGLOBIN 30 pg (25-34); MEAN CORPUSCULAR HGB CONC 32 g/dL (32-36); MEAN CORPUSCULAR VOLUME 94 fL (80-99); MEAN PLATELET VOLUME 9.6 fL (9.0-12.2); MONOCYTES # (AUTO) 0.9 10^3/uL (0.0-1.0); MONOCYTES % (AUTO) 10 % (0-12); NEUTROPHILS # (AUTO) 5.3 10^3/uL (1.8-7.8); NEUTROPHILS % (AUTO) 59 % (42-75); PLATELET COUNT 356 10^3/uL (130-400)
[2021-08-07 06:14] LABS: POTASSIUM 4.4 MMOL/L (3.6-5.0)
[2021-08-07 06:16] LABS: CALCIUM 8.8 MG/DL (8.5-10.1)
[2021-08-07 06:17] LABS: TOTAL PROTEIN 6.2 GM/DL (6.4-8.2)
[2021-08-07 06:19] LABS: BILIRUBIN,TOTAL 0.5 MG/DL (0.1-1.0)
[2021-08-07 06:20] LABS: CREATININE SERUM 0.93 MG/DL (0.60-1.30)
[2021-08-07] MEDS: inSUlin ASPART (NovoLOG) 1 UNIT/0.01 ML (CHARGE PER UNIT) SC SCH ×7 (06:29→20:58)
[2021-08-07] MEDS: ENOXAPARIN 40 MG/0.4 ML (LOVENOX) SYR SC SCH ×2 (06:38→18:09)
[2021-08-07] MEDS: MULTIVIT W/MINERALS TAB (THERAGRAN M) PO SCH (06:38)
[2021-08-07 08:00] VITALS: BP 110/53
[2021-08-07] MEDS: LACTULOSE SYRUP 10GM/15ML (ENULOSE) 30ML UDC PO SCH ×2 (09:21→20:59)
[2021-08-07] MEDS: lisINopril 5 MG (PRINIVIL) TABLET PO SCH (09:21)
[2021-08-07] MEDS: SENNA W/DOCUSATE (SENOKOT S) TABLET PO SCH ×2 (09:21→20:50)
[2021-08-07] MEDS: IBUPROFEN 800 MG (MOTRIN) TAB PO PRN (09:24)
[2021-08-07] MEDS: polyethylene glycoL POWDER 17 GM (MIRALAX) PACK PO SCH ×2 (09:26→20:50)
--- NOTE | 2021-08-07 10:21 | Physical Therapy Daily Note ---
PT Daily Note-Current Subjective Patient agrees to PT. Patient states she just wants to go home. Mental Status Patient Orientation: Normal For Age Transfers SCALE: Activities may be completed with or without assistive devices. 6-Ocavoadneq-evhmhly completes the activity by him/herself with no assistance from a helper. 5-Set-up or Clean-up Assistance-helper sets up or cleans up; patient completes activity. [place] assists only prior to or following the activity. 4-Supervision or Touching Assistance-helper provides verbal cues and/or touching/steadying and/or contact guard assistance as patient completes activity. Assistance may be provided throughout the activity or intermittently. 3-Partial/Moderate Assistance-helper does LESS THAN HALF the effort. [place] lifts, holds or supports trunk or limbs, but provides less than half the effort. 2-Substantial/Maximal Assistance-helper does MORE THAN HALF the effort. [place] lifts or holds trunk or limbs and provides more than half the effort. 4-Ahgnkhbra-agzwzk does ALL the effort. Patient does none of the effort to complete the activity. Or, the assistance of 2 or more helpers is required for the patient to complete the activity. If activity was not attempted, code reason: 7-Patient Refused. 9-Not Applicable-not attempted and the patient did not perform the activity before the current illness, exacerbation or injury. 10-Not Attempted due to Environmental Limitations-(lack of equipment, weather restraints, etc.). 88-Not Attempted due to Medical Conditions or Safety Concerns. Sit to Stand (QC): 4 Chair/Qgc-qv-Gitxh Xfer(QC): 4 Toilet Transfer (QC): 4 SBA with mobility Weight Bearing Right Lower Extremity: Right Weight Bearing/Tolerated Left Lower Extremity: Left Weight Bearing/Tolerated Gait Training Distance: 30' x 2 Walk 10 feet (QC): 4 (SBA for safety) Gait Assistive Device: FWW very slow, steady gait sequence/VC's to stand erect Exercises Supine Ex: Ankle pumps, Quad Set, Heel Slides Supine Reps: 10 (in recliner with bilateral LE elevated) Seated Therapy Exercises: Ankle pumps, Long arc quads, Hip flexion Seated Reps: 10 Assessment Patient requires time to complete all functional tasks. Patient able to toilet self. Noted increase SOA with minimal activity with SAO2 99% RA. PT Custodial Goals Tobacco Checkout Clerk Goals PT Tobacco Checkout Clerk Goals Time Frame: Sep 01, 2021 Roll Left & Right (QC): 6 Sit to Lying (QC): 6 Lying-Sitting on Side/Bed(QC): 6 Sit to Stand (QC): 6 Chair/Kau-qw-Essko Xfer(QC): 6 Toilet Transfer (QC): 6 Car Transfer (QC): 6 Does the Patient Walk: Yes Walk 10 feet (QC): 4 Walk 50ft with 2 Turns (QC): 4 Walk 150 ft (QC): 4 Walking 10ft on Uneven Surface: 4 Picking up an Object (QC): 4 PT Plan Treatment/Plan Treatment Plan: Continue Plan of Care Treatment Plan: Bed Mobility, Education, Functional Activity Robert, Functional Strength, Group Therapy, Gait, Safety, Therapeutic Exercise, Transfers Treatment Duration: Sep 01, 2021 Frequency: 6 times per week Estimated Hrs Per Day: .25 hour per day Time/GCodes Time In: 800 Time Out: 823 Total Billed Treatment Time: 23 Total Billed Treatment 1 visit EX 12 min GT 11 min NOHEMI HERNANDEZ PT Aug 07, 2021 10:21
--- NOTE | 2021-08-07 13:36 | Occupational Ther Daily Note ---
OT Current Status-Daily Note Subjective Pt sitting in recliner, alert. No c/o pain. Pt complaining of possibility of going to [facility] home and visibly upset, agrees to therapy. Mental Status/Objective Patient Orientation: Person, Place, Time, Situation Attachments: IV ADL-Treatment Therapy Code Descriptions/Definitions Functional [place] Measure: 0=Not Assessed/NA 4=Minimal Assistance 1=Total Assistance 5=Supervision or Setup 2=Maximal Assistance 6=Modified [place] 3=Moderate Assistance 7=Complete IndependenceSCALE: Activities may be completed with or without assistive devices. 1-Aulqpfffug-patjqbi completes the activity by him/herself with no assistance from a helper. 5-Set-up or Clean-up Assistance-helper sets up or cleans up; patient completes activity. [place] assists only prior to or following the activity. 4-Supervision or Touching Assistance-helper provides verbal cues and/or touching/steadying and/or contact guard assistance as patient completes activity. Assistance may be provided throughout the activity or intermittently. 3-Partial/Moderate Assistance-helper does LESS THAN HALF the effort. [place] lifts, holds or supports trunk or limbs, but provides less than half the effort. 2-Substantial/Maximal Assistance-helper does MORE THAN HALF the effort. [place] lifts or holds trunk or limbs and provides more than half the effort. 9-Qfrjsatgj-hifvyz does ALL the effort. Patient does none of the effort to complete the activity. Or, the assistance of 2 or more helpers is required for the patient to complete the activity. If activity was not attempted, code reason: 7-Patient Refused. 9-Not Applicable-not attempted and the patient did not perform the activity before the current illness, exacerbation or injury. 10-Not Attempted due to Environmental Limitations-(lack of equipment, weather restraints, etc.). 88-Not Attempted due to Medical Conditions or Safety Concerns. Other Treatment Pt cleansed face while seated in recliner, brushed hair while seated. Pt participated in skilled therapeutic exercise to strengthen B UE and increase activity tolerance. Pt used light resistive theraband to complete B bicep curls 15 reps, B tricep curls 10 reps x2 sets, horizontal shoulder abd/add 10 reps x 2 sets, and 15 reps external rotation. Pt took recovery break after each set requiring constant redirection during session. After session, pt sitting in recliner with call light/phone within reach. All needs met in room. OT Direct Sales Consultant Goals Direct Sales Consultant Goals Time Frame: Aug 18, 2021 Eating (QC): 5 Oral Hygiene (QC): 5 Toileting Hygiene (QC): 4 Shower/Bathe Self (QC): 3 Upper Body Dressing (QC): 5 Lower Body Dressing (QC): 4 On/Off Footwear (QC): 3 Additional Goals: 1-Demonstrate ADL Tasks, 2-Verbalize Understanding, 3- ImproveStrength/Robert 1=Demonstrate adherence to instructed precautions during ADL tasks. 2=Patient will verbalize/demonstrate understanding of assistive devices/modifications for ADL. 3=Patient will improve strength/tolerance for activity to enable patient to perform ADL's. OT Education/Plan Problem List/Assessment Assessment: Decreased Activ Tolerance, Decreased UE Strength Discharge Recommendations Plan/Recommendations: Continue POC Treatment Plan/Plan of Care Patient would benefit from OT for education, treatment and training to promote independence in ADL's, mobility, safety and/or upper extremity function for ADL's. Plan of Care: ADL Retraining, Functional Mobility, UE Funct Exercise/Act Treatment Duration: Aug 18, 2021 Frequency: 3 times per week (3-5 times per week) Rehab Potential: Fair Time/GCodes Start Time: 13:04 Stop Time: 13:24 Total Time Billed (hr/min): 20 Billed Treatment Time 1 Visit- Ex (20 min) JOSE L SHAW Aug 07, 2021 13:36
--- NOTE | 2021-08-07 15:50 | Progress Note ---
Subjective Subjective/Events-last exam No concerns per patient. States that she does not want to go to the NH. Tolerating PO diet. She uses wheel chair primarily at home. Review of Systems General: Fatigue, Malaise Pulmonary: Dyspnea; No Cough Cardiovascular: No: Chest Pain, Palpitations, Edema Gastrointestinal: No: Nausea, Vomiting, Abdominal Pain, Diarrhea, Constipation Neurological: Weakness, Incoordination Objective Exam Last Set of Vital Signs Vital Signs Date Time Temp Pulse Resp B/P (MAP) Pulse Ox O2 Delivery O2 Flow Rate FiO2 08/07/21 15:03 94 Room Air 08/07/21 08:00 36.3 79 20 110/53 (72) 08/05/21 10:38 0.00 08/04/21 09:02 24 Capillary Refill : Less Than 3 Seconds I&O Intake and Output 08/07/21 00:00 Intake Total 1335 ml Balance 1335 ml Intake Oral 1335 ml # Voids 10 # Bowel Movements 2 General: Alert, Oriented X3, No Acute Distress Lungs: Clear to Auscultation, Normal Air Movement Heart: Regular Rate, No Murmurs Abdomen: Normal Bowel Sounds, Soft, No Tenderness, No Masses Extremities: No Edema, No Tenderness/Swelling Psych/Mental Status: Mood NL Results/Procedures Lab Laboratory Tests 08/06/21 16:10: Glucometer 416*H 08/06/21 18:22: Glucometer 374H 08/06/21 20:26: Glucometer 232H 08/07/21 05:15: White Blood Count 9.0, Red Blood Count 4.08, Hemoglobin 12.4, Hematocrit 39, Mean Corpuscular Volume 94, Mean Corpuscular Hemoglobin 30, Mean Corpuscular Hemoglobin Concent 32, Red Cell Distribution Width 14.4, Platelet Count 356, Mean Platelet Volume 9.6, Immature Granulocyte % (Auto) 2, Neutrophils (%) (Auto) 59, Lymphocytes (%) (Auto) 28, Monocytes (%) (Auto) 10, Eosinophils (%) (Auto) 2, Basophils (%) (Auto) 0, Neutrophils # (Auto) 5.3, Lymphocytes # (Auto) 2.5, Monocytes # (Auto) 0.9, Eosinophils # (Auto) 0.1, Basophils # (Auto) 0.0, Immature Granulocyte # (Auto) 0.2H, Sodium Level 142, Potassium Level 4.4, Chloride Level 102, Carbon Dioxide Level 29, Anion Gap 11, Blood Urea Nitrogen 19H, Creatinine 0.93, Estimat Glomerular Filtration Rate 58, BUN/Creatinine Ratio 20, Glucose Level 117H, Calcium Level 8.8, Corrected Calcium 9.6, Total Bilirubin 0.5, Aspartate Amino Transf (AST/SGOT) 56H, Alanine Aminotransferase (ALT/SGPT) 69H, Alkaline Phosphatase 88, Total Protein 6.2L, Albumin 3.0L 08/07/21 11:26: Glucometer 280H 08/07/21 15:36: Glucometer 178H Microbiology 07/26/21 Urine Culture - Final, Complete Escherichia coli Radiology See HPI Assessment/Plan Assessment/Plan (1) Type 2 diabetes mellitus Status: Chronic Assessment & Plan: Unclear insulin regimen at home with multiple different insulin orders per clinic chart review. Patient reports taking NPL/lispro 75-25 with ~30 U in AM and ~50 U in PM. Here BGL elevated, but not taking good PO. -Levemir 15 QHS, Aspart 5 AC -Sliding scale ACHS 08/07: Will adjust as needed, appetite is improving, continue SSI/Accuchecks Qualifiers: (2) Hypertension Status: Chronic Assessment & Plan: On lisinopril at home. -Resume lisinopril (3) Acute respiratory failure with hypoxia Status: Resolved Assessment & Plan: 08/07: Patient doing well on RA (4) Pneumonia due to COVID-19 virus Status: Resolved Assessment & Plan: Unvaccinated elderly female with multiple comorbidities and worsening weakness, diarrhea since 07/05 with bilateral infiltrates on CXR and Covid positive. D-dimer down-trending. -Decadron 6 mg daily x 10 days -Outside of window for remdesivir -Continue CTX for possible superimposed bacterial infection 08/07: Patient on RA, no fevers, out of isolation (5) COPD exacerbation Status: Resolved Assessment & Plan: History of COPD per chart review on duoneb inhaler at home, reports using 2-3 times daily presenting for dyspnea in the setting of covid. Wheezy on exam. -Albuterol Q4H with Q2H PRN -Dexamethasone for Covid -CTX for coverage of superimposed bacterial PNA (6) Elevated d-dimer Assessment & Plan: D-dimer 1.61 in the setting of Covid. No exam findings consistent with DVT, low concern currently for PE. -Lovenox for DVT PPx -Trend D-dimer (7) Acute kidney injury Status: Resolved Assessment & Plan: Normal baseline Cr, presenting with Cr 1.42 in setting of poor PO intake improved to 0.86 this AM with fluids. -Daily BMP -IVF at 50 ml/hr (8) Bacteriuria Status: Resolved Assessment & Plan: Asymptomatic bacteriuria. -On CTX for possible superimposed bacterial pneumonia (9) Elevated liver enzymes Status: Acute Assessment & Plan: Elevated AST improving. -Trend CMP (10) Discharge planning issues Assessment & Plan: 08/07: Patient wishes to return home. Per notes patient's granddaughter who helps care for patient is wanting patient to go to SNF for PT prior to coming home. Referral has been placed and plan was for patient to go to SNF on Saturday JEN HUSAIN MD Aug 07, 2021 15:50
[2021-08-07 15:55] VITALS: BP 136/76
[2021-08-08 00:15] VITALS: BP 98/61
[2021-08-08] MEDS: RT-ALBUTEROL HFA 8.5 GM INHALER IH SCH ×4 (02:41→21:28)
[2021-08-08 03:10] VITALS: BP 98/61
[2021-08-08] MEDS: ENOXAPARIN 40 MG/0.4 ML (LOVENOX) SYR SC SCH ×2 (05:42→17:02)
[2021-08-08] MEDS: inSUlin ASPART (NovoLOG) 1 UNIT/0.01 ML (CHARGE PER UNIT) SC SCH ×7 (05:42→20:53)
[2021-08-08] MEDS: MULTIVIT W/MINERALS TAB (THERAGRAN M) PO SCH (05:42)
[2021-08-08 07:11] LABS: ALBUMIN 2.8 GM/DL (3.2-4.5); POTASSIUM 3.9 MMOL/L (3.6-5.0)
[2021-08-08 07:13] LABS: CALCIUM 8.2 MG/DL (8.5-10.1)
[2021-08-08 07:14] LABS: TOTAL PROTEIN 5.6 GM/DL (6.4-8.2)
[2021-08-08 07:15] LABS: BILIRUBIN,TOTAL 0.5 MG/DL (0.1-1.0)
[2021-08-08 07:17] LABS: CREATININE SERUM 1.05 MG/DL (0.60-1.30)
[2021-08-08 08:00] VITALS: BP 133/78
[2021-08-08] MEDS: polyethylene glycoL POWDER 17 GM (MIRALAX) PACK PO SCH ×2 (08:15→19:37)
[2021-08-08] MEDS: LACTULOSE SYRUP 10GM/15ML (ENULOSE) 30ML UDC PO SCH ×2 (08:15→19:50)
[2021-08-08] MEDS: SENNA W/DOCUSATE (SENOKOT S) TABLET PO SCH ×2 (08:15→19:51)
[2021-08-08] MEDS: lisINopril 5 MG (PRINIVIL) TABLET PO SCH (08:15)
--- NOTE | 2021-08-08 10:00 | Physical Therapy Daily Note ---
PT Daily Note-Current Subjective Patient agrees to PT. Patient continues to reports she wants to go home. SW present. Mental Status Patient Orientation: Normal For Age Transfers SCALE: Activities may be completed with or without assistive devices. 0-Nixktynibl-hfufuxr completes the activity by him/herself with no assistance from a helper. 5-Set-up or Clean-up Assistance-helper sets up or cleans up; patient completes activity. [place] assists only prior to or following the activity. 4-Supervision or Touching Assistance-helper provides verbal cues and/or touching/steadying and/or contact guard assistance as patient completes activity. Assistance may be provided throughout the activity or intermittently. 3-Partial/Moderate Assistance-helper does LESS THAN HALF the effort. [place] lifts, holds or supports trunk or limbs, but provides less than half the effort. 2-Substantial/Maximal Assistance-helper does MORE THAN HALF the effort. [place] lifts or holds trunk or limbs and provides more than half the effort. 5-Kbfwuhmww-jheyor does ALL the effort. Patient does none of the effort to complete the activity. Or, the assistance of 2 or more helpers is required for the patient to complete the activity. If activity was not attempted, code reason: 7-Patient Refused. 9-Not Applicable-not attempted and the patient did not perform the activity before the current illness, exacerbation or injury. 10-Not Attempted due to Environmental Limitations-(lack of equipment, weather restraints, etc.). 88-Not Attempted due to Medical Conditions or Safety Concerns. Sit to Stand (QC): 4 (SBA) Toilet Transfer (QC): 4 (SBA) Weight Bearing Right Lower Extremity: Right Weight Bearing/Tolerated Left Lower Extremity: Left Weight Bearing/Tolerated Gait Training Distance: 20' x 1/50' x 1 Walk 10 feet (QC): 4 (SBA) Walk 50 ft with 2 Turns(QC): 4 (SBA) Gait Assistive Device: FWW steady functional gait sequence with no deviation Exercises Seated Therapy Exercises: Ankle pumps, Long arc quads Seated Reps: 15 Assessment Noted increase SOA with activity with SAO2 99% RA. Patient remains up in recliner with call light in hand. PT Trapper Animal Goals Trapper Animal Goals PT Trapper Animal Goals Time Frame: Sep 01, 2021 Roll Left & Right (QC): 6 Sit to Lying (QC): 6 Lying-Sitting on Side/Bed(QC): 6 Sit to Stand (QC): 6 Chair/Rzr-oe-Zbmfx Xfer(QC): 6 Toilet Transfer (QC): 6 Car Transfer (QC): 6 Does the Patient Walk: Yes Walk 10 feet (QC): 4 Walk 50ft with 2 Turns (QC): 4 Walk 150 ft (QC): 4 Walking 10ft on Uneven Surface: 4 Picking up an Object (QC): 4 PT Plan Treatment/Plan Treatment Plan: Continue Plan of Care Treatment Plan: Bed Mobility, Education, Functional Activity Robert, Functional Strength, Group Therapy, Gait, Safety, Therapeutic Exercise, Transfers Treatment Duration: Sep 01, 2021 Frequency: 6 times per week Estimated Hrs Per Day: .25 hour per day Time/GCodes Time In: 901 Time Out: 917 Total Billed Treatment Time: 16 Total Billed Treatment 1 visit FA 16 min NOHEMI HERNANDEZ PT Aug 08, 2021 10:00
--- NOTE | 2021-08-08 11:54 | Occ Therapy Progress Note ---
Therapy Progress Note Pt stated that she had already had therapy. JOHN explained the role of Occupational Therapy then offered ADLs or B UE exercises. Pt continued to adamantly refuse and stated that she was not going to get out of bed until after dinner and that she would do exercises at home. Will check on pt next available time. 1 refusal [phone] JOSE L SHAW Aug 08, 2021 11:54
[2021-08-08 16:00] VITALS: BP 111/61
--- NOTE | 2021-08-08 19:10 | Progress Note ---
Subjective Subjective/Events-last exam Patient feeling better. She sat up at the side of the bed. Tolerating PO diet. Pain well controlled. Patient desires to go home with HH. Review of Systems General: Malaise Pulmonary: No Dyspnea, No Cough Cardiovascular: No: Chest Pain, Palpitations, Edema Gastrointestinal: Constipation; No: Nausea, Vomiting, Abdominal Pain Neurological: Weakness, Incoordination Objective Exam Last Set of Vital Signs Vital Signs Date Time Temp Pulse Resp B/P (MAP) Pulse Ox O2 Delivery O2 Flow Rate FiO2 08/08/21 16:00 36.6 80 20 111/61 (78) 98 Room Air 08/08/21 03:10 21 08/05/21 10:38 0.00 Capillary Refill : Less Than 3 Seconds I&O Intake and Output 08/08/21 00:00 Intake Total 1350 ml Balance 1350 ml Intake Oral 1350 ml # Voids 8 # Bowel Movements 3 General: Alert, Oriented X3, No Acute Distress Lungs: Clear to Auscultation, Normal Air Movement Heart: Regular Rate, No Murmurs Abdomen: Normal Bowel Sounds, Soft, No Tenderness, No Masses Extremities: No Edema, No Tenderness/Swelling Neuro: Normal Speech Psych/Mental Status: Mental Status NL, Mood NL Results/Procedures Lab Laboratory Tests 08/07/21 20:57: Glucometer 144H 08/08/21 05:13: Glucometer 193H 08/08/21 06:46: Sodium Level 140, Potassium Level 3.9, Chloride Level 102, Carbon Dioxide Level 26, Anion Gap 12, Blood Urea Nitrogen 24H, Creatinine 1.05, Estimat Glomerular Filtration Rate 50, BUN/Creatinine Ratio 23, Glucose Level 178H, Calcium Level 8.2L, Corrected Calcium 9.2, Total Bilirubin 0.5, Aspartate Amino Transf (AST/SGOT) 58H, Alanine Aminotransferase (ALT/SGPT) 74H, Alkaline Phosphatase 97, Total Protein 5.6L, Albumin 2.8L 08/08/21 11:08: Glucometer 267H 08/08/21 16:22: Glucometer 237H Microbiology 07/26/21 Urine Culture - Final, Complete Escherichia coli Radiology See HPI Assessment/Plan Assessment/Plan (1) Type 2 diabetes mellitus Status: Chronic Assessment & Plan: Unclear insulin regimen at home with multiple different insulin orders per clinic chart review. Patient reports taking NPL/lispro 75-25 with ~30 U in AM and ~50 U in PM. Here BGL elevated, but not taking good PO. -Levemir 15 QHS, Aspart 5 AC -Sliding scale ACHS 08/07: Will adjust as needed, appetite is improving, continue SSI/Accuchecks 08/08: blood sugars better controlled Qualifiers: (2) Hypertension Status: Chronic Assessment & Plan: On lisinopril at home. -Resume lisinopril (3) Acute respiratory failure with hypoxia Status: Resolved Assessment & Plan: 08/07: Patient doing well on RA (4) Pneumonia due to COVID-19 virus Status: Resolved Assessment & Plan: Unvaccinated elderly female with multiple comorbidities and worsening weakness, diarrhea since 07/05 with bilateral infiltrates on CXR and Covid positive. D-dimer down-trending. -Decadron 6 mg daily x 10 days -Outside of window for remdesivir -Continue CTX for possible superimposed bacterial infection 08/07: Patient on RA, no fevers, out of isolation (5) COPD exacerbation Status: Resolved Assessment & Plan: History of COPD per chart review on duoneb inhaler at home, reports using 2-3 times daily presenting for dyspnea in the setting of covid. Wheezy on exam. -Albuterol Q4H with Q2H PRN -Dexamethasone for Covid -CTX for coverage of superimposed bacterial PNA (6) Elevated d-dimer Assessment & Plan: D-dimer 1.61 in the setting of Covid. No exam findings consistent with DVT, low concern currently for PE. -Lovenox for DVT PPx -Trend D-dimer (7) Acute kidney injury Status: Resolved Assessment & Plan: Normal baseline Cr, presenting with Cr 1.42 in setting of poor PO intake improved to 0.86 this AM with fluids. -Daily BMP -IVF at 50 ml/hr (8) Bacteriuria Status: Resolved Assessment & Plan: Asymptomatic bacteriuria. -On CTX for possible superimposed bacterial pneumonia (9) Elevated liver enzymes Status: Acute Assessment & Plan: Elevated AST improving. -Trend CMP (10) Discharge planning issues Assessment & Plan: 08/07: Patient wishes to return home. Per notes patient's granddaughter who helps care for patient is wanting patient to go to SNF for PT prior to coming home. Referral has been placed and plan was for patient to go to SNF on Saturday JEN HUSAIN MD Aug 08, 2021 19:10
[2021-08-08] MEDS: CYCLOBENZAPRINE 10 MG (FLEXERIL) TAB PO PRN (19:50)
[2021-08-09] VITALS: BP 115/72
[2021-08-09] MEDS: RT-ALBUTEROL HFA 8.5 GM INHALER IH SCH ×2 (03:07→07:34)
[2021-08-09] MEDS: MULTIVIT W/MINERALS TAB (THERAGRAN M) PO SCH (06:14)
[2021-08-09] MEDS: ENOXAPARIN 40 MG/0.4 ML (LOVENOX) SYR SC SCH (06:15)
[2021-08-09] MEDS: inSUlin ASPART (NovoLOG) 1 UNIT/0.01 ML (CHARGE PER UNIT) SC SCH ×4 (06:15→12:09)
[2021-08-09 08:00] VITALS: BP 110/67
[2021-08-09] MEDS: SENNA W/DOCUSATE (SENOKOT S) TABLET PO SCH (08:40)
[2021-08-09] MEDS: polyethylene glycoL POWDER 17 GM (MIRALAX) PACK PO SCH (08:40)
[2021-08-09] MEDS: lisINopril 5 MG (PRINIVIL) TABLET PO SCH (08:40)
[2021-08-09] MEDS: LACTULOSE SYRUP 10GM/15ML (ENULOSE) 30ML UDC PO SCH (08:42)
--- NOTE | 2021-08-09 08:57 | Physical Therapy Daily Note ---
PT Daily Note-Current Subjective Patient in recliner pre tx, agrees reluctantly to PT, voices no complaints of pain. Appearance Patient in recliner post tx with nurse call, phone, tray, all needs met. Mental Status Patient Orientation: Person, Place, Situation Transfers SCALE: Activities may be completed with or without assistive devices. 1-Mgolrdeniw-ymhhdnn completes the activity by him/herself with no assistance from a helper. 5-Set-up or Clean-up Assistance-helper sets up or cleans up; patient completes activity. [place] assists only prior to or following the activity. 4-Supervision or Touching Assistance-helper provides verbal cues and/or touching/steadying and/or contact guard assistance as patient completes activity. Assistance may be provided throughout the activity or intermittently. 3-Partial/Moderate Assistance-helper does LESS THAN HALF the effort. [place] lifts, holds or supports trunk or limbs, but provides less than half the effort. 2-Substantial/Maximal Assistance-helper does MORE THAN HALF the effort. [place] lifts or holds trunk or limbs and provides more than half the effort. 1-Szheaiuoi-omzsos does ALL the effort. Patient does none of the effort to complete the activity. Or, the assistance of 2 or more helpers is required for the patient to complete the activity. If activity was not attempted, code reason: 7-Patient Refused. 9-Not Applicable-not attempted and the patient did not perform the activity before the current illness, exacerbation or injury. 10-Not Attempted due to Environmental Limitations-(lack of equipment, weather restraints, etc.). 88-Not Attempted due to Medical Conditions or Safety Concerns. Sit to Stand (QC): 4 Chair/Jcs-zn-Tvgoa Xfer(QC): 4 CGA Weight Bearing Right Lower Extremity: Right Weight Bearing/Tolerated Left Lower Extremity: Left Weight Bearing/Tolerated Gait Training Distance: 20' Walk 10 feet (QC): 4 Gait Persons Needed: 1 Gait Assistive Device: FWW CGA, short steps with little foot clearance Exercises Seated Therapy Exercises: Ankle pumps, Long arc quads Seated Reps: 20 Treatments ambulation, transfers, LE strengthening Assessment Current Status: Poor Progress functional mobility remains about the same PT Detention Goals Outcomes Specialist Goals PT Detention Goals Time Frame: Sep 01, 2021 Roll Left & Right (QC): 6 Sit to Lying (QC): 6 Lying-Sitting on Side/Bed(QC): 6 Sit to Stand (QC): 6 Chair/Gex-hr-Bunjv Xfer(QC): 6 Toilet Transfer (QC): 6 Car Transfer (QC): 6 Does the Patient Walk: Yes Walk 10 feet (QC): 4 Walk 50ft with 2 Turns (QC): 4 Walk 150 ft (QC): 4 Walking 10ft on Uneven Surface: 4 Picking up an Object (QC): 4 PT Plan Problem List Problem List: Activity Tolerance, Functional Strength, Safety, Balance, Gait, Transfer, Bed Mobility, ROM Treatment/Plan Treatment Plan: Continue Plan of Care Treatment Plan: Bed Mobility, Education, Functional Activity Robert, Functional Strength, Group Therapy, Gait, Safety, Therapeutic Exercise, Transfers Treatment Duration: Sep 01, 2021 Frequency: 6 times per week Estimated Hrs Per Day: .25 hour per day Safety Risks/Education Patient Education: Gait Training, Transfer Techniques, Correct Positioning, Safety Issues Teaching Recipient: Patient Teaching Methods: Demonstration, Discussion Response to Teaching: Reinforcement Needed Time/GCodes Time In: 0840 Time Out: 0850 Total Billed Treatment Time: 10 Total Billed Treatment 1 visit FA ODILON LOBO PT Aug 09, 2021 08:57
--- NOTE | 2021-08-09 10:04 | Occupational Ther Daily Note ---
OT Current Status-Daily Note Subjective Pt sitting in recliner eating breakfast. No c/o pain. Pt agreed to therapy. Mental Status/Objective Patient Orientation: Person, Place, Time, Situation Attachments: IV, Oxygen ADL-Treatment Pt agrees to change socks while seated in recliner. Max assist given due to pt unwilling to try to attempt doing by self. Pt lifted leg to doff sock then stated that she could not bend leg and needed assist. Pt washed face while seated in recliner, declines to do oral care. After session, pt sitting in recliner with call light/phone within reach. All needs met in room. Therapy Code Descriptions/Definitions Functional [place] Measure: 0=Not Assessed/NA 4=Minimal Assistance 1=Total Assistance 5=Supervision or Setup 2=Maximal Assistance 6=Modified [place] 3=Moderate Assistance 7=Complete IndependenceSCALE: Activities may be completed with or without assistive devices. 0-Dbbxgfhoxq-bmiszex completes the activity by him/herself with no assistance from a helper. 5-Set-up or Clean-up Assistance-helper sets up or cleans up; patient completes activity. [place] assists only prior to or following the activity. 4-Supervision or Touching Assistance-helper provides verbal cues and/or touching/steadying and/or contact guard assistance as patient completes activity. Assistance may be provided throughout the activity or intermittently. 3-Partial/Moderate Assistance-helper does LESS THAN HALF the effort. [place] lifts, holds or supports trunk or limbs, but provides less than half the effort. 2-Substantial/Maximal Assistance-helper does MORE THAN HALF the effort. [place] lifts or holds trunk or limbs and provides more than half the effort. 6-Ykvljaghj-huuvfp does ALL the effort. Patient does none of the effort to complete the activity. Or, the assistance of 2 or more helpers is required for the patient to complete the activity. If activity was not attempted, code reason: 7-Patient Refused. 9-Not Applicable-not attempted and the patient did not perform the activity before the current illness, exacerbation or injury. 10-Not Attempted due to Environmental Limitations-(lack of equipment, weather restraints, etc.). 88-Not Attempted due to Medical Conditions or Safety Concerns. Oral Hygiene (QC): 7 On/Off Footwear: 2 OT Senior Living Goals Senior Living Goals Time Frame: Aug 18, 2021 Eating (QC): 5 Oral Hygiene (QC): 5 Toileting Hygiene (QC): 4 Shower/Bathe Self (QC): 3 Upper Body Dressing (QC): 5 Lower Body Dressing (QC): 4 On/Off Footwear (QC): 3 Additional Goals: 1-Demonstrate ADL Tasks, 2-Verbalize Understanding, 3-ImproveStrength/Robert 1=Demonstrate adherence to instructed precautions during ADL tasks. 2=Patient will verbalize/demonstrate understanding of assistive devices/modifications for ADL. 3=Patient will improve strength/tolerance for activity to enable patient to perform ADL's. OT Education/Plan Problem List/Assessment Assessment: Decreased Activ Tolerance, Impaired Self-Care Skills Discharge Recommendations Plan/Recommendations: Continue POC Treatment Plan/Plan of Care Patient would benefit from OT for education, treatment and training to promote independence in ADL's, mobility, safety and/or upper extremity function for ADL's. Plan of Care: ADL Retraining, Functional Mobility, UE Funct Exercise/Act Treatment Duration: Aug 18, 2021 Frequency: 3 times per week (3-5 times per week) Rehab Potential: Fair Time/GCodes Start Time: 09:22 Stop Time: 09:32 Total Time Billed (hr/min): 10 Billed Treatment Time 1 Visit- ADL (10 min) JOSE L SHAW Aug 09, 2021 10:04
--- NOTE | 2021-08-09 12:04 | Discharge Summary ---
Diagnosis/Chief Complaint Date of Admission Jul 26, 2021 at 18:15 Date of Discharge Discharge Diagnosis Problems/Diagnosis: (1) Type 2 diabetes mellitus Assessment & Plan: Unclear insulin regimen at home with multiple different insulin orders per clinic chart review. Patient reports taking NPL/lispro 75-25 with ~30 U in AM and ~50 U in PM. Here BGL elevated, but not taking good PO. -Levemir 15 QHS, Aspart 5 AC -Sliding scale ACHS 08/07: Will adjust as needed, appetite is improving, continue SSI/Accuchecks 08/08: blood sugars better controlled Qualifiers: Status: Chronic (2) Hypertension Assessment & Plan: On lisinopril at home. -Resume lisinopril Status: Chronic (3) Acute respiratory failure with hypoxia Assessment & Plan: 08/07: Patient doing well on RA Status: Resolved Resolution Date/Time: 08/07/21 @ 15:46 (4) Pneumonia due to COVID-19 virus Assessment & Plan: Unvaccinated elderly female with multiple comorbidities and worsening weakness, diarrhea since 07/05 with bilateral infiltrates on CXR and Covid positive. D-dimer down-trending. -Decadron 6 mg daily x 10 days -Outside of window for remdesivir -Continue CTX for possible superimposed bacterial infection 08/07: Patient on RA, no fevers, out of isolation Status: Resolved Resolution Date/Time: 08/07/21 @ 15:46 (5) COPD exacerbation Assessment & Plan: History of COPD per chart review on duoneb inhaler at home, reports using 2-3 times daily presenting for dyspnea in the setting of covid. Wheezy on exam. -Albuterol Q4H with Q2H PRN -Dexamethasone for Covid -CTX for coverage of superimposed bacterial PNA Status: Resolved Resolution Date/Time: 08/07/21 @ 15:47 (6) Elevated d-dimer Assessment & Plan: D-dimer 1.61 in the setting of Covid. No exam findings consistent with DVT, low concern currently for PE. -Lovenox for DVT PPx -Trend D-dimer (7) Acute kidney injury Assessment & Plan: Normal baseline Cr, presenting with Cr 1.42 in setting of poor PO intake improved to 0.86 this AM with fluids. -Daily BMP -IVF at 50 ml/hr Status: Resolved Resolution Date/Time: 08/07/21 @ 15:47 (8) Bacteriuria Assessment & Plan: Asymptomatic bacteriuria. -On CTX for possible superimposed bacterial pneumonia Status: Resolved Resolution Date/Time: 08/07/21 @ 15:48 (9) Elevated liver enzymes Assessment & Plan: Elevated AST improving. -Trend CMP Status: Acute (10) Discharge planning issues Assessment & Plan: 08/07: Patient wishes to return home. Per notes patient's granddaughter who helps care for patient is wanting patient to go to SNF for PT prior to coming home. Referral has been placed and plan was for patient to go to SNF on Saturday Chief Complaint/HPI Chief Complaint/HPI 81 year old female with history of hypertension, type II DM, COPD, chronic hypoxic respiratory failure on 2.5 L O2 overnight, chronic pain, not vaccinated against Covid presented 07/27 for a reported 8 weeks of symptoms. She states that she has had progressive weakness, poor PO intake, diarrhea, and chills over that time. She is unable to report when these symptoms worsened, but per chart review, family reports that symptoms worsened Nov. She denies UTI symptoms. In the ED, found to have 2.5 L oxygen requirement. WBC 7.3, CRP 15.6, creatinine 1.42, D-dimer 1.61, pro-BNP 373, Covid positive, UA with 3+ LE, TNTC WBC, large bacteria, and CXR with interstitial opacities. She was given doxycycline, CTX, 1 L LR, and admitted for further management. Discharge Summary-Simple/Stand Consultations Discharge Physical Examination Allergies: Coded Allergies: levofloxacin (Unverified Allergy, Intermediate, HIVES, ITCHING, 04/14/19) azithromycin (Verified Allergy, Unknown, 07/26/21) metronidazole (Unverified Adverse Reaction, Mild, N/V, 12/16/18) latex (Unverified Adverse Reaction, Unknown, hives, 12/16/18) Vitals & I&Os Vital Sign - Last 12Hours Date Time Temp Pulse Resp B/P (MAP) Pulse Ox O2 Delivery O2 Flow Rate FiO2 08/09/21 08:00 94 Room Air 08/09/21 08:00 36.9 84 18 110/67 (81) 08/08/21 03:10 21 08/05/21 10:38 0.00 Intake and Output 08/09/21 00:00 Intake Total 940 ml Balance 940 ml Hospital Course See final discharge diagnosis. Radiology Reviewed See HPI Discharge Instructions to patient/family Please see electronic discharge instructions given to patient. Discharge Medications Reviewed and agree with Discharge Medication list on patient's Discharge Instruction sheet JEN HUSAIN MD Aug 09, 2021 12:04
[2021-08-09] MEDS ORDERED: SENN1TAB76 PO (12:06)
--- NOTE | 2021-08-09 12:07 | Discharge Summary ---
Discharge [facility] Reconcile Patient Problems Problems Reviewed?: Yes Discharge Medications New, Converted or Re-Newed RX: Transmitted to Pharmacy New Medications: Sennosides/Docusate Sodium (Stool Softener-Laxative Tablet) 1 Each Tablet 1 EA PO BID, #14 TAB Continued Medications: Cyclobenzaprine HCl (Cyclobenzaprine HCl) 10 Mg Tablet 10 MG PO BID PRN for MUSCLE SPASMS, TAB Docusate Sodium (Stool Softener) 100 Mg Capsule 100 MG PO DAILY PRN for CONSTIPATION-1ST LINE, TAB Ibuprofen (Ibuprofen) 800 Mg Tablet 800 MG PO Q8H PRN for PAIN-MILD (1-4), TAB Insulin NPL/Insulin Lispro (Humalog Mix 75-25 Kwikpen) 100 Unit/1 Ml Insuln.pen 10-30 UNIT SQ BIDPC, EA Lisinopril (Lisinopril) 5 Mg Tablet 5 MG PO DAILY PRN for BLOOD PRESSURE, TAB Magnesium Oxide (Magnesium) 400 Mg Tablet 400 MG PO DAILY PRN for MUSCLE CRAMPS, TAB Multivitamin (Multivitamin) 1 Each Tablet 1 EACH PO DAILY, TAB Tramadol HCl (Tramadol HCl) 50 Mg Tablet 50 MG PO BID PRN for PAIN-MODERATE (5-7) Patient Instructions Goal/Follow Up Appt: F/u with PCP 1-2 weeks after Respiratory failure Patient Instructions: - Continue Inspiratory Spirometer at least 3 sets of 10 per day - Continue to work on strengthening exercises that you were taught by the PT Activity & Diet Discharge Diet: ADA Diet Activity as Tolerated: Yes JEN HUSAIN MD Aug 09, 2021 12:07
[2021-08-09 15:05] VITALS: BP 110/67
== END 2021-08-09 15:05 | disposition home or self-care (01) | DRG 177 ==
LOC: EDUNIT# 15:00 → ER FS 15:01 → UNDOADMIN 16:30 → 4TH 16:30
PROVIDERS: ADMIT Family Medicine; ATTEND Family Medicine
PROC: 8E0ZXY6 Isolation (ICD-10-PCS; principal; 2021-07-26)
DX: U07.1 COVID-19 (principal); J12.82 Pneumonia due to coronavirus disease 2019; J96.01 Acute respiratory failure with hypoxia; J44.0 Chronic obstructive pulmonary disease with (acute) lower respiratory infection; J44.1 Chronic obstructive pulmonary disease with (acute) exacerbation; N17.9 Acute kidney failure, unspecified; Z68.41 Body mass index [BMI] 40.0-44.9, adult; E11.40 Type 2 diabetes mellitus with diabetic neuropathy, unspecified; Z79.4 Long term (current) use of insulin; E66.01 Morbid (severe) obesity due to excess calories; I10 Essential (primary) hypertension; M19.91 Primary osteoarthritis, unspecified site; H54.3 Unqualified visual loss, both eyes; F32.A Depression, unspecified; Z79.52 Long term (current) use of systemic steroids; Z88.1 Allergy status to other antibiotic agents; Z91.040 Latex allergy status; G89.29 Other chronic pain; K59.09 Other constipation
CPT/HCPCS: 36415; 51702; 71045; 80048; 80053; 81000; 82728; 82805; 82947; 83880; 84484; 85007; 85025; 85027; 85379; 85610; 85730; 86141; 87077; 87088; 87186; 87636; 87804; 93005; 93041; 94640; 94664; 94760; 96374

== ENCOUNTER 2022-04-06 11:44 | Inpatient (IN) | payer MEDICARE, MEDICAID ==
[~2022-04-06] VITALS: Ht 167 cm; Wt 115.0 kg
[~2022-04-06 11:44] MED LIST changes: +CYCL10TA25 PO; +DOCU-26 PO; +LISI5TAB20 PO; +MAGN400T39 PO; +MULT-1136 PO; +SENN1TAB76 PO; +TRAM50TA3 PO
[2022-04-06] MEDS ORDERED: NS IV 1000 ML 1,000 ML IV STA (11:52)
[2022-04-06] MEDS ORDERED: ACETAMINOPHEN 500 MG TAB (TYLENOL) PO STA (11:52)
--- NOTE | 2022-04-06 11:52 | ED General ---
General Stated Complaint: VOMITING; GEN PAIN; DARK URINE; DIARRHEA History of Present Illness Date Seen by Provider: Apr 06, 2022 Time Seen by Provider: 11:50 Initial Comments 82-year-old female presents with generalized body aches, fever, nausea, vomiting, diarrhea. Patient reports that she has not felt good for couple days. Patient denies abdominal pain. 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 Patient has not received anything for the fever. Patient denies shortness of breath, chest pain. Allergies and Home Medications Allergies Coded Allergies: levofloxacin (Unverified Allergy, Intermediate, HIVES, ITCHING, 04/14/19) azithromycin (Verified Allergy, Unknown, 07/26/21) metronidazole (Unverified Adverse Reaction, Mild, N/V, 12/16/18) latex (Unverified Adverse Reaction, Unknown, hives, 12/16/18) Patient Home Medication List Home Medication List Reviewed: Yes Cyclobenzaprine HCl (Cyclobenzaprine HCl) 10 Mg Tablet, 10 MG PO BID PRN for MUSCLE SPASMS, (Reported) Entered as Reported by: GOLDY AUGUSTIN on 07/28/21 1043 Docusate Sodium (Stool Softener) 100 Mg Capsule, 100 MG PO DAILY PRN for CONSTIPATION-1ST LINE, (Reported) Entered as Reported by: GOLDY AUGUSTIN on 07/28/21 1043 Ibuprofen (Ibuprofen) 800 Mg Tablet, 800 MG PO Q8H PRN for PAIN-MILD (1-4), (Reported) Entered as Reported by: GOLDY AUGUSTIN on 07/28/21 1043 Insulin NPL/Insulin Lispro (Humalog Mix 75-25 Kwikpen) 100 Unit/1 Ml Insuln.pen, 10-30 UNIT SQ BIDPC, (Reported) Entered as Reported by: GOLDY AUGUSTIN on 07/28/21 1043 Lisinopril (Lisinopril) 5 Mg Tablet, 5 MG PO DAILY PRN for BLOOD PRESSURE, (Reported) Entered as Reported by: GIL GHOTRA on 07/27/21 1050 Magnesium Oxide (Magnesium) 400 Mg Tablet, 400 MG PO DAILY PRN for MUSCLE CRAMPS, (Reported) Entered as Reported by: GOLDY AUGUSTIN on 07/28/21 1043 Multivitamin (Multivitamin) 1 Each Tablet, 1 EACH PO DAILY, (Reported) Entered as Reported by: GOLDY AUGUSTIN on 07/28/21 1043 Sennosides/Docusate Sodium (Stool Softener-Laxative Tablet) 1 Each Tablet, 1 EA PO BID Prescribed by: JEN HUSAIN on 08/09/21 1206 Tramadol HCl (Tramadol HCl) 50 Mg Tablet, 50 MG PO BID PRN for PAIN-MODERATE (5- 7), (Reported) Entered as Reported by: GIL GHOTRA on 07/27/21 1050 Review of Systems Review of Systems Constitutional: fever, malaise, weakness EENTM: no symptoms reported Respiratory: cough (occasional ); No short of breath, No wheezing Cardiovascular: No chest pain, No palpitations Gastrointestinal: No abdominal pain; diarrhea, nausea, vomiting Genitourinary: see HPI Musculoskeletal: see HPI Skin: no symptoms reported Psychiatric/Neurological: No Symptoms Reported Hematologic/Lymphatic: No Symptoms Reported Past [id number] Hx Immunizations Up To Date First/Initial COVID19 Vaccinat: Not currently vaccinated Seasonal Allergies Seasonal Allergies: Yes (ALLERGIC RHINITIS) Past Medical History Surgery/Hospitalization HX: COPD; DM Surgeries: Yes (CERVICAL DISC SURGERY, BILAT ROTATOR CUFF, FOOT SURGERY) Appendectomy, Gallbladder, Hysterectomy, Orthopedic Respiratory: Yes COPD Cardiac: Yes Hypertension Neurological: Yes (SEVERE DIABETIC NEUROPATHY HANDS/FEET, POST HERPETIC NEURALGIA) Neuropathy Genitourinary: No Gastrointestinal: No Musculoskeletal: Yes (OSTEOARTHRITIS) Endocrine: Yes (DM TYPE II, MORBID OBESITY) Diabetes, Insulin dep HEENT: No Loss of Vision: Bilateral Hearing Impairment: Denies Cancer: No Psychosocial: Yes Depression Integumentary: Yes (SORES AND SCABS GENERALIZED) Recent Skin Changes, Psoriasis Blood Disorders: No Family Medical History CAD Over 55 Years Old Physical Exam Vital Signs Vital Signs - First Documented 04/06/22 11:50 Temp 38.0 Pulse 112 Resp 26 B/P (MAP) 103/70 (81) Pulse Ox 95 O2 Delivery Nasal Cannula O2 Flow Rate 2.00 Capillary Refill : Height, Weight, BMI Height: 5'6.00" Weight: 272lbs. 3.2oz. 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 Norm as Tested Skin: Normal Color, Warm/Dry Focused Exam Lactate Level 04/06/22 11:55: Lactic Acid Level 2.74*H Lactic Acid Level Laboratory Tests Test 04/06/22 11:55 Lactic Acid Level 2.74 MMOL/L (0.50-2.00) *H Progress/Results/Core Measures Suspected Sepsis SIRS Temperature: Pulse: Respiratory Rate: Laboratory Tests 04/06/22 11:55: White Blood Count 23.7H Blood Pressure / Mean: 04/06/22 11:55: Lactic Acid Level 2.74*H Laboratory Tests 04/06/22 11:55: Creatinine 1.17, Platelet Count 287, Total Bilirubin 0.8 Results/Orders Lab Results Laboratory Tests Test 04/06/22 11:51 04/06/22 11:55 04/06/22 12:20 04/06/22 12:22 Range/Units Glucometer 421 *H 70-110 MG/DL White Blood Count 23.7 H 4.3-11.0 10^3/uL Red Blood Count 3.82 3.80-5.11 10^6/uL Hemoglobin 11.7 11.5-16.0 g/dL Hematocrit 34 L 35-52 % Mean Corpuscular Volume 89 80-99 fL Mean Corpuscular Hemoglobin 31 25-34 pg Mean Corpuscular Hemoglobin Concent 35 32-36 g/dL Red Cell Distribution Width 13.2 10.0-14.5 % Platelet Count 287 130-400 10^3/uL Mean Platelet Volume 9.2 9.0-12.2 fL Immature Granulocyte % (Auto) 1 % Neutrophils (%) (Auto) 83 H 42-75 % Lymphocytes (%) (Auto) 10 L 12-44 % Monocytes (%) (Auto) 6 0-12 % Eosinophils (%) (Auto) 0 0-10 % Basophils (%) (Auto) 0 0-10 % Neutrophils # (Auto) 19.7 H 1.8-7.8 10^3/uL Lymphocytes # (Auto) 2.4 1.0-4.0 10^3/uL Monocytes # (Auto) 1.4 H 0.0-1.0 10^3/uL Eosinophils # (Auto) 0.0 0.0-0.3 10^3/uL Basophils # (Auto) 0.0 0.0-0.1 10^3/uL Immature Granulocyte # (Auto) 0.2 H 0.0-0.1 10^3/uL Neutrophils % (Manual) 81 % Lymphocytes % (Manual) 12 % Monocytes % (Manual) 6 % Eosinophils % (Manual) 0 % Basophils % (Manual) 0 % Band Neutrophils 1 % Sodium Level 135 135-145 MMOL/L Potassium Level 4.0 3.6-5.0 MMOL/L Chloride Level 97 L 98-107 MMOL/L Carbon Dioxide Level 23 21-32 MMOL/L Anion Gap 15 H 5-14 MMOL/L Blood Urea Nitrogen 26 H 7-18 MG/DL Creatinine 1.17 0.60-1.30 MG/DL Estimat Glomerular Filtration Rate 47 BUN/Creatinine Ratio 22 Glucose Level 430 *H 70-105 MG/DL Lactic Acid Level 2.74 *H 0.50-2.00 MMOL/L Calcium Level 8.9 8.5-10.1 MG/DL Corrected Calcium 9.5 8.5-10.1 MG/DL Total Bilirubin 0.8 0.1-1.0 MG/DL Aspartate Amino Transf (AST/SGOT) 23 5-34 U/L Alanine Aminotransferase (ALT/SGPT) 22 0-55 U/L Alkaline Phosphatase 120 40-136 U/L C-Reactive Protein 27.58 H <0.50 MG/DL Total Protein 6.6 6.4-8.2 GM/DL Albumin 3.3 3.2-4.5 GM/DL Lipase 6 L 8-78 U/L SARS-CoV-2 RNA (RT-PCR) Not Detected Not Detecte Blood Gas Puncture Site NA Blood Gas Patient Temperature 38 C Arterial Blood pH 7.44 H 7.37-7.43 Arterial Blood Partial Pressure CO2 41 35-45 MMHG Arterial Blood Partial Pressure O2 116 H 79-93 MMHG Arterial Blood HCO3 28 H 23-27 MMOL/L Arterial Blood Total CO2 29.1 21.0-31.0 MMOL/L Arterial Blood Oxygen Saturation 99 94-100 % Arterial Blood Base Excess 3.3 H -2.5-2.5 MMOL/L Chance Test NA Blood Gas Ventilator Setting NO Blood Gas Inspired Oxygen 2.5 LITERS Test 04/06/22 12:30 Range/Units Urine Color YELLOW Urine Clarity TURBID Urine pH 5.5 5-9 Urine Specific [place] 1.025 H 1.016-1.022 Urine Protein 2+ H NEGATIVE Urine Glucose (UA) 3+ H NEGATIVE Urine Ketones 1+ H NEGATIVE Urine Nitrite POSITIVE H NEGATIVE Urine Bilirubin NEGATIVE NEGATIVE Urine Urobilinogen 0.2 < = 1.0 MG/DL Urine Leukocyte Esterase 1+ H NEGATIVE Urine RBC (Auto) 2+ H NEGATIVE Urine RBC NONE /HPF Urine WBC >100 H /HPF Urine Squamous Epithelial Cells RARE /HPF Urine Crystals NONE /LPF Urine Bacteria LARGE H /HPF Urine Casts NONE /LPF Urine Mucus NEGATIVE /LPF Urine Culture Indicated YES My Orders Orders - JERICHO ROBLERO DO Cbc With Automated Diff (04/06/22 11:52) Comprehensive Metabolic Panel (04/06/22 11:52) Lactic Acid Analyzer (04/06/22 11:52) Lipase (04/06/22 11:52) Procalcitonin (Pct) (04/06/22 11:52) Ua Culture If Indicated (04/06/22 11:52) Blood Culture (04/06/22 11:52) Crp Fs (04/06/22 11:52) Covid 19 Inhouse Test (04/06/22 11:52) Ondansetron Injection (Zofran Injectio (04/06/22 12:00) Ns Iv 1000 Ml (Sodium Chloride 0.9%) (04/06/22 11:52) Acute Abd Series (04/06/22 11:52) Acetaminophen Tablet (Tylenol Tablet) (04/06/22 11:52) Arterial Blood Gas (04/06/22 12:02) Cefepime Injection (Maxipime Injection) (04/06/22 12:30) Insulin (Regular) Human (Novolin R (Per (04/06/22 12:45) Catheter(Urinary) Insert & Ass 03,15 (04/06/22 12:31) Arterial Blood Draw - Obtain (04/06/22 ) Urine Culture (04/06/22 12:30) Manual Differential (04/06/22 11:55) Ed Admission (Communication) (04/06/22 13:05) Medications Given in ED Current Medications Medications Dose Ordered Sig/Annie Route Start Time Stop Time Status Last Admin Dose Admin Cefepime HCl 1000 mg/Sodium Chloride 50 ml @ 100 mls/hr ONCE ONCE IV 04/06/22 12:30 04/06/22 12:59 DC 04/06/22 12:59 100 MLS/HR Insulin Human Regular 10 unit ONCE ONCE IV 04/06/22 12:45 04/06/22 12:46 DC 04/06/22 12:56 10 UNIT Ondansetron HCl 4 mg ONCE ONCE IVP 04/06/22 12:00 04/06/22 12:01 DC 04/06/22 12:04 4 MG Vital Signs/I&O 04/06/22 04/06/22 11:50 13:01 Temp 38.0 37.2 Pulse 112 106 Resp 26 26 B/P (MAP) 103/70 (81) 103/30 Pulse Ox 95 96 O2 Delivery Nasal Cannula O2 Flow Rate 2.00 2.00 Capillary Refill : Progress Note : Progress Note pt with urinary tract infection and high blood sugar. pt would benefit from inpt treatment. discussed with Dr Jiang who accepted pt, pt transfered via ems in stable condition Departure Communication (Admissions) Time/Spoke to Admitting Phy: 13:00 Dr. Jiang accepted pt and will place orders Impression Primary Impression: Urinary tract infection Qualified Codes: N30.01 - Acute cystitis with hematuria Additional Impression: Diabetes mellitus with hyperglycemia, with long-term current use of insulin Qualified Codes: E13.65 - Other specified diabetes mellitus with hyperglycemia; Z79.4 - retirement (current) use of insulin Disposition: 30 STILL A PATIENT Condition: Stable Admissions Decision to Admit Reason: Admit from ER (General) Decision to Admit/Date: Apr 06, 2022 Time/Decision to Admit Time: 13:00 Transfer Method of Transfer: EMS Departure-Patient Inst. Referrals: ALVINO KOHLER APRN (PCP) Primary Care Physician [facility] (Family) Primary Care Physician JERICHO ROBLERO DO Apr 06, 2022 11:52
[2022-04-06] MEDS ORDERED: ONDANSETRON 4 MG/2 ML (SDV) Z0FRAN IVP ONE (12:00)
[2022-04-06 12:03] LABS: BASOPHILS % (AUTO) 0 % (0-10); EOSINOPHILS % (AUTO) 0 % (0-10); HEMATOCRIT 34 % (35-52); HEMOGLOBIN 11.7 g/dL (11.5-16.0); LYMPHOCYTES # (AUTO) 2.4 10^3/uL (1.0-4.0); LYMPHOCYTES % (AUTO) 10 % (12-44); MEAN CORPUSCULAR HEMOGLOBIN 31 pg (25-34); MEAN CORPUSCULAR HGB CONC 35 g/dL (32-36); MEAN CORPUSCULAR VOLUME 89 fL (80-99); MEAN PLATELET VOLUME 9.2 fL (9.0-12.2); MONOCYTES # (AUTO) 1.4 10^3/uL (0.0-1.0); MONOCYTES % (AUTO) 6 % (0-12); NEUTROPHILS # (AUTO) 19.7 10^3/uL (1.8-7.8); NEUTROPHILS % (AUTO) 83 % (42-75); PLATELET COUNT 287 10^3/uL (130-400); WHITE BLOOD COUNT 23.7 10^3/uL (4.3-11.0)
[2022-04-06 12:30] LABS: CREATININE SERUM 1.17 MG/DL (0.60-1.30)
[2022-04-06] MEDS ORDERED: CEFEPIME INJECTION 1,000 MG in NS (IVPB) 50 ML IV ONE (12:30)
[2022-04-06 12:31] LABS: ALBUMIN 3.3 GM/DL (3.2-4.5); BILIRUBIN,TOTAL 0.8 MG/DL (0.1-1.0); CALCIUM 8.9 MG/DL (8.5-10.1); TOTAL PROTEIN 6.6 GM/DL (6.4-8.2)
[2022-04-06 12:34] LABS: BILIRUBIN,URINE NEGATIVE (NEGATIVE); CLARITY,URINE TURBID; COLOR,URINE YELLOW; GLUCOSE, URINE (UA) 3+ (NEGATIVE); KETONES,URINE 1+ (NEGATIVE); LEUKOCYTE ESTERASE ,URINE 1+ (NEGATIVE); NITRITE,URINE POSITIVE (NEGATIVE); PH,URINE 5.5 (5-9); PROTEIN,URINE 2+ (NEGATIVE)
[2022-04-06 12:37] LABS: ABG PCO2 41 MMHG (35-45); ABG PH 7.44 (7.37-7.43); ABG PO2 116 MMHG (79-93)
[2022-04-06 12:38] LABS: ABG BASE EXCESS 3.3 MMOL/L (-2.5-2.5); ABG OXYGEN SATURATION 99 % (94-100); ABG TCO2 29.1 MMOL/L (21.0-31.0)
[2022-04-06 12:39] LABS: INSPIRED O2 2.5 LITERS; VENTILATOR NO
[2022-04-06 12:40] LABS: PATIENT TEMP 38 C
--- NOTE | 2022-04-06 12:42 | Diagnostic Imaging Report ---
INDICATION: Fever, diarrhea. COMPARISON: Exam is compared with study 07/30/2021. FINDINGS: Lungs are clear at follow-up. No failure, effusion, or pneumothorax. The bowel gas pattern is nonobstructive. No abnormal fecal loading. No air-fluid levels. No pneumatosis. No free gas. IMPRESSION: No acute appearing abnormality. Dictated by: Dictated on workstation # [id number]
[2022-04-06] MEDS ORDERED: inSUlin (REGULAR) HUMAN 1 UNIT/0.01 ML (CHARGE PER UNIT) IV ONE (12:45)
[2022-04-06 12:46] LABS: BACTERIA,URINE LARGE /HPF; WBC,URINE >100 /HPF
[2022-04-06 12:47] LABS: SQUAMOUS EPITHELIAL CELL,UR RARE /HPF
[2022-04-06 12:54] LABS: BAND NEUTROPHILS 1 %; BASOPHILS % (MANUAL) 0 %; EOSINOPHILS % (MANUAL) 0 %; LYMPHOCYTES % (MANUAL) 12 %; MONOCYTES % (MANUAL) 6 %; NEUTROPHILS % (MANUAL) 81 %
[2022-04-06] MEDS ORDERED: BISACODYL 10 MG SUPP (DULCOLAX) PR PRN (14:30)
[2022-04-06] MEDS ORDERED: ANTACID SUSP 30 ML UDC (MYLANTA) PO PRN (14:30)
[2022-04-06] MEDS ORDERED: diphenhydrAMINE 50 MG/ML INJ (BENADRYL) IVP PRN (14:30)
[2022-04-06] MEDS ORDERED: ONDANSETRON 4 MG (ZOFRAN) ORAL DISSOLVE TAB PO PRN (14:30)
[2022-04-06] MEDS ORDERED: ACETAMINOPHEN 325 MG TABLET PO PRN (14:30)
[2022-04-06] MEDS ORDERED: morphine INJ 4 MG/ML 1 ML (VIAL/SYRINGE) IV PRN (14:30)
[2022-04-06] MEDS ORDERED: polyethylene glycoL POWDER 17 GM (MIRALAX) PACK PO PRN (14:30)
[2022-04-06] MEDS ORDERED: diphenhydrAMINE 25 MG TAB (BENADRYL) PO PRN (14:30)
[2022-04-06] MEDS ORDERED: MELATONIN 3 MG TABLET PO PRN (14:30)
[2022-04-06] MEDS: inSUlin (REGULAR) HUMAN 1 UNIT/0.01 ML (CHARGE PER UNIT) SC SCH ×6 (15:19→22:28)
[2022-04-06] MEDS: NS IV 1000 ML 1,000 ML IV SCH ×2 (15:19→22:39)
[2022-04-06] MEDS: ENOXAPARIN 40 MG/0.4 ML (LOVENOX) SYR SC SCH (15:23)
[2022-04-06 15:59] VITALS: BP 101/66
[2022-04-06 19:31] VITALS: BP 114/78
[2022-04-06] MEDS: DOCUSATE SODIUM 100 MG (COLACE) CAP PO SCH (20:39)
[2022-04-06] MEDS: CEFEPIME INJECTION 1,000 MG in NS (IVPB) 50 ML IV SCH (21:55)
[2022-04-06 23:54] VITALS: BP 124/74
[2022-04-07] MEDS: ENOXAPARIN 40 MG/0.4 ML (LOVENOX) SYR SC SCH ×2 (03:20→14:00)
[2022-04-07 04:30] VITALS: BP 126/66
[2022-04-07] MEDS: NS IV 1000 ML 1,000 ML IV SCH ×3 (06:08→23:04)
[2022-04-07] MEDS: CEFEPIME INJECTION 1,000 MG in NS (IVPB) 50 ML IV SCH ×3 (06:08→21:41)
[2022-04-07 06:27] LABS: ALBUMIN 2.7 GM/DL (3.2-4.5); POTASSIUM 3.4 MMOL/L (3.6-5.0)
[2022-04-07 06:28] LABS: BASOPHILS % (AUTO) 0 % (0-10); EOSINOPHILS % (AUTO) 0 % (0-10); HEMATOCRIT 31 % (35-52); LYMPHOCYTES # (AUTO) 2.4 10^3/uL (1.0-4.0); LYMPHOCYTES % (AUTO) 13 % (12-44); MEAN CORPUSCULAR HEMOGLOBIN 30 pg (25-34); MEAN CORPUSCULAR HGB CONC 32 g/dL (32-36); MEAN CORPUSCULAR VOLUME 94 fL (80-99); MEAN PLATELET VOLUME 10.3 fL (9.0-12.2); MONOCYTES # (AUTO) 1.3 10^3/uL (0.0-1.0); MONOCYTES % (AUTO) 7 % (0-12); NEUTROPHILS # (AUTO) 14.7 10^3/uL (1.8-7.8); NEUTROPHILS % (AUTO) 79 % (42-75); PLATELET COUNT 241 10^3/uL (130-400); WHITE BLOOD COUNT 18.6 10^3/uL (4.3-11.0)
[2022-04-07 06:29] LABS: CALCIUM 8.1 MG/DL (8.5-10.1)
[2022-04-07 06:30] LABS: TOTAL PROTEIN 5.6 GM/DL (6.4-8.2)
[2022-04-07 06:32] LABS: BILIRUBIN,TOTAL 0.5 MG/DL (0.1-1.0)
[2022-04-07 06:33] LABS: CREATININE SERUM 1.11 MG/DL (0.60-1.30)
--- NOTE | 2022-04-07 06:46 | History & Physical-Hospitalist ---
History of Present Illness HPI/Chief Complaint Chief complaint: Sepsis from UTI History of present illness: This is an 82-year-old female with a past medical history of diabetes who presented to the [facility] ER with complaints of weakness and confusion found to have very elevated blood sugar of 430 and evidence of UTI. Patient was pancultured and placed on cefepime for empiric coverage of resistant organism. Blood culture is positive for gram-negative jacek ID and sensitivity pending. Preliminary urine culture shows Klebsiella and Proteus. Patient is very lethargic and sleeping soundly with oxygen. No details are obtained from the patient. White blood cell count went from 23,000- 18,000. Procalcitonin elevated but patient covered with antibiotics and IV fluids. Repeat lactic acid was normal. Source: RN/MD, old records Exam Limitations: clinical condition Date Seen 04/07/22 Time Seen by a Provider: 10:00 Attending Physician Mildred Ernandez Aprn PCP Admitting Physician: Lyndsay Jiang DO Attending Physician: Lyndsay Jiang DO Referring Physician Date of Admission Apr 06, 2022 at 14:24 Home Medications & Allergies Home Medications Reviewed patient Home Medication Reconciliation performed by pharmacy medication reconciliations laboratory technician and/or nursing. Patients Allergies have been reviewed. Allergies Allergies Coded Allergies levofloxacin (Unverified Allergy, Intermediate, HIVES, ITCHING, 04/14/19) azithromycin (Verified Allergy, Unknown, 07/26/21) metronidazole (Unverified Adverse Reaction, Mild, N/V, 12/16/18) latex (Unverified Adverse Reaction, Unknown, hives, 12/16/18) Past Pobnryx-Fkrque-Wjsodn Hx Patient Social History Marrital Status: single Employed/Student: retired Tobacco Use?: No Smoking Status: Never a Smoker Smokeless Tobacco Frequency: Never a User Use of E-Cig and/or Vaping dev: No Use of E-Cig and/or Vaping Vinay: Never a User Substance use?: No Alcohol Use?: No Pt feels they are or have been: No Immunizations Up To Date First/Initial COVID19 Vaccinat: Not currently vaccinated Tetanus Booster (TDap): Unknown Hepatitis A: Yes Hepatitis B: Yes Date of Pneumonia Vaccine: Sep 02, 2016 Seasonal Allergies Seasonal Allergies: Yes (ALLERGIC RHINITIS) Current Status status: No status: No Advance Directives: Yes Advance Directive Location: Family to bring in copy Communicates: Verbally Primary Language: Iranian Preferred Spoken Language: Iranian Is interpretation needed?: No Sensory deficits: Vision impairment Past Medical History Surgeries: Appendectomy, Gallbladder, Hysterectomy, Orthopedic COPD Hypertension Neuropathy Diabetes, Insulin dep Loss of Vision: Bilateral Hearing Impairment: Denies Depression Recent Skin Changes, Psoriasis Blood Disorders: No Family Medical History CAD Over 55 Years Old Review of Systems Constitutional: see HPI, dizziness, fever, malaise, weakness EENTM: no symptoms reported Respiratory: no symptoms reported Cardiovascular: no symptoms reported Gastrointestinal: no symptoms reported Genitourinary: no symptoms reported Skin: no symptoms reported Psychiatric/Neurological: No Symptoms Reported All Other Systems Reviewed Negative Unless Noted: Yes Physical Exam Physical Exam Vital Signs Vital Signs - First Documented Capillary Refill : Less Than 3 Seconds Height, Weight, BMI Height: 5'6.00" Weight: 272lbs. 3.2oz. 123.860246hj; 41.23 BMI Method:Stated General Appearance: Chronically ill, Obese, Other (Sleepy and lethargic) Respiratory: Lungs Clear, Normal Breath Sounds Cardiovascular: Regular Rate, Rhythm, No Edema, No Gallop, No JVD, No Murmur, Normal Peripheral Pulses Neurologic/Psychiatric: Alert, Oriented x3, Depressed Affect Results Results/Procedures Labs Laboratory Tests 04/06/22 11:55 04/07/22 05:37 Patient resulted labs reviewed. Assessment/Plan Admission Diagnosis Assessment: Sepsis UTI Bacteremia with gram-negative jacek Severe hyperglycemia requiring aggressive insulin Altered mental status Advanced age Insulin-dependent diabetes Hypertension Anemia Plan: Cefepime IV fluids Monitor oxygen Supportive care Admission Status: Inpatient Order (span 2 midnights) Reason for Inpatient Admission: Sepsis with hyperglycemia Diagnosis/Problems Diagnosis/Problems (1) Sepsis due to urinary tract infection Status: Acute LYNDSAY JIANG DO Apr 07, 2022 06:46
[2022-04-07 07:41] VITALS: BP 122/69
[2022-04-07] MEDS: DOCUSATE SODIUM 100 MG (COLACE) CAP PO SCH ×2 (09:06→20:08)
[2022-04-07] MEDS: KCL 20 MEQ TAB (K-DUR) PO SCH ×2 (09:06→18:25)
[2022-04-07] MEDS: inSUlin (REGULAR) HUMAN 1 UNIT/0.01 ML (CHARGE PER UNIT) SC SCH (09:08)
[2022-04-07 11:22] VITALS: BP 114/71
--- NOTE | 2022-04-07 12:17 | Occupational Therapy Eval ---
OT Evaluation-General/PLF Medical Diagnosis Admission Date Apr 06, 2022 at 14:24 Medical Diagnosis: UTI, acute cystitis, DM Onset Date: Apr 06, 2022 Therapy Diagnosis Therapy Diagnosis: decr self care, weakness, decr funct mobility, decr sensation, decr UE func Height/Weight Height (Feet): 5 Height (Inches): 6.00 Weight (Pounds): 272 Weight (Ounces): 3.2 Precautions Precautions/Isolations: Fall Prevention, Standard Precautions Referral Physician: Deidre Referral Reason: Evaluation/Treatment Medical History Pertinent Medical History: COPD, DM, HTN, Neuropathy (sever, hands and feet), OA Additional Medical History Depression, morbid obesity. Psoriasis. Decr vision - pt reported she has glaucoma and can see shapes but not specifics. Cervical disk surgery. Bilat rotator cuff surgery Current History Admitted with vomiting, diarrhea, dark urine, aching. Peel Oven Tender reported dark urine Reviewed History: Yes Social History Current Living Status: Children (Son) ADL-Prior Level of Function SCALE: Activities may be completed with or without assistive devices. 5-Nnbaobolpm-pcfykdu completes the activity by him/herself with no assistance from a helper. 5-Set-up or Clean-up Assistance-helper sets up or cleans up; patient completes activity. [place] assists only prior to or following the activity. 4-Supervision or Touching Assistance-helper provides verbal cues and/or touching/steadying and/or contact guard assistance as patient completes activity. Assistance may be provided throughout the activity or intermittently. 3-Partial/Moderate Assistance-helper does LESS THAN HALF the effort. [place] lifts, holds or supports trunk or limbs, but provides less than half the effort. 2-Substantial/Maximal Assistance-helper does MORE THAN HALF the effort. [place] lifts or holds trunk or limbs and provides more than half the effort. 7-Cflcnioes-gwkxcq does ALL the effort. Patient does none of the effort to complete the activity. Or, the assistance of 2 or more helpers is required for the patient to complete the activity. If activity was not attempted, code reason: 7-Patient Refused. 9-Not Applicable-not attempted and the patient did not perform the activity before the current illness, exacerbation or injury. 10-Not Attempted due to Environmental Limitations-(lack of equipment, weather restraints, etc.). 88-Not Attempted due to Medical Conditions or Safety Concerns. ADL PLOF Comments Pt reported that she lives with her son and has a laboratory worker for the times that he is not there. A granddaughter also helps with ADLs. She said that she can transfer in and out of her bed with someone standing by and uses a bedside commode that she can get to with SBA. She said that she usually can manage clothing and toilet hygiene. She can dress her upper body but has some difficulty with socks and shoes. She also can feed herself and manage grooming. Granddaughter gives her a bath. She uses a FWW but doesn't walk much due in part to severe neuropathy in hands and feet. Self Care: Needed Some Help Functional Cognition: Needed Some Help DME/Equipment: Bedside Commode OT Current Status Subjective Pt seen in room, up in bed, agreeable to OT. Kept eyes closed throughout and reported that she doesn't see well due to glaucoma. Appearance Alert, cooperative Mental Status/Objective Patient Orientation: Person, Place, Situation Attachments: Gifford Catheter, IV, Oxygen Current Glasses/Contacts: No Hearing Aids: No Upper Extremity ROM L shoulder AROM significantly limited due to rotator cuff surgery that wasn't successful. rest of UE grossly WFL. R UE grossly WFL throughout. Upper Extremity Sensation Pt reported neuropathy in hands and feet Upper Extremity Strength Grossly 4/5, not including L shoulder ADL-Treatment ADL-Current Pt said that she was able to feed herself and get a drink of water. Nursing reported that she is eating "fair" and about 50% of her meal. Nursing also reported one person assist for toileting. Pt said that she was unable to operate call light due to decr vision and nursing contacted to put [facility] receptionist button so that she can find it. pt left up in bed, all needs met. Education OT Patient Education: Purpose of tx/functional activities, Rehab process Teaching Recipient: Patient Teaching Methods: Discussion Response to Teaching: Verbalize Understanding OT Mcfp Goals Data Security Consultant Goals Time Frame: Apr 14, 2022 Eating (QC): 6 Oral Hygiene (QC): 5 Toileting Hygiene (QC): 5 Upper Body Dressing (QC): 5 Lower Body Dressing (QC): 3 On/Off Footwear (QC): 1 Additional Goals: 1-Demonstrate ADL Tasks, 2-Verbalize Understanding, 3- ImproveStrength/Robert 1=Demonstrate adherence to instructed precautions during ADL tasks. 2=Patient will verbalize/demonstrate understanding of assistive devices/modifications for ADL. 3=Patient will improve strength/tolerance for activity to enable patient to perform ADL's. OT Education/Plan Problem List/Assessment Assessment: Decreased Activ Tolerance, Decreased UE Strength, Dependent Transfers, Impaired Self-Care Skills, Restricted Funct UE ROM Discharge Recommendations Plan Pt would benefit from skilled OT to increase her independence in basic self care and allow her to safely return home Plan/Recommendations: Continue POC Treatment Plan/Plan of Care Treatment,Training & Education: Yes Patient would benefit from OT for education, treatment and training to promote independence in ADL's, mobility, safety and/or upper extremity function for ADL's. Plan of Care: ADL Retraining, Functional Mobility, UE Funct Exercise/Act, UE Neuromus Re-Ed/Coord Treatment Duration: Apr 14, 2022 Frequency: 5 times per week Estimated Hrs Per Day: .5 hour per day Agreement: Yes Rehab Potential: Fair Time/GCodes Start Time: 11:51 Stop Time: 12:07 Total Time Billed (hr/min): 16 Billed Treatment Time visit, 16 minutes evaluation moderate intensity ARISTEO TROTTER OT Apr 07, 2022 12:17
--- NOTE | 2022-04-07 13:53 | Physical Therapy Evaluation ---
PT Evaluation-General Medical Diagnosis Admission Date Apr 06, 2022 at 14:24 Medical Diagnosis: UTI, acute cystitis, DM Onset Date: Apr 06, 2022 Therapy Diagnosis Therapy Diagnosis: impaired mobility Height/Weight Height (Feet): 5 Height (Inches): 6.00 Weight (Pounds): 272 Weight (Ounces): 3.2 Precautions Precautions/Isolations: Fall Prevention, Standard Precautions Referral Physician: Lyndsay Jiang DO Reason for Referral: Evaluation/Treatment Medical History Pertinent Medical History: COPD, DM, HTN, Neuropathy (sever, hands and feet), OA Additional Medical History Past Medical History Surgeries: Appendectomy, Gallbladder, Hysterectomy, Orthopedic COPD Hypertension Neuropathy Diabetes, Insulin dep Loss of Vision: Bilateral Hearing Impairment: Denies Depression Recent Skin Changes, Psoriasis Blood Disorders: No Reviewed History: Yes Social History Current Living Status: Children (Son) Patient states she has a sloping porch to get into her home, no steps but not a ramp either. Prior Prior Level of Function SCALE: Activities may be completed with or without assistive devices. 5-Hlwsmqnyho-fomwdrr completes the activity by him/herself with no assistance from a helper. 5-Set-up or Clean-up Assistance-helper sets up or cleans up; patient completes activity. [place] assists only prior to or following the activity. 4-Supervision or Touching Assistance-helper provides verbal cues and/or touching/steadying and/or contact guard assistance as patient completes activity. Assistance may be provided throughout the activity or intermittently. 3-Partial/Moderate Assistance-helper does LESS THAN HALF the effort. [place] lifts, holds or supports trunk or limbs, but provides less than half the effort. 2-Substantial/Maximal Assistance-helper does MORE THAN HALF the effort. [place] lifts or holds trunk or limbs and provides more than half the effort. 1-Gvhwadtfp-qwgoxn does ALL the effort. Patient does none of the effort to complete the activity. Or, the assistance of 2 or more helpers is required for the patient to complete the activity. If activity was not attempted, code reason: 7-Patient Refused. 9-Not Applicable-not attempted and the patient did not perform the activity before the current illness, exacerbation or injury. 10-Not Attempted due to Environmental Limitations-(lack of equipment, weather restraints, etc.). 88-Not Attempted due to Medical Conditions or Safety Concerns. Bed Mobility: 3 Transfers (B,C,W/C): 3 Gait: 3 Indoor Mobility (Ambulation): Needed Some Help Prior Devices Use: Walker PT Evaluation-Current Subjective Patient in bed pre tx, agrees to PT, has no complaints of pain. Pt/Family Goals "to get stronger" Objective Patient Orientation: Person, Place, Situation Attachments: Oxygen, Gifford Catheter, IV Sensory Vision: Hearing: Functional Sensation Right Lower Extremit: Impaired Sensation Left Lower Extremity: Impaired Transfers Roll Left to Right (QC): 3 Lying to Sitting/Side of Bed(Q: 3 Sit to Stand (QC): 4 Chair/Rxh-fk-Nzyuo Xfer(QC): 4 Gait Distance: 5' Gait Assistive Device: FWW Comments/Gait Description Patient ambulated about 5' to the recliner, she needs a lot of cues for direction due to her poor sight. Balance Sitting Static: Fair Sitting Dynamic: Fair Standing Static: Fair Standing Dynamic: Fair Treatment BLE seated exercise x20 (AP, LAQ) Assessment/Needs Patient in recliner post tx with nurse call, phone, tray, all needs met. Her nurse call button was adapted so she can feel it better and call the nurse more effectively. Rehab Potential: Fair PT Jail Goals Rn Anesthetist Goals PT Jail Goals Time Frame: Apr 14, 2022 Roll Left & Right (QC): 4 (CGA) Sit to Lying (QC): 4 (CGA) Lying-Sitting on Side/Bed(QC): 4 (CGA) Sit to Stand (QC): 4 (SBA) Chair/Ghr-ih-Naher Xfer(QC): 4 (SBA) Walk 10 feet (QC): 4 (SBA) Walk 50ft with 2 Turns (QC): 4 (SBA) PT Plan Problem List Problem List: Activity Tolerance, Functional Strength, Safety, Balance, Gait, Transfer, Bed Mobility, ROM Treatment/Plan Treatment Plan: Continue Plan of Care Treatment Plan: Bed Mobility, Education, Functional Activity Robert, Functional Strength, Gait, Safety, Therapeutic Exercise, Transfers Treatment Duration: Apr 14, 2022 Frequency: 6 times per week Estimated Hrs Per Day: .25 hour per day Patient and/or Family Agrees t: Yes Safety Risks/Education Patient Education: Gait Training, Transfer Techniques, Correct Positioning, Safety Issues Teaching Recipient: Patient Teaching Methods: Demonstration, Discussion Response to Teaching: Reinforcement Needed Discharge Recommendations Plan Patient will perform bed mobility and transfer training, balance and endurance training, functional strengthening, gait training, and education, to improve functional mobility and independence at home. Therapy Discharge Recommendati: Other, See Comments (NH) Time/GCodes Time In: 1320 Time Out: 1332 Total Billed Treatment Time: 12 Total Billed Treatment 1 visit HAILEY 12' ODILON MERCADO PT Apr 07, 2022 13:53
[2022-04-07 16:10] VITALS: BP 145/68
[2022-04-07] MEDS: inSUlin ASPART (NovoLOG) 1 UNIT/0.01 ML (CHARGE PER UNIT) SC SCH ×2 (16:14→20:48)
[2022-04-07 20:04] VITALS: BP 139/66
[2022-04-07 23:27] VITALS: BP 153/76
[2022-04-08] MEDS: ENOXAPARIN 40 MG/0.4 ML (LOVENOX) SYR SC SCH ×2 (02:50→14:10)
[2022-04-08 03:34] VITALS: BP 149/72
[2022-04-08] MEDS: inSUlin ASPART (NovoLOG) 1 UNIT/0.01 ML (CHARGE PER UNIT) SC SCH ×4 (05:26→21:12)
[2022-04-08] MEDS: CEFEPIME INJECTION 1,000 MG in NS (IVPB) 50 ML IV SCH ×3 (05:26→21:12)
[2022-04-08 06:11] LABS: BASOPHILS % (AUTO) 0 % (0-10); EOSINOPHILS # (AUTO) 0.3 10^3/uL (0.0-0.3); EOSINOPHILS % (AUTO) 3 % (0-10); HEMATOCRIT 32 % (35-52); HEMOGLOBIN 10.4 g/dL (11.5-16.0); LYMPHOCYTES # (AUTO) 1.9 10^3/uL (1.0-4.0); LYMPHOCYTES % (AUTO) 15 % (12-44); MEAN CORPUSCULAR HEMOGLOBIN 31 pg (25-34); MEAN CORPUSCULAR HGB CONC 32 g/dL (32-36); MEAN CORPUSCULAR VOLUME 94 fL (80-99); MEAN PLATELET VOLUME 10.8 fL (9.0-12.2); MONOCYTES # (AUTO) 0.9 10^3/uL (0.0-1.0); MONOCYTES % (AUTO) 8 % (0-12); NEUTROPHILS % (AUTO) 74 % (42-75); PLATELET COUNT 229 10^3/uL (130-400); WHITE BLOOD COUNT 12.2 10^3/uL (4.3-11.0)
[2022-04-08 06:28] LABS: ALBUMIN 2.8 GM/DL (3.2-4.5); POTASSIUM 4.2 MMOL/L (3.6-5.0)
--- NOTE | 2022-04-08 06:29 | Progress Note - Hospitalist ---
Subjective HPI/CC On Admission Date Seen by Provider: Apr 08, 2022 Time Seen by Provider: 11:00 Chief complaint: Sepsis from UTI History of present illness: This is an 82-year-old female with a past medical history of diabetes who presented to the [facility] with complaints of weakness and confusion found to have very elevated blood sugar of 430 and evidence of UTI. Patient was pancultured and placed on cefepime for empiric coverage of resistant organism. Blood culture is positive for gram-negative jacek ID and sensitivity pending. Preliminary urine culture shows Klebsiella and Proteus. Patient is very lethargic and sleeping soundly with oxygen. No details are obtained from the patient. White blood cell count went from 23,000- 18,000. Procalcitonin elevated but patient covered with antibiotics and IV flui ds. Repeat lactic acid was normal. Subjective/Events-last exam Patient lethargic in chair WBC improved Cefepime still on board UCx and BCx ID/S pending NO pain reported Gifford cath in place Review of Systems General: Fatigue, Malaise Neurological: Other (confused) Focused Exam Lactate Level 04/06/22 11:55: Lactic Acid Level 2.74*H 04/07/22 12:40: Lactic Acid Level 0.64 Objective Exam Vital Signs Vital Signs Date Time Temp Pulse Resp B/P (MAP) Pulse Ox O2 Delivery O2 Flow Rate FiO2 04/08/22 19:24 36.0 92 18 118/73 (88) 96 Nasal Cannula 1.50 Capillary Refill : Less Than 3 Seconds General Appearance: No Apparent Distress, WD/WN, Chronically ill, Obese, Other (lethargic) Respiratory: Lungs Clear, Normal Breath Sounds Cardiovascular: Regular Rate, Rhythm Neurologic/Psychiatric: Other (lethargic) Results/Procedures Lab Laboratory Tests 04/08/22 05:18 Patient resulted labs reviewed. Assessment/Plan Assessment and Plan Assess & Plan/Chief Complaint Assessment: Sepsis UTI Bacteremia with gram-negative jacek Severe hyperglycemia requiring aggressive insulin Altered mental status Advanced age Insulin-dependent diabetes Hypertension Anemia Volume overload Gifford catheter in place Plan: Cefepime IV fluids heplock Monitor oxygen Supportive care IV Lasix Diagnosis/Problems Diagnosis/Problems (1) Sepsis due to urinary tract infection Status: Acute KEVIN SELBY DO Apr 08, 2022 06:28
[2022-04-08 06:30] LABS: CALCIUM 8.3 MG/DL (8.5-10.1)
[2022-04-08 06:32] LABS: BILIRUBIN,TOTAL 0.5 MG/DL (0.1-1.0)
[2022-04-08 06:34] LABS: CREATININE SERUM 0.94 MG/DL (0.60-1.30)
[2022-04-08] MEDS: NS IV 1000 ML 1,000 ML IV SCH ×2 (07:10→07:32)
[2022-04-08] MEDS: DOCUSATE SODIUM 100 MG (COLACE) CAP PO SCH ×2 (08:01→20:41)
[2022-04-08] MEDS: KCL 20 MEQ TAB (K-DUR) PO SCH ×2 (08:01→17:40)
[2022-04-08 08:10] VITALS: BP 141/71
[2022-04-08] MEDS ORDERED: NS IV 1000 ML 1,000 ML IV SCH (11:48)
[2022-04-08 12:00] VITALS: BP 151/69
[2022-04-08] MEDS ORDERED: FUROSEMIDE 40 MG/4 ML INJ (LASIX) IVP ONE (15:00)
[2022-04-08 15:28] VITALS: BP 153/74
[2022-04-08 19:24] VITALS: BP 118/73
[2022-04-08 23:41] VITALS: BP 132/62
[2022-04-09 03:01] VITALS: BP 127/60
[2022-04-09] MEDS: ENOXAPARIN 40 MG/0.4 ML (LOVENOX) SYR SC SCH ×2 (03:01→15:14)
[2022-04-09] MEDS: inSUlin ASPART (NovoLOG) 1 UNIT/0.01 ML (CHARGE PER UNIT) SC SCH ×4 (06:00→20:28)
[2022-04-09] MEDS: CEFEPIME INJECTION 1,000 MG in NS (IVPB) 50 ML IV SCH (06:00)
[2022-04-09 06:16] LABS: BASOPHILS % (AUTO) 0 % (0-10); EOSINOPHILS # (AUTO) 0.4 10^3/uL (0.0-0.3); EOSINOPHILS % (AUTO) 5 % (0-10); HEMATOCRIT 32 % (35-52); HEMOGLOBIN 10.4 g/dL (11.5-16.0); LYMPHOCYTES # (AUTO) 1.8 10^3/uL (1.0-4.0); LYMPHOCYTES % (AUTO) 19 % (12-44); MEAN CORPUSCULAR HEMOGLOBIN 30 pg (25-34); MEAN CORPUSCULAR HGB CONC 32 g/dL (32-36); MEAN CORPUSCULAR VOLUME 93 fL (80-99); MEAN PLATELET VOLUME 10.2 fL (9.0-12.2); MONOCYTES # (AUTO) 0.9 10^3/uL (0.0-1.0); MONOCYTES % (AUTO) 9 % (0-12); NEUTROPHILS # (AUTO) 6.3 10^3/uL (1.8-7.8); NEUTROPHILS % (AUTO) 67 % (42-75); PLATELET COUNT 244 10^3/uL (130-400); WHITE BLOOD COUNT 9.4 10^3/uL (4.3-11.0)
[2022-04-09 06:29] LABS: ALBUMIN 2.7 GM/DL (3.2-4.5); POTASSIUM 4.2 MMOL/L (3.6-5.0)
[2022-04-09 06:31] LABS: CALCIUM 8.9 MG/DL (8.5-10.1)
[2022-04-09 06:33] LABS: BILIRUBIN,TOTAL 0.6 MG/DL (0.1-1.0)
[2022-04-09 06:35] LABS: CREATININE SERUM 0.96 MG/DL (0.60-1.30)
[2022-04-09 07:46] VITALS: BP 129/59
[2022-04-09] MEDS: DOCUSATE SODIUM 100 MG (COLACE) CAP PO SCH ×2 (08:05→20:27)
[2022-04-09] MEDS: KCL 20 MEQ TAB (K-DUR) PO SCH ×2 (08:05→18:17)
--- NOTE | 2022-04-09 08:25 | ST Dysphagia Evaluation ---
Speech Evaluation-General Medical Diagnosis UTI, Acute Cystitis, DM Onset Date: Apr 06, 2022 Therapy Diagnosis Therapy Diagnosis: Oral Dysphagia (Mild) Precautions Precautions: Fall, Pressure Ulcer, Aspiration Precautions/Isolations: Aspiration, Fall Prevention, Standard Precautions, Pressure Ulcer Referral Referring Physician: Dr. Jiang Reason for Referral: Evaluation/Treatment Medical History Pertinent Medical History: COPD, DM, HTN, Neuropathy (sever, hands and feet), OA Current History The patient is an 82 year-old female with a past medical history of COPD, HTN, and diabetes, who presented to an outside medical facility with complaints of weakness and confusion. The patient was found to have evidence of an UTI. Reviewed History: Yes Social History Current Living Status: Children (Son) Speech PLF/Current-Dysphagia Prior Level of Function The patient denied prior or recent concerns regarding her oropharyngeal swallowing function. Per patient, "Oh, I cough sometimes after I swallow but it's not all the time." The patient stated she consumes a regular consistency diet with thin liquids at home. Subjective The patient was lying in bed, sleeping upon entrance to her room by the clinician. The patient woke to the clinician verbal greeting and was agreeable to participation in the clinical bedside swallowing evaluation. The patient was positioned upright in bed for safe swallowing. Cognitive Status Patient Orientation: Person, Confused Oral Motor Skills Dentition: Natural (Sparse, anterior three.) Ability to Follow Directions: Good Oral Expression Ability: Mild Impairment Voice Voice Phonatory-Based Quality: Normal Voice Pitch: Normal Voice Loudness: Normal Face Facial Symmetry: Asymmetrical (Slight right labial weakness noted.) Oral-Facial Assessment Oral-Facial Dentition: Normal Labial Seal Description: Normal Smile: Reduced ROM (Right.) Puff Cheeks: Normal Lingual Protrusion: Normal Lingual ROM: Normal Lingual Strength: Normal Volitional Dry Swallow: Yes Voluntary Cough: Yes Can Clear Throat Volitionally: Yes Productive Cough: Yes Productive Throat Clear: Yes Dysphagia Evaluation Consistencies Presented: Regular, Thin Liquid (Via ice chip, teaspoon, and straw.), Pureed Mildly prolonged mastication was present with solid consistencies due to the p atient's sparse dentition. No additional oral deficits were noted. Pharyngeal deficits were not visualized throughout the evaluation. Laryngeal elevation was present to palpation. The patient was provided ice chips, teaspoons of thin liquid, single and mu ltiple straw drinks of thin liquid, puree, solid, and medication whole placed in puree. No s/s of suspected aspiration were demonstrated with any consistency tested. Dietary Recommendations: Mechanical Soft (Dysphagia three.) Liquid Recommendations: Thin Recommendations: - Dysphagia three consistency diet with thin liquids, as tolerated. - Fully upright and alert for P.O. intake. - Small, single bites and sips. - Place medication (whole or crushed) in puree for administration, as necessary. - Monitor for s/s of suspected aspiration with P.O. intake. If demonstrated, please contact speech pathology. The recommendations were shared with the patient and the RN immediately following completion. Dysphagia Evaluation Summary The patient demonstrated oral dysphagia characterized by prolonged mastication of solid consistencies. No additional oropharyngeal deficits were present. No s/s of suspected aspiration were demonstrated with thin liquids, puree, or solid consistencies. Speech-Plan Treatment Plan Speech Therapy Treatment Plan: Discontinue ST Treatment Duration: Apr 09, 2022 Frequency: 1 time per week Estimated Hrs Per Day: .5 hour per day Rehab Potential: Fair Safety Risks/Education Teaching Recipient: Patient Teaching Methods: Discussion Response to Teaching: Reinforcement Needed Education Topics Provided: Results, Swallowing Strategies, Plan of Care Time Speech Therapy Time In: 07:55 Speech Therapy Time Out: 08:17 Total Billed Time: 22 Billed Treatment Time 1, GEREMIAS REINA ELIZABETH ST Apr 09, 2022 08:25
[2022-04-09] MEDS ORDERED: NYST60PO TOP (09:31)
[2022-04-09] MEDS ORDERED: BRIM5DRO OU (09:32)
[2022-04-09] MEDS ORDERED: POTA10TA37 PO (09:35)
[2022-04-09] MEDS ORDERED: CINN500C2 PO (09:36)
[2022-04-09] MEDS ORDERED: ACET-168 PO (09:38)
[2022-04-09] MEDS ORDERED: ATOR10TA66 PO (09:41)
[2022-04-09] MEDS ORDERED: RT-ALBUINH IH (09:43)
[2022-04-09] MEDS ORDERED: ALBU2.5V4 INH (09:44)
--- NOTE | 2022-04-09 10:03 | Physical Therapy Daily Note ---
PT Daily Note-Current Subjective Patient agrees to PT. Patient c/o that she is hungry and they took her food away. She is NPO. Mental Status Patient Orientation: Person, Time, Situation Attachments: Gifford Catheter Transfers SCALE: Activities may be completed with or without assistive devices. 0-Ueddncrena-blsochj completes the activity by him/herself with no assistance from a helper. 5-Set-up or Clean-up Assistance-helper sets up or cleans up; patient completes activity. [place] assists only prior to or following the activity. 4-Supervision or Touching Assistance-helper provides verbal cues and/or touching/steadying and/or contact guard assistance as patient completes activity. Assistance may be provided throughout the activity or intermittently. 3-Partial/Moderate Assistance-helper does LESS THAN HALF the effort. [place] lifts, holds or supports trunk or limbs, but provides less than half the effort. 2-Substantial/Maximal Assistance-helper does MORE THAN HALF the effort. [place] lifts or holds trunk or limbs and provides more than half the effort. 1-Wjxlugdtv-uhqpus does ALL the effort. Patient does none of the effort to compl ete the activity. Or, the assistance of 2 or more helpers is required for the patient to complete the activity. If activity was not attempted, code reason: 7-Patient Refused. 9-Not Applicable-not attempted and the patient did not perform the activity before the current illness, exacerbation or injury. 10-Not Attempted due to Environmental Limitations-(lack of equipment, weather restraints, etc.). 88-Not Attempted due to Medical Conditions or Safety Concerns. Lying to Sitting/Side of Bed(Q: 3 Sit to Stand (QC): 4 Chair/Ymk-sy-Hgcrd Xfer(QC): 4 Gait Training Distance: 10' Walk 10 feet (QC): 4 Gait Assistive Device: FWW verbal direction due to eye site Exercises Seated Therapy Exercises: Ankle pumps, Long arc quads Seated Reps: 15 Assessment Patient up to recliner with needs met. Patient declined to ambulate any distance stating she doesn't leave her room at home. Increase activity as tolerated by patient. PT Home Health Outreach Coordinator Goals Mcfp Goals PT Home Health Outreach Coordinator Goals Time Frame: Apr 14, 2022 Roll Left & Right (QC): 4 (CGA) Sit to Lying (QC): 4 (CGA) Lying-Sitting on Side/Bed(QC): 4 (CGA) Sit to Stand (QC): 4 (SBA) Chair/Eys-ip-Rrnaq Xfer(QC): 4 (SBA) Walk 10 feet (QC): 4 (SBA) Walk 50ft with 2 Turns (QC): 4 (SBA) PT Plan Treatment/Plan Treatment Plan: Continue Plan of Care Treatment Plan: Bed Mobility, Education, Functional Activity Robert, Functional Strength, Gait, Safety, Therapeutic Exercise, Transfers Treatment Duration: Apr 14, 2022 Frequency: 6 times per week Estimated Hrs Per Day: .25 hour per day Patient and/or Family Agrees t: Yes Time/GCodes Time In: 829 Time Out: 840 Total Billed Treatment Time: 11 Total Billed Treatment 1 visit FA 11 min NOHEMI HERNANDEZ PT Apr 09, 2022 10:03
[2022-04-09 11:27] VITALS: BP 138/65
[2022-04-09] MEDS: cefTRIAXone 1 GM PRE-MIX 50 ML IV SCH (11:42)
[2022-04-09] MEDS ORDERED: CEFEPIME INJECTION 1,000 MG in NS (IVPB) 50 ML IV SCH (12:00)
--- NOTE | 2022-04-09 12:17 | Progress Note - Hospitalist ---
CLIFTON MAURO 04/09/22 1217: Subjective HPI/CC On Admission Date Seen by Provider: Apr 09, 2022 Time Seen by Provider: 10:45 Chief complaint: Sepsis from UTI Subjective/Events-last exam History of present illness: 82-year-old female with a past medical history of diabetes on day 3 of presenting to the [place] [facility] with complaints of weakness and confusion found to have very elevated blood sugar of 430 and evidence of UTI. Blood sugar currently 230. Patient was pancultured and placed on cefepime for empiric coverage of resistant organism. Blood culture is positive for gram- negative jacek ID confirmed as Proteus. Preliminary urine culture shows Klebsiella and Proteus. Cefepime dc and started on IV Ceftriaxone. Patient is very lethargic, moderately delirious, and sleeping soundly with oxygen. White blood cell count went from 18,000-9,400. Procalcitonin elevated but patient covered with antibiotics and IV fluids. Repeat lactic acid was normal. Pt denies any fever or chills. Gifford cath in place. 1.5L O2 nasal continued. Pt denies BM since arrival Review of Systems General: No Chills, No Night Sweats HEENT: No Head Aches Pulmonary: Dyspnea Gastrointestinal: Nausea, Constipation, Other (mild dysphagia); No: Vomiting Musculoskeletal: leg pain Neurological: Weakness delerium secondary to sepsis Focused Exam Sepsis Stage: Sepsis Lactate Level 04/07/22 12:40: Lactic Acid Level 0.64 Respiratory: Lungs Clear, Normal Breath Sounds, No Accessory Muscle Use, No Respiratory Distress Cardiovascular: Regular Rate, Rhythm, No Edema, No Gallop, No JVD, No Murmur Skin: normal color, warm/dry; No diaphoresis, No ecchymosis Objective Exam Vital Signs Vital Signs Date Time Temp Pulse Resp B/P (MAP) Pulse Ox O2 Delivery O2 Flow Rate FiO2 04/09/22 11:27 36.5 99 18 138/65 (89) 99 Nasal Cannula 1.50 Capillary Refill : Less Than 3 Seconds General Appearance: No Apparent Distress, Obese HEENT: Pale Conjunctivae (L), Pale Conjunctivae (R) Neck: Supple; No JVD Respiratory: Chest Non Tender, Lungs Clear, Normal Breath Sounds, No Accessory Muscle Use, No Respiratory Distress; No Accessory Muscle Use Cardiovascular: Regular Rate, Rhythm, No Edema, No Gallop, No JVD, No Murmur Gastrointestinal: Normal Bowel Sounds, No Pulsatile Mass, Tenderness (diffuse Abd tenderness upon light palpation), Other (No N/V) Back: Vertebral Tenderness (pain in Lumbar spine) Extremity: No Pedal Edema, Calf Tenderness (B/L diffuse LE pain upon light palpation ) Neurologic/Psychiatric: Alert, Other (delerium from sepsis) Skin: Normal Color, Warm/Dry Results/Procedures Lab Laboratory Tests 04/09/22 06:07 Patient resulted labs reviewed. 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 * monitor with POC glucose 3) Back pain * continue to monitor * consult OT/PT on possible stretches * if persists, lumbar x-ray to rule out osteomyelitis 4) Constipation * continue to follow up on next BM * consider stool softener Time spent with patient (mins): 10 Diagnosis/Problems Diagnosis/Problems (1) Sepsis due to urinary tract infection Status: Acute LYNDSAY JIANG DO 04/10/22 0537: Subjective Subjective/Events-last exam Pt is able to wake up a little bit today PO intake somewhat adequate No more vomiting Dysphagia 2 diet will be maintained Needs longterm placement She lives with her son Assessment/Plan Assessment and Plan Assess & Plan/Chief Complaint Narrow abx spectrum Supervisory-Addendum Brief Verification & Attestation Participated in pt care: history, MDM, physical Personally performed: exam, history, MDM, supervision of care Care discussed with: Medical Student Procedures: n/a Results interpretation: Verified all documentation Verification and Attestation of Medical Student E/M Service A medical student performed and documented this service in my presence. I reviewed and verified all information documented by the medical student and made modifications to such information, when appropriate. I personally performed the physical exam and medical decision making. Lyndsay Jiang Apr 10, 2022,05:37 CLIFTON MAURO Apr 09, 2022 12:17 LYNDSAY JIANG DO Apr 10, 2022 05:37
--- NOTE | 2022-04-09 13:24 | Occupational Ther Daily Note ---
OT Current Status-Daily Note Subjective Pt alert, sitting in recliner. Pt states that she has been trying to have a bowel movement and is not able. Pt agrees to therapy. No c/o pain. Mental Status/Objective Patient Orientation: Person, Place, Time, Situation Attachments: Gifford Catheter, IV, Oxygen ADL-Treatment Therapy Code Descriptions/Definitions Functional [place] Measure: 0=Not Assessed/NA 4=Minimal Assistance 1=Total Assistance 5=Supervision or Setup 2=Maximal Assistance 6=Modified [place] 3=Moderate Assistance 7=Complete IndependenceSCALE: Activities may be completed with or without assistive devices. 8-Ajsjotjsnd-bndmslu completes the activity by him/herself with no assistance from a helper. 5-Set-up or Clean-up Assistance-helper sets up or cleans up; patient completes activity. [place] assists only prior to or following the activity. 4-Supervision or Touching Assistance-helper provides verbal cues and/or touchin g/steadying and/or contact guard assistance as patient completes activity. Assistance may be provided throughout the activity or intermittently. 3-Partial/Moderate Assistance-helper does LESS THAN HALF the effort. [place] lifts, holds or supports trunk or limbs, but provides less than half the effort. 2-Substantial/Maximal Assistance-helper does MORE THAN HALF the effort. [place] lifts or holds trunk or limbs and provides more than half the effort. 1-Jyrdhduza-mirqvn does ALL the effort. Patient does none of the effort to complete the activity. Or, the assistance of 2 or more helpers is required for the patient to complete the activity. If activity was not attempted, code reason: 7-Patient Refused. 9-Not Applicable-not attempted and the patient did not perform the activity before the current illness, exacerbation or injury. 10-Not Attempted due to Environmental Limitations-(lack of equipment, weather restraints, etc.). 88-Not Attempted due to Medical Conditions or Safety Concerns. Other Treatment Pt able to feed self after set up. Sit to stand CGA. Ambulate 5 steps from recliner to bed using FWW, CGA and verbal cues for safe transfer. Mod A x1 for EOB to supine. Max A x2 to scoot up in bed. After therapy, pt lying in bed w ith call light/phone in reach. All needs met in room. Nrsg in room. OT Child Welfare Social Worker Goals Child Welfare Social Worker Goals Time Frame: Apr 14, 2022 Eating (QC): 6 Oral Hygiene (QC): 5 Toileting Hygiene (QC): 5 Upper Body Dressing (QC): 5 Lower Body Dressing (QC): 3 On/Off Footwear (QC): 1 Additional Goals: 1-Demonstrate ADL Tasks, 2-Verbalize Understanding, 3- ImproveStrength/Robert 1=Demonstrate adherence to instructed precautions during ADL tasks. 2=Patient will verbalize/demonstrate understanding of assistive devices/modifications for ADL. 3=Patient will improve strength/tolerance for activity to enable patient to perform ADL's. OT Education/Plan Problem List/Assessment Assessment: Decreased Activ Tolerance, Decreased UE Strength, Impaired Bed Mobility, Impaired Self-Care Skills Discharge Recommendations Plan/Recommendations: Continue POC Treatment Plan/Plan of Care Patient would benefit from OT for education, treatment and training to promote independence in ADL's, mobility, safety and/or upper extremity function for ADL's. Plan of Care: ADL Retraining, Functional Mobility, UE Funct Exercise/Act, UE Neuromus Re-Ed/Coord Treatment Duration: Apr 14, 2022 Frequency: 5 times per week Estimated Hrs Per Day: .5 hour per day Agreement: Yes Rehab Potential: Fair Time/GCodes Start Time: 13:00 Stop Time: 13:15 Total Time Billed (hr/min): 15 Billed Treatment Time 1 visit-FA 1 (15 min) JOSE L SHAW Apr 09, 2022 13:24
[2022-04-09 15:19] VITALS: BP 135/60
[2022-04-09 19:13] VITALS: BP 139/63
[2022-04-09] MEDS: MICONAZOLE 2% POWDER (DESENEX AF) 90 GM TOP SCH (20:33)
[2022-04-10] VITALS (7 sets, daily range): BP systolic 119–152; BP diastolic 60–92
[2022-04-10] MEDS: ENOXAPARIN 40 MG/0.4 ML (LOVENOX) SYR SC SCH ×2 (03:00→14:42)
[2022-04-10 05:39] LABS: BASOPHILS % (AUTO) 0 % (0-10); EOSINOPHILS # (AUTO) 0.5 10^3/uL (0.0-0.3); EOSINOPHILS % (AUTO) 5 % (0-10); HEMATOCRIT 31 % (35-52); LYMPHOCYTES % (AUTO) 22 % (12-44); MEAN CORPUSCULAR HEMOGLOBIN 30 pg (25-34); MEAN CORPUSCULAR HGB CONC 33 g/dL (32-36); MEAN CORPUSCULAR VOLUME 93 fL (80-99); MEAN PLATELET VOLUME 9.8 fL (9.0-12.2); MONOCYTES % (AUTO) 11 % (0-12); NEUTROPHILS # (AUTO) 5.3 10^3/uL (1.8-7.8); NEUTROPHILS % (AUTO) 61 % (42-75); PLATELET COUNT 255 10^3/uL (130-400); WHITE BLOOD COUNT 8.8 10^3/uL (4.3-11.0)
[2022-04-10 05:55] LABS: ALBUMIN 2.7 GM/DL (3.2-4.5); POTASSIUM 3.6 MMOL/L (3.6-5.0)
[2022-04-10 05:56] LABS: CALCIUM 8.7 MG/DL (8.5-10.1)
[2022-04-10 05:57] LABS: TOTAL PROTEIN 5.9 GM/DL (6.4-8.2)
[2022-04-10 05:59] LABS: BILIRUBIN,TOTAL 0.4 MG/DL (0.1-1.0)
[2022-04-10 06:01] LABS: CREATININE SERUM 0.87 MG/DL (0.60-1.30)
[2022-04-10] MEDS: inSUlin ASPART (NovoLOG) 1 UNIT/0.01 ML (CHARGE PER UNIT) SC SCH ×4 (06:39→20:54)
[2022-04-10] MEDS: KCL 20 MEQ TAB (K-DUR) PO SCH ×2 (08:01→17:13)
[2022-04-10] MEDS: MICONAZOLE 2% POWDER (DESENEX AF) 90 GM TOP SCH ×2 (08:02→20:54)
[2022-04-10] MEDS: DOCUSATE SODIUM 100 MG (COLACE) CAP PO SCH ×2 (08:02→20:53)
--- NOTE | 2022-04-10 10:05 | Physical Therapy Daily Note ---
PT Daily Note-Current Subjective Patient agrees to PT. No c/o at this time. She is finishing breakfast. Mental Status Patient Orientation: Normal For Age Attachments: Oxygen, Gifford Catheter Transfers SCALE: Activities may be completed with or without assistive devices. 5-Caimdwlspl-ujfnstr completes the activity by him/herself with no assistance from a helper. 5-Set-up or Clean-up Assistance-helper sets up or cleans up; patient completes activity. [place] assists only prior to or following the activity. 4-Supervision or Touching Assistance-helper provides verbal cues and/or touching/steadying and/or contact guard assistance as patient completes activity. Assistance may be provided throughout the activity or intermittently. 3-Partial/Moderate Assistance-helper does LESS THAN HALF the effort. [place] lifts, holds or supports trunk or limbs, but provides less than half the effort. 2-Substantial/Maximal Assistance-helper does MORE THAN HALF the effort. [place] lifts or holds trunk or limbs and provides more than half the effort. 6-Sshboofgh-dwkcqf does ALL the effort. Patient does none of the effort to complete the activity. Or, the assistance of 2 or more helpers is required for the patient to complete the activity. If activity was not attempted, code reason: 7-Patient Refused. 9-Not Applicable-not attempted and the patient did not perform the activity before the current illness, exacerbation or injury. 10-Not Attempted due to Environmental Limitations-(lack of equipment, weather restraints, etc.). 88-Not Attempted due to Medical Conditions or Safety Concerns. Lying to Sitting/Side of Bed(Q: 4 Sit to Stand (QC): 4 Chair/Qyk-pe-Pdojh Xfer(QC): 4 Toilet Transfer (QC): 4 Gait Training Distance: 10' x 3 Walk 10 feet (QC): 4 Gait Assistive Device: FWW very slow, VC's for FWW placement with ambulation due to patient's vision deficit. Assessment Patient up in recliner with needs met. PT to continue to increase activity as tolerated by patient. PT Supervisor Dry Cell Assembly Goals Supervisor Dry Cell Assembly Goals PT Supervisor Dry Cell Assembly Goals Time Frame: Apr 14, 2022 Roll Left & Right (QC): 4 (CGA) Sit to Lying (QC): 4 (CGA) Lying-Sitting on Side/Bed(QC): 4 (CGA) Sit to Stand (QC): 4 (SBA) Chair/Gha-hl-Khgzk Xfer(QC): 4 (SBA) Walk 10 feet (QC): 4 (SBA) Walk 50ft with 2 Turns (QC): 4 (SBA) PT Plan Treatment/Plan Treatment Plan: Continue Plan of Care Treatment Plan: Bed Mobility, Education, Functional Activity Robert, Functional Strength, Gait, Safety, Therapeutic Exercise, Transfers Treatment Duration: Apr 14, 2022 Frequency: 6 times per week Estimated Hrs Per Day: .25 hour per day Patient and/or Family Agrees t: Yes Time/GCodes Time In: 815 Time Out: 825 Total Billed Treatment Time: 10 Total Billed Treatment 1 visit FA 10 min NOHEMI HERNANDEZ PT Apr 10, 2022 10:05
[2022-04-10] MEDS: cefTRIAXone 1 GM PRE-MIX 50 ML IV SCH (11:11)
--- NOTE | 2022-04-10 12:26 | Progress Note - Hospitalist ---
CLIFTON MAURO 04/10/22 1226: Subjective HPI/CC On Admission Date Seen by Provider: Apr 10, 2022 Time Seen by Provider: 11:10 Sepsis secondary to UTI Subjective/Events-last exam History of present illness: 82-year-old female with a past medical history of diabetes on day 4 of presenting to the [facility] with complaints of weakness and confusion found to have very elevated blood sugar of 430 and evidence of UTI. Blood sugar currently 157. Patient was pancultured and placed on cefepime for empiric coverage of resistant organism. Blood culture is positive for gram- negative jacek ID confirmed as Proteus. Preliminary urine culture shows Klebsiella and Proteus. Cefepime dc and started on IV Ceftriaxone. Patient is very lethargic, moderately delirious, and sleeping soundly with oxygen. White blood cell count went from 9,400-8,800. Procalcitonin elevated but patient covered with antibiotics and IV fluids. Repeat lactic acid was normal. Pt denies any fever or chills. Gifford cath in place. 1.5L O2 nasal continued. Pt denies BM since arrival. Pt reports feeling "better than previous day" Review of Systems General: No Chills; Fatigue HEENT: No Head Aches; Dysphasia Pulmonary: No Dyspnea, No Cough Cardiovascular: No: Chest Pain, Palpitations, Edema Gastrointestinal: Nausea, Constipation; No: Vomiting, Abdominal Pain, Diarrhea Genitourinary: No Dysuria Musculoskeletal: leg pain (B/L calf pain) Neurological: Confusion; No: Change in speech delerium secondary to sepsis Focused Exam Sepsis Stage: Sepsis Lactate Level 04/07/22 12:40: Lactic Acid Level 0.64 Skin: warm/dry; No diaphoresis; pallor Objective Exam Vital Signs Vital Signs Date Time Temp Pulse Resp B/P (MAP) Pulse Ox O2 Delivery O2 Flow Rate FiO2 04/10/22 11:07 36.7 85 18 148/60 (89) 100 Nasal Cannula 1.50 Capillary Refill : Less Than 3 Seconds General Appearance: No Apparent Distress, Obese Neck: Normal Inspection, Non Tender, Supple; No JVD Respiratory: Chest Non Tender, Lungs Clear, Normal Breath Sounds, No Accessory Muscle Use, No Respiratory Distress Cardiovascular: Regular Rate, Rhythm, No Edema, No Gallop, No JVD, No Murmur, Normal Peripheral Pulses Gastrointestinal: Normal Bowel Sounds, No Organomegaly, No Pulsatile Mass, Non Tender, Soft Extremity: Normal Capillary Refill, Non Tender, No Pedal Edema, Calf Tenderness Neurologic/Psychiatric: Alert, Disoriented Skin: Warm/Dry, Pallor Results/Procedures Lab Laboratory Tests 04/10/22 05:15 Patient resulted labs reviewed. 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 * monitor with POC glucose 3) Back pain * continue to monitor * consult OT/PT on possible stretches * if persists, lumbar x-ray to rule out osteomyelitis 4) Constipation * continue to follow up on next BM * consider stool softener 5) Dysphasia * continue dysphasia 2 diet * continue to monitor and increase PO intake Diagnosis/Problems Diagnosis/Problems (1) Sepsis due to urinary tract infection Status: Acute LYNDSAY JIANG DO 04/11/22 0524: Subjective Subjective/Events-last exam Patient still lethargic Unsure if she will recover Advanced age and comorbidities place her at risk of continued decline Objective Exam General Appearance: No Apparent Distress, WD/WN, Chronically ill Respiratory: Lungs Clear Cardiovascular: Regular Rate, Rhythm Assessment/Plan Assessment and Plan Assess & Plan/Chief Complaint Rocephin Needs long-term Could ultimately be a hospice candidate Supervisory-Addendum Brief Verification & Attestation Participated in pt care: history, MDM, physical Personally performed: exam, history, MDM, supervision of care Care discussed with: Medical Student Procedures: n/a Results interpretation: Verified all documentation Verification and Attestation of Medical Student E/M Service A medical student performed and documented this service in my presence. I reviewed and verified all information documented by the medical student and made modifications to such information, when appropriate. I personally performed the physical exam and medical decision making. Lyndsay Jiang Apr 11, 2022,05:24 CLIFTON MAURO Apr 10, 2022 12:26 LYNDSAY JIANG DO Apr 11, 2022 05:24
[2022-04-10] MEDS ORDERED: NON-FORMULARY MEDICATION 1 EA EA (Magnesium Oxide (Magnesium) 400 MG) PO PRN (12:30)
[2022-04-10] MEDS ORDERED: NON-FORMULARY MEDICATION 1 EA EA (Potassium Chloride 10 MEQ) PO PRN (12:30)
[2022-04-10] MEDS ORDERED: lisINopril 5 MG (PRINIVIL) TABLET PO PRN (12:30)
[2022-04-10] MEDS ORDERED: KCL 10 MEQ TAB (MICRO K) PO PRN (12:45)
[2022-04-10] MEDS ORDERED: MAGNESIUM OXIDE (MAG-OX)400 MG TAB PO PRN (12:45)
--- NOTE | 2022-04-10 12:53 | Occupational Ther Daily Note ---
OT Current Status-Daily Note Subjective Pt sleeping in chair, difficult to wake. Pt agrees to therapy though closes eyes again. Mental Status/Objective Patient Orientation: Person ADL-Treatment Pt required multiple stimuli to stay awake for therapy. Pt's lunch in room. Pt able to use regular utensils to eat though requires set up and stimuli to stay awake to eat. Pt's granddaughter called at end of session, pt able to talk to her without difficulty. After therapy, pt sitting in recliner with call light/phone in reach. All needs met in room. Therapy Code Descriptions/Definitions Functional [place] Measure: 0=Not Assessed/NA 4=Minimal Assistance 1=Total Assistance 5=Supervision or Setup 2=Maximal Assistance 6=Modified [place] 3=Moderate Assistance 7=Complete IndependenceSCALE: Activities may be completed with or without assistive devices. 4-Wjnovkgllt-cvlicec completes the activity by him/herself with no assistance from a helper. 5-Set-up or Clean-up Assistance-helper sets up or cleans up; patient completes activity. [place] assists only prior to or following the activity. 4-Supervision or Touching Assistance-helper provides verbal cues and/or touching/steadying and/or contact guard assistance as patient completes activity. Assistance may be provided throughout the activity or intermittently. 3-Partial/Moderate Assistance-helper does LESS THAN HALF the effort. [place] lifts, holds or supports trunk or limbs, but provides less than half the effort. 2-Substantial/Maximal Assistance-helper does MORE THAN HALF the effort. [place] lifts or holds trunk or limbs and provides more than half the effort. 6-Ndrpfcmmj-byngkv does ALL the effort. Patient does none of the effort to complete the activity. Or, the assistance of 2 or more helpers is required for the patient to complete the activity. If activity was not attempted, code reason: 7-Patient Refused. 9-Not Applicable-not attempted and the patient did not perform the activity befo re the current illness, exacerbation or injury. 10-Not Attempted due to Environmental Limitations-(lack of equipment, weather re straints, etc.). 88-Not Attempted due to Medical Conditions or Safety Concerns. OT Lang Interpreter Goals Residential Goals Time Frame: Apr 14, 2022 Eating (QC): 6 Oral Hygiene (QC): 5 Toileting Hygiene (QC): 5 Upper Body Dressing (QC): 5 Lower Body Dressing (QC): 3 On/Off Footwear (QC): 1 Additional Goals: 1-Demonstrate ADL Tasks, 2-Verbalize Understanding, 3- ImproveStrength/Robert 1=Demonstrate adherence to instructed precautions during ADL tasks. 2=Patient will verbalize/demonstrate understanding of assistive devices/modifications for ADL. 3=Patient will improve strength/tolerance for activity to enable patient to perform ADL's. OT Education/Plan Problem List/Assessment Assessment: Decreased Activ Tolerance, Impaired Self-Care Skills Discharge Recommendations Plan/Recommendations: Continue POC Treatment Plan/Plan of Care Patient would benefit from OT for education, treatment and training to promote independence in ADL's, mobility, safety and/or upper extremity function for ADL's. Plan of Care: ADL Retraining, Functional Mobility, UE Funct Exercise/Act, UE Neuromus Re-Ed/Coord Treatment Duration: Apr 14, 2022 Frequency: 5 times per week Estimated Hrs Per Day: .5 hour per day Agreement: Yes Rehab Potential: Fair Time/GCodes Start Time: 11:45 Stop Time: 12:00 Total Time Billed (hr/min): 15 Billed Treatment Time 1 visit-ADL 1 (15 min) JOSE L SHAW Apr 10, 2022 12:53
[2022-04-10] MEDS: ONDANSETRON 4 MG/2 ML (SDV) Z0FRAN IV PRN (21:00)
[2022-04-11] MEDS: ENOXAPARIN 40 MG/0.4 ML (LOVENOX) SYR SC SCH ×2 (03:25→15:57)
[2022-04-11 04:07] VITALS: BP 140/68
[2022-04-11] MEDS: inSUlin ASPART (NovoLOG) 1 UNIT/0.01 ML (CHARGE PER UNIT) SC SCH ×4 (05:35→20:33)
[2022-04-11 05:53] LABS: BASOPHILS % (AUTO) 0 % (0-10); EOSINOPHILS # (AUTO) 0.6 10^3/uL (0.0-0.3); EOSINOPHILS % (AUTO) 6 % (0-10); HEMATOCRIT 32 % (35-52); HEMOGLOBIN 10.3 g/dL (11.5-16.0); LYMPHOCYTES # (AUTO) 2.2 10^3/uL (1.0-4.0); LYMPHOCYTES % (AUTO) 25 % (12-44); MEAN CORPUSCULAR HEMOGLOBIN 30 pg (25-34); MEAN CORPUSCULAR HGB CONC 32 g/dL (32-36); MEAN CORPUSCULAR VOLUME 95 fL (80-99); MEAN PLATELET VOLUME 9.6 fL (9.0-12.2); MONOCYTES # (AUTO) 0.9 10^3/uL (0.0-1.0); MONOCYTES % (AUTO) 10 % (0-12); NEUTROPHILS # (AUTO) 5.1 10^3/uL (1.8-7.8); NEUTROPHILS % (AUTO) 58 % (42-75); PLATELET COUNT 281 10^3/uL (130-400); WHITE BLOOD COUNT 8.8 10^3/uL (4.3-11.0)
[2022-04-11] MEDS: MULTIVIT W/MINERALS TAB (THERAGRAN M) PO SCH (05:54)
[2022-04-11 06:18] LABS: ALBUMIN 2.7 GM/DL (3.2-4.5)
[2022-04-11 06:19] LABS: POTASSIUM 4.4 MMOL/L (3.6-5.0)
[2022-04-11 06:20] LABS: CALCIUM 8.9 MG/DL (8.5-10.1)
[2022-04-11 06:21] LABS: TOTAL PROTEIN 6.1 GM/DL (6.4-8.2)
[2022-04-11 06:23] LABS: BILIRUBIN,TOTAL 0.3 MG/DL (0.1-1.0)
[2022-04-11 06:25] LABS: CREATININE SERUM 0.81 MG/DL (0.60-1.30)
[2022-04-11 07:25] VITALS: BP 105/67
[2022-04-11] MEDS: KCL 20 MEQ TAB (K-DUR) PO SCH ×2 (08:14→17:13)
[2022-04-11] MEDS: MICONAZOLE 2% POWDER (DESENEX AF) 90 GM TOP SCH ×2 (08:14→20:33)
[2022-04-11] MEDS: AtorvaSTATin TABLET 10 MG TABLET PO SCH (08:14)
[2022-04-11] MEDS: TIMOLOL MALEATE 0.5% 5 ML (TIMOPTIC) BTL OU SCH ×2 (08:15→20:34)
[2022-04-11] MEDS: BRIMONIDINE 0.2% (ALPHAGAN) OPHTH SOLN 5 ML BTL OU SCH ×3 (08:15→20:34)
[2022-04-11] MEDS: DOCUSATE SODIUM 100 MG (COLACE) CAP PO SCH ×2 (08:15→20:32)
[2022-04-11] MEDS ORDERED: TIMOLOL OU SCH (09:00)
[2022-04-11] MEDS ORDERED: [UNRECOGNIZED DRUG - OTHER] OU SCH (09:00)
[2022-04-11] MEDS ORDERED: BRIMONIDINE TARTRATE OU SCH (09:00)
[2022-04-11] MEDS ORDERED: NON-FORMULARY MEDICATION 1 EA EA (Brimonidine Tartrate/Timolol (Combigan Eye Drops) 1 DROP OU SCH (09:00)
[2022-04-11] MEDS ORDERED: NON-FORMULARY MEDICATION 1 EA EA (Multivitamin 1 EACH) PO SCH (09:00)
[2022-04-11] MEDS: cefTRIAXone 1 GM PRE-MIX 50 ML IV SCH (10:16)
[2022-04-11 11:11] VITALS: BP 110/56
--- NOTE | 2022-04-11 11:43 | Physical Therapy Daily Note ---
PT Daily Note-Current Subjective Patient in bed sleeping pre tx, very hard to rouse but agrees to PT, voices no complaints of pain. Appearance Patient in recliner post tx with nurse call, phone, tray, all needs met. Mental Status Patient Orientation: Person, Place, Situation Attachments: Oxygen Transfers SCALE: Activities may be completed with or without assistive devices. 3-Rdkgkkgjth-vsssjds completes the activity by him/herself with no assistance from a helper. 5-Set-up or Clean-up Assistance-helper sets up or cleans up; patient completes activity. [place] assists only prior to or following the activity. 4-Supervision or Touching Assistance-helper provides verbal cues and/or touching/steadying and/or contact guard assistance as patient completes activity. Assistance may be provided throughout the activity or intermittently. 3-Partial/Moderate Assistance-helper does LESS THAN HALF the effort. [place] lifts, holds or supports trunk or limbs, but provides less than half the effort. 2-Substantial/Maximal Assistance-helper does MORE THAN HALF the effort. [place] lifts or holds trunk or limbs and provides more than half the effort. 1-Ygetadteg-eftjgt does ALL the effort. Patient does none of the effort to complete the activity. Or, the assistance of 2 or more helpers is required for the patient to complete the activity. If activity was not attempted, code reason: 7-Patient Refused. 9-Not Applicable-not attempted and the patient did not perform the activity before the current illness, exacerbation or injury. 10-Not Attempted due to Environmental Limitations-(lack of equipment, weather restraints, etc.). 88-Not Attempted due to Medical Conditions or Safety Concerns. Roll Left & Right (QC): 3 Lying to Sitting/Side of Bed(Q: 3 Sit to Stand (QC): 4 Chair/Zau-nt-Phmln Xfer(QC): 4 Gait Training Distance: 10' Walk 10 feet (QC): 4 Gait Persons Needed: 1 Gait Assistive Device: FWW Exercises Seated Therapy Exercises: Ankle pumps, Long arc quads Seated Reps: 20 Treatments bed mobility and transfer, ambulation, LE ROM Assessment Current Status: Poor Progress no change in mobility, patient needs careful directions during transfers and ambulation due to her impaired vision PT Prison Goals Prison Goals PT Prison Goals Time Frame: Apr 14, 2022 Roll Left & Right (QC): 4 (CGA) Sit to Lying (QC): 4 (CGA) Lying-Sitting on Side/Bed(QC): 4 (CGA) Sit to Stand (QC): 4 (SBA) Chair/Sqt-sh-Vkkei Xfer(QC): 4 (SBA) Walk 10 feet (QC): 4 (SBA) Walk 50ft with 2 Turns (QC): 4 (SBA) PT Plan Problem List Problem List: Activity Tolerance, Functional Strength, Safety, Balance, Gait, Transfer, Bed Mobility, ROM Treatment/Plan Treatment Plan: Continue Plan of Care Treatment Plan: Bed Mobility, Education, Functional Activity Robert, Functional Strength, Gait, Safety, Therapeutic Exercise, Transfers Treatment Duration: Apr 14, 2022 Frequency: 6 times per week Estimated Hrs Per Day: .25 hour per day Patient and/or Family Agrees t: Yes Safety Risks/Education Patient Education: Gait Training, Transfer Techniques, Correct Positioning, Safety Issues Teaching Recipient: Patient Teaching Methods: Demonstration, Discussion Response to Teaching: Reinforcement Needed Time/GCodes Time In: 1116 Time Out: 1127 Total Billed Treatment Time: 11 Total Billed Treatment 1 visit FA 11' ODILON MERCADO PT Apr 11, 2022 11:43
--- NOTE | 2022-04-11 11:45 | Progress Note - Hospitalist ---
GENA MAUROULTON 04/11/22 1145: Subjective HPI/CC On Admission Date Seen by Provider: Apr 11, 2022 Time Seen by Provider: 10:00 Sepsis secondary to UTI Subjective/Events-last exam 82-year-old female with a past medical history of diabetes and recurrent UTIs on day 5 of presenting to the [facility] with complaints of weakness and confusionI. Blood culture is positive for gram-negative jacek ID confirmed as Proteus. Urine culture shows Klebsiella and Proteus. Cefepime dc and started on IV Ceftriaxone(day 3). Patient was talkative and upbeat this morning for pre- rounds and became lethargic, moderately delirious, and sleeping soundly with oxygen during rounds.Pt denies any fever, chills, or pain. Gifford cath in place. 1.5L O2 nasal continued. Pt states she had a BM but it was small and mild nausea post food ingestion. Review of Systems General: No Chills, No Night Sweats; Fatigue HEENT: No Head Aches; Dysphasia Pulmonary: No Dyspnea, No Cough Cardiovascular: No: Chest Pain, Palpitations Gastrointestinal: Nausea; No: Vomiting, Abdominal Pain, Diarrhea Genitourinary: No Dysuria, No Incontinence Musculoskeletal: leg pain, foot pain Neurological: Weakness, Confusion delerium secondary to sepsis Objective Exam Vital Signs Vital Signs Date Time Temp Pulse Resp B/P (MAP) Pulse Ox O2 Delivery O2 Flow Rate FiO2 04/11/22 11:11 36.4 77 18 110/56 (74) 98 Nasal Cannula 1.50 Capillary Refill : Less Than 3 Seconds General Appearance: No Apparent Distress, Chronically ill, Obese HEENT: PERRL/EOMI Neck: Normal Inspection, Non Tender, Supple; No JVD Respiratory: Chest Non Tender, Lungs Clear, Normal Breath Sounds, No Accessory Muscle Use, No Respiratory Distress Cardiovascular: Regular Rate, Rhythm, No Edema, No Gallop, No JVD, No Murmur, Normal Peripheral Pulses Gastrointestinal: Normal Bowel Sounds, No Organomegaly, No Pulsatile Mass, Non Tender, Soft Extremity: Normal Capillary Refill, No Pedal Edema, Calf Tenderness Neurologic/Psychiatric: Alert, Disoriented Skin: Normal Color, Warm/Dry Results/Procedures Lab Laboratory Tests 04/11/22 05:25 Patient resulted labs reviewed. Assessment/Plan Assessment and Plan Assess & Plan/Chief Complaint 1) Sepsis secondary to UTI * continue ceftriaxone IV * continue electrolyte supplementation * continue O2 * continue supportive care and contact family about post-hosp care 2) Hyperglycemia * continue on insulin regimen for insulin dependent DM * monitor with POC glucose 3) Back pain * improved but continue to monitor * consult OT/PT on possible stretches * if persists, lumbar x-ray to rule out osteomyelitis 4) Constipation * continue to monitor * Add stool softener PRN 5) Dysphasia * continue dysphasia 2 diet * continue to monitor and increase PO intake * increase fluid intake with meals Diagnosis/Problems Diagnosis/Problems (1) Sepsis due to urinary tract infection Status: Acute LYNDSAY JIANG DO 04/11/222110: Subjective Subjective/Events-last exam Activity is on and off Sitting in chair Assessment/Plan Assessment and Plan Assess & Plan/Chief Complaint [facility] tomorrow Supervisory-Addendum Brief Verification & Attestation Participated in pt care: history, MDM, physical Personally performed: exam, history, MDM, supervision of care Care discussed with: Medical Student Procedures: n/a Results interpretation: Verified all documentation Verification and Attestation of Medical Student E/M Service A medical student performed and documented this service in my presence. I reviewed and verified all information documented by the medical student and made modifications to such information, when appropriate. I personally performed the physical exam and medical decision making. Lyndsay Jiang, Apr 11, 2022,21:10 CLIFTON MAURO Apr 11, 2022 11:45 LYNDSAY JIANG DO Apr 11, 2022 21:11
--- NOTE | 2022-04-11 13:01 | Occupational Ther Daily Note ---
OT Current Status-Daily Note Subjective Pt alert, sitting in recliner. Pt agrees to therapy. No c/o pain. Only complaint is that she isn't hungry and can't eat all of meal. 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 Pt able to reach out and grasp drinks, one in each hand, then bring to mouth to drink alternating drinks. Pt states that her granddaughter assists with bathing, dressing and toileting. Pt also states that she does have LH toilet tongs to assist with cleansing after BM if granddaughter isn't there. Pt then request to use BSC after eating. CGA for sit to stand, CGA to ambulate ~6 steps using FWW to BSC. Pt able to stand and use B UE to hike pants over hips with CGA. Pt wanted to sit on BSC for awhile. Call light placed in reach. Nrsg notified of pt's position. Therapy Code Descriptions/Definitions Functional [place] Measure: 0=Not Assessed/NA 4=Minimal Assistance 1=Total Assistance 5=Supervision or Setup 2=Maximal Assistance 6=Modified [place] 3=Moderate Assistance 7=Complete IndependenceSCALE: Activities may be completed with or without assistive devices. 0-Vfmlxetqdo-lcwcxau completes the activity by him/herself with no assistance from a helper. 5-Set-up or Clean-up Assistance-helper sets up or cleans up; patient completes activity. [place] assists only prior to or following the activity. 4-Supervision or Touching Assistance-helper provides verbal cues and/or touching/steadying and/or contact guard assistance as patient completes activity. Assistance may be provided throughout the activity or intermittently. 3-Partial/Moderate Assistance-helper does LESS THAN HALF the effort. [place] lifts, holds or supports trunk or limbs, but provides less than half the effort. 2-Substantial/Maximal Assistance-helper does MORE THAN HALF the effort. [place] lifts or holds trunk or limbs and provides more than half the effort. 2-Pwdwctxmr-xqnzlf does ALL the effort. Patient does none of the effort to complete the activity. Or, the assistance of 2 or more helpers is required for the patient to complete the activity. If activity was not attempted, code reason: 7-Patient Refused. 9-Not Applicable-not attempted and the patient did not perform the activity before the current illness, exacerbation or injury. 10-Not Attempted due to Environmental Limitations-(lack of equipment, weather restraints, etc.). 88-Not Attempted due to Medical Conditions or Safety Concerns. Eating (QC): 5 Toilet Transfer (QC): 4 OT Treatment Supervisor Goals Treatment Supervisor Goals Time Frame: Apr 14, 2022 Eating (QC): 6 Oral Hygiene (QC): 5 Toileting Hygiene (QC): 5 Upper Body Dressing (QC): 5 Lower Body Dressing (QC): 3 On/Off Footwear (QC): 1 Additional Goals: 1-Demonstrate ADL Tasks, 2-Verbalize Understanding, 3- ImproveStrength/Robert 1=Demonstrate adherence to instructed precautions during ADL tasks. 2=Patient will verbalize/demonstrate understanding of assistive device s/modifications for ADL. 3=Patient will improve strength/tolerance for activity to enable patient to perform ADL's. OT Education/Plan Problem List/Assessment Assessment: Decreased Activ Tolerance, Impaired Self-Care Skills Discharge Recommendations Plan/Recommendations: Continue POC Treatment Plan/Plan of Care Patient would benefit from OT for education, treatment and training to promote independence in ADL's, mobility, safety and/or upper extremity function for ADL's. Plan of Care: ADL Retraining, Functional Mobility, UE Funct Exercise/Act, UE Neuromus Re-Ed/Coord Treatment Duration: Apr 14, 2022 Frequency: 5 times per week Estimated Hrs Per Day: .5 hour per day Agreement: Yes Rehab Potential: Fair Time/GCodes Start Time: 12:50 Stop Time: 13:07 Total Time Billed (hr/min): 17 Billed Treatment Time 1 visit-ADL 1 (17 min) JOSE L SHAW Apr 11, 2022 13:01
[2022-04-11 15:59] VITALS: BP 143/65
[2022-04-11 19:38] VITALS: BP 141/65
[2022-04-11 23:55] VITALS: BP 140/65
[2022-04-12] MEDS: ENOXAPARIN 40 MG/0.4 ML (LOVENOX) SYR SC SCH (03:49)
[2022-04-12 04:06] VITALS: BP 112/71
[2022-04-12] MEDS ORDERED: TIMO5DRO5 OU (05:19)
[2022-04-12] MEDS ORDERED: NYST60PO TOP (05:19)
[2022-04-12] MEDS ORDERED: LISI5TAB20 PO (05:19)
[2022-04-12] MEDS ORDERED: CEFD300C3 PO (05:19)
[2022-04-12] MEDS ORDERED: ATOR10TA66 PO (05:19)
[2022-04-12] MEDS ORDERED: INSU100V16 SC (05:19)
[2022-04-12] MEDS ORDERED: BRIM5DRO OU (05:19)
[2022-04-12] MEDS ORDERED: ACET-168 PO (05:19)
[2022-04-12] MEDS ORDERED: POTA-169 PO (05:19)
[2022-04-12] MEDS ORDERED: DOCU100C37 PO (05:19)
[2022-04-12] MEDS ORDERED: MULT-1136 PO (05:19)
[2022-04-12] MEDS ORDERED: TRAM50TA3 PO (05:19)
[2022-04-12] MEDS ORDERED: INSU100V5 SQ (05:19)
--- NOTE | 2022-04-12 05:20 | Discharge Inst-Skilled Nursing ---
Discharge Inst-Skilled NF Reconcile Patient Problems Problems Reviewed?: Yes Chief Complaint Sepsis secondary to UTI Patient Instructions Patient Problems: Delirium UTI Goal: Return to independence Consult/Follow Up/Orders Follow Up Appt.: PCP OR rounds Skilled NF Admit to: Certification (SNF) I certify that SNF services are required to be given on an inpatient basis because of the above named patient's need for longterm care on a continuing basis for the conditions(s) for which he/she was receiving inpatient hospital services prior to his/her transfer to the SNF. [facility] Facility Order: Nursing Services, Painter Ordnance-Evaluate & Treat, Physical Therapy-Evaluate & Treat, Speech Language-Evaluate & Treat Oxygen Delivery Method: Nasal Cannula Discharge Diet: ADA Diet Resuscitation Status: Full Code New & Resume Previous Orders New Medications: Cefdinir (Cefdinir) 300 Mg Capsule 300 MG PO BID, #14 CAP Docusate Sodium (Docusate Sodium) 100 Mg Capsule 100 MG PO BID, #30 CAP Insulin Aspart (Novolog) 100 Unit/Ml Susp 0 UNIT SC ACHS, #1 EA per ssi Insulin Determir (Levemir) 100 Unit/Ml Soln 20 UNIT SQ BID, #1 EA Potassium Chloride (Klor-Con M20) 20 Meq Tab.er.prt 10 MEQ PO DAILY, #30 EA Timolol Maleate (Timolol Maleate 0.5%) 0.5 % Drops 0 ML OU BID, #1 EA bid Changed Medications: Lisinopril (Lisinopril) 5 Mg Tablet 5 MG PO DAILY, #30 TAB (Changed from: Removed Reason) Continued Medications: Acetaminophen (Acetaminophen Extra Strength) 500 Mg Tablet 1000 MG PO Q8H PRN for PAIN-MILD (1-4) MDD 1500, #30 TAB (This prescription has been renewed) TAKES 2 (500MG) TABS Atorvastatin Calcium (Atorvastatin Calcium) 10 Mg Tablet 10 MG PO DAILY, #30 TAB (This prescription has been renewed) Brimonidine Tartrate/Timolol (Combigan Eye Drops) 0.2 %-0.5 % Drops 1 DROPS OU BID, #1 EA (This prescription has been renewed) Multivitamin (Multivitamin) 1 Each Tablet 1 EACH PO DAILY, #30 TAB (This prescription has been renewed) Nystatin (Nystop) 100,000 Unit/Gram Powder 1 APPLIC TOP Q48H, #1 EA (This prescription has been renewed) Tramadol HCl (Tramadol HCl) 50 Mg Tablet 50 MG PO BID PRN for PAIN-MODERATE (5-7), #30 TAB (This prescription has been renewed) Discontinued Medications: Cinnamon Bark (Cinnamon) 500 Mg Capsule 500 MG PO Q48H, CAP Ibuprofen (Ibuprofen) 800 Mg Tablet 800 MG PO Q8H PRN for PAIN-MILD (1-4), TAB Insulin NPL/Insulin Lispro (Humalog Mix 75-25 Kwikpen) 100 Unit/Ml (75-25) Insuln.pen 10-13 UNIT SQ TIDWM, EA PER SLIDING SCALE, DO NOT EXCEED 40 UNITS DAILY Magnesium Oxide (Magnesium) 400 Mg Tablet 400 MG PO DAILY PRN for MUSCLE CRAMPS, TAB Potassium Chloride (Potassium Chloride) 10 Meq Tab.er.prt 10 MEQ PO DAILY PRN for MUSCLE CRAMPS Lyndsay Jiang Apr 12, 2022 05:20 LYNDSAY JIANG DO Apr 12, 2022 05:20
--- NOTE | 2022-04-12 05:21 | Discharge Summary ---
Discharge Summary Hospital Course Was the Problem List Reviewed?: Yes Problems/Dx: (1) Sepsis due to urinary tract infection Status: Acute Hospital Course Date of Admission: Apr 06, 2022 at 14:24 Admission Diagnosis : Family Physician/Provider: [facility] Date of Discharge: 04/12/22 Discharge Diagnosis: UTI, sepsis, delirium, bacteremia Hospital Course: Progress Note 82 yr old female admitted for sepsis secondary to UTI. Urine and Blood cultures were obtained and pathogens identified. Acute Abd series showed no acute abnormalities. Pt completed course of broad spectrum abx with resolution of infection. Pt continues to have delirious states due to increasing in age. DC [facility] to [facility]. Will follow up with PCP in one week. CLIFTON MAURO Labs and Pending Lab Test: Laboratory Tests 04/11/22 05:25: White Blood Count 8.8, Red Blood Count 3.40L, Hemoglobin 10.3L, Hematocrit 32L, Mean Corpuscular Volume 95, Mean Corpuscular Hemoglobin 30, Mean Corpuscular Hemoglobin Concent 32, Red Cell Distribution Width 12.6, Platelet Count 281, Mean Platelet Volume 9.6, Immature Granulocyte % (Auto) 0, Neutrophils (%) (Auto) 58, Lymphocytes (%) (Auto) 25, Monocytes (%) (Auto) 10, Eosinophils (%) (Auto) 6, Basophils (%) (Auto) 0, Neutrophils # (Auto) 5.1, Lymphocytes # (Auto) 2.2, Monocytes # (Auto) 0.9, Eosinophils # (Auto) 0.6H, Basophils # (Auto) 0.0, Immature Granulocyte # (Auto) 0.0, Sodium Level 141, Potassium Level 4.4, Chloride Level 95L, Carbon Dioxide Level 37H, Anion Gap 9, Blood Urea Nitrogen 16, Creatinine 0.81, Estimat Glomerular Filtration Rate 73, BUN/Creatinine Ratio 20, Glucose Level 107H, Calcium Level 8.9, Corrected Calcium 9.9, Total Bilirubin 0.3, Aspartate Amino Transf (AST/SGOT) 29, Alanine Aminotransferase (ALT/SGPT) 35, Alkaline Phosphatase 115, Total Protein 6.1L, Albumin 2.7L 04/11/22 05:35: Glucometer 109 04/11/22 10:57: Glucometer 240H 04/11/22 15:33: Glucometer 270H 04/11/22 20:03: Glucometer 260H Microbiology 04/06/22 Urine Culture - Final, Complete Klebsiella pneumoniae Proteus species 04/06/22 Blood Culture - Final, Complete Proteus mirabilis Home Meds Active Cefdinir 300 Mg Capsule 300 Mg PO BID Levemir (Insulin Determir) 100 Unit/Ml Soln 20 Unit SQ BID Novolog (Insulin Aspart) 100 Unit/Ml Susp 0 Unit SC ACHS per ssi Docusate Sodium 100 Mg Capsule 100 Mg PO BID Timolol Maleate 0.5% (Timolol Maleate) 0.5 % Drops 0 Ml OU BID bid Klor-Con M20 (Potassium Chloride) 20 Meq Tab.er.prt 10 Meq PO DAILY Atorvastatin Calcium 10 Mg Tablet 10 Mg PO DAILY Acetaminophen Extra Strength (Acetaminophen) 500 Mg Tablet 1,000 Mg PO Q8H PRN MDD 1500 TAKES 2 (500MG) TABS Combigan Eye Drops (Brimonidine Tartrate/Timolol) 0.2 %-0.5 % Drops 1 Drops OU BID Nystop (Nystatin) 100,000 Unit/Gram Powder 1 Applic TOP Q48H Multivitamin 1 Each Tablet 1 Each PO DAILY Tramadol HCl 50 Mg Tablet 50 Mg PO BID PRN Lisinopril 5 Mg Tablet 5 Mg PO DAILY Reported Cinnamon (Cinnamon Bark) 500 Mg Capsule 500 Mg PO Q48H Potassium Chloride 10 Meq Tab.er.prt 10 Meq PO DAILY PRN Magnesium (Magnesium Oxide) 400 Mg Tablet 400 Mg PO DAILY PRN Ibuprofen 800 Mg Tablet 800 Mg PO Q8H PRN Humalog Mix 75-25 Kwikpen (Insulin NPL/Insulin Lispro) 100 Unit/Ml (75-25) Insuln.pen 10-13 Unit SQ TIDWM PER SLIDING SCALE, DO NOT EXCEED 40 UNITS DAILY Assessment/Pt Instructions [facility] rounds Discharge Planning: <30 minutes discharge planning Discharge Instructions Discharge Diet: ADA Diet Discharge Physical Examination Vital Signs Vital Signs Date Time Temp Pulse Resp B/P (MAP) Pulse Ox O2 Delivery O2 Flow Rate FiO2 04/12/22 04:06 36.8 87 18 112/71 (85) 95 Nasal Cannula 1.50 General Appearance: No Apparent Distress, WD/WN, Chronically ill Allergies: Coded Allergies: levofloxacin (Unverified Allergy, Intermediate, HIVES, ITCHING, 04/14/19) azithromycin (Verified Allergy, Unknown, 07/26/21) metronidazole (Unverified Adverse Reaction, Mild, N/V, 12/16/18) latex (Unverified Adverse Reaction, Unknown, hives, 12/16/18) Discharge Summary Date of Admission Apr 06, 2022 at 14:24 Date of Discharge Discharge Date: Apr 12, 2022 Admission Diagnosis Assessment: Sepsis UTI Bacteremia with gram-negative jacek Severe hyperglycemia requiring aggressive insulin Altered mental status Advanced age Insulin-dependent diabetes Hypertension Anemia Plan: Cefepime IV fluids Monitor oxygen Supportive care Discharge Diagnosis [facility] tomorrow (1) Sepsis due to urinary tract infection Status: Acute KEVIN SELBY DO Apr 12, 2022 05:21
[2022-04-12 06:12] LABS: MEAN PLATELET VOLUME 10.8 fL (9.0-12.2)
[2022-04-12 06:13] LABS: BASOPHILS % (AUTO) 1 % (0-10); EOSINOPHILS # (AUTO) 0.5 10^3/uL (0.0-0.3); EOSINOPHILS % (AUTO) 6 % (0-10); HEMATOCRIT 36 % (35-52); HEMOGLOBIN 11.8 g/dL (11.5-16.0); LYMPHOCYTES # (AUTO) 2.4 10^3/uL (1.0-4.0); LYMPHOCYTES % (AUTO) 27 % (12-44); MEAN CORPUSCULAR HEMOGLOBIN 30 pg (25-34); MEAN CORPUSCULAR HGB CONC 32 g/dL (32-36); MEAN CORPUSCULAR VOLUME 92 fL (80-99); MONOCYTES # (AUTO) 0.8 10^3/uL (0.0-1.0); MONOCYTES % (AUTO) 9 % (0-12); NEUTROPHILS % (AUTO) 57 % (42-75); PLATELET COUNT 285 10^3/uL (130-400); WHITE BLOOD COUNT 8.8 10^3/uL (4.3-11.0)
[2022-04-12 06:14] LABS: SMEAR SCAN COMMENT YES
[2022-04-12] MEDS: inSUlin ASPART (NovoLOG) 1 UNIT/0.01 ML (CHARGE PER UNIT) SC SCH ×2 (06:17→11:25)
[2022-04-12 06:38] LABS: ALBUMIN 3.1 GM/DL (3.2-4.5); BILIRUBIN,TOTAL 0.3 MG/DL (0.1-1.0); CALCIUM 9.6 MG/DL (8.5-10.1); CREATININE SERUM 0.97 MG/DL (0.60-1.30); POTASSIUM 5.2 MMOL/L (3.6-5.0); TOTAL PROTEIN 6.8 GM/DL (6.4-8.2)
[2022-04-12] MEDS: MULTIVIT W/MINERALS TAB (THERAGRAN M) PO SCH (06:45)
[2022-04-12] MEDS: KCL 20 MEQ TAB (K-DUR) PO SCH (07:54)
[2022-04-12] MEDS: BRIMONIDINE 0.2% (ALPHAGAN) OPHTH SOLN 5 ML BTL OU SCH ×2 (07:55→13:04)
[2022-04-12] MEDS: AtorvaSTATin TABLET 10 MG TABLET PO SCH (07:55)
[2022-04-12] MEDS: TIMOLOL MALEATE 0.5% 5 ML (TIMOPTIC) BTL OU SCH (07:55)
[2022-04-12] MEDS: DOCUSATE SODIUM 100 MG (COLACE) CAP PO SCH (07:55)
[2022-04-12] MEDS: MICONAZOLE 2% POWDER (DESENEX AF) 90 GM TOP SCH (07:57)
[2022-04-12 08:05] VITALS: BP 160/85
[2022-04-12] MEDS: ONDANSETRON 4 MG/2 ML (SDV) Z0FRAN IV PRN (08:05)
[2022-04-12] MEDS: cefTRIAXone 1 GM PRE-MIX 50 ML IV SCH (11:24)
[2022-04-12 11:46] VITALS: BP 153/80
--- NOTE | 2022-04-12 12:57 | Progress Note ---
CLIFTON MAURO 04/12/22 1257: Progress Note 82 yr old female admitted for sepsis secondary to UTI. Urine and Blood cultures were obtained and pathogens identified. Acute Abd series showed no acute abnormalities. Pt completed course of broad spectrum abx with resolution of infection. Pt continues to have delirious states due to increasing in age. ABRAM erickson to [facility]. Will follow up with PCP in one week. LYNDSAY JIANG DO 04/12/226: Supervisory-Addendum Brief Verification & Attestation Participated in pt care: history, MDM, physical Personally performed: exam, history, MDM, supervision of care Care discussed with: Medical Student Procedures: n/a Results interpretation: Verified all documentation Verification and Attestation of Medical Student E/M Service A medical student performed and documented this service in my presence. I reviewed and verified all information documented by the medical student and made modifications to such information, when appropriate. I personally performed the physical exam and medical decision making. Lyndsay Jiang Apr 12, 2022,21:26 CLIFTON MAURO Apr 12, 2022 12:57 LYNDSAY JIANG DO Apr 12, 2022 21:26
[2022-04-12 14:15] VITALS: BP 153/80
== END 2022-04-12 14:15 | DRG 872 ==
LOC: EDUNIT# 11:44 → ER FS 11:46 → 4TH 14:24
PROVIDERS: ADMIT Internal Medicine; ATTEND Internal Medicine
DX: A41.59 Other Gram-negative sepsis (principal); N39.0 Urinary tract infection, site not specified; F05 Delirium due to known physiological condition; Z68.41 Body mass index [BMI] 40.0-44.9, adult; B96.1 Klebsiella pneumoniae [K. pneumoniae] as the cause of diseases classified elsewhere; E11.65 Type 2 diabetes mellitus with hyperglycemia; E11.40 Type 2 diabetes mellitus with diabetic neuropathy, unspecified; J44.9 Chronic obstructive pulmonary disease, unspecified; Z20.822 Contact with and (suspected) exposure to COVID-19; E66.01 Morbid (severe) obesity due to excess calories; R47.02 Dysphasia; D64.9 Anemia, unspecified; I10 Essential (primary) hypertension; F32.A Depression, unspecified; K59.00 Constipation, unspecified; R13.10 Dysphagia, unspecified; M54.9 Dorsalgia, unspecified; M19.91 Primary osteoarthritis, unspecified site; H54.7 Unspecified visual loss; Z79.4 Long term (current) use of insulin; Z28.310 Unvaccinated for COVID-19; Z28.9 Immunization not carried out for unspecified reason; Z88.1 Allergy status to other antibiotic agents; Z91.040 Latex allergy status
CPT/HCPCS: 36415; 36600; 51702; 74022; 80053; 81000; 82805; 82947; 83605; 83690; 83880; 84145; 85007; 85025; 85027; 86141; 87040; 87077; 87088; 87186; 87636

== ENCOUNTER 2023-02-19 15:23 | Observation (INO) | payer MEDICARE, MEDICAID ==
[~2023-02-19] VITALS: Ht 167.7 cm; Wt 107.2 kg
[~2023-02-19 15:23] MED LIST changes: +ACET-168 PO; +ALBU2.5V4 INH; +ALBU8.5H6 IH; +ATOR10TA66 PO; +BRIM5DRO OU; +CEFD300C3 PO; +CINN500C2 PO; +DOCU100C37 PO; +INSU100V16 SC; +INSU100V5 SQ; +NYST60PO TOP; +POTA-169 PO; +POTA-177 PO; -POTA10TA37 PO; +SENN-271 PO; -SENN1TAB76 PO; +TIMO5DRO16 OU
[2023-02-19] MEDS ORDERED: NS IV 1000 ML 1,000 ML IV STA (15:32)
[2023-02-19] MEDS ORDERED: ONDANSETRON 4 MG/2 ML (SDV) Z0FRAN IVP STA (15:32)
--- NOTE | 2023-02-19 15:48 | ED General ---
General Chief Complaint: Abdominal/GI Problems Stated Complaint: NAUSEA,WEAKNESS Source of Information: Patient, Family (Granddaughter who is also a caregiver for her) History of Present Illness Date Seen by Provider: Feb 19, 2023 Time Seen by Provider: 15:23 Initial Comments 83-year-old female presenting from home by EMS with complaints of general weakness and nausea with vomiting. She has had generalized headaches as well. She feels like she is getting fever and chills. She was concerned that she had sepsis. She felt like there was some discomfort when she urinated. She also has been constipated and not wanting to eat or drink as much as usual. She has some intermittent abdominal cramping. Her symptoms have been worsening over the last 4 to 5 days. Timing/Duration: 4-5 Days Severity: Moderate Modifying Factors: worse with Movement (Weak and having difficulty getting around and out of bed) Associated Systoms: No Chest Pain, No Cough, No Diaphoresis; Fever/Chills (Subjective), Headaches (Intermittent), Loss of Appetite, Malaise, Nausea/Vomiting; No Rash, No Seizure, No Shortness of Air, No Syncope; Weakness Allergies and Home Medications Allergies Coded Allergies: levofloxacin (Unverified Allergy, Intermediate, HIVES, ITCHING, 04/14/19) azithromycin (Verified Allergy, Unknown, 07/26/21) metronidazole (Unverified Adverse Reaction, Mild, N/V, 12/16/18) latex (Unverified Adverse Reaction, Unknown, hives, 12/16/18) Patient Home Medication List Home Medication List Reviewed: Yes Acetaminophen (Acetaminophen Extra Strength) 500 Mg Tablet, 1,000 MG PO Q8H PRN for PAIN-MILD (1-4) Prescribed by: KEVIN SELBY on 04/12/22518 Atorvastatin Calcium (Atorvastatin Calcium) 10 Mg Tablet, 10 MG PO DAILY Prescribed by: KEVIN SELBY on 04/12/22518 Brimonidine Tartrate/Timolol (Combigan Eye Drops) 0.2 %-0.5 % Drops, 1 DROPS OU BID Prescribed by: KEVIN SELBY on 04/12/22518 Cefdinir (Cefdinir) 300 Mg Capsule, 300 MG PO BID Prescribed by: KEVIN SELBY on 04/12/22518 Docusate Sodium (Docusate Sodium) 100 Mg Capsule, 100 MG PO BID Prescribed by: KEVIN SELBY on 04/12/22518 Insulin Aspart (Novolog) 100 Unit/Ml Susp, 0 UNIT SC ACHS Prescribed by: KEVIN SELBY on 04/12/22518 Insulin Determir (Levemir) 100 Unit/Ml Soln, 20 UNIT SQ BID Prescribed by: KEVIN SELBY on 04/12/22518 Lisinopril (Lisinopril) 5 Mg Tablet, 5 MG PO DAILY Prescribed by: KEVIN SELBY on 04/12/22518 Multivitamin (Multivitamin) 1 Each Tablet, 1 EACH PO DAILY Prescribed by: KEVIN SELBY on 04/12/22518 Nystatin (Nystop) 100,000 Unit/Gram Powder, 1 APPLIC TOP Q48H Prescribed by: KEVIN SELBY on 04/12/22518 Potassium Chloride (Klor-Con M20) 20 Meq Tab.er.prt, 10 MEQ PO DAILY Prescribed by: KEVIN SELBY on 04/12/22518 Timolol Maleate (Timolol Maleate 0.5%) 0.5 % Drops, 0 ML OU BID Prescribed by: KEVIN SELBY on 04/12/22518 Tramadol HCl (Tramadol HCl) 50 Mg Tablet, 50 MG PO BID PRN for PAIN-MODERATE (5- 7) Prescribed by: KEVIN SELBY on 04/12/22518 Review of Systems Review of Systems Constitutional: chills, fever (Subjective) EENTM: no symptoms reported Respiratory: no symptoms reported Cardiovascular: no symptoms reported Gastrointestinal: see HPI, constipation, nausea, vomiting Genitourinary: dysuria (Discomfort with urination) Musculoskeletal: no symptoms reported Skin: No rash Psychiatric/Neurological: Headache (Intermittent headaches) Past Hrmgyss-Mmuhrj-Oacixn Hx Immunizations Up To Date First/Initial COVID19 Vaccinat: Not currently vaccinated Seasonal Allergies Seasonal Allergies: Yes (ALLERGIC RHINITIS) Past Medical History Surgery/Hospitalization HX: COPD; DM Surgeries: Yes (CERVICAL DISC SURGERY, BILAT ROTATOR CUFF, FOOT SURGERY) Appendectomy, Gallbladder, Hysterectomy, Orthopedic Respiratory: Yes COPD Cardiac: Yes Hypertension Neurological: Yes (SEVERE DIABETIC NEUROPATHY HANDS/FEET, POST HERPETIC NEURALGIA) Neuropathy Genitourinary: No Gastrointestinal: No Musculoskeletal: Yes (OSTEOARTHRITIS) Endocrine: Yes (DM TYPE II, MORBID OBESITY) Diabetes, Insulin dep HEENT: No Loss of Vision: Bilateral Hearing Impairment: Denies Cancer: No Psychosocial: Yes Depression Integumentary: Yes (SORES AND SCABS GENERALIZED) Recent Skin Changes, Psoriasis Blood Disorders: No Family Medical History CAD Over 55 Years Old Physical Exam Vital Signs Vital Signs - First Documented 02/19/23 15:25 Temp 36.5 Pulse 86 Resp 15 B/P (MAP) 164/81 (108) Pulse Ox 92 O2 Delivery Room Air Capillary Refill : Height, Weight, BMI Height: 5'6.00" Weight: 272lbs. 3.2oz. 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 Norm as Tested Skin: Normal Color, Warm/Dry Focused Exam Lactate Level 02/19/23 15:15: Lactic Acid Level 1.61 Lactic Acid Level Laboratory Tests Test 02/19/23 15:15 Lactic Acid Level 1.61 MMOL/L (0.50-2.00) Progress/Results/Core Measures Suspected Sepsis SIRS Temperature: Pulse: Respiratory Rate: Laboratory Tests 02/19/23 15:15: White Blood Count 8.9 Blood Pressure / Mean: 02/19/23 15:15: Lactic Acid Level 1.61 Laboratory Tests 02/19/23 15:15: Creatinine 0.83, Platelet Count 243, Total Bilirubin 0.3 Results/Orders Lab Results Laboratory Tests Test 02/19/23 15:15 02/19/23 15:41 Range/Units White Blood Count 8.9 4.3-11.0 10^3/uL Red Blood Count 3.91 3.80-5.11 10^6/uL Hemoglobin 11.6 11.5-16.0 g/dL Hematocrit 36 35-52 % Mean Corpuscular Volume 91 80-99 fL Mean Corpuscular Hemoglobin 30 25-34 pg Mean Corpuscular Hemoglobin Concent 33 32-36 g/dL Red Cell Distribution Width 12.9 10.0-14.5 % Platelet Count 243 130-400 10^3/uL Mean Platelet Volume 9.9 9.0-12.2 fL Immature Granulocyte % (Auto) 0 % Neutrophils (%) (Auto) 54 42-75 % Lymphocytes (%) (Auto) 36 12-44 % Monocytes (%) (Auto) 6 0-12 % Eosinophils (%) (Auto) 4 0-10 % Basophils (%) (Auto) 0 0-10 % Neutrophils # (Auto) 4.8 1.8-7.8 10^3/uL Lymphocytes # (Auto) 3.2 1.0-4.0 10^3/uL Monocytes # (Auto) 0.5 0.0-1.0 10^3/uL Eosinophils # (Auto) 0.4 H 0.0-0.3 10^3/uL Basophils # (Auto) 0.0 0.0-0.1 10^3/uL Immature Granulocyte # (Auto) 0.0 0.0-0.1 10^3/uL Sodium Level 138 135-145 MMOL/L Potassium Level 4.6 3.6-5.0 MMOL/L Chloride Level 99 98-107 MMOL/L Carbon Dioxide Level 28 21-32 MMOL/L Anion Gap 11 5-14 MMOL/L Blood Urea Nitrogen 16 7-18 MG/DL Creatinine 0.83 0.60-1.30 MG/DL Estimat Glomerular Filtration Rate 70 BUN/Creatinine Ratio 19 Glucose Level 291 H 70-105 MG/DL Lactic Acid Level 1.61 0.50-2.00 MMOL/L Calcium Level 8.9 8.5-10.1 MG/DL Corrected Calcium 9.5 8.5-10.1 MG/DL Total Bilirubin 0.3 0.1-1.0 MG/DL Aspartate Amino Transf (AST/SGOT) 19 5-34 U/L Alanine Aminotransferase (ALT/SGPT) 18 0-55 U/L Alkaline Phosphatase 108 40-136 U/L C-Reactive Protein 10.89 H <0.50 MG/DL Total Protein 6.6 6.4-8.2 GM/DL Albumin 3.3 3.2-4.5 GM/DL Urine Color YELLOW Urine Clarity CLEAR Urine pH 7.0 5-9 Urine Specific [place] <=1.005 1.016-1.022 Urine Protein NEGATIVE NEGATIVE Urine Glucose (UA) 2+ H NEGATIVE Urine Ketones NEGATIVE NEGATIVE Urine Nitrite NEGATIVE NEGATIVE Urine Bilirubin NEGATIVE NEGATIVE Urine Urobilinogen 0.2 < = 1.0 MG/DL Urine Leukocyte Esterase NEGATIVE NEGATIVE Urine RBC (Auto) TRACE-I H NEGATIVE Urine RBC 2-5 H /HPF Urine WBC 2-5 /HPF Urine Squamous Epithelial Cells 2-5 /HPF Urine Crystals NONE /LPF Urine Bacteria MODERATE H /HPF Urine Casts NONE /LPF Urine Mucus NEGATIVE /LPF Urine Culture Indicated YES My Orders Orders - ALESSANDRO JEAN MD Cbc With Automated Diff (02/19/23 15:32) Comprehensive Metabolic Panel (02/19/23 15:32) Blood Culture (02/19/23 15:32) Ua Culture If Indicated (02/19/23 15:32) Chest 1 View Ap/Pa Only (02/19/23 15:32) Ed Iv/Invasive Line Start (02/19/23 15:32) Crp Fs (02/19/23 15:32) Lactic Acid Analyzer (02/19/23 15:32) Straight Cath For Spec.-Adult (02/19/23 15:32) Ct Head Wo (02/19/23 15:32) Ns Iv 1000 Ml (Sodium Chloride 0.9%) (02/19/23 15:32) Ondansetron Injection (Zofran Injectio (02/19/23 15:32) Urine Culture (02/19/23 15:41) Ct Abdomen/Pelvis W (02/19/23 16:49) Iohexol Injection (Omnipaque 350 Mg/Ml 1 (02/19/23 17:00) Received Contrast (Hold Metformin- Contr (02/19/23 17:00) Ns (Ivpb) (Sodium Chloride 0.9% Ivpb Bag (02/19/23 17:00) Hydralazine Injection (Apresoline Inject (02/19/23 18:13) Ceftriaxone Iv/Im (Rocephin Iv/Im) (02/19/23 18:21) Ed Admission (Communication) (02/19/23 19:16) Code/Resuscitation (02/19/23 19:16) Metoclopramide Injection (Reglan Injecti (02/19/23 19:19) Medications Given in ED Current Medications Medications Dose Ordered Sig/Annie Route Start Time Stop Time Status Last Admin Dose Admin Iohexol 100 ml ONCE ONCE IV 02/19/23 17:00 02/19/23 17:01 DC 02/19/23 17:21 80 ML Sodium Chloride 100 ml ONCE ONCE IV 02/19/23 17:00 02/19/23 17:01 DC 02/19/23 17:21 100 ML Vital Signs/I&O 02/19/23 02/19/23 15:25 19:54 Temp 36.5 36.7 Pulse 86 76 Resp 15 16 B/P (MAP) 164/81 (108) 160/63 Pulse Ox 92 98 O2 Delivery Room Air Room Air Capillary Refill : Progress Note #1: Progress Note Potential diagnosis of UTI, sepsis, pneumonia, stroke, brain mass, sinusitis, constipation, bowel obstruction, diverticulitis, colitis. Obtain peripheral IV access and send labs for complete blood count, compre hensive metabolic profile, blood cultures, lactic acid, CRP, urinalysis. Placed on cardiac night monitor and initially her heart rate was in the 80s did not appear to be sinus rhythm. Oxygen saturations 93 to 96% on room air. Her blood pressure was slightly elevated at 164/81. Obtain a CT scan of the head without IV contrast to look for signs of acute intracranial process causing the headaches. 1 view chest x-ray looking for signs of pneumonia or infiltrate to be contributing to her fever and chills. Consider CT scan of the abdomen and pelvis with IV contrast if her other test or not showing any findings. Administer normal saline 1 L IV fluid bolus for hydration. She did receive Zofran 4 mg by EMS and did order an additional dose here if needed. Progress Note #2: Time: 16:45 Progress Note Complete blood count showed white blood cell count normal at 8.9, mild anemia with hemoglobin of 11.6. Her comprehensive metabolic profile did not show any acute significant electrolyte abnormality other than elevated glucose to 291. Her renal function was normal with a creatinine of 0.83 and a BUN of 16. Lactic acid was not elevated at 1.61. She did have elevation of her CRP to 10.89. Her urinalysis had specific gravity less than 1.005. She had 2+ glucose in her urine with trace red blood cells and moderate bacteria so a urine culture was reflexed. On my personal interpretation and review of her 1 view chest x-ray I did not appreciate any acute infiltrate or effusion. On my personal interpretation and reviewed the CT head without IV contrast I did not appreciate any acute intracranial hemorrhage or mass. Since she was still having some nausea and intermittent chills will add on a CT scan of the abdomen and pelvis with IV contrast to look for pathology to be contributing to her symptoms. Progress Note #3: Time: 18:[address] scan of the abdomen and pelvis does not show any acute process to account for her fever, chills, general weakness with nausea and vomiting. They did see an exophytic mass on her kidney and recommended close follow-up to document stability. There is no obstruction or bowel inflammation. Patient's blood pressure had been fluctuating between 1 60-1 95 for the systolic numbers of a dose of hydralazine 10 mg IV was ordered. With her having the generalized weakness and subjective fever and chills will go ahead and treat for possible UTI with her having bacteria in her urine although she does not have nitrites or leukocyte esterase. We will check with Dr. Park the on-call hospitalist for [facility] about possible admission for antibiotics and to see if she needed medicines adjusted for blood pressure. Elevated blood pressure could certainly be part of why she was having intermittent headaches since there is nothing acute showing on the CT of her head. Before patient was given Hydralazine a recheck of her blood pressure was down to 147 systolic so the medicine was held and not administered. Continue to watch her labile blood pressure. Progress Note #4: Time: 19:15 Progress Note After initially talking with Dr. Park I discussed with the patient the options of taking oral antibiotics at home and trying fluids and nausea medicine versus observation admission for her weakness with bacteria in the urine. Patient and granddaughter who is her main caregiver stated that she is still too weak to get up and move and felt like she was too weak to go home. I called Dr. Park back and she was agreeable to an observation admission overnight to the IV fluid and give some time for the antibiotics. We will also do a sliding scale insulin orders she since her sugars were 291. Will place bridge orders and work on [facility] bed for the patient Diagnostic Imaging Diagonstic Imaging: Xray Plain Films/CT/US/NM/MRI: chest [facility] [place] NAME: T[facility]AS TELL[facility] REC#: [id number] PT STATUS: REG ER : 1940 PHYSICIAN: ALESSANDRO JEAN MD ADMIT DATE: 02/19/23/ER FS Draft Date of Exam:02/19/23 CHEST 1 VIEW AP/PA ONLY INDICATION: Cough and fever. COMPARISON: 07/26/2021. FINDINGS: There is cardiomegaly. The lungs are clear. There is no pleural effusion or pneumothorax. The mediastinum is unremarkable. There is no pneumothorax. IMPRESSION: No acute cardiopulmonary abnormality. Cardiomegaly. Dictated on workstation # [id number] Dict: 02/19/23 1559 Trans: 02/19/23 1601 [id number] Interpreted by: MIKE RODRIGUEZ MD Electronically signed by: Reviewed: Reviewed by Me (I reviewed the radiologist report at 1700) Diagonstic Imaging: CT Plain Films/CT/US/NM/MRI: head Comments [facility] [place] [place] NAME: TOMAS TELLO [facility] REC#: [id number] PT STATUS: REG ER : 1940 PHYSICIAN: ALESSANDRO JEAN MD ADMIT DATE: 02/19/23/ER FS Signed Date of Exam:02/19/23 CT HEAD WO PROCEDURE: CT head without contrast. TECHNIQUE: Multiple contiguous axial images were obtained through the brain without the use of intravenous contrast. Auto Exposure Controls were utilized during the CT exam to meet ALARA standards for radiation dose reduction. INDICATION: Head pain, fever, weakness. COMPARISON: Exam compared with head CT of 02/16/2021. FINDINGS: Mild senescent cortical atrophy, stable. There is no hydrocephalus. There is no focal or generalized cerebral edema. No calvarial fracture deformity. The sinuses are clear. The orbital contents are unremarkable. No hemorrhage or abnormal extra-axial fluid collection. No focal or generalized cerebral edema. No acute finding. IMPRESSION: Stable chronic senescent changes. No hemorrhage, edema, or acute-appearing abnormalities. Dictated by: Dictated on workstation # [id number] Dict: 02/19/23 1553 Trans: 02/19/239 AS6 [id number] Interpreted by: ANTONETTE PERALES Electronically signed by: ANTONETTE PERALES 02/19/231708 Reviewed: Reviewed by Me (I reviewed the radiologist report at 6516) Diagonstic Imaging: CT Plain Films/CT/US/NM/MRI: abdomen, pelvis Comments NAME: TOMAS TELLO [facility] REC#: [id number] PT STATUS: REG ER : 1940 PHYSICIAN: ALESSANDRO JEAN MD ADMIT DATE: 02/19/23/ER FS Draft Date of Exam:02/19/23 CT ABDOMEN/PELVIS W PROCEDURE: CT abdomen and pelvis with contrast. TECHNIQUE: Multiple contiguous axial images were obtained through the abdomen and pelvis after administration of intravenous contrast. Auto Exposure Controls were utilized during the CT exam to meet ALARA standards for radiation dose reduction. All CT scans use one or more of the following dose optimizing techniques: automated exposure control, MA and/or KvP adjustment based on patient size and exam type or iterative reconstruction. INDICATION: Nausea and vomiting as well as fatigue and generalized weakness. FINDINGS: Lung bases are clear. There is some minimal atelectasis or scarring in the right lower lobe. No discrete liver mass is detected. Gallbladder is surgically absent. The intrahepatic and extrahepatic bile ducts are somewhat prominent, likely owing to post cholecystectomy. Pancreas is atrophic. The spleen is unremarkable. No adrenal mass is detected. Kidneys are without calculi or hydronephrosis. There is a 2 cm exophytic lesion arising posteriorly from the right kidney which is slightly more dense than a simple cyst. No other renal lesions are seen. Aorta is heavily calcified but nonaneurysmal. There is a small fat-containing umbilical hernia. Bowel loops are nonobstructed. There is diverticulosis of the sigmoid and descending colon but no evidence of acute diverticulitis. Small bowel is normal in caliber. There is no free fluid or fluid collection. Bladder is unremarkable. Uterus appears to be surgically absent. IMPRESSION: 1. Indeterminate right renal lesion. Continued follow-up to confirm stability would be recommended. 2. Fat-containing umbilical hernia. 3. Uncomplicated diverticulosis. 4. No acute feature in the abdomen or pelvis is identified. Dictated on workstation # [id number] Dict: 02/19/23 1728 Trans: 02/19/23 1737 [id number] Interpreted by: DELIO COATES MD Electronically signed by: Reviewed: Reviewed by Me Departure Communication (Admissions) Time/Spoke to Admitting Phy: 19:15 After initially talking with Dr. Park I discussed with the patient the options of taking oral antibiotics at home and trying fluids and nausea medicine versus observation admission for her weakness with bacteria in the urine. Patient and granddaughter who is her main caregiver stated that she is still too weak to get up and move and felt like she was too weak to go home. I called Dr. Park back and she was agreeable to an observation admission overnight to the IV fluid and give some time for the antibiotics. We will also do a sliding scale insulin orders she since her sugars were 291. Will place bridge orders and work on [facility] bed for the patient Impression Primary Impression: Cystitis without hematuria Additional Impressions: Nausea and vomiting Qualified Codes: R11.14 - Bilious vomiting Chills Generalized weakness Labile hypertension Disposition: 30 STILL A PATIENT Condition: Stable Admissions Decision to Admit Reason: Admit from ER (General) Decision to Admit/Date: Feb 19, 2023 Time/Decision to Admit Time: 19:15 Departure-Patient Inst. Referrals: ALVINO KOHLER APRN (PCP) Primary Care Physician [facility] [place]) Primary Care Physician ALESSANDRO JEAN MD Feb 19, 2023 15:48
[2023-02-19 15:56] LABS: BASOPHILS % (AUTO) 0 % (0-10); EOSINOPHILS # (AUTO) 0.4 10^3/uL (0.0-0.3); EOSINOPHILS % (AUTO) 4 % (0-10); HEMATOCRIT 36 % (35-52); HEMOGLOBIN 11.6 g/dL (11.5-16.0); LYMPHOCYTES # (AUTO) 3.2 10^3/uL (1.0-4.0); LYMPHOCYTES % (AUTO) 36 % (12-44); MEAN CORPUSCULAR HEMOGLOBIN 30 pg (25-34); MEAN CORPUSCULAR HGB CONC 33 g/dL (32-36); MEAN CORPUSCULAR VOLUME 91 fL (80-99); MEAN PLATELET VOLUME 9.9 fL (9.0-12.2); MONOCYTES # (AUTO) 0.5 10^3/uL (0.0-1.0); MONOCYTES % (AUTO) 6 % (0-12); NEUTROPHILS # (AUTO) 4.8 10^3/uL (1.8-7.8); NEUTROPHILS % (AUTO) 54 % (42-75); PLATELET COUNT 243 10^3/uL (130-400); WHITE BLOOD COUNT 8.9 10^3/uL (4.3-11.0)
[2023-02-19 15:57] LABS: BILIRUBIN,URINE NEGATIVE (NEGATIVE); CLARITY,URINE CLEAR; COLOR,URINE YELLOW; GLUCOSE, URINE (UA) 2+ (NEGATIVE); KETONES,URINE NEGATIVE (NEGATIVE); LEUKOCYTE ESTERASE ,URINE NEGATIVE (NEGATIVE); NITRITE,URINE NEGATIVE (NEGATIVE); PROTEIN,URINE NEGATIVE (NEGATIVE)
--- NOTE | 2023-02-19 16:00 | Diagnostic Imaging Report ---
PROCEDURE: CT head without contrast. TECHNIQUE: Multiple contiguous axial images were obtained through the brain without the use of intravenous contrast. Auto Exposure Controls were utilized during the CT exam to meet ALARA standards for radiation dose reduction. INDICATION: Head pain, fever, weakness. COMPARISON: Exam compared with head CT of 02/16/2021. FINDINGS: Mild senescent cortical atrophy, stable. There is no hydrocephalus. There is no focal or generalized cerebral edema. No calvarial fracture deformity. The sinuses are clear. The orbital contents are unremarkable. No hemorrhage or abnormal extra-axial fluid collection. No focal or generalized cerebral edema. No acute finding. IMPRESSION: Stable chronic senescent changes. No hemorrhage, edema, or acute-appearing abnormalities. Dictated by: Dictated on workstation # [id number]
--- NOTE | 2023-02-19 16:01 | Diagnostic Imaging Report ---
INDICATION: Cough and fever. COMPARISON: 07/26/2021. FINDINGS: There is cardiomegaly. The lungs are clear. There is no pleural effusion or pneumothorax. The mediastinum is unremarkable. There is no pneumothorax. IMPRESSION: No acute cardiopulmonary abnormality. Cardiomegaly. Dictated by: Dictated on workstation # [id number]
[2023-02-19 16:19] LABS: BACTERIA,URINE MODERATE /HPF
[2023-02-19 16:21] LABS: BILIRUBIN,TOTAL 0.3 MG/DL (0.1-1.0); CALCIUM 8.9 MG/DL (8.5-10.1); CREATININE SERUM 0.83 MG/DL (0.60-1.30); POTASSIUM 4.6 MMOL/L (3.6-5.0)
[2023-02-19 16:22] LABS: ALBUMIN 3.3 GM/DL (3.2-4.5); TOTAL PROTEIN 6.6 GM/DL (6.4-8.2)
[2023-02-19] MEDS ORDERED: IOHEXOL 350 MG/ML 100 ML (OMNIPAQUE 350) VIAL IV ONE (17:00)
[2023-02-19] MEDS ORDERED: NS 100 ML (IVPB) BAG IV ONE (17:00)
[2023-02-19] MEDS ORDERED: HOLD METFORMIN - RECEIVED CONTRAST 20 ML VIAL IV SCH (17:00)
--- NOTE | 2023-02-19 17:37 | Diagnostic Imaging Report ---
PROCEDURE: CT abdomen and pelvis with contrast. TECHNIQUE: Multiple contiguous axial images were obtained through the abdomen and pelvis after administration of intravenous contrast. Auto Exposure Controls were utilized during the CT exam to meet ALARA standards for radiation dose reduction. All CT scans use one or more of the following dose optimizing techniques: automated exposure control, MA and/or KvP adjustment based on patient size and exam type or iterative reconstruction. INDICATION: Nausea and vomiting as well as fatigue and generalized weakness. FINDINGS: Lung bases are clear. There is some minimal atelectasis or scarring in the right lower lobe. No discrete liver mass is detected. Gallbladder is surgically absent. The intrahepatic and extrahepatic bile ducts are somewhat prominent, likely owing to post cholecystectomy. Pancreas is atrophic. The spleen is unremarkable. No adrenal mass is detected. Kidneys are without calculi or hydronephrosis. There is a 2 cm exophytic lesion arising posteriorly from the right kidney which is slightly more dense than a simple cyst. No other renal lesions are seen. Aorta is heavily calcified but nonaneurysmal. There is a small fat-containing umbilical hernia. Bowel loops are nonobstructed. There is diverticulosis of the sigmoid and descending colon but no evidence of acute diverticulitis. Small bowel is normal in caliber. There is no free fluid or fluid collection. Bladder is unremarkable. Uterus appears to be surgically absent. IMPRESSION: 1. Indeterminate right renal lesion. Continued follow-up to confirm stability would be recommended. 2. Fat-containing umbilical hernia. 3. Uncomplicated diverticulosis. 4. No acute feature in the abdomen or pelvis is identified. Dictated by: Dictated on workstation # [id number]
[2023-02-19] MEDS ORDERED: hydrALAZINE (APESOLINE) 20 MG/ML VIAL IV STA (18:13)
[2023-02-19] MEDS ORDERED: cefTRIAXone IV/IM 1,000 MG in NS (IVPB) 50 ML IV STA (18:21)
[2023-02-19] MEDS ORDERED: METOCLOPRAMIDE INJ 10 MG/2 ML (REGLAN) IVP STA (19:19)
[2023-02-19 20:50] VITALS: BP 186/97
[2023-02-19] MEDS ORDERED: METOCLOPRAMIDE INJ 10 MG/2 ML (REGLAN) IV PRN (21:45)
[2023-02-19] MEDS: NS IV 1000 ML 1,000 ML IV SCH (21:52)
[2023-02-19 22:13] VITALS: BP 164/81
[2023-02-19] MEDS ORDERED: RT-ALBUTEROL/IPRATROPIUM 3 ML (DUONEB) VIAL INH PRN (22:30)
[2023-02-19 23:58] VITALS: BP 135/63
[2023-02-20 03:51] VITALS: BP 141/56
[2023-02-20 05:42] LABS: BASOPHILS % (AUTO) 0 % (0-10); EOSINOPHILS # (AUTO) 0.5 10^3/uL (0.0-0.3); EOSINOPHILS % (AUTO) 5 % (0-10); HEMATOCRIT 35 % (35-52); HEMOGLOBIN 11.6 g/dL (11.5-16.0); LYMPHOCYTES % (AUTO) 34 % (12-44); MEAN CORPUSCULAR HEMOGLOBIN 30 pg (25-34); MEAN CORPUSCULAR HGB CONC 33 g/dL (32-36); MEAN CORPUSCULAR VOLUME 92 fL (80-99); MEAN PLATELET VOLUME 9.6 fL (9.0-12.2); MONOCYTES # (AUTO) 0.6 10^3/uL (0.0-1.0); MONOCYTES % (AUTO) 7 % (0-12); NEUTROPHILS # (AUTO) 4.7 10^3/uL (1.8-7.8); NEUTROPHILS % (AUTO) 54 % (42-75); PLATELET COUNT 260 10^3/uL (130-400); WHITE BLOOD COUNT 8.8 10^3/uL (4.3-11.0)
[2023-02-20 05:57] LABS: POTASSIUM 4.3 MMOL/L (3.6-5.0)
[2023-02-20 05:58] LABS: CALCIUM 8.6 MG/DL (8.5-10.1)
[2023-02-20 06:03] LABS: CREATININE SERUM 0.87 MG/DL (0.60-1.30)
[2023-02-20] MEDS: inSUlin ASPART (NovoLOG) 1 UNIT/0.01 ML (CHARGE PER UNIT) SC SCH ×2 (06:15→11:44)
[2023-02-20] MEDS ORDERED: ACETAMINOPHEN 500 MG TAB (TYLENOL) PO PRN (06:30)
[2023-02-20 07:19] VITALS: BP 131/59
[2023-02-20] MEDS ORDERED: PANTOPRAZOLE 40 MG (PROTONIX) VIAL IV SCH (09:00)
[2023-02-20] MEDS: NS IV 1000 ML 1,000 ML IV SCH (09:29)
[2023-02-20] MEDS ORDERED: [UNRECOGNIZED DRUG - CODE] OU (10:31)
[2023-02-20] MEDS ORDERED: MULT-1136 PO (10:31)
[2023-02-20] MEDS ORDERED: DULA1.5P2 SQ (10:31)
[2023-02-20] MEDS ORDERED: INSU100I21 SC (10:31)
[2023-02-20] MEDS ORDERED: POTA99TA17 PO (10:31)
[2023-02-20] MEDS ORDERED: PYRI50TA PO (10:31)
[2023-02-20] MEDS ORDERED: CETI10TA17 PO (10:31)
[2023-02-20] MEDS ORDERED: TRAM50TA3 PO (10:31)
[2023-02-20] MEDS ORDERED: MAGN400T39 PO (10:31)
[2023-02-20] MEDS ORDERED: IBUP-1780 PO (10:31)
[2023-02-20] MEDS ORDERED: NYST60PO TP (10:31)
[2023-02-20] MEDS ORDERED: ACET-2267 PO (10:31)
[2023-02-20] MEDS ORDERED: CEPH500C PO (10:37)
[2023-02-20] MEDS ORDERED: ONDA4TAB11 SL (10:37)
--- NOTE | 2023-02-20 10:37 | Short Stay Summary ---
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 She was able to walk with walker 30 feet with PT, uses walker at baseline at home and reported she felt near typical strength. She had been having nausea/vomiting for about 4 days prior to admit, reports no nausea medicine at home. She does take Trulicity and has nausea at least 3 days after that, also noted that the medication doesn't always get to her on time, so she may miss 2-3 weeks and then take it again. She was discharged with cephalexin based on prior urine culture (current pending) and ondansetron for nausea. She was noted to have left arm tremor at rest during exam, stated she has had shaking on and off for a month or so, has not yet seen her doctor about it. Encouraged to follow up. Labs and Pending Lab Test: Laboratory Tests 02/19/23 15:15: White Blood Count 8.9, Red Blood Count 3.91, Hemoglobin 11.6, Hematocrit 36, Mean Corpuscular Volume 91, Mean Corpuscular Hemoglobin 30, Mean Corpuscular Hemoglobin Concent 33, Red Cell Distribution Width 12.9, Platelet Count 243, Mean Platelet Volume 9.9, Immature Granulocyte % (Auto) 0, Neutrophils (%) (Auto) 54, Lymphocytes (%) (Auto) 36, Monocytes (%) (Auto) 6, Eosinophils (%) (Auto) 4, Basophils (%) (Auto) 0, Neutrophils # (Auto) 4.8, Lymphocytes # (Auto) 3.2, Monocytes # (Auto) 0.5, Eosinophils # (Auto) 0.4H, Basophils # (Auto) 0.0, Immature Granulocyte # (Auto) 0.0, Sodium Level 138, Potassium Level 4.6, Chloride Level 99, Carbon Dioxide Level 28, Anion Gap 11, Blood Urea Nitrogen 16, Creatinine 0.83, Estimat Glomerular Filtration Rate 70, BUN/Creatinine Ratio 19, Glucose Level 291H, Lactic Acid Level 1.61, Calcium Level 8.9, Corrected Calcium 9.5, Total Bilirubin 0.3, Aspartate Amino Transf (AST/SGOT) 19, Alanine Aminotransferase (ALT/SGPT) 18, Alkaline Phosphatase 108, C-Reactive Protein 10.89H, Total Protein 6.6, Albumin 3.3 02/19/23 15:41: Urine Color YELLOW, Urine Clarity CLEAR, Urine pH 7.0, Urine Specific [place] <=1.005, Urine Protein NEGATIVE, Urine Glucose (UA) 2+H, Urine Ketones NEGATIVE, Urine Nitrite NEGATIVE, Urine Bilirubin NEGATIVE, Urine Urobilinogen 0.2, Urine Leukocyte Esterase NEGATIVE, Urine RBC (Auto) TRACE-IH, Urine RBC 2-5H, Urine WBC 2-5, Urine Squamous Epithelial Cells 2-5, Urine Crystals NONE, Urine Ba cteria MODERATEH, Urine Casts NONE, Urine Mucus NEGATIVE, Urine Culture Indicated YES 02/19/23 21:51: Glucometer 185H 02/20/23 05:26: Glucometer 183H 02/20/23 05:30: White Blood Count 8.8, Red Blood Count 3.83, Hemoglobin 11.6, Hematocrit 35, Mean Corpuscular Volume 92, Mean Corpuscular Hemoglobin 30, Mean Corpuscular Hemoglobin Concent 33, Red Cell Distribution Width 13.0, Platelet Count 260, Mean Platelet Volume 9.6, Immature Granulocyte % (Auto) 0, Neutrophils (%) (Auto) 54, Lymphocytes (%) (Auto) 34, Monocytes (%) (Auto) 7, Eosinophils (%) (Auto) 5, Basophils (%) (Auto) 0, Neutrophils # (Auto) 4.7, Lymphocytes # (Auto) 3.0, Monocytes # (Auto) 0.6, Eosinophils # (Auto) 0.5H, Basophils # (Auto) 0.0, Immature Granulocyte # (Auto) 0.0, Sodium Level 140, Potassium Level 4.3, Chloride Level 103, Carbon Dioxide Level 29, Anion Gap 8, Blood Urea Nitrogen 11, Creatinine 0.87, Estimat Glomerular Filtration Rate 66, BUN/Creatinine Ratio 13, Glucose Level 184H, Calcium Level 8.6 Home Meds Active Reported Tylenol Extra Strength (Acetaminophen) 500 Mg Tablet 1,000 Mg PO Q8H PRN Clear Eyes Itchy Eye Rlf Drops (Naphazoline HCl/Zn Sulf/Gly) 0.012 %-0.25 %-0.25 % Drops 1-2 Drops OU DAILY Cetirizine HCl 10 Mg Tablet 10 Mg PO DAILY Vitamin B-6 (Pyridoxine HCl) 50 Mg Tablet 50 Mg PO DAILY Potassium Gluconate 595 MG (Potassium Gluconate) 595 Mg (99 Mg) Tablet 99 Mg PO Q48H ALTERNATES MAGNESIUM AND POTASSIUM Magnesium (Magnesium Oxide) 400 Mg Magnesium Tablet 400 Mg PO Q48H ALTERNATES MAGNESIUM AND POTASSIUM Multivitamin 1 Each Tablet 1 Each PO DAILY Tramadol HCl 50 Mg Tablet 50 Mg PO BID PRN Ibuprofen 800 Mg Tablet 800 Mg PO TID PRN Humalog Mix 75-25 Kwikpen (Insulin NPL/Insulin Lispro) 100 Unit/Ml (75-25) Insuln.pen Units SC AC USES PER SLIDING SCALE Trulicity (Dulaglutide) 1.5 Mg/0.5 Ml Pen.injctr 1.5 Mg SQ TUE Nystop (Nystatin) 100,000 Unit/Gram Powder 1 Applic TP Q48H AFTER SHOWERING APPLIES UNDER EACH BREAST, UNDER LOWER STOMACH, IN EACH ARM PIT AND ANY OTHER AREA OF SKIN IRRITATION Assessment/Pt Instructions Follow up with primary provider within a week of discharge. Discharge Instructions Discharge Diet: Eat Small Frequent Meals, ADA Diet Activity as Tolerated: Yes Discharge Physical Examination General Appearance: Alert, No Acute Distress Respiratory: Clear to Auscultation, Normal Air Movement Cardiovascular: Regular Rate, No Murmurs Abdominal: Normal Bowel Sounds, Soft Extremities: No Edema Neuro: Normal Speech, Other (tremor of left hand at rest lying in bed with arm above head) Psych/Mental Status: Mental Status NL Allergies: Coded Allergies: levofloxacin (Unverified Allergy, Intermediate, HIVES, ITCHING, 04/14/19) azithromycin (Verified Allergy, Unknown, 07/26/21) metronidazole (Unverified Adverse Reaction, Mild, N/V, 12/16/18) latex (Unverified Adverse Reaction, Unknown, hives, 12/16/18) Discharge Summary Date of Admission Feb 19, 2023 at 20:45 Date of Discharge GIL GHOTRA MD Feb 20, 2023 10:37
[2023-02-20 11:21] VITALS: BP 123/59
--- NOTE | 2023-02-20 12:40 | Physical Therapy Evaluation ---
PT Evaluation-General Medical Diagnosis Admission Date Feb 19, 2023 at 20:45 Medical Diagnosis: UTI, Generalized Weakness Onset Date: Feb 19, 2023 Therapy Diagnosis Therapy Diagnosis: Gait Deficit, Strength deficit Height/Weight Height (Feet): 5 Height (Inches): 6.00 Weight (Pounds): 272 Weight (Ounces): 3.2 Precautions Precautions/Isolations: Fall Prevention, Standard Precautions Weight Bear Status Right Lower Extremity: Right Full Weight Bearing Left Lower Extremity: Left Full Weight Bearing Referral Physician: Dr. Park Reason for Referral: Evaluation/Treatment Medical History Pertinent Medical History: COPD, DM, HTN, Neuropathy, OA Reviewed History: Yes Social History Home: Single Level Current Living Status: Children Entry Into Home: Level Entry PT Steps Into Home: 0 PT Steps Inside Home: 0 Prior Prior Level of Function SCALE: Activities may be completed with or without assistive devices. 2-Sqdjhpfump-ecsvech completes the activity by him/herself with no assistance from a helper. 5-Set-up or Clean-up Assistance-helper sets up or cleans up; patient completes activity. [place] assists only prior to or following the activity. 4-Supervision or Touching Assistance-helper provides verbal cues and/or touching/steadying and/or contact guard assistance as patient completes activity. Assistance may be provided throughout the activity or intermittently. 3-Partial/Moderate Assistance-helper does LESS THAN HALF the effort. [place] lifts, holds or supports trunk or limbs, but provides less than half the effort. 2-Substantial/Maximal Assistance-helper does MORE THAN HALF the effort. [place] lifts or holds trunk or limbs and provides more than half the effort. 4-Lsjcbnlir-guxpve does ALL the effort. Patient does none of the effort to complete the activity. Or, the assistance of 2 or more helpers is required for the patient to complete the activity. If activity was not attempted, code reason: 7-Patient Refused. 9-Not Applicable-not attempted and the patient did not perform the activity before the current illness, exacerbation or injury. 10-Not Attempted due to Environmental Limitations-(lack of equipment, weather restraints, etc.). 88-Not Attempted due to Medical Conditions or Safety Concerns. Bed Mobility: 6 Transfers (B,C,W/C): 6 Gait: 6 Stairs: 9 Wheelchair Mobility: 9 Indoor Mobility (Ambulation): Independent Stairs: Not [place] Prior Devices Use: Walker PT Evaluation-Current Subjective Patient lying supine in bed upon PT arrival, agreeable to treatment. Patient rates pain at 5/10, headache. Objective Patient Orientation: Person, Place, Time, Situation ROM/Strength ROM Lower Extremities WFLs BLEs all planes Strength Lower Extremities 3+/5 BLEs all planes Sensory Vision: Wears Glasses Hearing: Functional Sensation Right Lower Extremit: Intact Sensation Left Lower Extremity: Intact Transfers Roll Left to Right (QC): 4 Sit to Lying (QC): 4 Lying to Sitting/Side of Bed(Q: 4 Sit to Stand (QC): 3 Chair/Ypl-kq-Vzxxc Xfer(QC): 3 Gait Does the Patient Walk?: Yes Mode of Locomotion: Walk Anticipated Mode of Locomotion: Walk Walk 10 feet (QC): 3 Distance: 30 Gait Assistive Device: FWW Balance Sitting Static: Normal Sitting Dynamic: Normal Standing Static: Fair Standing Dynamic: Fair Assessment/Needs Patient tolerated treatment well. Patient performs all bed mobility with SBA and all transfers with min A. Patient ambulates 30' with FWW, with min A and verbal cues for safety, progression, posture, balance and conservation of energy. Patient in bed post treatment with all needs met, nursing notified, call light in hand and nurse in room. Rehab Potential: Good PT Interactive Media Director Goals Interactive Media Director Goals PT Interactive Media Director Goals Time Frame: Mar 30, 2023 Roll Left & Right (QC): 6 Sit to Lying (QC): 6 Lying-Sitting on Side/Bed(QC): 6 Sit to Stand (QC): 6 Chair/Efo-on-Pdfnv Xfer(QC): 6 Toilet Transfer (QC): 6 Does the Patient Walk: Yes Walk 10 feet (QC): 6 Walk 50ft with 2 Turns (QC): 6 Walk 150 ft (QC): 4 PT Plan Problem List Problem List: Activity Tolerance, Functional Strength, Safety, Balance, Gait, Transfer, Bed Mobility, ROM Treatment/Plan Treatment Plan: Continue Plan of Care Treatment Plan: Bed Mobility, Education, Functional Activity Robert, Functional Strength, Group Therapy, Gait, Safety, Therapeutic Exercise, Transfers Treatment Duration: Mar 30, 2023 Frequency: 6 times per week Estimated Hrs Per Day: .25 hour per day Safety Risks/Education Patient Education: Gait Training Teaching Recipient: Patient Teaching Methods: Demonstration, Discussion Response to Teaching: Reinforcement Needed Time Time In: 918 Time Out: 930 DATE: Feb 20, 2023 Total Billed Treatment Time: 12 Total Billed Treatment Visit, PATRICE AL PT Feb 20, 2023 12:40
[2023-02-20] MEDS ORDERED: cefTRIAXone 1 GM/NS 50 ML IVPB IV SCH ×2 (18:30)
== END 2023-02-20 10:35 | disposition home health service (06) ==
LOC: EDUNIT# 15:23 → ER FS 15:24 → UNDOADMOB 20:45 → 4TH 20:45 → UNDODISOB 02-20 10:35
PROVIDERS: ADMIT Family Medicine; ATTEND Family Medicine
DX: N30.90 Cystitis, unspecified without hematuria (principal); R53.1 Weakness; R11.2 Nausea with vomiting, unspecified; E11.319 Type 2 diabetes mellitus with unspecified diabetic retinopathy without macular edema; R25.1 Tremor, unspecified; J44.9 Chronic obstructive pulmonary disease, unspecified; I10 Essential (primary) hypertension; Z79.4 Long term (current) use of insulin; Z79.899 Other long term (current) drug therapy; Z88.1 Allergy status to other antibiotic agents; Z91.09 Other allergy status, other than to drugs and biological substances
CPT/HCPCS: 36415; 51701; 70450; 71045; 74177; 80048; 80053; 81000; 82947; 83605; 85025; 86141; 87040; 87077; 87088; 87186; 96375; 96376; G0378; Q9967